=== PATIENT | male | born 1955 | race Caucasian/White ===

== ENCOUNTER 2017-09-10 22:27 | Inpatient (IN) ==
[2017-09-10] MEDS ORDERED: Ipratropium/Albuterol Neb 3 ML IH ONE (22:39)
--- NOTE | 2017-09-10 22:47 | Emergency Department Note ---
Disposition Clinical Impression: CAP (community acquired pneumonia) Qualifiers: Laterality: right Lung location: middle lobe of lung Qualified Code(s): J18.1 - Lobar pneumonia, unspecified organism Disposition: Admitted As Inpatient Condition: Fair Referrals: Deonte Kauffman Jr, MD [Partnered Physician] - Forms: ED Satisfaction Letter SOB HPI - General Chief Complaint: ED Shortness of Breath/Dyspnea Stated Complaint: CONNIE Time Seen by Provider: 09/10/17 22:39 Source: patient, family, EMS Mode of arrival: EMS Limitations: no limitations Nursing Notes Reviewed: Yes Vital Signs Reviewed: Yes - History of Present Illness Pt Subjective Complaint: shortness of breath, cough Onset (ago): week(s) (1) Context: recent illness Severity: moderate Consistency/Duration: gradually worsening Improves with: rest, upright position Worsens with: lying flat, exertion, coughing Known history of: diabetes, other (Small cell lung cancer - in remission, status post chemotherapy and radiation therapy) Associated symptoms: Reports: fever, cough, sputum production, orthopnea, other (Weak all over). Denies: chest pain, pain with inspiration, wheezing, lower extremity pain, polyuria, polydipsia, parasthesias, palpitations, hemoptysis, diaphoresis, nausea/vomiting, syncope, abdominal pain, rash Treatment prior to arrival: other ("mucinex") Cough present: Yes Cough Description: Voluntary, Involuntary, Non-Productive, Productive, Weak, Rattling, Hoarse Cough Frequency: Intermittent Sputum production: Yes Sputum Amount: Scant Sputum Color: White - Related Data Home oxygen amount: none Home Medications Medication Instructions Recorded Confirmed Albuterol Sulfate [Proair Hfa] 1 puff IH PRN PRN 05/21/15 04/04/17 Budesonide/Formoterol Fumarate 2 puff IH BID 05/21/15 04/04/17 [Symbicort 160-4.5 Mcg Inhaler] Metformin [Glucophage] 500 mg PO DAILY 05/21/15 04/04/17 PredniSONE [Deltasone] 10 mg PO DAILY 07/06/16 04/04/17 Previous Rx's Medication Instructions Recorded Oxycodone HCl 0.5 - 1 tab PO Q4H PRN #120 tablet 03/20/17 Cyclobenzaprine [Flexeril] 10 mg PO Q6H PRN #60 tablet 04/04/17 Levofloxacin [Levaquin] 500 mg PO DAILY #7 tablet 04/04/17 OxyCODONE Immed Rel [Roxicodone 5 5 mg PO Q8HR PRN #60 tablet 04/10/17 MG] OxyCODONE Immed Rel [Roxicodone 5 2 tab PO Q8HR PRN #90 tablet 04/21/17 MG] Allergies Allergy/AdvReac Type Severity Reaction Status Date / Time No Known Allergies Allergy Verified 09/10/17 22:38 All systems ED: reviewed and negative except as stated. Review of Systems: As Per HPI Constitutional: Reports: as per HPI, fever, chills, weakness. Denies: weight change, night sweats Eyes: Denies: eye discharge ENT ED: Denies: ear pain, throat pain, congestion, dysphagia Cardiovascular: Reports: dyspnea on exertion, orthopnea. Denies: chest pain, palpitations, edema ("No more than usual - a little in feet and ankles") Respiratory: Reports: as per HPI, cough, dyspnea, sputum production. Denies: wheezes, hemoptysis, stridor Gastrointestinal: Denies: abdominal pain, nausea, vomiting, diarrhea Musculoskeletal: Reports: back pain ("Chronic - no worse than usual"). Denies: neck pain, joint swelling, arthralgia Integumentary: Denies: rash Neurological: Reports: weakness ("all over"). Denies: headache, numbness, paresthesias, confusion, vertigo Endocrine: Reports: fatigue Hematological/Lymphatic: Denies: easy bleeding, easy bruising, lymphadenopathy Past Medical History - Past Medical History Attestation: Yes The following information was validated with the patient. Source: patient, obtained from family Medical history: Reports: atrial fibrillation, cancer, COPD, diabetes, osteoporosis Psychiatric history: Reports: no psych history - Social History Smoking Status: Current every day smoker Smokeless Tobacco Status: No Alcohol use: Reports: none Drug use: Reports: none Physical Exam - General Limitations: no limitations General appearance: alert, in no apparent distress - Head Head exam: atraumatic, normocephalic, normal inspection - Eye Eye exam: Present: normal appearance, PERRL. Absent: scleral icterus, conjunctival injection, periorbital swelling, periorbital tenderness - ENT ENT exam: mucous membranes dry - Neck Neck exam: Present: normal inspection, full ROM, trachea midline. Absent: meningismus, lymphadenopathy - Chest Chest inspection: Present: normal inspection, symmetric chest wall rise. Absent : tenderness - Respiratory Respiratory exam: Present: respiratory distress (mildly tachypneic). Absent: normal lung sounds bilaterally, wheezes, stridor, accessory muscle use, prolonged expiratory phase - Expanded Respiratory Exam Location: rhonchi: Right, Upper, Lower, decreased breath sounds: Right, Lower - Cardiovascular Cardiovascular exam: Present: normal rhythm, tachycardia, normal heart sounds. Absent: systolic murmur, diastolic murmur - Abdominal Exam Abdominal exam: Present: soft, Non-Tender. Absent: distention, guarding, rebound, rigidity, ascites, mass - Extremities Exam Extremities exam: Present: full ROM, normal capillary refill, pedal edema (1+ non-pitting bilateral feet and ankles). Absent: tenderness - Back Exam Back exam: Present: normal inspection. Absent: tenderness, rashes - Neurological Exam Neurological exam: Present: alert, oriented X3, CN II-XII intact - Psychiatric Psychiatric exam: Present: normal affect, normal mood - Skin Skin exam: Present: warm, dry, intact, normal color Course Course Narrative: 62-year-old male with history of small cell lung cancer in remission for several years, status post chemotherapy and radiation as well as diabetes on metformin. Patient presents for evaluation of cough, fever, shaking chills, shaking chills, shortness of breath, generalized malaise and weakness for about a week. The cough was initially productive of thick white sputum, but for the past two days, it has not been productive and he has felt short of breath. He denies hemoptysis and has no history of DVT or PE. He has had no recent surgery or procedure. He denies chest pain, leg pain or swelling, nausea, vomiting, diarrhea or abdominal pain. He has had weakness in his legs as well as generalized weakness all day today. This is what finally convinced him to come in for evaluation. On exam, he has a fever, is tachypneic, tachycardic and hypoxic. He has coarse rhonchi in the right middle and lower lung. He is tachypneic, but is able to speak in short complete sentences. He appears uncomfortable but nontoxic. Blood pressure is normal. He denies chest pain, leg or abdominal pain. He does have chronic back pain, however, it is no worse than usual. Labs, EKG and x-ray have been ordered. I suspect pneumonia. Patient's EKG shows sinus tachycardia with a normal rhythm. No ST elevation or depression. Morphology is unchanged compared to previous. Labs indicate an acute infectious process with an elevated white blood cell count of 20 and a prevalence of neutrophils. Blood sugar is elevated. Lactate is 2.1. LFTs are mildly elevated, but have been in the past as well. Troponin is normal. Chest x-ray was read as chronic changes, possible infiltrate could be present. Blood cultures were drawn and antibiotics were started. Patient continues to be tachycardic in the one teens to 120s. He has had 1-1/2 L of fluid. Fever has come down and respiratory rate has improved, however he is still hypoxic - 92% on 4 L nasal cannula. Blood pressure is stable. Given the patient's multiple comorbidities and oxygen requirement, we will admit for further evaluation and management. Case has been discussed with Dr. Krishna. He has had face-to- face time with the patient and agrees with the assessment and plan. Vital Signs Temperature 100.2 F H 09/10/17 22:28 Pulse Rate 133 09/10/17 22:28 Respiratory Rate 24 09/10/17 22:28 Blood Pressure 119/84 09/10/17 22:28 O2 Sat by Pulse Oximetry 92 09/10/17 22:28 Temperature 100.2 F H 09/10/17 22:28 Pulse Rate 133 09/10/17 22:28 Respiratory Rate 24 09/10/17 22:28 Blood Pressure 119/84 09/10/17 22:28 O2 Sat by Pulse Oximetry 92 09/10/17 22:28 Oxygen Delivery Oxygen Delivery Nasal Cannula Shortness of Breath/Dyspnea - Medical Records Medical records reviewed: Yes I reviewed the patient's medical records. - Lab Data Lab results reviewed: Yes I reviewed the patient's lab results. Lab results narrative: Laboratory Last Values WBC 20.5 K/mcL (4.3-11.1) H 09/10/17 23:10 RBC 4.58 M/mcL (4.19-5.50) 09/10/17 23:10 Hgb 15.2 g/dL (12.9-16.9) 09/10/17 23:10 Hct 44.0 % (37.5-50.1) 09/10/17 23:10 MCV 96.1 fL (83.0-100.0) 09/10/17 23:10 MCH 33.2 pg (28.0-33.3) 09/10/17 23:10 MCHC 34.5 g/dL (31.6-35.5) 09/10/17 23:10 RDW 12.5 % (11.5-14.5) 09/10/17 23:10 Plt Count 230 K/mcL (140-400) 09/10/17 23:10 MPV 9.1 fL (9.4-12.4) L 09/10/17 23:10 Immature Gran % 0.6 % (0-4) 09/10/17 23:10 Seg Neutrophils % 90.8 % 09/10/17 23:10 Lymphocytes % 3.2 % 09/10/17 23:10 Monocytes % 5.2 % 09/10/17 23:10 Eosinophils % 0.1 % 09/10/17 23:10 Basophils % 0.1 % 09/10/17 23:10 Neutrophils # 18.6 K/mcL (1.6-8.9) H 09/10/17 23:10 Lymphocytes # 0.7 K/mcL (0.6-4.6) 09/10/17 23:10 Monocytes # 1.1 K/mcL (0.0-1.3) 09/10/17 23:10 Eosinophils # 0.0 K/mcL (0.0-0.6) 09/10/17 23:10 Basophils # 0.0 K/mcL (0.0-0.2) 09/10/17 23:10 PT 12.6 Seconds (9.4-12.1) H 09/10/17 23:10 INR 1.2 09/10/17 23:10 APTT 29.8 Seconds (26.0-36.0) 09/10/17 23:10 Sodium 134 mEq/L (136-145) L 09/10/17 23:10 Potassium 4.3 mEq/L (3.5-4.5) 09/10/17 23:10 Chloride 102 mEq/L (98-109) 09/10/17 23:10 Carbon Dioxide 22 mEq/L (19-29) 09/10/17 23:10 BUN 15 mg/dL (8-26) 09/10/17 23:10 Creatinine 0.87 mg/dL (0.72-1.25) 09/10/17 23:10 Est GFR ( Amer) > 60 (> 60) 09/10/17 23:10 Est GFR (Non-Af Amer) > 60 (> 60) 09/10/17 23:10 BUN/Creatinine Ratio 17 (6-26) 09/10/17 23:10 Glucose 279 mg/dL (70-99) H 09/10/17 23:10 Calculated Osmolality 289 (280-300) 09/10/17 23:10 Lactic Acid 2.1 mmol/L (0.5-2.2) 09/10/17 23:10 Calcium 9.2 mg/dL (8.6-10.8) 09/10/17 23:10 Total Bilirubin 0.6 mg/dL (0.2-1.2) 09/10/17 23:10 Direct Bilirubin 0.3 mg/dL (0.0-0.5) 09/10/17 23:10 Indirect Bilirubin 0.3 mg/dL (0.0-1.2) 09/10/17 23:10 AST 33 Units/L (5-34) 09/10/17 23:10 ALT 58 Units/L (0-55) H 09/10/17 23:10 Alkaline Phosphatase 92 Units/L (38-126) 09/10/17 23:10 Troponin I 0.00 ng/mL (0-0.03) 09/10/17 23:10 B-Natriuretic Peptide 35 pg/mL (0-100) 09/10/17 23:10 Serum Total Protein 7.8 g/dL (6.0-8.3) 09/10/17 23:10 Albumin 3.0 g/dL (3.5-5.0) L 09/10/17 23:10 Globulin 4.8 g/dL (2.4-3.5) H 09/10/17 23:10 Albumin/Globulin Ratio 0.6 (1.1-2.2) L 09/10/17 23:10 Result diagrams: 09/10/17 23:10 Lab Results 09/10/17 09/10/17 Range/Units 23:10 23:10 WBC 20.5 H (4.3-11.1) K/mcL RBC 4.58 (4.19-5.50) M/mcL Hgb 15.2 (12.9-16.9) g/dL Hct 44.0 (37.5-50.1) % MCV 96.1 (83.0-100.0) fL MCH 33.2 (28.0-33.3) pg MCHC 34.5 (31.6-35.5) g/dL RDW 12.5 (11.5-14.5) % Plt Count 230 (140-400) K/mcL MPV 9.1 L (9.4-12.4) fL Immature Gran % 0.6 (0-4) % Seg Neutrophils % 90.8 % Lymphocytes % 3.2 % Monocytes % 5.2 % Eosinophils % 0.1 % Basophils % 0.1 % Neutrophils # 18.6 H (1.6-8.9) K/mcL Lymphocytes # 0.7 (0.6-4.6) K/mcL Monocytes # 1.1 (0.0-1.3) K/mcL Eosinophils # 0.0 (0.0-0.6) K/mcL Basophils # 0.0 (0.0-0.2) K/mcL PT 12.6 H (9.4-12.1) Seconds INR 1.2 - Radiology Data Radiology results reviewed: Yes I reviewed the patient's radiology results. Chest X-Ray 09/10/17 22:39 IMPRESSION: Stable post treatment/radiation changes in the right infrahilar region. Emphysema and pulmonary fibrosis. No definite acute disease. Small or early superimposed infiltrate may be difficult to visualize due to the extensive chronic disease. D/ / Tyler Cuello MD / Tyler Cuello MD Interpreting Provider: Tyler Cuello MD - EKG Data EKG attestation: Yes I reviewed and interpreted this EKG. EKG shows normal: Reports: sinus rhythm Rate: Reports: tachycardia Rhythm: Reports: NSR [place]/QRS: Reports: normal When compared to previous EKG there are: no significant changes Interpretation: Reports: no acute changes
[2017-09-10 23:19] LABS: Basophils % 0.1 %; Eosinophils % 0.1 %; Hemoglobin 15.2 g/dL (12.9-16.9); Immature Granulocytes % 0.6 % (0-4); Lymphocytes # 0.7 K/mcL (0.6-4.6); Lymphocytes % 3.2 %; Mean Corpuscular HGB Conc 34.5 g/dL (31.6-35.5); Mean Corpuscular Hemoglobin 33.2 pg (28.0-33.3); Mean Corpuscular Volume 96.1 fL (83.0-100.0); Mean Platelet Volume 9.1 fL (9.4-12.4); Monocytes # 1.1 K/mcL (0.0-1.3); Monocytes % 5.2 %; Neutrophils # 18.6 K/mcL (1.6-8.9); Platelet Count 230 K/mcL (140-400); Red Blood Count 4.58 M/mcL (4.19-5.50); Red Cell Distribution Width 12.5 % (11.5-14.5); Segmented Neutrophils % 90.8 %
[2017-09-10 23:25] LABS: INR 1.2; Prothrombin Time 12.6 Seconds (9.4-12.1)
[2017-09-10 23:28] LABS: Activated Partial Thrombo Time 29.8 Seconds (26.0-36.0)
[2017-09-10] MEDS ORDERED: Azithromycin 500 MG in D5% in Water 250 ML IVPB ONE (23:33)
[2017-09-10 23:34] LABS: Alanine Aminotransferase 58 Units/L (0-55); Albumin/Globulin Ratio 0.6 (1.1-2.2); Alkaline Phosphatase 92 Units/L (38-126); Aspartate Amino Transferase 33 Units/L (5-34); BUN/Creatinine Ratio 17 (6-26); Bilirubin,Direct 0.3 mg/dL (0.0-0.5); Bilirubin,Indirect 0.3 mg/dL (0.0-1.2); Bilirubin,Total 0.6 mg/dL (0.2-1.2); Blood Urea Nitrogen 15 mg/dL (8-26); Calcium 9.2 mg/dL (8.6-10.8); Carbon Dioxide 22 mEq/L (19-29); Chloride 102 mEq/L (98-109); Globulin 4.8 g/dL (2.4-3.5); Glucose 279 mg/dL (70-99); Osmolality,Calculated 289 (280-300); Potassium 4.3 mEq/L (3.5-4.5); Sodium 134 mEq/L (136-145); Total Protein 7.8 g/dL (6.0-8.3); eGFR For African Americans > 60 (> 60); eGFR For Non-African Americans > 60 (> 60)
[2017-09-10] MEDS ORDERED: 0.9 % Sodium Chloride 1,000 ML IVC ONE ×2 (23:37)
[2017-09-10] MEDS ORDERED: cefTRIAXone 1,000 MG in Water for inj. (sterile) 10 ML IVP ONE (23:45)
--- NOTE | 2017-09-11 | Emergency Department Note ---
Attestation Statement - Attestation Attestation: I, Sj Krishna MD, personally evaluated this patient and discussed their management with the midlevel provicer, PAC/CHECKER CASHIER. I reviewed the midlevel provider 's note and agree with the documented findings, medical decision making, and plan of care. 62-year-old male presents to the emergency department complaining of increased cough and shortness of breath for about the past week which was given getting progressively worse. He also has chronic back pain and states that that is really what brought him in tonight was that the was hurting so bad he could not get up to go to the bathroom. Patient received nebulizer treatments in route with minimal improvement. On arrival here the patient's heart rate was in the 130s and he is febrile and in [id number] respiratory distress. On examination patient is a morbidly obese male in no acute distress. He is alert and oriented 3. There is no cyanosis. He is mildly clammy. Breath sounds are decreased bilaterally with diffuse bilateral coarse expiratory wheezes and right posterior lower lobe rales on inspiration. Heart is tachycardic and regular. Abdomen is soft nontender. 1+ pitting edema of the lower extremities bilaterally. EKG shows sinus tachycardia. Chest x-ray shows: Stable post treatment/ radiation changes in the right infrahilar region. Emphysema and pulmonary fibrosis. No definite acute disease. Small or early superimposed infiltrate may be difficult to visualize due to the extensive chronic disease. Labs reviewed. The hospitalist, Dr. Perez, was consulted and accepted admission of the patient.
[2017-09-11] MEDS ORDERED: *HR* OxyCODONE/APAP 5/325 TABLET PO ONE (00:24)
[2017-09-11] MEDS ORDERED: Ondansetron 4 MG/2 ML VIAL IVP PRN (02:50)
[2017-09-11] MEDS ORDERED: Naloxone 0.4 MG/ML INJ IVP PRN (02:50)
[2017-09-11] MEDS ORDERED: *HR* Morphine 2 MG/ML SYRINGE IVP PRN (02:50)
[2017-09-11] MEDS ORDERED: Acetaminophen 325 MG TABLET PO PRN (02:50)
[2017-09-11] MEDS ORDERED: D5% in Water 1,000 ML IVC PRN (02:56)
[2017-09-11] MEDS ORDERED: *HR* Dextrose 50 % in Water (Syg) 50 ML SYRINGE IVP PRN (02:56)
[2017-09-11] MEDS ORDERED: Dextrose Gel 15 GM PO PRN ×2 (02:56)
--- NOTE | 2017-09-11 02:58 | Internal Med History&Physical ---
Date of Encounter: 09/11/17 Time of Encounter: 02:45 Assessment and Plan (1) Acute on chronic respiratory failure with hypoxia Current visit: Yes Status: Acute Acute on chronic hypoxic respiratory failure - initially to acute exacerbation of advanced COPD and community-acquired pneumonia, present on admission Continue DuoNeb breathing treatment, IV Solu-Medrol, IV Rocephin, IV Azithromycin, Symbicort O2 2 L via NC, IV Morphine PRN, Mucomyst inhalation Incentive spirometry WBC - 20.5 EKG - sinus tachycardia with no acute ST-T changes Lactic acid - 1.5 Troponin - 0.00 BNP - 35 Chest x-ray - emphysema and pulmonary fibrosis, stable postradiation changes, possible early superimposed infiltrate Echocardiogram (01/31/2017) - LVEF 55-60%, mild LVH, mild LV diastolic dysfunction, no obvious valvular dysfunction Cardiac telemetry, pulse ox, labs in a.m., monitor closely (2) CAP (community acquired pneumonia) Current visit: Yes Status: Acute Sepsis, present on admission secondary to community-acquired pneumonia, likely bacterial Patient does have elevated white count, tachypnea and tachycardia Continue empiric IV Rocephin, IV Azithromycin and DuoNeb breathing treatment Cultures - pending Chest x-ray - stable post radiation changes, emphysema, pulmonary fibrosis, early superimposed infiltrate possible WBC - 20.5 Lactic acid - 1.5 Qualifiers: Laterality: right Lung location: unspecified part of lung Qualified Code( s): J18.9 - Pneumonia, unspecified organism (3) COPD (chronic obstructive pulmonary disease) Current visit: Yes Status: Acute Advanced COPD, O2 dependent - with acute exacerbation Plan as above Patient also has interstitial fibrosis - patient does follow up with Dr. Posada Qualifiers: COPD type: COPD with acute exacerbation Qualified Code(s): J44.1 - Chronic obstructive pulmonary disease with (acute) exacerbation (4) Small cell lung cancer Current visit: Yes Status: Chronic Small cell carcinoma of the right lung - now in remission Status post radiation therapy and chemotherapy Patient follows up with oncology and pulmonology regularly Qualifiers: Laterality: right Qualified Code(s): C34.91 - Malignant neoplasm of unspecified part of right bronchus or lung (5) Diabetes mellitus Current visit: Yes Status: Chronic Type 2 diabetes mellitus, [id number], hyperglycemia Continue insulin sliding scale, glucose checks Patient is on Metformin at home Qualifiers: Diabetes mellitus type: type 2 Diabetes mellitus complication status: without complication Diabetes mellitus ferry terminal agent insulin use: without ferry terminal agent use Qualified Code(s): E11.9 - Type 2 diabetes mellitus without complications (6) DMITRY (obstructive sleep apnea) Current visit: Yes Status: Chronic Chronic obstructive sleep apnea Continue CPAP at night (7) Tobacco abuse Current visit: Yes Status: Acute Chronic tobacco abuse, patient smokes about half pack cigarettes daily Counseled about cessation, nicotine patch (8) Morbid obesity Current visit: Yes Status: Chronic Morbid obesity, BMI 41.1 Advised lifestyle modifications (9) DVT prophylaxis Current visit: Yes Status: Acute Heparin subcutaneous Internal Medicine - H&P: HPI Chief complaint: Shortness of breath, cough Admitted From: Emergency Dept Plans for Post Hospital Care: Home History of present illness: Mr. Fountain is a 62 year old male with past medical history of advanced COPD O2 dependent, small cell lung cancer in remission, diabetes, DMITRY and osteoporosis. Patient presents to the ED with complaints of shortness of breath, cough and fever. Examination of the room. Patient is awake and alert. He is in discomfort due to cough and shortness of breath. He is able to provide history. is at bedside and she provides history as well. Patient states he developed symptoms of shortness of breath and cough about one week ago, but over the past 2-3 days symptoms are gradually worsening. He states his cough is productive of clear sputum. He also complains of wheezing and fatigue and generalized weakness. He states earlier today his generalized weakness was so bad that he was unable to get up and walk. He also complains of subjective fever and chills. Patient states he continues to smoke about half pack of cigarettes daily. states that patient recently received a nebulizer machine, but has not used it as yet. Symptoms are worse than what they are usually. He states it is moderate to severe. Worse with exertion. No alleviating factors. No associated symptoms. Patient denies chest pain or palpitations. Denies headache or dizziness or vomiting. Denies abdominal pain or diarrhea. No other acute complaints. Initial workup in the ED is significant for elevated white count. Chest x-ray shows emphysema and pulmonary fibrosis with no acute disease. Patient has been hypoxic even on supplemental oxygen. Patient is being admitted for acute COPD exacerbation and probable community-acquired pneumonia. He will need breathing treatments and IV antibiotics. Patient and have been explained about his condition and plan of care in detail. They understood and agreed. No unanswered questions. CODE STATUS full code. Past Med Surg Social Fam HX - Past Medical History Medical history: atrial fibrillation, cancer, COPD, diabetes, osteoporosis Psychiatric history: no psych history - Past Surgical History Surgical History: orthopedic, other (Right shoulder arthroscopy) - Social History Smoking Status: Current every day smoker Smokeless Tobacco Status: No Alcohol use: none Drug use: none - Family History Mother Hx Family Cancer: Yes (Pancreatic cancer) Internal Medicine - H&P: Meds Albuterol Sulfate [Proair Hfa] 1 puff IH PRN PRN 05/21/15 [History] Budesonide/Formoterol Fumarate [Symbicort 160-4.5 Mcg Inhaler] 2 puff IH BID 03/30 [History] Metformin [Glucophage] 500 mg PO DAILY 05/21/15 [History] PredniSONE [Deltasone] 10 mg PO DAILY 07/06/16 [History] Oxycodone HCl 0.5 - 1 tab PO Q4H PRN #120 tablet 03/20/17 [Rx] Cyclobenzaprine [Flexeril] 10 mg PO Q6H PRN #60 tablet 04/04/17 [Rx] Levofloxacin [Levaquin] 500 mg PO DAILY #7 tablet 04/04/17 [Rx] OxyCODONE Immed Rel [Roxicodone 5 MG] 5 mg PO Q8HR PRN #60 tablet 04/10/17 [Rx] OxyCODONE Immed Rel [Roxicodone 5 MG] 2 tab PO Q8HR PRN #90 tablet 04/21/17 [Rx] 3 Allergy/AdvReac Type Severity Reaction Status Date / Time No Known Allergies Allergy Verified 09/10/17 22:38 All Systems PM: A 10-system review of systems was performed and is negative for pertinent findings except as documented above in the HPI. - Constitutional Constitutional: fatigue, fever(s), weakness - EENT Eyes: no blurry vision - Cardiovascular Cardiovascular ROS IM: dyspnea, dyspnea on exertion, orthopnea, no chest pain, no edema, no lightheadedness, no palpitations, no syncope - Respiratory Respiratory: cough, dyspnea, dyspnea on exertion, wheezing, chest congestion, no hemoptysis - Gastrointestinal Gastrointestinal: no abdominal pain, no bloating, no cramping, no diarrhea, no loose stools, no melena, no nausea, no vomiting - Genitourinary Genitourinary ROS male: no dysuria - Musculoskeletal Musculoskeletal ROS IM: no back pain - Neurological Neurological ROS: no abnormal gait, no abnormal speech, no confusion, no dizziness, no focal weakness, no loss of vision, no numbness, no tingling - Constitutional Vitals: Temp Pulse Resp BP Pulse Ox 100.2 F H 110 20 128/77 92 09/10/17 22:28 09/11/17 00:51 09/11/17 00:51 09/11/17 00:51 09/11/17 00:51 General appearance: Present: cooperative, mild distress, A&O X 3, morbidly obese , pleasant, answers questions appropriately Exam: Chronically ill-appearing, generalized weakness. Discomfort due to cough and shortness of breath. - Head Head exam: Present: atraumatic - Eye Eye exam: Present: EOMI - ENT ENT exam: Present: mucous membranes dry - Neck Neck exam general surgery: Present: full ROM - Respiratory Respiratory exam: Present: decreased breath sounds (Decreased in all [place]), wheezes (Mild bilateral), tachypnea. Absent: accessory muscle use, rales, respiratory distress, rhonchi - Cardiovascular Cardiovascular exam: Present: RRR, +S1, +S2, tachycardia - GI/Abdominal GI/Abdominal exam: Present: soft (Obese). Absent: distended, firm, guarding, tenderness - Extremities Exam Extremities exam: Present: pedal edema (Trace edema bilateral lower legs), radial pulses palpable and symmetrical. Absent: calf tenderness, cyanotic - Neurological Exam Neurological exam: Present: alert, oriented X3, no focal deficits. Absent: facial droop, speech deficit Internal Med - H&P Results - Labs CBC & Chem 7: 09/10/17 23:10 09/10/17 23:10
[2017-09-11] MEDS ORDERED: 0.9 % Sodium Chloride 1,000 ML IVC SCH (03:00)
[2017-09-11] MEDS: Ipratropium/Albuterol Neb 3 ML IH SCH ×5 (04:09→20:24)
[2017-09-11 04:54] LABS: Basophils % 0.1 %; Hemoglobin 14.4 g/dL (12.9-16.9); Immature Granulocytes % 0.8 % (0-4); Lymphocytes # 0.7 K/mcL (0.6-4.6); Lymphocytes % 3.5 %; Mean Corpuscular HGB Conc 33.5 g/dL (31.6-35.5); Mean Corpuscular Hemoglobin 32.4 pg (28.0-33.3); Mean Corpuscular Volume 96.8 fL (83.0-100.0); Mean Platelet Volume 9.2 fL (9.4-12.4); Monocytes # 0.7 K/mcL (0.0-1.3); Monocytes % 3.7 %; Neutrophils # 17.6 K/mcL (1.6-8.9); Platelet Count 229 K/mcL (140-400); Red Blood Count 4.44 M/mcL (4.19-5.50); Red Cell Distribution Width 12.6 % (11.5-14.5); Segmented Neutrophils % 91.9 %
[2017-09-11 05:06] LABS: Hemoglobin A1C 8.8 %
[2017-09-11 05:09] LABS: BUN/Creatinine Ratio 15 (6-26); Blood Urea Nitrogen 14 mg/dL (8-26); Calcium 9.3 mg/dL (8.6-10.8); Carbon Dioxide 26 mEq/L (19-29); Chloride 101 mEq/L (98-109); Glucose 398 mg/dL (70-99); Magnesium 2.1 mg/dL (1.6-2.6); Osmolality,Calculated 297 (280-300); Potassium 4.5 mEq/L (3.5-4.5); Sodium 135 mEq/L (136-145); eGFR For African Americans > 60 (> 60); eGFR For Non-African Americans > 60 (> 60)
[2017-09-11] MEDS: Acetylcysteine 10% 2 ML INHSOL IH SCH ×3 (05:18→20:24)
[2017-09-11] MEDS: MethylPREDNISolone 40 MG/ML VIAL IVP SCH ×3 (08:51→23:42)
[2017-09-11] MEDS: cefTRIAXone 1,000 MG in Water for inj. (sterile) 10 ML IVP SCH (08:51)
[2017-09-11] MEDS: *HR* Heparin 5,000 UNIT/ML VIAL SQ SCH ×3 (09:29→23:43)
[2017-09-11] MEDS: Nicotine 21 MG PATCH.TD24 TD SCH (09:30)
[2017-09-11] MEDS: Insulin LISPRO 300 UNITS/3 ML VIAL SQ SCH ×4 (09:31→21:18)
--- NOTE | 2017-09-11 10:55 | Internal Med Progress Note ---
<ScottKirk Raul - Last Filed: 09/11/17 10:49> Date of Encounter: 09/11/17 Time of Encounter: 10:49 - Assessment and plan (1) Acute on chronic respiratory failure with hypoxia Current Visit: Yes Status: Acute Assessment and plan: Acute on chronic hypoxic respiratory failure - initially due to acute exacerbation of advanced COPD and community-acquired pneumonia WBC - 20.5 EKG - sinus tachycardia with no acute ST-T changes Lactic acid - 1.5 Troponin - 0.00 BNP - 35 Chest x-ray - emphysema and pulmonary fibrosis, stable postradiation changes, possible early superimposed infiltrate Continue DuoNeb breathing treatment, IV Solu-Medrol, IV Rocephin, IV Azithromycin, Symbicort O2 2 L via NC, IV Morphine PRN, Mucomyst inhalation Incentive spirometry Echocardiogram (01/31/2017) - LVEF 55-60%, mild LVH, mild LV diastolic dysfunction, no obvious valvular dysfunction (2) CAP (community acquired pneumonia) Current Visit: Yes Status: Acute Assessment and plan: - Sepsis, elevated white count, tachypnea and tachycardia - Secondary to community-acquired pneumonia, likely bacterial - Continue empiric IV Rocephin, IV Azithromycin and DuoNeb breathing treatment - Cultures - pending Qualifiers: Laterality: right Lung location: unspecified part of lung Qualified Code( s): J18.9 - Pneumonia, unspecified organism (3) COPD (chronic obstructive pulmonary disease) Current Visit: Yes Status: Acute Assessment and plan: Advanced COPD, O2 dependent - with acute exacerbation Patient also has interstitial fibrosis - follows with Dr. 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 - Patient follows with oncology and pulmonology regularly Qualifiers: Laterality: right Qualified Code(s): C34.91 - Malignant neoplasm of unspecified part of right bronchus or lung (5) Diabetes mellitus Current Visit: Yes Status: Chronic Assessment and plan: Type 2 diabetes mellitus, [id number], hyperglycemia Continue insulin sliding scale, glucose checks Qualifiers: Diabetes mellitus type: type 2 Diabetes mellitus complication status: without complication Diabetes mellitus half-way insulin use: without half-way use Qualified Code(s): E11.9 - Type 2 diabetes mellitus without complications (6) DMITRY (obstructive sleep apnea) Current Visit: Yes Status: Chronic Assessment and plan: Continue CPAP at night (7) Tobacco abuse Current Visit: Yes Status: Acute Assessment and plan: Chronic tobacco abuse, patient smokes about half pack cigarettes daily Counseled about cessation, nicotine patch (8) Morbid obesity Current Visit: Yes Status: Chronic (9) DVT prophylaxis Current Visit: Yes Status: Acute Assessment and plan: Heparin subcutaneous - Subjective Interval history: 62 year old male with past medical history of advanced COPD O2 dependent, small cell lung cancer in remission, diabetes, DMITRY and osteoporosis. Patient presented to the ED 09/10/17 with complaints of shortness of breath, cough, fever, generalized weakness. + Leukocytosis and CXR showed possible infiltrate difficult to visualize due to extensive chronic changes from pulmonary fibrosis - Constitutional Vitals: Temp Pulse Resp BP Pulse Ox 98.2 F 99 18 138/106 93 09/11/17 08:35 09/11/17 08:35 09/11/17 08:52 09/11/17 03:36 09/11/17 08:52 General appearance: Present: cooperative, mild distress, A&O X 3, morbidly obese , pleasant, answers questions appropriately Internal Medicine: Result - Labs CBC & Chem 7: 09/11/17 04:40 09/11/17 04:40 Labs: Short CBC 09/11/17 Range/Units 04:40 WBC 19.1 H (4.3-11.1) K/mcL Hgb 14.4 (12.9-16.9) g/dL Hct 43.0 (37.5-50.1) % Plt Count 229 (140-400) K/mcL Neutrophils # 17.6 H (1.6-8.9) K/mcL BMP 09/11/17 04:40 Sodium 135 L Potassium 4.5 Chloride 101 Carbon Dioxide 26 BUN 14 Creatinine 0.92 Glucose 398 H Calcium 9.3 - ABG Interpretation ABG results: PT/INR, D-dimer PT 12.6 Seconds (9.4-12.1) H 09/10/17 23:10 Consult Discharge Plan - Plan Referrals: Luis Miguel Aguilera, DO [Primary Care Provider] - <Rey Peters H - Last Filed: 09/11/17 12:54> Date of Encounter: 09/11/17 - Constitutional Vitals: Temp Pulse Resp BP Pulse Ox 98.2 F 99 18 138/106 93 09/11/17 08:35 09/11/17 08:35 09/11/17 08:52 09/11/17 03:36 09/11/17 08:52 Internal Medicine: Result - Labs CBC & Chem 7: 09/11/17 04:40 09/11/17 04:40 Labs: Short CBC 09/11/17 Range/Units 04:40 WBC 19.1 H (4.3-11.1) K/mcL Hgb 14.4 (12.9-16.9) g/dL Hct 43.0 (37.5-50.1) % Plt Count 229 (140-400) K/mcL Neutrophils # 17.6 H (1.6-8.9) K/mcL BMP 09/11/17 04:40 Sodium 135 L Potassium 4.5 Chloride 101 Carbon Dioxide 26 BUN 14 Creatinine 0.92 Glucose 398 H Calcium 9.3 - ABG Interpretation ABG results: PT/INR, D-dimer PT 12.6 Seconds (9.4-12.1) H 09/10/17 23:10 - Attending Attestation Acute on chronic hypoxic respiratory failure secondary to acute COPD exacerbation due to community-acquired pneumonia, unknown agent Continue Rocephin and azithromycin, Solu-Medrol, DuoNeb nebs, oxygen therapy I examined this patient and my medical decision-making was reviewed with the Resident Physician. I agree with the documented findings, disposition and treatment plan as described except to the extent set forth below.
--- NOTE | 2017-09-11 11:34 | Electrocardiograph Report ---
[address] [place], [place] [address] Test Date: 2017-09-10 Pat Name: Yandel Fountain Department: 102 Room: [facility] Gender: M Ultrasound Applications Specialist: : [id number] Requested By: Christie Chicas Order Number: [id number] Reading MD: Raleigh Jain MD Measurements Intervals [place] Rate: 135 P: 64 MI: 160 QRS: 70 QRSD: 84 T: 70 QT: 277 QTc: 356 Interpretive Statements SINUS TACHYCARDIA Electronically Signed On 09-11-2017 11:32:53 EST by Raleigh Jain MD
[2017-09-11] MEDS: Budesonide/Formoterol 160/4.5 MDI IH SCH ×2 (18:22→20:24)
[2017-09-11] MEDS ORDERED: *HR* Promethazine 25 MG/ML VIAL IVP PRN (23:15)
[2017-09-11] MEDS ORDERED: Mag Hydrox/Al Hydrox/Simeth 30 ML UDC PO PRN (23:17)
[2017-09-12] MEDS: Ipratropium/Albuterol Neb 3 ML IH SCH ×6 (00:28→21:01)
[2017-09-12] MEDS: *HR* Heparin 5,000 UNIT/ML VIAL SQ SCH ×3 (04:03→17:26)
[2017-09-12] MEDS: Acetylcysteine 10% 2 ML INHSOL IH SCH ×2 (04:12→08:14)
[2017-09-12 07:25] LABS: Basophils % 0.1 %; Hematocrit 41.7 % (37.5-50.1); Immature Granulocytes % 0.5 % (0-4); Lymphocytes # 0.6 K/mcL (0.6-4.6); Lymphocytes % 3.6 %; Mean Corpuscular HGB Conc 33.6 g/dL (31.6-35.5); Mean Corpuscular Hemoglobin 32.3 pg (28.0-33.3); Mean Corpuscular Volume 96.1 fL (83.0-100.0); Mean Platelet Volume 9.4 fL (9.4-12.4); Monocytes # 0.6 K/mcL (0.0-1.3); Monocytes % 3.6 %; Neutrophils # 14.3 K/mcL (1.6-8.9); Platelet Count 245 K/mcL (140-400); Red Blood Count 4.34 M/mcL (4.19-5.50); Red Cell Distribution Width 12.6 % (11.5-14.5); Segmented Neutrophils % 92.2 %
[2017-09-12 07:35] LABS: BUN/Creatinine Ratio 23 (6-26); Blood Urea Nitrogen 18 mg/dL (8-26); Calcium 9.1 mg/dL (8.6-10.8); Carbon Dioxide 27 mEq/L (19-29); Chloride 102 mEq/L (98-109); Glucose 305 mg/dL (70-99); Osmolality,Calculated 297 (280-300); Potassium 4.4 mEq/L (3.5-4.5); Sodium 137 mEq/L (136-145); eGFR For African Americans > 60 (> 60); eGFR For Non-African Americans > 60 (> 60)
[2017-09-12] MEDS ORDERED: *HR* Promethazine 25 MG/ML VIAL IVP PRN (08:12)
[2017-09-12] MEDS: Budesonide/Formoterol 160/4.5 MDI IH SCH ×2 (08:15→21:01)
--- NOTE | 2017-09-12 08:17 | Internal Med Progress Note ---
Date of Encounter: 09/12/17 Time of Encounter: 08:14 - Assessment and plan (1) Acute on chronic respiratory failure with hypoxia Current Visit: Yes Status: Acute Assessment and plan: Acute on chronic hypoxic respiratory failure secondary to acute COPD exacerbation due to sepsis from community-acquired pneumonia, unknown agent Continue Rocephin and azithromycin day 2, Solu-Medrol, DuoNeb nebs, oxygen therapy WBC - 20.5 EKG - sinus tachycardia with no acute ST-T changes Lactic acid - 1.5 Troponin - 0.00 BNP - 35 Chest x-ray - emphysema and pulmonary fibrosis, stable postradiation changes, possible early superimposed infiltrate Continue DuoNeb breathing treatment, IV Solu-Medrol, IV Rocephin, IV Azithromycin, Symbicort O2 2 L via NC, IV Morphine PRN, Mucomyst inhalation Incentive spirometry Echocardiogram (01/31/2017) - LVEF 55-60%, mild LVH, mild LV diastolic dysfunction, no obvious valvular dysfunction (2) CAP (community acquired pneumonia) Current Visit: Yes Status: Acute Assessment and plan: - Sepsis, elevated white count, tachypnea and tachycardia - Secondary to community-acquired pneumonia, likely bacterial - Continue empiric IV Rocephin, IV Azithromycin and DuoNeb breathing treatment - Cultures - pending Qualifiers: Laterality: right Lung location: unspecified part of lung Qualified Code( s): J18.9 - Pneumonia, unspecified organism (3) COPD (chronic obstructive pulmonary disease) Current Visit: Yes Status: Acute Assessment and plan: Advanced COPD, O2 dependent - with acute exacerbation Patient also has interstitial fibrosis - follows with Dr. 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 - Patient follows with oncology and pulmonology regularly Qualifiers: Laterality: right Qualified Code(s): C34.91 - Malignant neoplasm of unspecified part of right bronchus or lung (5) Diabetes mellitus Current Visit: Yes Status: Chronic Assessment and plan: steroid induced hyperglycemia Type 2 diabetes mellitus, [id number], hyperglycemia Continue insulin sliding scale, start levemir 10 units daily, lispro 3 units TID Qualifiers: Diabetes mellitus type: type 2 Diabetes mellitus complication status: without complication Diabetes mellitus vermin exterminator insulin use: without vermin exterminator use Qualified Code(s): E11.9 - Type 2 diabetes mellitus without complications (6) DMITRY (obstructive sleep apnea) Current Visit: Yes Status: Chronic Assessment and plan: Continue CPAP at night (7) Tobacco abuse Current Visit: Yes Status: Acute Assessment and plan: Chronic tobacco abuse, patient smokes about half pack cigarettes daily Counseled about cessation, nicotine patch (8) Morbid obesity Current Visit: Yes Status: Chronic - - Subjective Interval history: Feeling very weak, drained, shortness of breath, denies any chest pain, had constant vomiting last night, no fevers - Constitutional Vitals: Temp Pulse Resp BP Pulse Ox 97.8 F 77 18 120/84 98 09/12/17 07:37 09/12/17 07:37 09/12/17 07:37 09/12/17 07:37 09/12/17 07:37 General appearance: Present: cooperative, mild distress, A&O X 3, morbidly obese , pleasant, answers questions appropriately - Head Head exam: Present: atraumatic, normocephalic - Eye Eye exam: Present: PERRL, conjuntiva pink, sclera anicteric Pupils: Present: PERRL - Neck Neck exam general surgery: Present: supple, trachea midline. Absent: lymphadenopathy - Respiratory Respiratory exam: Present: CTAB, wheezes (very diminished breath sounds, wheezing has improved). Absent: accessory muscle use, rales, rhonchi - Cardiovascular Cardiovascular exam: Present: RRR, +S1, +S2. Absent: diastolic murmur, gallop, rubs, systolic murmur - GI/Abdominal GI/Abdominal exam: Present: normal bowel sounds, soft, no peritoneal signs. Absent: distended, tenderness - Extremities Exam Extremities exam: Present: warm, radial pulses palpable and symmetrical. Absent : calf tenderness, cyanotic, pedal edema - Neurological Exam Neurological exam: Present: CN II-XII intact, oriented X3, no focal deficits. Absent: pronater drift, facial droop, speech deficit - Skin Skin exam: Present: dry, intact Internal Medicine: Result - Labs CBC & Chem 7: 09/12/17 07:00 09/12/17 07:00 Labs: Short CBC 09/12/17 Range/Units 07:00 WBC 15.5 H (4.3-11.1) K/mcL Hgb 14.0 (12.9-16.9) g/dL Hct 41.7 (37.5-50.1) % Plt Count 245 (140-400) K/mcL Neutrophils # 14.3 H (1.6-8.9) K/mcL BMP 09/12/17 07:00 Sodium 137 Potassium 4.4 Chloride 102 Carbon Dioxide 27 BUN 18 Creatinine 0.79 Glucose 305 H Calcium 9.1 - ABG Interpretation ABG results: PT/INR, D-dimer PT 12.6 Seconds (9.4-12.1) H 09/10/17 23:10 Consult Discharge Plan - Plan Referrals: Luis Miguel Aguilera DO [Primary Care Provider] -
[2017-09-12] MEDS ORDERED: Azithromycin 500 MG in D5% in Water 250 ML IVPB SCH ×2 (09:00→10:00)
[2017-09-12] MEDS: cefTRIAXone 1,000 MG in Water for inj. (sterile) 10 ML IVP SCH (09:51)
[2017-09-12] MEDS: MethylPREDNISolone 40 MG/ML VIAL IVP SCH ×2 (09:53→21:23)
[2017-09-12] MEDS: Pantoprazole 40 MG VIAL IVP SCH (09:55)
[2017-09-12] MEDS: Nicotine 21 MG PATCH.TD24 TD SCH (09:56)
[2017-09-12] MEDS: Insulin LISPRO 300 UNITS/3 ML VIAL SQ SCH ×7 (09:59→21:23)
[2017-09-12] MEDS: Insulin DETEMIR 100 UNIT/ML X5UNITS SQ SCH (10:25)
[2017-09-13] MEDS: *HR* Heparin 5,000 UNIT/ML VIAL SQ SCH ×2 (00:07→10:24)
[2017-09-13] MEDS: Ipratropium/Albuterol Neb 3 ML IH SCH ×4 (00:17→11:40)
[2017-09-13] MEDS: Acetylcysteine 10% 2 ML INHSOL IH SCH ×3 (03:21→11:40)
[2017-09-13] MEDS: Budesonide/Formoterol 160/4.5 MDI IH SCH (07:30)
[2017-09-13 07:42] VITALS: BP 126/83
[2017-09-13] MEDS ORDERED: Azithromycin 250 MG TABLET PO ONE (09:47)
--- NOTE | 2017-09-13 09:47 | Discharge Summary ---
Date of Encounter: 09/13/17 Time of Encounter: 09:45 - Discharge Diagnosis (1) Acute on chronic respiratory failure with hypoxia Priority: Primary Status: Acute Comments: Acute on chronic hypoxic respiratory failure secondary to acute COPD exacerbation due to sepsis from community-acquired pneumonia, unknown agent (2) Small cell lung cancer Priority: Secondary Status: Chronic Qualifiers: Laterality: right Qualified Code(s): C34.91 - Malignant neoplasm of unspecified part of right bronchus or lung (3) CAP (community acquired pneumonia) Priority: Secondary Status: Acute Qualifiers: Laterality: right Lung location: unspecified part of lung Qualified Code( s): J18.9 - Pneumonia, unspecified organism (4) COPD (chronic obstructive pulmonary disease) Priority: Secondary Status: Acute Qualifiers: COPD type: COPD with acute exacerbation Qualified Code(s): J44.1 - Chronic obstructive pulmonary disease with (acute) exacerbation (5) Diabetes mellitus Priority: Secondary Status: Chronic Qualifiers: Diabetes mellitus type: type 2 Diabetes mellitus complication status: without complication Diabetes mellitus interlocker maintainer insulin use: without interlocker maintainer use Qualified Code(s): E11.9 - Type 2 diabetes mellitus without complications - Discharge Medications Prescriptions: Cefdinir [Omnicef] 300 mg PO BID #10 capsule predniSONE [PredniSONE] 10 mg PO DAILY 12 Days tablet Home Medications: Albuterol Sulfate [Albuterol Inhaler] 1 puff IH PRN PRN 05/21/15 [History] Budesonide/Formoterol Fumarate [Symbicort 160-4.5 Mcg Inhaler] 2 puff IH BID 03/30 [History] Metformin [Glucophage] 500 mg PO DAILY 05/21/15 [History] Cyclobenzaprine [Flexeril] 10 mg PO Q6H PRN #60 tablet 04/04/17 [Rx] Meloxicam [Mobic] 15 mg PO DAILY 09/11/17 [History] Cefdinir [Omnicef] 300 mg PO BID #10 capsule 09/13/17 [Rx] predniSONE [PredniSONE] 10 mg PO DAILY 12 Days tablet 09/13/17 [Rx] Allergies/Adverse Reactions: 3 Allergy/AdvReac Type Severity Reaction Status Date / Time No Known Allergies Allergy Verified 09/10/17 22:38 Date of admission: 09/11/17 02:51 Primary care physician: Luis Miguel Aguilera DO Consults: 09/12/17 17:43 Consult to Occupational Therapy [CONS] Routine Comment: Evaluate, develop and implement POC Reason for Consult: difficulty bathing self Consult to Physical Therapy [CONS] Routine Comment: Evaluate, develop and implement POC Reason for Consult: difficulty ambulating at home, near fall at home Consult to Dog Trainer [CONS] Routine Reason for SW Consult: needs resources for adl care - Patient Status Disposition: Home, Self-Care Condition: Good Overall status at discharge: patient is progressing back to baseline - Discharge Instructions Follow Up With: Luis Miguel Aguilera DO [Primary Care Provider] - Additional Instructions: Follow up with primary care physician within the next 7 days. Continue prednisone taper, continue antibiotic/Cefdinir for 5 more days. Quit smoking - Diet and Activity Activity: increase activity as tolerated, wear oxygen at all times Diet: diabetic diet Hospital course: Mr. Fountain is a 62 year old male with past medical history of advanced COPD O2 dependent, small cell lung cancer status post radiotherapy in remission, diabetes type II not insulin-dependent, osteoporosis, atrial fibrillation not on anticoagulation, DMITRY, tobacco use and osteoporosis. Patient presented to the ED with complaints of shortness of breath, cough and fever. Patient stated he developed symptoms of shortness of breath and cough about one week ago worse in the past 2-3 days prior to admission, He stated his cough was productive. He also complained of wheezing and fatigue and generalized weakness. He stated his generalized weakness was so bad that he was unable to get up and walk. He also complained of subjective fever and chills. He continues to smoke about half pack of cigarettes daily. states that patient recently received a nebulizer machine, but has not used it as yet. Chest x-ray showed emphysema and pulmonary fibrosis, not able to exclude pneumonia. Patient was been hypoxic even on supplemental oxygen. Was started on Solu-Medrol, Rocephin and azithromycin. The patient's continued to improve. His white blood cell Count came down to 15.5 from prior value of 20.5. Was given the option to stay another day but prefers to go home. Time spent discussing smoking cessation with patient: 3 to 10 minutes - Time Spent with Patient Total time spent providing and/or coordinating discharge services: Greater than 30 minutes (40 min) - Constitutional Vitals: Temp Pulse Resp BP Pulse Ox 97.5 F L 80 16 126/83 96 09/13/17 07:41 11/29/17 07:41 09/13/17 07:41 09/13/17 07:41 09/13/17 07:41 General appearance: Present: cooperative, mild distress, A&O X 3, morbidly obese , pleasant, answers questions appropriately - Head Head exam: Present: atraumatic, normocephalic - Eye Eye exam: Present: PERRL, conjuntiva pink, sclera anicteric Pupils: Present: PERRL - Neck Neck exam general surgery: Present: supple, trachea midline. Absent: lymphadenopathy - Respiratory Respiratory exam: Present: CTAB, wheezes (minimal wheezing). Absent: accessory muscle use, rales, rhonchi - Cardiovascular Cardiovascular exam: Present: RRR, +S1, +S2. Absent: diastolic murmur, gallop, rubs, systolic murmur - GI/Abdominal GI/Abdominal exam: Present: normal bowel sounds, soft, no peritoneal signs. Absent: distended, tenderness - Extremities Exam Extremities exam: Present: warm, radial pulses palpable and symmetrical. Absent : calf tenderness, cyanotic, pedal edema - Neurological Exam Neurological exam: Present: CN II-XII intact, oriented X3, no focal deficits. Absent: pronater drift, facial droop, speech deficit - Skin Skin exam: Present: dry, intact
[2017-09-13] MEDS: Insulin DETEMIR 100 UNIT/ML X5UNITS SQ SCH (10:22)
[2017-09-13] MEDS: Insulin LISPRO 300 UNITS/3 ML VIAL SQ SCH ×4 (10:22→12:31)
[2017-09-13] MEDS: cefTRIAXone 1,000 MG in Water for inj. (sterile) 10 ML IVP SCH (10:23)
[2017-09-13] MEDS: MethylPREDNISolone 40 MG/ML VIAL IVP SCH (10:23)
[2017-09-13] MEDS: Pantoprazole 40 MG VIAL IVP SCH (10:23)
[2017-09-13] MEDS: Nicotine 21 MG PATCH.TD24 TD SCH (10:24)
--- NOTE | 2017-09-13 10:57 | Physician Discharge Referral ---
Home Health/Hosp Referral Info Transfer to: Home Health Provider in Charge Post Discharge: PCP - Diagnosis (1) Acute on chronic respiratory failure with hypoxia Status: Acute (2) Small cell lung cancer Status: Chronic (3) CAP (community acquired pneumonia) Status: Acute (4) COPD (chronic obstructive pulmonary disease) Status: Acute (5) Diabetes mellitus Status: Chronic - Respiratory Orders Oxygen / L per min Smoking Cessation: Smoking cessation has been advised. For more information, call the [place] [employer] Quit Line at [phone]-NOW. - Diet/Nutrition Diet/Nutrition: List: Diabetic diet - Services Needed Home Care Orders: Follow up with primary care physician within the next 7 days. Continue prednisone taper, continue antibiotic/Cefdinir for 5 more days. Quit smoking - Transfer Medications Prescriptions: Cefdinir [Omnicef] 300 mg PO BID #10 capsule predniSONE [PredniSONE] 10 mg PO DAILY 12 Days tablet Home Medications: Albuterol Sulfate [Albuterol Inhaler] 1 puff IH PRN PRN 05/21/15 [History] Budesonide/Formoterol Fumarate [Symbicort 160-4.5 Mcg Inhaler] 2 puff IH BID 03/30 [History] Metformin [Glucophage] 500 mg PO DAILY 05/21/15 [History] Cyclobenzaprine [Flexeril] 10 mg PO Q6H PRN #60 tablet 04/04/17 [Rx] Meloxicam [Mobic] 15 mg PO DAILY 09/11/17 [History] Cefdinir [Omnicef] 300 mg PO BID #10 capsule 09/13/17 [Rx] predniSONE [PredniSONE] 10 mg PO DAILY 12 Days tablet 09/13/17 [Rx] Allergies/Adverse Reactions: 3 Allergy/AdvReac Type Severity Reaction Status Date / Time No Known Allergies Allergy Verified 09/10/17 22:38 Certification: Further, I certify that my clinical findings support that this patient is homebound (i.e. absences from home require considerable and taxing effort and are for medical reasons or [facility] services or infrequently or short duration when for other reasons) because: Homebound Reason: Patient requires assistance of a person or device to safely leave home Attestation: My signature below is to certify that this patient is under my care and that I, or nurse practitioner, or a physician's quality assistant working with me, has a face-to -face encounter with this patient.
== END 2017-09-13 15:35 | disposition home health service (06) | DRG 871 ==
LOC: EMEROO 22:27 → 2NENU 22:27 → SUATTDRO 09-11 02:51 → 3ANU 09-11 16:23
PROVIDERS: ADMIT Family Medicine; ATTEND Internal Medicine

== ENCOUNTER 2018-07-02 07:54 | Inpatient (IN) ==
[2018-07-02] MEDS ORDERED: Acetaminophen 325 MG TABLET PO ONE (08:05)
[2018-07-02] MEDS ORDERED: 0.9 % Sodium Chloride 1,000 ML IVC ONE (08:05)
--- NOTE | 2018-07-02 08:26 | Emergency Department Note ---
Disposition Clinical Impression: Generalized weakness Fall Qualifiers: Encounter type: initial encounter Qualified Code(s): W19.XXXA - Unspecified fall, initial encounter Low back pain Qualifiers: Chronicity: acute Back pain laterality: bilateral Sciatica presence: without sciatica Qualified Code(s): M54.5 - Low back pain Disposition: Admitted As Inpatient Condition: Fair Forms: ED Satisfaction Letter Fall HPI - General Chief Complaint: ED Fall Stated Complaint: fall Time Seen by Provider: 07/02/18 08:02 Source: patient, family, EMS Mode of arrival: EMS Limitations: no limitations Nursing Notes Reviewed: Yes Vital Signs Reviewed: Yes - History of Present Illness Pt Subjective Complaint: fall Onset (ago): hour(s) Fall From: standing Fall Witnessed: no Place Fall Occurred: home Loss of Consciousness: none Prolonged Down Time?: no Symptoms Prior to Fall: none, other ("Just too weak to walk") Context: history of frequent falls (recently) Location of injury: other (none, just having back spasms) Severity: moderate Quality: sharp, stabbing Associated symptoms (after fall): Reports: weakness, unable to walk. Denies: headache, neck pain, numbness, chest pain, shortness of breath, abdominal pain, hematuria, lightheaded, vertigo, confusion - Related Data Home Medications Medication Instructions Recorded Confirmed Duloxetine HCl [Cymbalta] 60 mg PO DAILY 03/14/18 03/14/18 Finasteride [Proscar] 5 mg PO DAILY 03/14/18 03/14/18 Insulin Glargine [Lantus] 20 unit SQ DAILY 03/14/18 03/14/18 Oxybutynin Chloride [Ditropan Xl] 5 mg PO DAILY 03/14/18 03/14/18 Tamsulosin HCl [Flomax] 0.4 mg PO DAILY 03/14/18 03/14/18 Allergies Allergy/AdvReac Type Severity Reaction Status Date / Time No Known Allergies Allergy Verified 03/14/18 11:23 All systems ED: reviewed and negative except as stated. Review of Systems: As Per HPI Constitutional: Reports: weakness. Denies: fever, chills, weight change, night sweats Eyes: Denies: vision change ENT ED: Denies: throat pain, dysphagia Cardiovascular: Reports: dyspnea on exertion (No worse than usual). Denies: chest pain, palpitations, orthopnea, edema, syncope Respiratory: Denies: cough, dyspnea (no worse than usual), wheezes, hemoptysis, stridor, sputum production Gastrointestinal: Denies: abdominal pain Fall PMH - Past Medical History Medical history: Reports: atrial fibrillation, cancer, COPD, diabetes, osteoporosis Surgical history: Reports: orthopedic, other Psychiatric history: Reports: depression - Social History Smoking Status: Former smoker Alcohol use: Reports: none Drug use: Reports: none Physical Exam - General Limitations: no limitations General appearance: alert, in no apparent distress - Head Head exam: atraumatic, normocephalic, normal inspection - Eye Eye exam: Present: normal appearance, PERRL. Absent: scleral icterus, conjunctival injection, periorbital swelling - ENT ENT exam: mucous membranes dry - Neck Neck exam: Present: normal inspection, full ROM, trachea midline. Absent: meningismus, lymphadenopathy - Chest Chest inspection: Present: normal inspection, symmetric chest wall rise - Respiratory Respiratory exam: Present: prolonged expiratory phase. Absent: respiratory distress, wheezes, stridor, accessory muscle use - Cardiovascular Cardiovascular exam: Present: normal rhythm, tachycardia, normal heart sounds - Abdominal Exam Abdominal exam: Present: soft, Non-Tender, normal bowel sounds. Absent: distention, guarding, rebound, ascites, mass, pulsatile mass - Extremities Exam Extremities exam: Present: full ROM, normal capillary refill, pedal edema. Absent: tenderness, joint swelling - Neurological Exam Neurological exam: Present: alert, oriented X3, CN II-XII intact - Psychiatric Psychiatric exam: Present: normal affect, normal mood - Skin Skin exam: Present: warm, dry, intact, normal color Course Course Narrative: Patient presents from home by squad for evaluation of generalized weakness for several weeks. Getting progressively worse. Today he tried to walk from the bathroom to the bedroom and he fell. He states that his legs just would not hold him. After he fell. He was unable to push himself up with his arms. He denies paresthesias, bowel or bladder dysfunction, fever, abdominal pain, change in cough or sputum, worsening shortness of breath. He does have history of COPD and lung cancer. He received chemotherapy and radiation therapy. On exam he appears uncomfortable from back spasms that he has had since his last fall. He was seen here for that fall two weeks ago. He was to be admitted but signed out AGAINST MEDICAL ADVICE. He states that today it is much worse and he is willing to stay if he needs to. Patient is tachycardic. Oxygen saturation is greater than 96% on 2 L by nasal cannula. He is not tachypneic. He is afebrile. He has mild peripheral edema. Crackles in the bases. He has no appreciable asymmetry in his extremity strength. Neuro exam is normal. Labs, EKG and chest x-ray ordered. Patient's labs are stable compared to previous. LFTs mildly elevated blood sugar elevated to 96. Urine is still pending. Troponin normal. CBC normal. EKG shows sinus tach with an old anterior septal infarct unchanged compared to previous. No ST elevation or depression. Chest x-ray was read by the radiologist as stable, No acute abnormality. Hospitalist was contacted for admission of the patient. Patient has been accepted. Case discussed with Dr. Dalton. She has had [id number] time with patient and agrees with the assessment and plan. Vital Signs Temperature 97.5 F L 07/02/18 07:58 Pulse Rate 111 07/02/18 07:58 Respiratory Rate 16 07/02/18 07:58 Blood Pressure 114/85 07/02/18 07:58 O2 Sat by Pulse Oximetry 96 07/02/18 07:58 Temperature 97.5 F L 07/02/18 07:58 Pulse Rate 103 07/02/18 09:07 Respiratory Rate 21 07/02/18 09:07 Blood Pressure 115/97 07/02/18 09:07 O2 Sat by Pulse Oximetry 97 07/02/18 09:07 Oxygen Delivery Oxygen Delivery Nasal Cannula Fall - Medical Records Medical records reviewed: Yes I reviewed the patient's medical records. - Lab Data Lab results reviewed: Yes I reviewed the patient's lab results. Lab results narrative: Laboratory Last Values WBC 9.6 K/mcL (4.3-11.1) 07/02/18 08:16 RBC 4.97 M/mcL (4.19-5.50) 07/02/18 08:16 Hgb 16.1 g/dL (12.9-16.9) D 07/02/18 08:16 Hct 47.0 % (37.5-50.1) 07/02/18 08:16 MCV 94.6 fL (83.0-100.0) 07/02/18 08:16 MCH 32.4 pg (28.0-33.3) 07/02/18 08:16 MCHC 34.3 g/dL (31.6-35.5) 07/02/18 08:16 RDW 12.4 % (11.5-14.5) 07/02/18 08:16 Plt Count 204 K/mcL (140-400) 07/02/18 08:16 MPV 9.2 fL (9.4-12.4) L 07/02/18 08:16 Immature Gran % 0.5 % (0-4) 07/02/18 08:16 Seg Neutrophils % 77.2 % 07/02/18 08:16 Lymphocytes % 10.7 % 07/02/18 08:16 Monocytes % 9.9 % 07/02/18 08:16 Eosinophils % 1.5 % 07/02/18 08:16 Basophils % 0.2 % 07/02/18 08:16 Neutrophils # 7.4 K/mcL (1.6-8.9) 07/02/18 08:16 Lymphocytes # 1.0 K/mcL (0.6-4.6) 07/02/18 08:16 Monocytes # 1.0 K/mcL (0.0-1.3) 07/02/18 08:16 Eosinophils # 0.1 K/mcL (0.0-0.6) 07/02/18 08:16 Basophils # 0.0 K/mcL (0.0-0.2) 07/02/18 08:16 Sodium 132 mEq/L (136-145) L 07/02/18 09:18 Potassium 4.1 mEq/L (3.5-5.1) 07/02/18 09:18 Chloride 96 mEq/L (98-107) L 07/02/18 09:18 Carbon Dioxide 29 mEq/L (23-29) 07/02/18 09:18 BUN 15 mg/dL (8-23) 07/02/18 09:18 Creatinine 0.72 mg/dL (0.70-1.30) 07/02/18 09:18 Est GFR ( Amer) > 60 (> 60) 07/02/18 09:18 Est GFR (Non-Af Amer) > 60 (> 60) 09/17/18 09:18 BUN/Creatinine Ratio 21 (6-26) 07/02/18 09:18 Glucose 296 mg/dL (70-105) H 07/02/18 09:18 Calculated Osmolality 286 (280-300) 07/02/18 09:18 Lactic Acid 1.5 mmol/L (0.5-2.2) 07/02/18 09:18 Calcium 9.1 mg/dL (8.6-10.3) 07/02/18 09:18 Phosphorus 2.9 mg/dL (2.7-4.5) 07/02/18 09:18 Magnesium 1.8 mg/dL (1.6-2.6) 07/02/18 09:18 Total Bilirubin 0.9 mg/dL (0.3-1.0) 07/02/18 09:18 AST 44 Units/L (13-39) H 07/02/18 09:18 ALT 70 Units/L (7-52) H 07/02/18 09:18 Alkaline Phosphatase 81 Units/L (34-104) 07/02/18 09:18 Troponin I < 0.03 ng/mL (< 0.04) 07/02/18 08:16 Serum Total Protein 7.0 g/dL (6.4-8.9) 07/02/18 09:18 Albumin 3.7 g/dL (3.5-5.7) 07/02/18 09:18 Globulin 3.3 g/dL (2.4-3.5) 07/02/18 09:18 Albumin/Globulin Ratio 1.1 (1.1-2.2) 07/02/18 09:18 Specimen Rejected Hemolyzed 07/02/18 09:02 Result diagrams: 07/02/18 08:16 07/02/18 09:18 Lab Results 07/02/18 07/02/18 07/02/18 Range/Units 08:16 08:16 09:02 WBC 9.6 (4.3-11.1) K/mcL RBC 4.97 (4.19-5.50) M/mcL Hgb 16.1 D (12.9-16.9) g/dL Hct 47.0 (37.5-50.1) % MCV 94.6 (83.0-100.0) fL MCH 32.4 (28.0-33.3) pg MCHC 34.3 (31.6-35.5) g/dL RDW 12.4 (11.5-14.5) % Plt Count 204 (140-400) K/mcL MPV 9.2 L (9.4-12.4) fL Immature Gran % 0.5 (0-4) % Seg Neutrophils % 77.2 % Lymphocytes % 10.7 % Monocytes % 9.9 % Eosinophils % 1.5 % Basophils % 0.2 % Neutrophils # 7.4 (1.6-8.9) K/mcL Lymphocytes # 1.0 (0.6-4.6) K/mcL Monocytes # 1.0 (0.0-1.3) K/mcL Eosinophils # 0.1 (0.0-0.6) K/mcL Basophils # 0.0 (0.0-0.2) K/mcL Sodium Cancelled Potassium Cancelled Chloride Cancelled Carbon Dioxide Cancelled BUN Cancelled Creatinine Cancelled Est GFR ( Amer) Cancelled Est GFR (Non-Af Amer) Cancelled BUN/Creatinine Ratio Cancelled Glucose Cancelled Calculated Osmolality Cancelled Lactic Acid (0.5-2.2) mmol/L Calcium Cancelled Phosphorus Cancelled Magnesium Cancelled Total Bilirubin Cancelled AST Cancelled ALT Cancelled Alkaline Phosphatase Cancelled Troponin I < 0.03 (< 0.04) ng/mL Serum Total Protein Cancelled Albumin Cancelled Globulin Cancelled Albumin/Globulin Ratio Cancelled Specimen Rejected Hemolyzed 07/02/18 07/02/18 Range/Units 09:18 09:18 WBC (4.3-11.1) K/mcL RBC (4.19-5.50) M/mcL Hgb (12.9-16.9) g/dL Hct (37.5-50.1) % MCV (83.0-100.0) fL MCH (28.0-33.3) pg MCHC (31.6-35.5) g/dL RDW (11.5-14.5) % Plt Count (140-400) K/mcL MPV (9.4-12.4) fL Immature Gran % (0-4) % Seg Neutrophils % % Lymphocytes % % Monocytes % % Eosinophils % % Basophils % % Neutrophils # (1.6-8.9) K/mcL Lymphocytes # (0.6-4.6) K/mcL Monocytes # (0.0-1.3) K/mcL Eosinophils # (0.0-0.6) K/mcL Basophils # (0.0-0.2) K/mcL Sodium 132 L Potassium 4.1 Chloride 96 L Carbon Dioxide 29 BUN 15 Creatinine 0.72 Est GFR ( Amer) > 60 Est GFR (Non-Af Amer) > 60 BUN/Creatinine Ratio 21 Glucose 296 H Calculated Osmolality 286 Lactic Acid 1.5 (0.5-2.2) mmol/L Calcium 9.1 Phosphorus 2.9 Magnesium 1.8 Total Bilirubin 0.9 AST 44 H ALT 70 H Alkaline Phosphatase 81 Troponin I (< 0.04) ng/mL Serum Total Protein 7.0 Albumin 3.7 Globulin 3.3 Albumin/Globulin Ratio 1.1 Specimen Rejected - Radiology Data Radiology results reviewed: Yes I reviewed the patient's radiology results. Chest X-Ray 07/02/18 08:05 IMPRESSION: No significant interval change since 06/27/2018. No new acute cardiopulmonary findings. D/ / Letty Baca MD / Letty Baca MD Interpreting Provider: Letty Baca MD
[2018-07-02 08:30] LABS: Basophils % 0.2 %; Eosinophils # 0.1 K/mcL (0.0-0.6); Eosinophils % 1.5 %; Immature Granulocytes % 0.5 % (0-4); Lymphocytes % 10.7 %; Mean Corpuscular HGB Conc 34.3 g/dL (31.6-35.5); Mean Corpuscular Hemoglobin 32.4 pg (28.0-33.3); Mean Corpuscular Volume 94.6 fL (83.0-100.0); Mean Platelet Volume 9.2 fL (9.4-12.4); Monocytes % 9.9 %; Neutrophils # 7.4 K/mcL (1.6-8.9); Platelet Count 204 K/mcL (140-400); Red Blood Count 4.97 M/mcL (4.19-5.50); Red Cell Distribution Width 12.4 % (11.5-14.5); Segmented Neutrophils % 77.2 %
[2018-07-02 08:32] LABS: Hemoglobin 16.1 g/dL (12.9-16.9)
[2018-07-02 09:50] LABS: Alanine Aminotransferase 70 Units/L (7-52); Albumin 3.7 g/dL (3.5-5.7); Albumin/Globulin Ratio 1.1 (1.1-2.2); Alkaline Phosphatase 81 Units/L (34-104); Aspartate Amino Transferase 44 Units/L (13-39); BUN/Creatinine Ratio 21 (6-26); Bilirubin,Total 0.9 mg/dL (0.3-1.0); Blood Urea Nitrogen 15 mg/dL (8-23); Calcium 9.1 mg/dL (8.6-10.3); Carbon Dioxide 29 mEq/L (23-29); Chloride 96 mEq/L (98-107); Globulin 3.3 g/dL (2.4-3.5); Glucose 296 mg/dL (70-105); Magnesium 1.8 mg/dL (1.6-2.6); Osmolality,Calculated 286 (280-300); Phosphorous 2.9 mg/dL (2.7-4.5); Potassium 4.1 mEq/L (3.5-5.1); Sodium 132 mEq/L (136-145); eGFR For Non-African Americans > 60 (> 60)
--- NOTE | 2018-07-02 11:54 | Emergency Department Note ---
Disposition Clinical Impression: Generalized weakness Fall Qualifiers: Encounter type: initial encounter Qualified Code(s): W19.XXXA - Unspecified fall, initial encounter Low back pain Qualifiers: Chronicity: acute Back pain laterality: bilateral Sciatica presence: without sciatica Qualified Code(s): M54.5 - Low back pain Disposition: Admitted As Inpatient Condition: Fair General Adult HPI - General Chief complaint: ED Fall Stated complaint: fall Time Seen by Provider: 07/02/18 08:02 Source: patient, family, EMS Mode of arrival: EMS Limitations: no limitations - History of Present Illness Pain Scale: 10 - Related Data Home Medications Medication Instructions Recorded Confirmed Duloxetine HCl [Cymbalta] 60 mg PO DAILY 03/14/18 07/02/18 Finasteride [Proscar] 5 mg PO HS 03/14/18 07/02/18 Insulin Glargine [Lantus] 30 unit SQ QPM 03/14/18 07/02/18 Tamsulosin HCl [Flomax] 0.4 mg PO HS 03/14/18 07/02/18 Albuterol Sulfate [Albuterol 2 puff IH Q6HR PRN 07/02/18 07/02/18 Inhaler] Ascorbate Calcium [Vitamin C] 500 mg PO DAILY 07/02/18 07/02/18 predniSONE [PredniSONE] 10 mg PO DAILY 07/02/18 07/02/18 Allergies Allergy/AdvReac Type Severity Reaction Status Date / Time No Known Allergies Allergy Verified 03/14/18 11:23 Constitutional: Reports: weakness. Denies: fever, chills, weight change, night sweats Eyes: Denies: vision change ENT ED: Denies: throat pain, dysphagia Cardiovascular: Reports: dyspnea on exertion (No worse than usual). Denies: chest pain, palpitations, orthopnea, edema, syncope Respiratory: Denies: cough, dyspnea (no worse than usual), wheezes, hemoptysis, stridor, sputum production Gastrointestinal: Denies: abdominal pain Past Medical History - Past Medical History Medical history: Reports: atrial fibrillation, cancer, COPD, diabetes, osteoporosis Surgical history: Reports: orthopedic, other Psychiatric history: Reports: depression - Social History Smoking Status: Former smoker Smokeless Tobacco Status: No Alcohol use: Reports: none Drug use: Reports: none Physical Exam - General Limitations: no limitations General appearance: alert, in no apparent distress Course Vital Signs Temperature 97.5 F L 07/02/18 07:58 Pulse Rate 111 07/02/18 07:58 Respiratory Rate 16 07/02/18 07:58 Blood Pressure 114/85 07/02/18 07:58 O2 Sat by Pulse Oximetry 96 07/02/18 07:58 Temperature 97.8 F 07/02/18 13:17 Pulse Rate 100 07/02/18 13:17 Respiratory Rate 20 07/02/18 13:17 Blood Pressure 120/79 07/02/18 13:17 O2 Sat by Pulse Oximetry 96 07/02/18 13:17 Oxygen Delivery Oxygen Delivery Nasal Cannula Medical Decision Making - Lab Data Result diagrams: 07/02/18 08:16 07/02/18 09:18 Lab Results 07/02/18 07/02/18 07/02/18 Range/Units 08:16 08:16 09:02 WBC 9.6 (4.3-11.1) K/mcL RBC 4.97 (4.19-5.50) M/mcL Hgb 16.1 D (12.9-16.9) g/dL Hct 47.0 (37.5-50.1) % MCV 94.6 (83.0-100.0) fL MCH 32.4 (28.0-33.3) pg MCHC 34.3 (31.6-35.5) g/dL RDW 12.4 (11.5-14.5) % Plt Count 204 (140-400) K/mcL MPV 9.2 L (9.4-12.4) fL Immature Gran % 0.5 (0-4) % Seg Neutrophils % 77.2 % Lymphocytes % 10.7 % Monocytes % 9.9 % Eosinophils % 1.5 % Basophils % 0.2 % Neutrophils # 7.4 (1.6-8.9) K/mcL Lymphocytes # 1.0 (0.6-4.6) K/mcL Monocytes # 1.0 (0.0-1.3) K/mcL Eosinophils # 0.1 (0.0-0.6) K/mcL Basophils # 0.0 (0.0-0.2) K/mcL Sodium Cancelled Potassium Cancelled Chloride Cancelled Carbon Dioxide Cancelled BUN Cancelled Creatinine Cancelled Est GFR ( Amer) Cancelled Est GFR (Non-Af Amer) Cancelled BUN/Creatinine Ratio Cancelled Glucose Cancelled Calculated Osmolality Cancelled Lactic Acid (0.5-2.2) mmol/L Calcium Cancelled Phosphorus Cancelled Magnesium Cancelled Total Bilirubin Cancelled AST Cancelled ALT Cancelled Alkaline Phosphatase Cancelled Troponin I < 0.03 (< 0.04) ng/mL Serum Total Protein Cancelled Albumin Cancelled Globulin Cancelled Albumin/Globulin Ratio Cancelled Specimen Rejected Hemolyzed 07/02/18 07/02/18 Range/Units 09:18 09:18 WBC (4.3-11.1) K/mcL RBC (4.19-5.50) M/mcL Hgb (12.9-16.9) g/dL Hct (37.5-50.1) % MCV (83.0-100.0) fL MCH (28.0-33.3) pg MCHC (31.6-35.5) g/dL RDW (11.5-14.5) % Plt Count (140-400) K/mcL MPV (9.4-12.4) fL Immature Gran % (0-4) % Seg Neutrophils % % Lymphocytes % % Monocytes % % Eosinophils % % Basophils % % Neutrophils # (1.6-8.9) K/mcL Lymphocytes # (0.6-4.6) K/mcL Monocytes # (0.0-1.3) K/mcL Eosinophils # (0.0-0.6) K/mcL Basophils # (0.0-0.2) K/mcL Sodium 132 L Potassium 4.1 Chloride 96 L Carbon Dioxide 29 BUN 15 Creatinine 0.72 Est GFR ( Amer) > 60 Est GFR (Non-Af Amer) > 60 BUN/Creatinine Ratio 21 Glucose 296 H Calculated Osmolality 286 Lactic Acid 1.5 (0.5-2.2) mmol/L Calcium 9.1 Phosphorus 2.9 Magnesium 1.8 Total Bilirubin 0.9 AST 44 H ALT 70 H Alkaline Phosphatase 81 Troponin I (< 0.04) ng/mL Serum Total Protein 7.0 Albumin 3.7 Globulin 3.3 Albumin/Globulin Ratio 1.1 Specimen Rejected Attestation Statement - Attestation Attestation: For this encounter, I have reviewed the SAFE DEPOSIT CLERK or PA documentation, treatment plan, and medical decision making; and I have had face to face time with this patient. Patient to the ED after a fall this morning. Patient fell turning around landing on his left side striking his head. Patient states he is not sure why he has been falling lately. He has been having problems with his back. The tendon MRIs did not find any nerve compressions. States he just feels weak and has trouble raising his legs. On examination he is awake alert oriented moving all extremities. Heart regular lungs clear. Plan. Patient's labs look unremarkable. We will straight catheter urine. Patient is unsafe for discharge home.
[2018-07-02 12:18] LABS: Bilirubin,Urine Small (Negative); Blood,Urine Small (Negative); Clarity,Urine Clear (Clear); Color,Urine Dark Yellow (Yellow); Glucose,Urine (UA) >=1000 mg/dL (Normal); Ketones,Urine 15 mg/dL (Negative); Leukocyte Esterase,Urine Negative (Negative); Nitrite,Urine Negative (Negative); Protein,Urine Trace mg/dL (Neg-Trace); Specific Gravity,Urine > 1.030 (1.010-1.025); Urobilinogen,Urine Normal (Normal)
[2018-07-02 12:22] LABS: Bacteria,Urine None Seen per hpf (None-Few); Squamous Epithelial Cell,Urine Many per lpf (None-Few)
[2018-07-02 13:17] LABS: Hyaline Casts,Urine Few per lpf (None-Few); Mucus,Urine Many (Few)
--- NOTE | 2018-07-02 13:26 | Electrocardiograph Report ---
[place] [facility] Test Date: 2018-07-02 Pat Name: Yandel Fountain Department: [id number] Room: 3B12 Gender: M Hand Stitcher: : [id number] Requested By: Christie Chicas Order Number: [id number] Reading MD: Kar Felder Measurements Intervals Wright Rate: 104 P: 67 CO: 174 QRS: 72 QRSD: 87 T: 60 QT: 323 QTc: 425 Interpretive Statements Sinus tachycardia Anteroseptal infarct, old Electronically Signed On 07-02-2018 13:25:31 EDT by Kar Felder
[2018-07-02] MEDS ORDERED: Naloxone 0.4 MG/ML INJ IVP PRN (14:24)
[2018-07-02] MEDS ORDERED: Acetaminophen 325 MG TABLET PO PRN (14:24)
[2018-07-02] MEDS ORDERED: *HR* Dextrose 50 % in Water (Syg) 50 ML SYRINGE IVP PRN (14:37)
[2018-07-02] MEDS ORDERED: Dextrose Gel 15 GM/37.5 ML TUBE PO PRN ×2 (14:37)
[2018-07-02] MEDS ORDERED: D5% in Water 1,000 ML IVC PRN (14:37)
[2018-07-02] MEDS: traMADol 50 MG TABLET PO PRN ×2 (15:08→21:52)
[2018-07-02] MEDS: 0.9 % Sodium Chloride 1,000 ML IVC SCH (15:09)
--- NOTE | 2018-07-02 15:14 | Internal Med History&Physical ---
Addendum entered and electronically signed by Kar Whitlock CNP 22:33: A.M. team please follow-up w/Dr. Jay on Ortho consult as call was placed for consult but never spoke w/Dr. Jay. Original Note: <Kar Whitlock - Last Filed: 07/02/18 15:51> Date of Encounter: 07/02/18 Time of Encounter: 13:30 Internal Medicine - H&P: HPI Chief complaint: Fall/Bilateral LE Weakness Admitted From: Emergency Dept Plans for Post Hospital Care: Home History of present illness: Mr. Fountain is a 63 year old male w/PMH of small cell lung cancer in remission, COPD, diabetes controlled w/insulin, osteoporosis, and chronic urinary retention presents from the ED w/CC of fall this morning at 6:28 AM. Patient states he was getting out of bed and could not walk due to bilateral LE weakness so he used his walker to walk to the living room and fell when attempting to sit down in a chair. Patient reports hitting head but denies blacking out. Patient states he had similar symptoms last Monday. Patient reports chronic back pain due to degenerative disc disease and 3 chronic fractures of lumbar spine, shortness of breath, and weakness. No alleviating or aggravating factors. Patient denies recent illness, fever, chills, nausea, vomiting, changes in vision, headache, chest pain, cough, chest congestion, abdominal pain, diarrhea, constipation, dizziness, lightheadedness, numbness, tingling, pre-syncope, or syncope. Past Med Surg Social Fam HX - Past Medical History Source: patient, old records reviewed, obtained from family Medical history: cancer (Small cell lung cancer in remission), COPD, diabetes, osteoporosis, other (Chronic urinary retention d/t BPH) Additional medical history: Lung Cancer Right Psychiatric history: depression - Past Surgical History Surgical History: orthopedic, other (Right shoulder x3) Additional surgical history: R Shoulder 2009 - Social History Smoking Status: Former smoker Packs per day: 1 PPD - Reports quitting in May 2018 Smokeless Tobacco Status: No Alcohol use: none Drug use: none Current living situation: Home, With Family Activity Level: Uses cane/walker Recent Out of Country Travel Within the Last 8 Weeks: No Exposure or Possible Exposure to Illness During Travel: No - Family History Mother Race: Family Member Ethnicity: Non- Living Status: Age at : 82 Cause of : Pancreatic cancer Hx Family Cancer: Yes (Pancreatic cancer) Hx Family Musculoskeletal Disorders: Yes (Arthritis) Father History Unknown: Yes Race: Family Member Ethnicity: Non- Living Status: Cause of : Fall off of ladder, paralyzed, didn't live long after accident Brother Race: Family Member Ethnicity: Non- Living Status: Still Living Hx Family Cardiac Disorders: Yes (CAD) Sister Race: Family Member Ethnicity: Non- Living Status: Still Living Hx Family Endocrine Disorder: Yes (DM) Internal Medicine - H&P: Meds Duloxetine HCl [Cymbalta] 60 mg PO DAILY 03/14/18 [History] Finasteride [Proscar] 5 mg PO HS 03/14/18 [History] Insulin Glargine [Lantus] 30 unit SQ QPM 03/14/18 [History] Tamsulosin HCl [Flomax] 0.4 mg PO HS 03/14/18 [History] Albuterol Sulfate [Albuterol Inhaler] 2 puff IH Q6HR PRN 07/02/18 [History] Ascorbate Calcium [Vitamin C] 500 mg PO DAILY 07/02/18 [History] predniSONE [PredniSONE] 10 mg PO DAILY 07/02/18 [History] 3 Allergy/AdvReac Type Severity Reaction Status Date / Time No Known Allergies Allergy Verified 03/14/18 11:23 All Systems PM: A 10-system review of systems was performed and is negative for pertinent findings except as documented above in the HPI. - Constitutional Constitutional: as per HPI, falls, weakness (Bilateral LEs), no chills, no fever (s), no night sweats - EENT Eyes: no change in vision, no discharge, no pain, no photophobia Ears: no ear discharge, no ear pain, no tinnitus Nose, mouth and throat: no dysphagia, no nasal discharge, no neck pain, no sore throat - Breasts Breasts: as per HPI - Cardiovascular Cardiovascular ROS IM: as per HPI, dyspnea, dyspnea on exertion, no chest pain, no diaphoresis, no lightheadedness, no palpitations, no syncope - Respiratory Respiratory: dyspnea, dyspnea on exertion, no cough, no wheezing, no excessive phlegm production - Gastrointestinal Gastrointestinal: no abdominal pain, no diarrhea, no hematemesis, no hematochezia, no melena, no nausea, no vomiting - Genitourinary Genitourinary ROS male: as per HPI, difficulty urinating, urinary hesitancy - Musculoskeletal Musculoskeletal ROS IM: as per HPI, arthralgias, back pain, no numbness, no tingling - Integumentary Integumentary IM: no rash, no unusual bruising - Neurological Neurological ROS: no confusion, no convulsions, no focal weakness, no numbness, no tingling, no tremor(s) - Psychiatric Psychiatric: as per HPI, depression - Endocrine Endocrine IM: as per HPI - Hematologic/Lymphatic Hematologic/Lymphatic: no easy bruising - Allergic/Immunologic Allergic/Immunologic: as per HPI - Constitutional Vitals: Temp Pulse Resp BP Pulse Ox 97.8 F 100 20 120/79 96 07/02/18 13:17 07/02/18 13:17 07/02/18 13:17 07/02/18 13:17 07/02/18 13:17 General appearance: Present: cooperative, A&O X 3, morbidly obese, pleasant, no acute distress, answers questions appropriately Exam: Pt. examined at bedside. Pt. was resting comfortably in bed and has mild wheezes bilaterally on auscultation d/t COPD. Pt. reports bilateral leg weakness causing falls. Chronic back pain d/t compression fxs. Denies any other sx or complaints at this time. VS: 97.8 F temp, HR 100, RR 20 BP 120/79, SpO2 96 % on 4L via NC. Plan of care for falls and PT/OT/Ortho consult discussed w/pt. and family who expressed understanding and agreement. - Head Head exam: Present: atraumatic, normocephalic - Eye Eye exam: Present: PERRL, conjuntiva pink, sclera anicteric Pupils: Present: PERRL - ENT ENT exam: Present: normal exam - Neck Neck exam general surgery: Present: normal inspection, supple, trachea midline. Absent: lymphadenopathy - Respiratory Respiratory exam: Present: accessory muscle use, wheezes. Absent: rales, rhonchi - Cardiovascular Cardiovascular exam: Present: RRR, +S1, +S2. Absent: diastolic murmur, gallop, rubs, systolic murmur - GI/Abdominal GI/Abdominal exam: Present: normal bowel sounds, soft, no peritoneal signs. Absent: distended, tenderness - Rectal Rectal exam: Present: deferred - Additional comments: exam deferred. - Extremities Exam Extremities exam: Present: warm, radial pulses palpable and symmetrical. Absent : calf tenderness, cyanotic, pedal edema - Back Exam Back exam: Present: normal inspection - Neurological Exam Neurological exam: Present: alert, CN II-XII intact, oriented X3, no focal deficits. Absent: pronater drift, facial droop, speech deficit - Psychiatric Psychiatric exam: Present: normal affect, normal mood - Skin Skin exam: Present: dry, intact Internal Med - H&P Results - Labs CBC & Chem 7: 07/02/18 08:16 07/02/18 09:18 Labs: Urine 07/02/18 Range/Units 12:10 Urine Color Dark Yellow (Yellow) Urine Clarity Clear (Clear) Urine pH 6.0 (5.0-8.0) pH Units Ur Specific [place] > 1.030 H (1.010-1.025) Urine Protein Trace (Neg-Trace) mg/dL Urine Glucose (UA) >=1000 H (Normal) mg/dL - EKG Data EKG shows normal: sinus rhythm - EKG Data Prior EKG available for review: yes EKG comments: 07/02/18 15:20 EKG dated 03/30/18 shows sinus rhythm with indeterminate axis and RBBB. EKG dated 07/02/18 shows sinus rhythm with RBBB. - Diagnostic Studies Chest x-ray Additional comments: Impressions Chest X-Ray 07/02/18 08:05 IMPRESSION: No significant interval change since 06/27/2018. No new acute cardiopulmonary findings. D/ / Letty Baca MD / Letty Baca MD Interpreting Provider: Letty Baca MD - Assessment and plan (1) Fall Current Visit: Yes Status: Acute Assessment and plan: Acute on chronic fall. Pt. reports fall this morning at 6:28 AM. Patient states he was getting out of bed and could not walk due to bilateral LE weakness so he used his walker to walk to the living room and fell when attempting to sit down in a chair. Patient reports hitting head but denies blacking out. Patient states he had similar symptoms last Monday. Patient reports chronic back pain due to degenerative disc disease and 3 chronic fractures of lumbar spine. CT of the head/brain ordered. Orthostatic BPs and VS. Falls/safety precautions. Up with assist. Bilateral carotid Dopplers d/t dizziness. Ortho consult ordered d/t CT of lumbar spine on 06/27/18 that showed stable compression fractures of L1, L3, and L4. No evidence of retropulsion. Unchanged bilateral L5 pars interarticularis defects. PT/OT consults ordered to assess for rehabilitation needs. SW consult ordered to assess for home health. Pt. discussed w/Dr. Elias who agrees w/plan of care. Pt. is moderate risk for further morbidity and complications d/t repeated falls r/t chronic back pain and bilateral leg weakness, hx of chronic but stable compression fxs of L1 , L3, and L4; morbid obesity, and risk factors. Observation. Qualifiers: Encounter type: initial encounter Qualified Code(s): W19.XXXA - Unspecified fall, initial encounter (2) Leg weakness, bilateral Current Visit: Yes Status: Acute Assessment and plan: Acute on chronic bilateral leg weakness resulting in falls. Pt. reports chronic lower back pain and CT of the lumbar spine shows stable compression fractures of L1, L3, and L4 with no evidence of retropulsion. Unchanged bilateral L5 pars interarticularis defects. Falls/safety precautions. Up with assist only. PT /OT consults ordered. (3) Hyponatremia Current Visit: Yes Status: Acute Assessment and plan: Acute hyponatremia w/sodium of 132 on admission. Pt. received 1L bolus in ED. Will continue IV fluids @ 75 mLs/HR. Repeat sodium level at 23:00 to ensure that it does not increase >8 mEq in 24 hours. Continuous cardiac telemetry. (4) Elevated liver enzymes Current Visit: Yes Status: Acute Assessment and plan: Acutely elevated liver enzymes. AST 44 and ALT 70 on admission. Pt. denies alcohol use but reports using NSAIDS for chronic back pain. Pt. and family cautioned/educated on use of NSAIDS d/t liver and kidney damage when used in excess. Monitor f/u labs. (5) Low back pain Current Visit: Yes Status: Chronic Assessment and plan: Hx of chronic low back pain that pt. states affects his bilateral LEs causing falls. CT of the lumbar spine on 06/27/18 shows no definitive acute lumbar spine fracture. Stable compression fractures of L1, L3, and L4. No evidence of retropulsion. Unchanged bilateral L5 pars interarticularis defects. Orthopedic consult ordered and I appreciate the consult and recommendations. Stair-step pain medications for pain mgmt. Qualifiers: Chronicity: acute Back pain laterality: bilateral Sciatica presence: without sciatica Qualified Code(s): M54.5 - Low back pain (6) COPD (chronic obstructive pulmonary disease) Current Visit: Yes Status: Chronic Assessment and plan: Hx of chronic COPD. Stable. Continue patient's inhaler and add Xopenex IH when necessary. Supplemental O2 with titration and SPO2 monitoring. CPAP at bedtime. Qualifiers: COPD type: COPD with acute exacerbation Qualified Code(s): J44.1 - Chronic obstructive pulmonary disease with (acute) exacerbation (7) Diabetes mellitus Current Visit: Yes Status: Chronic Assessment and plan: Hx of chronic diabetes controlled by insulin. Continue pts. home dose of insulin and add low-dose correction sliding scale insulin w/hypoglycemic protocol. BG checks ACHS. A1c in a.m. labs. ADA diet. 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 BMI currently 41.1. ADA diet. (9) DMITRY (obstructive sleep apnea) Current Visit: Yes Status: Chronic Assessment and plan: Hx of chronic DMITRY. CPAP HS. Respiratory therapy consult ordered. (10) Small cell lung cancer Current Visit: No Status: Inactive Assessment and plan: Hx of small cell lung cancer. Pt. reports he is currently in remission. (11) DVT prophylaxis Current Visit: Yes Status: Acute Assessment and plan: Heparin 5,000 units SQ Q8HR for DVT prophylaxis. Monitor pt. for signs of bleeding. - Time Spent With Patient Total time spent is greater than 50% in coordination of care (as documented) at patient's floor/unit and/or counseling patient: Greater than 35 minutes <Eduarda Elias - Last Filed: 07/03/18 13:54> Date of Encounter: 07/03/18 Internal Medicine - H&P: HPI History of present illness: Mr. Fountain is a 63 year old male All Systems PM: A 10-system review of systems was performed and is negative for pertinent findings except as documented above in the HPI. - Constitutional Vitals: Temp Pulse Resp BP Pulse Ox 99.1 F 110 15 150/88 93 07/03/18 11:53 07/03/18 11:53 07/03/18 11:53 07/03/18 11:53 07/03/18 11:53 Internal Med - H&P Results - Labs CBC & Chem 7: 07/03/18 04:21 07/03/18 04:21 Labs: Short CBC 07/03/18 Range/Units 04:21 WBC 9.4 (4.3-11.1) K/mcL Hgb 14.3 D (12.9-16.9) g/dL Hct 41.9 (37.5-50.1) % Plt Count 202 (140-400) K/mcL Neutrophils # 7.0 (1.6-8.9) K/mcL BMP 07/02/18 07/03/18 23:10 04:21 Sodium 132 L 133 L Potassium 3.7 Chloride 100 Carbon Dioxide 27 BUN 15 Creatinine 0.54 L Glucose 213 H Calcium 8.6 Liver Function 07/03/18 Range/Units 04:21 Total Bilirubin 0.6 (0.3-1.0) mg/dL AST 27 (13-39) Units/L ALT 54 H (7-52) Units/L Alkaline Phosphatase 75 (34-104) Units/L Albumin 3.4 L (3.5-5.7) g/dL - Impressions ITS Impressions Head CT 07/02/18 15:38 IMPRESSION: No evidence of acute intracranial abnormality. D/ / 07/02/2018 22:06:29 Quincy Estrada MD / [facility] Interpreting Provider: Quincy Estrada MD - Assessment and plan (1) Small cell lung cancer Current Visit: No Status: Inactive (2) COPD (chronic obstructive pulmonary disease) Current Visit: Yes Status: Chronic Qualifiers: COPD type: COPD with acute exacerbation Qualified Code(s): J44.1 - Chronic obstructive pulmonary disease with (acute) exacerbation (3) DVT prophylaxis Current Visit: Yes Status: Acute (4) Morbid obesity Current Visit: Yes Status: Chronic (5) Diabetes mellitus Current Visit: Yes Status: Chronic Qualifiers: Diabetes mellitus type: type 2 Diabetes mellitus middle or intermediate school principal insulin use: without senior care use Diabetes mellitus complication status: without complication Qualified Code(s): E11.9 - Type 2 diabetes mellitus without complications (6) DMITRY (obstructive sleep apnea) Current Visit: Yes Status: Chronic (7) Fall Current Visit: Yes Status: Acute Qualifiers: Encounter type: initial encounter Qualified Code(s): W19.XXXA - Unspecified fall, initial encounter (8) Low back pain Current Visit: Yes Status: Chronic Qualifiers: Chronicity: acute Back pain laterality: bilateral Sciatica presence: without sciatica Qualified Code(s): M54.5 - Low back pain (9) Leg weakness, bilateral Current Visit: Yes Status: Acute (10) Elevated liver enzymes Current Visit: Yes Status: Acute (11) Hyponatremia Current Visit: Yes Status: Acute - Time Spent With Patient Total time spent is greater than 50% in coordination of care (as documented) at patient's floor/unit and/or counseling patient: - Attending Attestation Seen and assessed. Continue management for falls, low back, weakness. Agree with plan per [employer]
[2018-07-02] MEDS: Levalbuterol Neb 1.25 MG/3 ML IH SCH ×2 (15:19→21:45)
[2018-07-02] MEDS: Insulin LISPRO 300 UNITS/3 ML VIAL SQ SCH (17:03)
[2018-07-02] MEDS ORDERED: NON-FORMULARY MEDICATION 1 EACH EACH (Insulin Glargine [Lantus] 30 UNIT) SQ SCH (18:00)
[2018-07-02] MEDS ORDERED: Insulin LISPRO 300 UNITS/3 ML VIAL SQ SCH (21:00)
[2018-07-02] MEDS: Finasteride 5 MG TABLET PO SCH (21:51)
[2018-07-02] MEDS: Insulin DETEMIR 100 UNIT/ML X5UNITS SQ SCH (21:52)
[2018-07-02] MEDS: Nystatin POWDER 30 GM BOTTLE TP SCH (21:54)
[2018-07-02] MEDS: *HR* Heparin 5,000 UNIT/ML VIAL SQ SCH (21:55)
[2018-07-03] MEDS: Levalbuterol Neb 1.25 MG/3 ML IH SCH ×4 (04:21→22:28)
[2018-07-03 04:57] LABS: Basophils % 0.3 %; Eosinophils # 0.2 K/mcL (0.0-0.6); Eosinophils % 1.8 %; Hematocrit 41.9 % (37.5-50.1); Immature Granulocytes % 0.4 % (0-4); Lymphocytes # 1.2 K/mcL (0.6-4.6); Lymphocytes % 12.8 %; Mean Corpuscular HGB Conc 34.1 g/dL (31.6-35.5); Mean Corpuscular Hemoglobin 31.2 pg (28.0-33.3); Mean Corpuscular Volume 91.3 fL (83.0-100.0); Monocytes % 10.4 %; Platelet Count 202 K/mcL (140-400); Red Blood Count 4.59 M/mcL (4.19-5.50); Red Cell Distribution Width 12.6 % (11.5-14.5); Segmented Neutrophils % 74.3 %
[2018-07-03 05:00] LABS: Hemoglobin 14.3 g/dL (12.9-16.9)
[2018-07-03 05:13] LABS: Alanine Aminotransferase 54 Units/L (7-52); Albumin 3.4 g/dL (3.5-5.7); Albumin/Globulin Ratio 1.1 (1.1-2.2); Alkaline Phosphatase 75 Units/L (34-104); Aspartate Amino Transferase 27 Units/L (13-39); BUN/Creatinine Ratio 28 (6-26); Bilirubin,Total 0.6 mg/dL (0.3-1.0); Blood Urea Nitrogen 15 mg/dL (8-23); Calcium 8.6 mg/dL (8.6-10.3); Carbon Dioxide 27 mEq/L (23-29); Chloride 100 mEq/L (98-107); Chol/HDL Ratio 3.9 (0-4.9); Cholesterol 152 mg/dL (< 200); Globulin 3.1 g/dL (2.4-3.5); Glucose 213 mg/dL (70-105); HDL Cholesterol 39 mg/dL (40-59); LDL Cholesterol,Calculated 88 mg/dL (0-99); Magnesium 1.8 mg/dL (1.6-2.6); Osmolality,Calculated 283 (280-300); Potassium 3.7 mEq/L (3.5-5.1); Sodium 133 mEq/L (136-145); Total Protein 6.5 g/dL (6.4-8.9); Triglycerides 124 mg/dL (< 150); eGFR For Non-African Americans > 60 (> 60)
[2018-07-03] MEDS: *HR* Heparin 5,000 UNIT/ML VIAL SQ SCH ×3 (05:56→22:00)
[2018-07-03 07:16] LABS: Estimated Average Glucose 275 mg/dl; Hemoglobin A1C 11.2 %
[2018-07-03] MEDS: Nystatin POWDER 30 GM BOTTLE TP SCH ×2 (08:25→22:00)
[2018-07-03] MEDS: Insulin LISPRO 300 UNITS/3 ML VIAL SQ SCH ×3 (08:25→16:52)
[2018-07-03] MEDS: predniSONE 10 MG TABLET PO SCH (08:25)
[2018-07-03] MEDS: Ascorbic Acid 500 MG TABLET PO SCH (08:27)
[2018-07-03] MEDS ORDERED: Ketorolac 30 MG/ML VIAL IVP PRN (09:03)
--- NOTE | 2018-07-03 09:08 | Internal Med Progress Note ---
Hospitalist Progress Note - Encounter Date of Encounter: 07/03/18 Time of Encounter: 09:05 - Subjective Interval History: Seen and examined at bedside today, continuing to report back pain as well as bilateral lower extremity weakness. He is requesting an increase in pain medication as the tramadol is controlling his pain. Additionally, the patient reports that throughout the last 3 months he has had a loss of bowel and bladder function. Plan of care discussed including consultation to Dr. Jay for further evaluation and recommendations. - Exam Vitals: Temp Pulse Resp BP Pulse Ox 98.3 F 103 15 125/74 93 07/03/18 07:11 07/03/18 07:11 07/03/18 07:11 07/03/18 07:11 07/03/18 07:11 Exam: PHYSICAL EXAMINATION: GENERAL: The patient is an ill-appearing obese male in mild distress due to lower back pain. He is alert and oriented 3. HEENT: Head is normocephalic and atraumatic. Extraocular muscles are intact. Pupils are equal, round, and reactive to light and accommodation. . NECK: Supple. No carotid bruits. No lymphadenopathy or thyromegaly. LUNGS: Clear/diminished to auscultation throughout, AP and L. HEART: Regular rate and rhythm without murmur. ABDOMEN: Soft, nontender, and nondistended. Positive bowel sounds. No hepatosplenomegaly was noted. EXTREMITIES: Without any cyanosis, clubbing, rash, lesions or edema. NEUROLOGIC: Diminished sensation to bilateral lower extremities. Bilateral lower extremities weak, able to overcome gravity, weakness left greater than right. SKIN: No ulceration or induration present. - Assessment and Plan (1) Small cell lung cancer Current Visit: No Status: Inactive (2) COPD (chronic obstructive pulmonary disease) Current Visit: Yes Status: Chronic (3) Morbid obesity Current Visit: Yes Status: Chronic (4) Diabetes mellitus Current Visit: Yes Status: Chronic (5) DMITRY (obstructive sleep apnea) Current Visit: Yes Status: Chronic (6) Fall Current Visit: Yes Status: Acute (7) Low back pain Current Visit: Yes Status: Chronic (8) Leg weakness, bilateral Current Visit: Yes Status: Acute (9) Elevated liver enzymes Current Visit: Yes Status: Acute (10) Hyponatremia Current Visit: Yes Status: Acute (11) DVT prophylaxis Current Visit: Yes Status: Acute Assessment and Plan: continue Heparin 5,000 units SQ Q8HR for DVT prophylaxis - Summary of Assessment and Plan Summary of Assessment and Plan: Patient admitted status post falls. Reporting approximately 3 falls in less than 90 days. Denies any loss of consciousness reports dizziness and disequilibrium. He is a history of chronic compression fractures was recently seen due to low back pain and bilateral lower extremity weakness. Workup at that time included lumbar spine CT 06/27/18 which showed no acute findings; findings of no definite acute lumbar spine fracture, stable compression fractures of L1, L3 and L4 without evidence of retropulsion. Unchanged bilateral L5 pars interarticularis defects. The patient was continued have ambulatory dysfunction and is a safety risk. He reports that over the last couple months he has had urinary and bowel incontinence as well as increasing numbness to bilateral lower extremities. This is concerning for possible cauda equina. As such she is going to require further evaluation. I have consult with Dr. Jya and am awaiting further recommendations. Continue oral steroids, continue Garrett for pain management, continue Toradol. PT/OT for further evaluation. Upon with assist only, ambulate with walker. High risk for falls, initiate falls precautions. Obtain carotid Dopplers for further evaluation as patient is also having dizziness and disequilibrium. Diagnosis: 1-Ambulatory dysfunction 2-falls 3-bilateral leg weakness 7-bbtatudrcypc-ixfwa sodium 133 this morning, appears to be chronic and renal patient's baseline, continue to monitor. 5) elevated liver enzymes-improving 6-low back pain 7 COPD-stable, not in acute exacerbation, continue COPD medications 8) diabetes mellitus-chronic, persistent hyperglycemia noted on labs this morning, continue basal insulin and increase sliding scale coverage 9-morbid obesity-discussed lifestyle modification 10-obstructive sleep apnea 11-small cell lung cancer-per history, in remission per patient, follows with [facility], continue outpatient follow-up as scheduled 12-DVT prophylaxis - Time Spent with Patient Total time spent is greater than 50% in coordination of care (as documented) at patient's floor/unit and/or counseling patient: less than 15 minutes Plan of Care Discussed with: patient Internal Medicine: Result - Labs CBC & Chem 7: 07/03/18 04:21 07/03/18 04:21 Labs: Short CBC 07/03/18 Range/Units 04:21 WBC 9.4 (4.3-11.1) K/mcL Hgb 14.3 D (12.9-16.9) g/dL Hct 41.9 (37.5-50.1) % Plt Count 202 (140-400) K/mcL Neutrophils # 7.0 (1.6-8.9) K/mcL BMP 07/02/18 07/03/18 23:10 04:21 Sodium 132 L 133 L Potassium 3.7 Chloride 100 Carbon Dioxide 27 BUN 15 Creatinine 0.54 L Glucose 213 H Calcium 8.6 Liver Function 07/03/18 Range/Units 04:21 Total Bilirubin 0.6 (0.3-1.0) mg/dL AST 27 (13-39) Units/L ALT 54 H (7-52) Units/L Alkaline Phosphatase 75 (34-104) Units/L Albumin 3.4 L (3.5-5.7) g/dL Urine 07/02/18 Range/Units 12:10 Urine Color Dark Yellow (Yellow) Urine Clarity Clear (Clear) Urine pH 6.0 (5.0-8.0) pH Units Ur Specific [place] > 1.030 H (1.010-1.025) Urine Protein Trace (Neg-Trace) mg/dL Urine Glucose (UA) >=1000 H (Normal) mg/dL - Impressions Impressions Head CT 07/02/18 15:38 IMPRESSION: No evidence of acute intracranial abnormality. 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
[2018-07-03] MEDS: Cholecalciferol (D-3) 1,000 UNIT TABLET PO SCH (11:13)
[2018-07-03] MEDS: *HR* HYDROcodone/Acet 5/325 mg TABLET PO PRN ×2 (11:13→22:25)
[2018-07-03] MEDS: 0.9 % Sodium Chloride 1,000 ML IVC SCH (14:29)
[2018-07-03] MEDS ORDERED: Insulin LISPRO 300 UNITS/3 ML VIAL SQ SCH (21:00)
[2018-07-03] MEDS: Finasteride 5 MG TABLET PO SCH (21:58)
[2018-07-03] MEDS: Insulin DETEMIR 100 UNIT/ML X5UNITS SQ SCH (21:59)
[2018-07-04] MEDS: Levalbuterol Neb 1.25 MG/3 ML IH SCH ×4 (03:41→22:21)
[2018-07-04] MEDS: *HR* Heparin 5,000 UNIT/ML VIAL SQ SCH ×3 (05:29→21:07)
[2018-07-04 07:54] LABS: Alanine Aminotransferase 44 Units/L (7-52); Albumin 3.3 g/dL (3.5-5.7); Albumin/Globulin Ratio 1.1 (1.1-2.2); Alkaline Phosphatase 75 Units/L (34-104); Aspartate Amino Transferase 23 Units/L (13-39); BUN/Creatinine Ratio 24 (6-26); Bilirubin,Total 0.6 mg/dL (0.3-1.0); Blood Urea Nitrogen 14 mg/dL (8-23); Calcium 8.7 mg/dL (8.6-10.3); Carbon Dioxide 27 mEq/L (23-29); Chloride 101 mEq/L (98-107); Glucose 281 mg/dL (70-105); Osmolality,Calculated 289 (280-300); Potassium 3.6 mEq/L (3.5-5.1); Sodium 134 mEq/L (136-145); Total Protein 6.3 g/dL (6.4-8.9); eGFR For Non-African Americans > 60 (> 60)
[2018-07-04 07:55] LABS: Basophils % 0.3 %; Eosinophils # 0.2 K/mcL (0.0-0.6); Eosinophils % 2.1 %; Hematocrit 43.2 % (37.5-50.1); Hemoglobin 14.5 g/dL (12.9-16.9); Immature Granulocytes % 0.4 % (0-4); Mean Corpuscular HGB Conc 33.6 g/dL (31.6-35.5); Mean Corpuscular Hemoglobin 32.2 pg (28.0-33.3); Mean Platelet Volume 9.6 fL (9.4-12.4); Monocytes # 0.8 K/mcL (0.0-1.3); Monocytes % 11.6 %; Platelet Count 184 K/mcL (140-400); Red Cell Distribution Width 12.4 % (11.5-14.5); Segmented Neutrophils % 71.6 %
[2018-07-04] MEDS: predniSONE 10 MG TABLET PO SCH (08:21)
[2018-07-04] MEDS: Ascorbic Acid 500 MG TABLET PO SCH (08:21)
[2018-07-04] MEDS: Cholecalciferol (D-3) 1,000 UNIT TABLET PO SCH (08:21)
[2018-07-04] MEDS: 0.9 % Sodium Chloride 1,000 ML IVC SCH (08:22)
[2018-07-04] MEDS: Nystatin POWDER 30 GM BOTTLE TP SCH ×2 (08:22→21:07)
[2018-07-04] MEDS: Insulin LISPRO 300 UNITS/3 ML VIAL SQ SCH ×4 (08:22→21:06)
[2018-07-04] MEDS: *HR* HYDROcodone/Acet 5/325 mg TABLET PO PRN ×2 (08:26→15:49)
--- NOTE | 2018-07-04 09:22 | Internal Med Progress Note ---
Hospitalist Progress Note - Encounter Date of Encounter: 07/04/18 Time of Encounter: 09:20 - Subjective Interval History: Seen and examined at bedside today, continuing to report back pain as well as bilateral lower extremity weakness. Plan of care discussed including consultation to Dr. Jay for further evaluation and recommendations. - Exam Vitals: Temp Pulse Resp BP Pulse Ox 97.5 F L 103 15 115/81 96 07/04/18 07:31 07/04/18 07:31 07/04/18 07:31 07/04/18 07:31 07/04/18 07:31 Exam: PHYSICAL EXAMINATION: GENERAL: The patient is an ill-appearing obese male in mild distress due to lower back pain. He is alert and oriented 3. HEENT: Head is normocephalic and atraumatic. Extraocular muscles are intact. Pupils are equal, round, and reactive to light and accommodation. . NECK: Supple. No carotid bruits. No lymphadenopathy or thyromegaly. LUNGS: Clear/diminished to auscultation throughout, AP and L. HEART: RRR, S1, S2 without murmur. ABDOMEN: Soft, nontender, and nondistended. Positive bowel sounds. No hepatosplenomegaly was noted. EXTREMITIES: Without any cyanosis, clubbing, rash, lesions or edema. Positive Simental's sign NEUROLOGIC: Diminished sensation to bilateral lower extremities. Bilateral lower extremities weak, able to overcome gravity, weakness greater in LLE SKIN: No ulceration or induration present. - Assessment and Plan (1) Small cell lung cancer Current Visit: No Status: Inactive (2) COPD (chronic obstructive pulmonary disease) Current Visit: Yes Status: Chronic (3) Morbid obesity Current Visit: Yes Status: Chronic Assessment and Plan: (4) Diabetes mellitus Current Visit: Yes Status: Chronic (5) DMITRY (obstructive sleep apnea) Current Visit: Yes Status: Chronic (6) Fall Current Visit: Yes Status: Acute (7) Low back pain Current Visit: Yes Status: Chronic (8) Leg weakness, bilateral Current Visit: Yes Status: Acute (9) Elevated liver enzymes Current Visit: Yes Status: Acute (10) Hyponatremia Current Visit: Yes Status: Acute (11) DVT prophylaxis Current Visit: Yes Status: Acute - Summary of Assessment and Plan Summary of Assessment and Plan: Patient admitted status post falls. Reporting approximately 3 falls in less than 90 days. Denies any loss of consciousness reports dizziness and disequilibrium. He is a history of chronic compression fractures was recently seen due to low back pain and bilateral lower extremity weakness. Workup at that time included lumbar spine CT 06/27/18 which showed no acute findings; findings of no definite acute lumbar spine fracture, stable compression fractures of L1, L3 and L4 without evidence of retropulsion. Unchanged bilateral L5 pars interarticularis defects. The patient was continued have ambulatory dysfunction and is a safety risk. He reports that over the last couple months he has had urinary and bowel incontinence as well as increasing numbness to bilateral lower extremities. This is concerning for possible cauda equina. As such she is going to require further evaluation. I have consult with Dr. Jya and am awaiting further recommendations. Continue oral steroids, continue [place] for pain management, continue Toradol. PT/OT for further evaluation. Upon with assist only, ambulate with walker. High risk for falls, initiate falls precautions. Obtain carotid Dopplers for further evaluation as patient is also having dizziness and disequilibrium. 07/04- d/w Dr. Jay; patient found to have + Simental's sign; concerning for upper motor neuron pathology. Recommend MR T-C spine for further evaluation. Clinically, patient remains stable, no acute changes. Continue treating pain, Diagnosis: 1-Ambulatory dysfunction 2-falls 3-bilateral leg weakness 7-kbrkfdmpzffb-fouph sodium 134 this morning, appears to be chronic and renal patient's baseline, continue to monitor. 5) elevated liver enzymes-improving 6-low back pain 7 COPD-remains stable, not in acute exacerbation, continue COPD medications 8) diabetes mellitus-chronic, persistent hyperglycemia noted on labs this morning, continue basal insulin and increase sliding scale coverage to High SSIC 9-morbid obesity-discussed lifestyle modification 10-obstructive sleep apnea 11-small cell lung cancer-per history, in remission per patient, follows with [facility], continue outpatient follow-up as scheduled 12-DVT prophylaxis - Time Spent with Patient Total time spent is greater than 50% in coordination of care (as documented) at patient's floor/unit and/or counseling patient: less than 15 minutes Plan of Care Discussed with: patient Internal Medicine: Result - Labs CBC & Chem 7: 07/04/18 06:56 07/04/18 06:56 Labs: Short CBC 07/04/18 Range/Units 06:56 WBC 7.0 (4.3-11.1) K/mcL Hgb 14.5 (12.9-16.9) g/dL Hct 43.2 (37.5-50.1) % Plt Count 184 (140-400) K/mcL Neutrophils # 5.0 (1.6-8.9) K/mcL BMP 07/04/18 06:56 Sodium 134 L Potassium 3.6 Chloride 101 Carbon Dioxide 27 BUN 14 Creatinine 0.59 L Glucose 281 H Calcium 8.7 Liver Function 07/04/18 Range/Units 06:56 Total Bilirubin 0.6 (0.3-1.0) mg/dL AST 23 (13-39) Units/L ALT 44 (7-52) Units/L Alkaline Phosphatase 75 (34-104) Units/L Albumin 3.3 L (3.5-5.7) g/dL - Impressions Impressions Lumbar Spine MRI 07/03/18 09:38 IMPRESSION: Acute to subacute L3 compression fracture superimposed on existing chronic compression deformity. Chronic L1 and L4 compression deformities. 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
[2018-07-04] MEDS: Finasteride 5 MG TABLET PO SCH (21:05)
[2018-07-04] MEDS: Insulin DETEMIR 100 UNIT/ML X5UNITS SQ SCH (21:05)
[2018-07-05] MEDS: 0.9 % Sodium Chloride 1,000 ML IVC SCH ×3 (00:05→11:51)
[2018-07-05] MEDS: Levalbuterol Neb 1.25 MG/3 ML IH SCH ×4 (04:15→21:45)
[2018-07-05 05:03] LABS: Basophils % 0.3 %; Eosinophils # 0.2 K/mcL (0.0-0.6); Eosinophils % 2.1 %; Hematocrit 42.8 % (37.5-50.1); Hemoglobin 14.3 g/dL (12.9-16.9); Immature Granulocytes % 0.4 % (0-4); Lymphocytes % 13.4 %; Mean Corpuscular HGB Conc 33.4 g/dL (31.6-35.5); Mean Corpuscular Hemoglobin 31.2 pg (28.0-33.3); Mean Corpuscular Volume 93.4 fL (83.0-100.0); Mean Platelet Volume 8.9 fL (9.4-12.4); Monocytes # 0.8 K/mcL (0.0-1.3); Monocytes % 11.6 %; Neutrophils # 5.2 K/mcL (1.6-8.9); Platelet Count 180 K/mcL (140-400); Red Blood Count 4.58 M/mcL (4.19-5.50); Red Cell Distribution Width 12.5 % (11.5-14.5); Segmented Neutrophils % 72.2 %
[2018-07-05 05:24] LABS: Alanine Aminotransferase 52 Units/L (7-52); Albumin 3.4 g/dL (3.5-5.7); Albumin/Globulin Ratio 1.2 (1.1-2.2); Alkaline Phosphatase 76 Units/L (34-104); Aspartate Amino Transferase 34 Units/L (13-39); BUN/Creatinine Ratio 20 (6-26); Bilirubin,Total 0.6 mg/dL (0.3-1.0); Blood Urea Nitrogen 10 mg/dL (8-23); Calcium 8.8 mg/dL (8.6-10.3); Carbon Dioxide 29 mEq/L (23-29); Chloride 102 mEq/L (98-107); Globulin 2.8 g/dL (2.4-3.5); Glucose 174 mg/dL (70-105); Osmolality,Calculated 285 (280-300); Potassium 3.7 mEq/L (3.5-5.1); Sodium 136 mEq/L (136-145); Total Protein 6.2 g/dL (6.4-8.9); eGFR For Non-African Americans > 60 (> 60)
[2018-07-05] MEDS: *HR* Heparin 5,000 UNIT/ML VIAL SQ SCH ×3 (05:49→21:23)
[2018-07-05] MEDS: predniSONE 10 MG TABLET PO SCH (07:39)
[2018-07-05] MEDS: Ascorbic Acid 500 MG TABLET PO SCH (07:39)
[2018-07-05] MEDS: Cholecalciferol (D-3) 1,000 UNIT TABLET PO SCH (07:39)
[2018-07-05] MEDS: Nystatin POWDER 30 GM BOTTLE TP SCH ×2 (07:40→20:12)
[2018-07-05] MEDS: Insulin LISPRO 300 UNITS/3 ML VIAL SQ SCH ×4 (07:41→20:49)
--- NOTE | 2018-07-05 08:48 | Pulmonology Consult Note ---
<Jarred Posada M - Last Filed: 07/05/18 15:48> Date of Encounter: 07/05/18 Medications and Allergies Duloxetine HCl [Cymbalta] 60 mg PO DAILY 03/14/18 [History] Finasteride [Proscar] 5 mg PO HS 03/14/18 [History] Insulin Glargine [Lantus] 30 unit SQ QPM 03/14/18 [History] Tamsulosin HCl [Flomax] 0.4 mg PO HS 03/14/18 [History] Albuterol Sulfate [Albuterol Inhaler] 2 puff IH Q6HR PRN 07/02/18 [History] Ascorbate Calcium [Vitamin C] 500 mg PO DAILY 07/02/18 [History] predniSONE [PredniSONE] 10 mg PO DAILY 07/02/18 [History] 3 Allergy/AdvReac Type Severity Reaction Status Date / Time No Known Allergies Allergy Verified 03/14/18 11:23 All Systems: The remainder of the systems were reviewed and are negative Results - Laboratory Findings CBC and BMP: 07/05/18 04:32 07/05/18 04:32 Abnormal lab findings: Abnormal lab results MPV 8.9 fL (9.4-12.4) L 07/05/18 04:32 Creatinine 0.51 mg/dL (0.70-1.30) L 07/05/18 04:32 Glucose 174 mg/dL (70-105) H 07/05/18 04:32 POC Glucose 201 mg/dL (70-99) H 07/04/18 21:03 Hemoglobin A1c 11.2 % (-5.6) H 07/03/18 04:21 Serum Total Protein 6.2 g/dL (6.4-8.9) L 07/05/18 04:32 Albumin 3.4 g/dL (3.5-5.7) L 07/05/18 04:32 HDL Cholesterol 39 mg/dL (40-59) L 07/03/18 04:21 Ur Specific Fleischmanns > 1.030 (1.010-1.025) H 07/02/18 12:10 Urine Glucose (UA) >=1000 mg/dL (Normal) H 07/02/18 12:10 Urine Ketones 15 mg/dL (Negative) H 07/02/18 12:10 Urine Blood Small (Negative) H 07/02/18 12:10 Urine Bilirubin Small (Negative) H 07/02/18 12:10 Urine Microscopic RBC 5-15 per hpf (0-3) H 07/02/18 12:10 Urine Microscopic WBC 5-15 per hpf (0-3) H 07/02/18 12:10 Ur Squamous Epith Cells Many per lpf (None-Few) H 07/02/18 12:10 Urine Mucus Many (Few) H 07/02/18 12:10 - Clinical Findings Intake & Output: Intake & Output 07/04/18 07/05/18 07/05/18 23:59 07:59 15:59 Intake Total 1000 / 1000 1480 / 1480 Balance 1000 / 1000 1480 / 1480 Weight 142.2 kg Consult Discharge Plan - Plan Referrals: Luis Miguel Aguilera DO [Primary Care Provider] - - Attending Attestation I examined this patient and my medical decision-making was reviewed with the Resident Physician. I agree with the documented findings, disposition and treatment plan as described except to the extent set forth below. Patient seen and examined. Labs, radiology, chart personally reviewed. 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 Discussed with Dr. Chicas from neurology and reviewed his recommendations as well as recommendations from the surgeon. I have explained to the patient even though his moderate to high risk for postoperative complications and perioperative complications, and appears benefits of surgery outweigh the risks and from pulmonary standpoint he is higher risk but clear for surgery. Some of the complications that explained to patient would be but not limited to prolong mechanical intubation, pneumonia, atelectasis, and COPD exacerbation. Continue bronchodilators and postoperatively he will need incentive spirometry and noninvasive ventilation for sleep apnea and also for COPD. Thank you for consultation and we will continue follow-up. If patient has surgery. Postoperatively with be better to monitor in ICU. <Coleman Lowe - Last Filed: 07/05/18 17:56> Date of Encounter: 07/05/18 Time of Encounter: 10:00 Assessment and Plan (1) COPD (chronic obstructive pulmonary disease) Current Visit: Yes Status: Chronic Clinically stable at this time, however pt has severe disease, along with ILD and DMITRY, which puts him at very high risk for any surgery. Discussed risks and benefits at length with pt and his . Recommend medical management of neuro symptoms if possible, however will defer to neurology. Qualifiers: COPD type: emphysema Emphysema type: panlobular Qualified Code(s): J43.1 - Panlobular emphysema (2) Small cell lung cancer Current Visit: No Status: Inactive In remission Post radiation interstitial markings on the right can be noted on CT chest from March of 2018 ILD puts pt at greater risk for post surgical complications (3) DMITRY (obstructive sleep apnea) Current Visit: Yes Status: Chronic hx of DMITRY puts pt at greater risk for post surgical complications History of Present Illness Consult date: 07/05/18 Reason for consult: COPD, pulmonary fibrosis Chief complaint: weakness History of present illness: Mr. Fountain is a 63M well known to the pulmonology service with PMH of small cell lung cancer currently in remission, COPD, ILD, and DM2. He originally presented to the ED after a fall on 07/02. Head CT was normal. Pt was found to have difficulty ambulating and C spine MRI revealed mild spinal canal narrowing from C3 - C7 and foraminal narrowing in multiple locations. There was also increased T2 signal in at the C3-4 level of the spinal cord likely related to myelomalacia. Evaluation by Dr. Jay was concerning for upper motor neuron findings and progressing diminution of neurologic function. Pulm consult was requested for pulmonary evaluation prior to any surgical intervention. Pt states he has not been ill recently. No fever, chills, increase in cough, increase in sputum production, or change in sputum character. His only complaints are related to his neck and back. Past Med Surg Social Fam HX - Past Medical History Medical history: cancer (Small cell lung cancer in remission), COPD, diabetes, osteoporosis, other (Chronic urinary retention d/t BPH) Additional medical history: Lung Cancer Right Psychiatric history: depression - Past Surgical History Surgical History: orthopedic, other (Right shoulder x3) Additional surgical history: R Shoulder 2009 - Social History Smoking Status: Former smoker Packs per day: 1 PPD - Reports quitting in May 2018 Smokeless Tobacco Status: No Alcohol use: none Drug use: none - Family History Mother Race: Family Member Ethnicity: Non- Living Status: Age at : 82 Cause of : Pancreatic cancer Hx Family Cancer: Yes (Pancreatic cancer) Hx Family Musculoskeletal Disorders: Yes (Arthritis) Father History Unknown: Yes Race: Family Member Ethnicity: Non- Living Status: Cause of : Fall off of ladder, paralyzed, didn't live long after accident Brother Race: Family Member Ethnicity: Non- Living Status: Still Living Hx Family Cardiac Disorders: Yes (CAD) Sister Race: Family Member Ethnicity: Non- Living Status: Still Living Hx Family Endocrine Disorder: Yes (DM) All Systems: The remainder of the systems were reviewed and are negative - Constitutional Constitutional: weakness, no chills, no fever(s), no headache(s), no lethargy - Cardiovascular Cardiovascular: no chest pain, no chest pain at rest, no chest pain with activity, no pedal edema - Respiratory Respiratory: dyspnea on exertion, no cough, no dyspnea, no hemoptysis, no chest congestion, no excessive phlegm production, no change in phlegm color - Gastrointestinal Gastrointestinal: no abdominal pain, no nausea, no vomiting - Musculoskeletal Musculoskeletal: weakness, back pain, neck pain, numbness, tingling - Neurological Neurological: focal weakness, frequent falls, numbness, tingling, weakness, no confusion, no headache(s) Physical Examination Vital Signs: Vital Signs, Last 4 Hours Temp Pulse Resp BP Pulse Ox 07/05/18 07:41 98.0 F 108 15 122/87 95 General appearance: no acute distress, alert Eyes: nonicteric ENT: oropharynx moist Neck: supple, no JVD Effort: normal Inspection: normal Auscultation: bilateral: rales Percussion: bilateral: not dull Tactile fremitus: bilateral: normal Cardiovascular: regular rate and rhythm Gastrointestinal: soft, non-tender, non-distended Integumentary: normal Extremities: no cyanosis, no edema, no clubbing, pink and warm Musculoskeletal: no deformities normal mental status, motor strength normal and symmetric mood appropriate, affect normal Results - Laboratory Findings CBC and BMP: 07/05/18 04:32 07/05/18 04:32 Abnormal lab findings: Abnormal lab results MPV 8.9 fL (9.4-12.4) L 07/05/18 04:32 Creatinine 0.51 mg/dL (0.70-1.30) L 07/05/18 04:32 Glucose 174 mg/dL (70-105) H 07/05/18 04:32 POC Glucose 201 mg/dL (70-99) H 07/04/18 21:03 Hemoglobin A1c 11.2 % (-5.6) H 07/03/18 04:21 Serum Total Protein 6.2 g/dL (6.4-8.9) L 07/05/18 04:32 Albumin 3.4 g/dL (3.5-5.7) L 07/05/18 04:32 HDL Cholesterol 39 mg/dL (40-59) L 07/03/18 04:21 Ur Specific Fleischmanns > 1.030 (1.010-1.025) H 07/02/18 12:10 Urine Glucose (UA) >=1000 mg/dL (Normal) H 07/02/18 12:10 Urine Ketones 15 mg/dL (Negative) H 07/02/18 12:10 Urine Blood Small (Negative) H 07/02/18 12:10 Urine Bilirubin Small (Negative) H 07/02/18 12:10 Urine Microscopic RBC 5-15 per hpf (0-3) H 07/02/18 12:10 Urine Microscopic WBC 5-15 per hpf (0-3) H 07/02/18 12:10 Ur Squamous Epith Cells Many per lpf (None-Few) H 07/02/18 12:10 Urine Mucus Many (Few) H 07/02/18 12:10 - Diagnostic Findings PFT's: report reviewed - Clinical Findings Intake & Output: Intake & Output 07/04/18 07/05/18 07/05/18 23:59 07:59 15:59 Intake Total 1000 / 1000 Balance 1000 / 1000 Weight 142.2 kg
--- NOTE | 2018-07-05 09:09 | Internal Med Progress Note ---
Hospitalist Progress Note - Encounter Date of Encounter: 07/05/18 Time of Encounter: 09:07 - Subjective Interval History: Seen and examined at bedside today,no acute changes overnight - Exam Vitals: Temp Pulse Resp BP Pulse Ox 98.0 F 108 15 122/87 95 07/05/18 07:41 07/05/18 07:41 07/05/18 07:41 07/05/18 07:41 07/05/18 07:41 Exam: PHYSICAL EXAMINATION: GENERAL: The patient is an ill-appearing obese male in mild distress due to lower back pain. He is alert and oriented 3. HEENT: Head is normocephalic and atraumatic. Extraocular muscles are intact. Pupils are equal, round, and reactive to light and accommodation. . NECK: Supple. No carotid bruits. No lymphadenopathy or thyromegaly. LUNGS: Clear/diminished to auscultation throughout, AP and L, prolonged expiratory phase. HEART: RRR, S1, S2 without murmur. ABDOMEN: Soft, nontender, and nondistended. Positive bowel sounds. No hepatosplenomegaly was noted. EXTREMITIES: Without any cyanosis, clubbing, rash, lesions or edema. Positive Simental's sign NEUROLOGIC: Diminished sensation to bilateral lower extremities. Bilateral lower extremities weak, able to overcome gravity, weakness greater in LLE SKIN: No ulceration or induration present. - Assessment and Plan (1) Small cell lung cancer Current Visit: No Status: Inactive Assessment and Plan: Hx of small cell lung cancer. Pt. reports he is currently in remission. f/u with [place] [facility] as previously scheduled (2) COPD (chronic obstructive pulmonary disease) Current Visit: Yes Status: Chronic (3) Morbid obesity Current Visit: Yes Status: Chronic (4) Diabetes mellitus Current Visit: Yes Status: Chronic (5) DMITRY (obstructive sleep apnea) Current Visit: Yes Status: Chronic (6) Fall Current Visit: Yes Status: Acute (7) Low back pain Current Visit: Yes Status: Chronic (8) Leg weakness, bilateral Current Visit: Yes Status: Acute (9) Elevated liver enzymes Current Visit: Yes Status: Acute (10) Hyponatremia Current Visit: Yes Status: Acute (11) DVT prophylaxis Current Visit: Yes Status: Acute - Summary of Assessment and Plan Summary of Assessment and Plan: Patient admitted status post falls. Reporting approximately 3 falls in less than 90 days. Additionally, the patient is reporting ambulatory dysfunction and weakness in bilateral lower extremities and problems with gait/balance increasing since April 2018. He is also endorsing clumsiness of bilateral hands right greater than left. Assessment reveals a positive Dawn's sign concerning for upper motor neuron pathology. He is a history of chronic compression fractures and in the past has been deemed a non-surgery candidate ( see 2015) he was was recently seen at [facility] due to low back pain and bilateral lower extremity weakness. Workup at that time included lumbar spine CT 06/27/18 which showed no acute findings; findings of no definite acute lumbar spine fracture, stable compression fractures of L1, L3 and L4 without evidence of retropulsion. Unchanged bilateral L5 pars interarticularis defects. Plan: Continue oral steroids, continue [place] for pain management, continue Toradol. PT/OT for further evaluation. Upon with assist only, ambulate with walker. High risk for falls, initiate falls precautions. Obtain carotid Dopplers for further evaluation as patient is also having dizziness and disequilibrium. 07/04- d/w Dr. Jay; patient found to have + Simental's sign; concerning for upper motor neuron pathology. Recommend MR T-C spine for further evaluation. Clinically, patient remains stable, no acute changes. Continue treating pain, 07/05- Clinically, patient remains stable, no acute changes overnight. He continues to have BLE weakness. Consults to Ortho spine, neurology and pulmonology; thank you, appreciate recommendations. Discuss surgical risk/ benefits and candidacy. Continue with POC as stated above. Surgical risk d/t h /o small cell carcinoma of the lung which is in remission, as well as COPD, DM, obesity. MRI of cervical spine reveals stenosis at C3-4 and moderate stenosis at C5-6. C3-4 myelomalacia. Neurology following; risks for quadriplegia d/t cervical spine pathology, cervical decompression would be optimal. Discussion had with patient who is considering the risks vs benefits. Diagnosis: 1-Ambulatory dysfunction 2-falls 3-bilateral leg weakness 8-tgygweesakux-fpvci sodium 134 this morning, appears to be chronic and renal patient's baseline, continue to monitor. 5) elevated liver enzymes-improving 6-low back pain 7 COPD-remains stable, not in acute exacerbation, continue COPD medications 8) diabetes mellitus-chronic, persistent hyperglycemia noted on labs this morning, continue basal insulin and increase sliding scale coverage to High SSIC 9-morbid obesity-discussed lifestyle modification 10-obstructive sleep apnea 11-small cell lung cancer-per history, in remission per patient, follows with [facility], continue outpatient follow-up as scheduled 12-DVT prophylaxis 13-Cervical myelopathy - Time Spent with Patient Total time spent is greater than 50% in coordination of care (as documented) at patient's floor/unit and/or counseling patient: less than 15 minutes Plan of Care Discussed with: patient Internal Medicine: Result - Labs CBC & Chem 7: 07/05/18 04:32 07/05/18 04:32 Labs: Short CBC 07/05/18 Range/Units 04:32 WBC 7.2 (4.3-11.1) K/mcL Hgb 14.3 (12.9-16.9) g/dL Hct 42.8 (37.5-50.1) % Plt Count 180 (140-400) K/mcL Neutrophils # 5.2 (1.6-8.9) K/mcL BMP 07/05/18 04:32 Sodium 136 Potassium 3.7 Chloride 102 Carbon Dioxide 29 BUN 10 Creatinine 0.51 L Glucose 174 H Calcium 8.8 Liver Function 07/05/18 Range/Units 04:32 Total Bilirubin 0.6 (0.3-1.0) mg/dL AST 34 (13-39) Units/L ALT 52 (7-52) Units/L Alkaline Phosphatase 76 (34-104) Units/L Albumin 3.4 L (3.5-5.7) g/dL - Impressions Impressions Cervical Spine MRI 07/04/18 09:05 IMPRESSION: Motion artifacts. Multilevel degenerative disc disease in the cervical spine as described above, exacerbating congenitally narrow cervical spinal canal. Spinal canal narrowing, mild at C3-4, C4-5 and C5-6, minimal at C6-7. Foraminal narrowing, moderate at right C2-3, bilateral C3-4, right C4-5 and left C6-7, mild to moderate at left C4-5 and bilateral C5-6, mild at right C6-7. Mildly increased T2 signal in the cervical spinal cord at the C3-4 level, likely related to myelomalacia. No acute abnormality in the thoracic spine. No spinal canal or foraminal stenosis in the thoracic spine. D/ / Fred Stephenson MD / Fred Stephenson MD Interpreting Provider: Fred Stephenson MD Thoracic Spine MRI 07/04/18 09:05 IMPRESSION: Motion artifacts. Multilevel degenerative disc disease in the cervical spine as described above, exacerbating congenitally narrow cervical spinal canal. Spinal canal narrowing, mild at C3-4, C4-5 and C5-6, minimal at C6-7. Foraminal narrowing, moderate at right C2-3, bilateral C3-4, right C4-5 and left C6-7, mild to moderate at left C4-5 and bilateral C5-6, mild at right C6-7. Mildly increased T2 signal in the cervical spinal cord at the C3-4 level, likely related to myelomalacia. No acute abnormality in the thoracic spine. No spinal canal or foraminal stenosis in the thoracic spine. D/ / Fred Stephenson MD / Fred Stephenson MD Interpreting Provider: Fred Stephenson MD Consult Discharge Plan - Plan Referrals: Luis Miguel Aguilera DO [Primary Care Provider] - (2) COPD (chronic obstructive pulmonary disease) Qualifiers: COPD type: COPD with acute exacerbation Qualified Code(s): J44.1 - Chronic obstructive pulmonary disease with (acute) exacerbation (4) Diabetes mellitus Qualifiers: Diabetes mellitus type: type 2 Diabetes mellitus shelter insulin use: without shelter use Diabetes mellitus complication status: without complication Qualified Code(s): E11.9 - Type 2 diabetes mellitus without complications (6) Fall Qualifiers: Encounter type: initial encounter Qualified Code(s): W19.XXXA - Unspecified fall, initial encounter (7) Low back pain Qualifiers: Chronicity: acute Back pain laterality: bilateral Sciatica presence: without sciatica Qualified Code(s): M54.5 - Low back pain
--- NOTE | 2018-07-05 09:48 | Spinal Consult Note ---
Date of Encounter: 07/04/18 Time of Encounter: 17:20 Assessment and Plan (1) Cervical stenosis of spine Current Visit: Yes Status: Chronic On examination he is a awake and alert in mild distress secondary to back pain. Afebrile vital signs stable. The patient is obese. Pertinent positives on exam include a positive Dawn sign on the right. He is able to fire all upper extremity groups with good strength. He has some subtle weakness in the lower extremity motor groups including quads, hamstrings, and dorsiflexors. He has no clonus. Is no clubbing cyanosis or edema. MRI of the cervical spine reveals severe stenosis at C3-4 and moderate stenosis at C5-6. There is increased signal within the cord at C3-4 consistent with myelomalacia. MRI of the lumbar spine reveals multilevel degenerative changes. There is an acute compression fracture at L3. There are chronic compression fractures at L4 and L1. MRI of the thoracic spine reveals mild multilevel degenerative changes without evidence of cord compression. Impression: 1) cervical stenosis 2) cervical myelopathy 3) myelomalacia within cervical cord 4) acute compression fracture L3 5) chronic compression fractures L1 and L4 Plan: The natural history of cervical myelopathy a stepwise neurologic progression. He is artery exhibiting some gait intolerance and weakness in the lower extremities. He is likely to have gradual diminution in neurologic function. He has positive upper motor neuron findings on neurologic examination. In this regard I find it reasonable to consider surgery in the form of a anterior cervical decompression and fusion C3-4 and C5-6. He has a history of significant comorbidities including lung cancer and COPD. I find it reasonable get an opinion from the hospitalists and pulmonary services with regard to his upper appropriateness as a surgical candidate. I agree with a comment from neurology regarding need for surgical decompression in the setting of stenosis, cervical myelopathy, and multiple comorbidities. With regard to his lumbar fracture he can be treated conservatively with analgesics, and although bracing was discussed, we would prefer analgesics alone for treatment. I do not think he requires vertebral augmentation in the form of a kyphoplasty. Would suggest analgesics alone for treatment of his fractures with rehabilitation in the hospital and an outlying facility. (2) Cervical myelopathy Current Visit: Yes Status: Chronic (3) Vertebral compression fracture Current Visit: Yes Status: Acute History of Present Illness Chief complaint: Weakness in legs, difficulty walking HPI: Mr. Fountain is a 63 year old male Who complains of gradual onset of leg weakness with difficulty with ambulation. He has a history of lung CA, COPD and multiple medical comorbidities. Due to concerns of weakness and gait difficulties he was admitted for evaluation and definitive management. We were initially asked to see due to abnormalities in the MRI of the lumbar spine. He denies any fevers or chills, or bowel bladder symptomatology. Past Med Surg Social Fam HX - Past Medical History Medical history: cancer (Small cell lung cancer in remission), COPD, diabetes, osteoporosis, other (Chronic urinary retention d/t BPH) Additional medical history: Lung Cancer Right Psychiatric history: depression - Past Surgical History Surgical History: orthopedic, other (Right shoulder x3) Additional surgical history: R Shoulder 2009 - Social History Smoking Status: Former smoker Packs per day: 1 PPD - Reports quitting in May 2018 Smokeless Tobacco Status: No Alcohol use: none Drug use: none - Family History Mother Race: Family Member Ethnicity: Non- Living Status: Age at : 82 Cause of : Pancreatic cancer Hx Family Cancer: Yes (Pancreatic cancer) Hx Family Musculoskeletal Disorders: Yes (Arthritis) Father History Unknown: Yes Race: Family Member Ethnicity: Non- Living Status: Cause of : Fall off of ladder, paralyzed, didn't live long after accident Brother Race: Family Member Ethnicity: Non- Living Status: Still Living Hx Family Cardiac Disorders: Yes (CAD) Sister Race: Family Member Ethnicity: Non- Living Status: Still Living Hx Family Endocrine Disorder: Yes (DM) Medications and Allergies Duloxetine HCl [Cymbalta] 60 mg PO DAILY 03/14/18 [History] Finasteride [Proscar] 5 mg PO HS 03/14/18 [History] Insulin Glargine [Lantus] 30 unit SQ QPM 03/14/18 [History] Tamsulosin HCl [Flomax] 0.4 mg PO HS 03/14/18 [History] Albuterol Sulfate [Albuterol Inhaler] 2 puff IH Q6HR PRN 07/02/18 [History] Ascorbate Calcium [Vitamin C] 500 mg PO DAILY 07/02/18 [History] predniSONE [PredniSONE] 10 mg PO DAILY 07/02/18 [History] 3 Allergy/AdvReac Type Severity Reaction Status Date / Time No Known Allergies Allergy Verified 03/14/18 11:23 Results - Labs Result Diagrams: 07/05/18 04:32 07/05/18 04:32 Labs: Abnormal lab results MPV 8.9 fL (9.4-12.4) L 07/05/18 04:32 Creatinine 0.51 mg/dL (0.70-1.30) L 07/05/18 04:32 Glucose 174 mg/dL (70-105) H 07/05/18 04:32 POC Glucose 201 mg/dL (70-99) H 07/04/18 21:03 Hemoglobin A1c 11.2 % (-5.6) H 07/03/18 04:21 Serum Total Protein 6.2 g/dL (6.4-8.9) L 07/05/18 04:32 Albumin 3.4 g/dL (3.5-5.7) L 07/05/18 04:32 HDL Cholesterol 39 mg/dL (40-59) L 07/03/18 04:21 Ur Specific [place] > 1.030 (1.010-1.025) H 07/02/18 12:10 Urine Glucose (UA) >=1000 mg/dL (Normal) H 07/02/18 12:10 Urine Ketones 15 mg/dL (Negative) H 07/02/18 12:10 Urine Blood Small (Negative) H 07/02/18 12:10 Urine Bilirubin Small (Negative) H 07/02/18 12:10 Urine Microscopic RBC 5-15 per hpf (0-3) H 07/02/18 12:10 Urine Microscopic WBC 5-15 per hpf (0-3) H 07/02/18 12:10 Ur Squamous Epith Cells Many per lpf (None-Few) H 07/02/18 12:10 Urine Mucus Many (Few) H 07/02/18 12:10 H & H 07/05/18 Range/Units 04:32 Hgb 14.3 (12.9-16.9) g/dL Hct 42.8 (37.5-50.1) % All other labs normal. Consult Discharge Plan - Plan Referrals: Luis Miguel Aguilera DO [Primary Care Provider] -
[2018-07-05] MEDS: Fluticasone Propionate Nasal 50 MCG/SPRAY BOTTLE NS SCH (10:28)
--- NOTE | 2018-07-05 10:44 | Neurology - Consult Note ---
<William Lauren P - Last Filed: 07/05/18 13:30> Date of Encounter: 07/05/18 Time of Encounter: 10:00 Assessment and Plan (1) Cervical myelopathy Current Visit: Yes Status: Chronic The patient with Small cell carcinoma lung in remission (with multiple commodities : non surgery candidate :2014) has weakness in lower extremity and problem with gait/ body balance , getting worse since this april .The patient has clumsiness in hand right> left , he has problem with grabbing objects and shakiness of hand ,Simental sign positive (right side is more demonstrable), inverse radial reflex +/-, reflexes don't look exaggerated . C- spine MRI shows : stenosis at C3-4 and moderate stenosis at C5-6. There is increased signal within the cord at C3-4 consistent with myelomalacia. Those evidences likely explain early sign of Cervical myelopathy.Old compression fracture at the level of L1, L3 L4 should also be considered for lower extremity weakness History of Present Illness Chief complaint: Lower extremity weakness, frequent fall HPI: Mr. Fountain is a 63 year old male with past diagnosis of small cell lung cancer , COPD, diabetes,osteoporosis, and chronic urinary retention admitted in [facility] for bilateral lower extremities weakness ,frequent fall. He states that patient was able to ambulate with the help of walker became unable to walk after he fell in living room. He was diagnosed patient with small cell carcinoma of lung and he wa not a surgical candidate because of COPD , DM , obesity and other multiple commodities. The patient was under treatment for Ca lung since 2013 . He has had multilevel fracture in lumbar vertebra L1 , L3 and L4 since 2013.The patient and family member insist that he has shakiness in both upper arms and he cannot hold or grab objects with his hands right >left. He has problem with controlling his bladder and body balance . Since this April he has trouble with body balance and gradually progressive weakness in lower extremities left> right. He denies any LOC, seizure like activities , Fever, nausea, vomiting , rash,vertigo, dizziness. Today, during my visit patient was lying comfortably in bed, was on oxygen, oriented to time ,place and person. Vitals: Tem 98 BP 122/87 Labs: Na 136, K 3.7BUN 10, creatinine 0.51 , Hb 14.3 , WBC 7.2 MRI c spine: Multilevel degenerative disc disease in the cervical spine exacerbating congenitally narrow cervical spinal canal. Spinal canal narrowing, mild at C3-4, C4-5 and C5-6, minimal at C6-7.Foraminal narrowing, moderate at right C2-3, bilateral C3-4, right C4-5 and left C6-7, mild to moderate at left C4-5 and bilateral C5-6, mild at right C6-7. Mildly increased T2 signal in the cervical spinal cord at the C3-4 level, likely related to myelomalacia. No acute abnormality in the thoracic spine.,No spinal canal or foraminal stenosis in the thoracic spine. CT head and brain: No evidence of acute intracranial abnormality. MRI lumbar spine:Acute to subacute L3 compression fracture superimposed on existing chronic compression deformity.Chronic L1 and L4 compression deformities. Carotid Doppler:Bilateral carotid systems have nonstenotic plaque. Past Med Surg Social Fam HX - Past Medical History Medical history: cancer (Small cell lung cancer in remission), COPD, diabetes, osteoporosis, other (Chronic urinary retention d/t BPH) Additional medical history: Lung Cancer Right Psychiatric history: depression - Past Surgical History Surgical History: orthopedic, other (Right shoulder x3) Additional surgical history: R Shoulder 2009 - Social History Smoking Status: Former smoker Packs per day: 1 PPD - Reports quitting in May 2018 Smokeless Tobacco Status: No Alcohol use: none Drug use: none - Family History Mother Race: Family Member Ethnicity: Non- Living Status: Age at : 82 Cause of : Pancreatic cancer Hx Family Cancer: Yes (Pancreatic cancer) Hx Family Musculoskeletal Disorders: Yes (Arthritis) Father History Unknown: Yes Race: Family Member Ethnicity: Non- Living Status: Cause of : Fall off of ladder, paralyzed, didn't live long after accident Brother Race: Family Member Ethnicity: Non- Living Status: Still Living Hx Family Cardiac Disorders: Yes (CAD) Sister Race: Family Member Ethnicity: Non- Living Status: Still Living Hx Family Endocrine Disorder: Yes (DM) Medications and Allergies Duloxetine HCl [Cymbalta] 60 mg PO DAILY 03/14/18 [History] Finasteride [Proscar] 5 mg PO HS 03/14/18 [History] Insulin Glargine [Lantus] 30 unit SQ QPM 03/14/18 [History] Tamsulosin HCl [Flomax] 0.4 mg PO HS 03/14/18 [History] Albuterol Sulfate [Albuterol Inhaler] 2 puff IH Q6HR PRN 07/02/18 [History] Ascorbate Calcium [Vitamin C] 500 mg PO DAILY 07/02/18 [History] predniSONE [PredniSONE] 10 mg PO DAILY 07/02/18 [History] 3 Allergy/AdvReac Type Severity Reaction Status Date / Time No Known Allergies Allergy Verified 03/14/18 11:23 All Systems: The remainder of the systems were reviewed and are negative Physical Examination - Vital Signs Vital Signs: Initial Vital Signs Temp Pulse Resp BP Pulse Ox 97.5 F L 111 16 114/85 96 07/02/18 07:58 07/02/18 07:58 07/02/18 07:58 07/02/18 07:58 07/02/18 07:58 - Constitutional General appearance: chronically ill - Neurologic Motor examination - right side: 4/5: deltoids, biceps, triceps, wrist flexion, wrist extension, sewing machine operator semiautomatic, hip flexors, tibialis Anterior, quadriceps, toe extension (EHL), plantarflexion Motor examination - left side: 3/5: deltoids, biceps, triceps, wrist flexion, wrist extension, hip flexors, sewing machine operator semiautomatic, quadriceps, tibialis Anterior, toe extension (EHL), plantarflexion Reflexes: Biceps: 2+, Triceps: 2+, Brachioradialis: 2+, Patella: 2+, Achilles: 2 + Mental Status Examination: awake, alert, oriented to person, oriented to place, oriented to time Cranial nerve examination: PERRL, EOMI Results - Laboratory Findings CBC and BMP: 07/05/18 04:32 07/05/18 04:32 Abnormal lab findings: Abnormal lab results MPV 8.9 fL (9.4-12.4) L 07/05/18 04:32 Creatinine 0.51 mg/dL (0.70-1.30) L 07/05/18 04:32 Glucose 174 mg/dL (70-105) H 07/05/18 04:32 POC Glucose 201 mg/dL (70-99) H 07/04/18 21:03 Hemoglobin A1c 11.2 % (-5.6) H 07/03/18 04:21 Serum Total Protein 6.2 g/dL (6.4-8.9) L 07/05/18 04:32 Albumin 3.4 g/dL (3.5-5.7) L 07/05/18 04:32 HDL Cholesterol 39 mg/dL (40-59) L 07/03/18 04:21 Ur Specific [place] > 1.030 (1.010-1.025) H 07/02/18 12:10 Urine Glucose (UA) >=1000 mg/dL (Normal) H 07/02/18 12:10 Urine Ketones 15 mg/dL (Negative) H 07/02/18 12:10 Urine Blood Small (Negative) H 07/02/18 12:10 Urine Bilirubin Small (Negative) H 07/02/18 12:10 Urine Microscopic RBC 5-15 per hpf (0-3) H 07/02/18 12:10 Urine Microscopic WBC 5-15 per hpf (0-3) H 07/02/18 12:10 Ur Squamous Epith Cells Many per lpf (None-Few) H 07/02/18 12:10 Urine Mucus Many (Few) H 07/02/18 12:10 Consult Discharge Plan - Plan Referrals: Luis Miguel Aguilera, DO [Primary Care Provider] - <Raul Chicas - Last Filed: 07/05/18 15:49> Date of Encounter: 07/05/18 Time of Encounter: 15:30 Assessment and Plan (1) Cervical stenosis of spine Current Visit: Yes Status: Chronic Patient unfortunately has severe cervical spinal stenosis at the C3-C4 level. He also has moderate to severe stenosis at the C5-C6 level. He already has sphincter abnormalities, progressively worsening weakness of the lower extremity , and is also developing weakness of the upper extremities. He has bilateral Simental signs present. From a purely idealistically perspective certainly anterior cervical decompression would be optimal. I do not feel that his leg weakness is due to a problem with the thoracic or lumbar spine. However I do see evidence of myelomalacia in the cervical cord which is making matters worse as well. Certainly over time this problem worsen then he will be at risk for quadriplegia. However, he has multiple other comorbidities including small cell cancer of the lung that is inoperable, diabetes mellitus and other problems that add to the risk of surgery and complicate the healing process. The fact that he is a large individual but also complicate his care if in fact he becomes quadriplegic. Unfortunately, therefore if we are going to try to preserve neurologic function of the spinal cord I would recommend the surgical decompressive procedure. I do not feel that any medical management option is going to be effective here. I agree with Dr. Jay's assessment and exam. History of Present Illness HPI: The chart was reviewed, the patient was seen and examined independently. Case was discussed with the neurology resident on service. I agree with his assessment of the history of present illness as stated above. However in my opinion the cervical stenosis at the C3-C4 level is severe, and is moderate to severe at C6-C7. I also see evidence of myelomalacia and multiple different levels. Also special note is that the patient does have significant difficulty with sphincter function, and has to wear an adult protective garment all the time. All Systems: The remainder of the systems were reviewed and are negative Review of Systems: The balance of the systems review is negative. Physical Examination - Vital Signs Vital Signs: Initial Vital Signs Temp Pulse Resp BP Pulse Ox 97.5 F L 111 16 114/85 96 07/02/18 07:58 07/02/18 07:58 07/02/18 07:58 07/02/18 07:58 07/02/18 07:58 - Neurologic Motor examination - right side: 4/5: deltoids, biceps, triceps, sewing machine operator semiautomatic Motor examination - left side: 3/5: biceps, triceps, 4/5: deltoids, sewing machine operator semiautomatic, tibialis Anterior, toe extension (EHL), plantarflexion Reflex and gait examination: other (Patient is slightly more hyperreflexic on the right upper and lower extremity. He also has bilateral Simental signs. No clonus or Babinski at present.) Mental Status Examination: follows commands appropriately, answers questions appropriately Cranial nerve examination: sensory to face intact, mastication intact, no facial asymmetry is present, no dysarthria, hearing is intact symmetrically Cerebellar examination: no dysmetria Results - Laboratory Findings CBC and BMP: 07/05/18 04:32 07/05/18 04:32 Abnormal lab findings: Abnormal lab results MPV 8.9 fL (9.4-12.4) L 07/05/18 04:32 Creatinine 0.51 mg/dL (0.70-1.30) L 07/05/18 04:32 Glucose 174 mg/dL (70-105) H 07/05/18 04:32 POC Glucose 201 mg/dL (70-99) H 07/04/18 21:03 Hemoglobin A1c 11.2 % (-5.6) H 07/03/18 04:21 Serum Total Protein 6.2 g/dL (6.4-8.9) L 07/05/18 04:32 Albumin 3.4 g/dL (3.5-5.7) L 07/05/18 04:32 HDL Cholesterol 39 mg/dL (40-59) L 07/03/18 04:21 Ur Specific [place] > 1.030 (1.010-1.025) H 07/02/18 12:10 Urine Glucose (UA) >=1000 mg/dL (Normal) H 07/02/18 12:10 Urine Ketones 15 mg/dL (Negative) H 07/02/18 12:10 Urine Blood Small (Negative) H 07/02/18 12:10 Urine Bilirubin Small (Negative) H 07/02/18 12:10 Urine Microscopic RBC 5-15 per hpf (0-3) H 07/02/18 12:10 Urine Microscopic WBC 5-15 per hpf (0-3) H 07/02/18 12:10 Ur Squamous Epith Cells Many per lpf (None-Few) H 07/02/18 12:10 Urine Mucus Many (Few) H 07/02/18 12:10
[2018-07-05] MEDS: Clotrimazole 1% CRM 15 GM TUBE TP SCH ×2 (15:28→20:11)
[2018-07-05] MEDS: *HR* HYDROcodone/Acet 5/325 mg TABLET PO PRN (17:08)
[2018-07-05] MEDS: Finasteride 5 MG TABLET PO SCH (20:11)
[2018-07-05] MEDS: Insulin DETEMIR 100 UNIT/ML X5UNITS SQ SCH (20:53)
[2018-07-06] MEDS: 0.9 % Sodium Chloride 1,000 ML IVC SCH (02:46)
[2018-07-06] MEDS: Levalbuterol Neb 1.25 MG/3 ML IH SCH ×4 (03:52→21:43)
[2018-07-06] MEDS: *HR* Heparin 5,000 UNIT/ML VIAL SQ SCH ×3 (05:21→20:47)
[2018-07-06] MEDS: predniSONE 10 MG TABLET PO SCH (08:16)
[2018-07-06] MEDS: Fluticasone Propionate Nasal 50 MCG/SPRAY BOTTLE NS SCH (08:16)
[2018-07-06] MEDS: Cholecalciferol (D-3) 1,000 UNIT TABLET PO SCH (08:16)
[2018-07-06] MEDS: Nystatin POWDER 30 GM BOTTLE TP SCH ×2 (08:16→20:46)
[2018-07-06] MEDS: Clotrimazole 1% CRM 15 GM TUBE TP SCH ×2 (08:16→20:46)
[2018-07-06] MEDS: Insulin LISPRO 300 UNITS/3 ML VIAL SQ SCH ×4 (08:17→20:52)
[2018-07-06] MEDS: Ascorbic Acid 500 MG TABLET PO SCH (08:17)
[2018-07-06] MEDS ORDERED: methylPREDNISolone 125 MG/2 ML VIAL IVP ONE (08:40)
[2018-07-06] MEDS ORDERED: methylPREDNISolone 125 MG/2 ML VIAL ONE (08:40)
[2018-07-06] MEDS ORDERED: Furosemide 40 MG/4 ML VIAL IVP ONE (08:53)
[2018-07-06] MEDS ORDERED: Furosemide 40 MG/4 ML VIAL ONE (08:55)
--- NOTE | 2018-07-06 08:58 | Internal Med Progress Note ---
Hospitalist Progress Note - Encounter Date of Encounter: 07/06/18 Time of Encounter: 08:56 - Subjective Interval History: Seen and examined at bedside today, appears to be in respiratory distress. Patient reporting that he is dyspneic and that overnight he began to experience wheezing and nonproductive cough as well as fevers. Given history of severe immunocompromise, COPD he is being transferred to ICU for further monitoring is a 2 N. overflow. - Exam Vitals: Temp Pulse Resp BP Pulse Ox 99.6 F 144 15 115/65 90 07/06/18 07:31 07/06/18 07:31 07/06/18 07:31 07/06/18 07:31 07/06/18 07:31 Exam: PHYSICAL EXAMINATION: GENERAL: The patient is an ill-appearing obese male in moderate distress due to dyspnea. He is alert and oriented 3. HEENT: Head is normocephalic and atraumatic. Extraocular muscles are intact. Pupils are equal, round, and reactive to light and accommodation. . NECK: Supple. No carotid bruits. No lymphadenopathy or thyromegaly. LUNGS: Severely diminished with scattered rhonchi throughout as well as expiratory wheezing bilaterally AP and L. No rales auscultated HEART: RRR, S1, S2 without murmur. ABDOMEN: Soft, nontender, and nondistended. Positive bowel sounds. No hepatosplenomegaly was noted. EXTREMITIES: Without any cyanosis, clubbing, rash, lesions or extremity edema. Positive Simental's sign NEUROLOGIC: Diminished sensation to bilateral lower extremities. Bilateral lower extremities weak, able to overcome gravity, weakness greater in LLE SKIN: No ulceration or induration present. - Assessment and Plan (1) Small cell lung cancer Current Visit: No Status: Inactive (2) COPD (chronic obstructive pulmonary disease) Current Visit: Yes Status: Chronic (3) Morbid obesity Current Visit: Yes Status: Chronic (4) Diabetes mellitus Current Visit: Yes Status: Chronic (5) DMITRY (obstructive sleep apnea) Current Visit: Yes Status: Chronic (6) Fall Current Visit: Yes Status: Acute (7) Low back pain Current Visit: Yes Status: Chronic (8) Leg weakness, bilateral Current Visit: Yes Status: Acute (9) Elevated liver enzymes Current Visit: Yes Status: Acute (10) Hyponatremia Current Visit: Yes Status: Acute (11) Acute on chronic respiratory failure with hypoxia Current Visit: No Status: Acute (12) DVT prophylaxis Current Visit: Yes Status: Acute - Summary of Assessment and Plan Summary of Assessment and Plan: Patient admitted status post falls. Reporting approximately 3 falls in less than 90 days. Additionally, the patient is reporting ambulatory dysfunction and weakness in bilateral lower extremities and problems with gait/balance increasing since April 2018. He is also endorsing clumsiness of bilateral hands right greater than left. Assessment reveals a positive Dawn's sign concerning for upper motor neuron pathology. He is a history of chronic compression fractures and in the past has been deemed a non-surgery candidate ( see 2015) he was was recently seen at [facility] due to low back pain and bilateral lower extremity weakness. Workup at that time included lumbar spine CT 06/27/18 which showed no acute findings; findings of no definite acute lumbar spine fracture, stable compression fractures of L1, L3 and L4 without evidence of retropulsion. Unchanged bilateral L5 pars interarticularis defects. Plan: Solu-Medrol 125 mg IV push times one then 60 mg IV push every 6 hours, continue scheduled DuoNeb's, give IV push Lasix 40 mg 1 and 20 mg twice a day. Chest x- ray now. Transfer to [facility] [place] [facility]. Bed rest. Continue incentive spirometer. High risk for falls, initiate falls precautions. Obtain carotid Dopplers for further evaluation as patient is also having dizziness and disequilibrium. 07/06--overnight the patient's condition declined; developing respiratory distress requiring BiPAP for stabilization. WBC elevated at 17.3 today. This morning the patient appears to have diminished airflow per auscultation as well as expiratory wheezing and scattered rhonchi. Patient has a history of severe COPD and I have a low threshold for intubation. Discussed with cant hooker and plan to transfer to ICU for 2-n step-down. At this time he will receive IV Lasix, IV steroids and aerosol treatments. Continue to closely monitor respiratory status. Being that he is here for cervical myelopathy with moderate spinal cord compression the patient was to undergo surgery this coming Monday however, given his current respiratory decline he is no longer a candidate for surgery. Will discuss with Dr. Jay this afternoon. Diagnosis: 1-Ambulatory dysfunction 2-falls 3-bilateral leg weakness 0-[id number] sodium 134 this morning, appears to be chronic and renal patient's baseline, continue to monitor. 5) elevated liver enzymes-improving 6-low back pain 7 COPD-remains stable, not in acute exacerbation, continue COPD medications 8) diabetes mellitus-chronic, persistent hyperglycemia noted on labs this morning, continue basal insulin and increase sliding scale coverage to High SSIC 9-morbid obesity-discussed lifestyle modification 10-obstructive sleep apnea 11-small cell lung cancer-per history, in remission per patient, follows with [facility], continue outpatient follow-up as scheduled 12-DVT prophylaxis 13-Cervical myelopathy 14-respiratory failure with hypoxia-see plan above - Time Spent with Patient Total time spent is greater than 50% in coordination of care (as documented) at patient's floor/unit and/or counseling patient: less than 15 minutes Plan of Care Discussed with: patient Internal Medicine: Result - Labs CBC & Chem 7: 07/06/18 09:02 07/06/18 09:02 Consult Discharge Plan - Plan Referrals: Luis Miguel Aguilera DO [Primary Care Provider] - 07/10/18 11:30 am (2) COPD (chronic obstructive pulmonary disease) Qualifiers: COPD type: emphysema Emphysema type: panlobular Qualified Code(s): J43.1 - Panlobular emphysema (4) Diabetes mellitus Qualifiers: Diabetes mellitus type: type 2 Diabetes mellitus longterm insulin use: without manager terminal use Diabetes mellitus complication status: without complication Qualified Code(s): E11.9 - Type 2 diabetes mellitus without complications (6) Fall Qualifiers: Encounter type: initial encounter Qualified Code(s): W19.XXXA - Unspecified fall, initial encounter (7) Low back pain Qualifiers: Chronicity: acute Back pain laterality: bilateral Sciatica presence: without sciatica Qualified Code(s): M54.5 - Low back pain
--- NOTE | 2018-07-06 09:23 | Pulmonology Progress Note ---
<Jarred Posada M - Last Filed: 07/06/18 10:53> Date of Encounter: 07/06/18 Objective PUL Vital signs: Last Vital Signs Temp 99.6 F 07/06/18 07:31 Pulse 144 07/06/18 07:31 Resp 27 07/06/18 09:51 BP 115/65 07/06/18 07:31 Pulse Ox 97 07/06/18 09:51 Results - Laboratory Findings CBC and BMP: 07/06/18 09:02 07/06/18 09:02 Abnormal lab findings: Abnormal lab results WBC 17.3 K/mcL (4.3-11.1) H D 07/06/18 09:02 MPV 9.2 fL (9.4-12.4) L 07/06/18 09:02 Neutrophils # 15.0 K/mcL (1.6-8.9) H 07/06/18 09:02 Sodium 129 mEq/L (136-145) L 07/06/18 09:02 Chloride 96 mEq/L (98-107) L 07/06/18 09:02 Creatinine 0.57 mg/dL (0.70-1.30) L 07/06/18 09:02 Glucose 268 mg/dL (70-105) H 07/06/18 09:02 POC Glucose 303 mg/dL (70-99) H 07/05/18 15:48 Hemoglobin A1c 11.2 % (-5.6) H 07/03/18 04:21 Calculated Osmolality 276 (280-300) L 07/06/18 09:02 Serum Total Protein 6.2 g/dL (6.4-8.9) L 07/05/18 04:32 Albumin 3.4 g/dL (3.5-5.7) L 07/05/18 04:32 HDL Cholesterol 39 mg/dL (40-59) L 07/03/18 04:21 Ur Specific [place] > 1.030 (1.010-1.025) H 07/02/18 12:10 Urine Glucose (UA) >=1000 mg/dL (Normal) H 07/02/18 12:10 Urine Ketones 15 mg/dL (Negative) H 07/02/18 12:10 Urine Blood Small (Negative) H 07/02/18 12:10 Urine Bilirubin Small (Negative) H 07/02/18 12:10 Urine Microscopic RBC 5-15 per hpf (0-3) H 07/02/18 12:10 Urine Microscopic WBC 5-15 per hpf (0-3) H 07/02/18 12:10 Ur Squamous Epith Cells Many per lpf (None-Few) H 07/02/18 12:10 Urine Mucus Many (Few) H 07/02/18 12:10 Consult Discharge Plan - Plan Referrals: Luis Miguel Aguilera DO [Primary Care Provider] - 07/10/18 11:30 am - Attending Attestation I examined this patient and my medical decision-making was reviewed with the Resident Physician. I agree with the documented findings, disposition and treatment plan as described except to the extent set forth below. Patient seen and examined. Labs, radiology, chart personally reviewed. Agree with resident's history and physical, assessment, plan with following comments: PPAP COORDINATOR: Patient follows commands, Pulmonary: Patient condition has deteriorated overnight and has respiratory distress. Discussed with primary team and recommended to stop IV fluid and diuresis and agree with empiric antibiotic and steroid. At this time patient is not clear for surgery from pulmonary standpoint due to deterioration of his respiratory status and less he improves. This was discussed with patient and at the bedside. Advised to transfer patient to 2 N. and BiPAP. <Coleman Lowe - Last Filed: 07/06/18 15:47> Date of Encounter: 07/06/18 Time of Encounter: 13:30 Assessment and Plan (1) Acute on chronic respiratory failure with hypoxia Current Visit: No Status: Acute Pt decompensated overnight WBC elevated at 17.3 today Pt not clear for surgery from a pulmonology standpoint at this time. Stop IV fluids and begin diuresis per primary team Begin steroid therapy (2) COPD (chronic obstructive pulmonary disease) Current Visit: Yes Status: Chronic Pt has severe disease, along with ILD and DMITRY, which puts him at very high risk for any surgery. With decline in respiratory status, surgery must be postponed until back at a stable baseline. Discussed risks and benefits at length with pt and his as above. Continue BiPap Continue Supplemental O2 with SpO2 goal of >88% Continue albuterol nebs Qualifiers: COPD type: emphysema Emphysema type: panlobular Qualified Code(s): J43.1 - Panlobular emphysema (3) Small cell lung cancer Current Visit: No Status: Inactive In remission Post radiation interstitial markings on the right can be noted on CT chest from March of 2018 ILD puts pt at greater risk for post surgical complications (4) DMITRY (obstructive sleep apnea) Current Visit: Yes Status: Chronic hx of DMITRY puts pt at greater risk for post surgical complications Continue BiPAP Subjective Principal diagnosis: COPD and ILD Interval history: Mr. Fountain is a 63M well known to the pulmonology service with PMH of small cell lung cancer currently in remission, COPD, ILD, and DM2. He originally presented to the ED after a fall on 07/02. Head CT was normal. Pt was found to have difficulty ambulating and C spine MRI revealed mild spinal canal narrowing from C3 - C7 and foraminal narrowing in multiple locations. There was also increased T2 signal in at the C3-4 level of the spinal cord likely related to myelomalacia. Evaluation by Dr. Jay was concerning for upper motor neuron findings and progressing diminution of neurologic function. Pulm consult was requested for pulmonary evaluation prior to any surgical intervention. Neurology recommended surgery and was planning for operation on Monday. However overnight the pt began having difficulty breathing, and labs revealed an elevated WBC at 17.3. Pt resting comfortably in bed during the encounter with this provider. He is complaining of some shortness of breath. No fever, chills, increase in cough, increase in sputum production, or change in sputum character. Objective PUL Vital signs: Last Vital Signs Temp 99.6 F 07/06/18 07:31 Pulse 144 07/06/18 07:31 Resp 15 07/06/18 07:31 BP 115/65 07/06/18 07:31 Pulse Ox 90 07/06/18 07:31 General appearance: no acute distress, alert Eyes: nonicteric ENT: oropharynx moist Neck: supple, no lymphadenopathy Effort: normal Auscultation: bilateral: rales Percussion: bilateral: not dull Tactile fremitus: bilateral: normal Cardiovascular: irregular rhythm Gastrointestinal: soft, non-tender, other (distended ) Integumentary: normal Extremities: no cyanosis, no edema, no clubbing, pink and warm Musculoskeletal: no deformities normal mental status mood appropriate, affect normal Results - Laboratory Findings CBC and BMP: 07/06/18 09:02 07/06/18 09:02 Abnormal lab findings: Abnormal lab results MPV 8.9 fL (9.4-12.4) L 07/05/18 04:32 Creatinine 0.51 mg/dL (0.70-1.30) L 07/05/18 04:32 Glucose 174 mg/dL (70-105) H 07/05/18 04:32 POC Glucose 303 mg/dL (70-99) H 07/05/18 15:48 Hemoglobin A1c 11.2 % (-5.6) H 07/03/18 04:21 Serum Total Protein 6.2 g/dL (6.4-8.9) L 07/05/18 04:32 Albumin 3.4 g/dL (3.5-5.7) L 07/05/18 04:32 HDL Cholesterol 39 mg/dL (40-59) L 07/03/18 04:21 Ur Specific [place] > 1.030 (1.010-1.025) H 07/02/18 12:10 Urine Glucose (UA) >=1000 mg/dL (Normal) H 07/02/18 12:10 Urine Ketones 15 mg/dL (Negative) H 07/02/18 12:10 Urine Blood Small (Negative) H 07/02/18 12:10 Urine Bilirubin Small (Negative) H 07/02/18 12:10 Urine Microscopic RBC 5-15 per hpf (0-3) H 07/02/18 12:10 Urine Microscopic WBC 5-15 per hpf (0-3) H 07/02/18 12:10 Ur Squamous Epith Cells Many per lpf (None-Few) H 07/02/18 12:10 Urine Mucus Many (Few) H 07/02/18 12:10 - Diagnostic Findings Chest x-ray: report reviewed, image reviewed - Clinical Findings Intake & Output: Intake & Output 07/05/18 07/06/18 07/06/18 23:59 07:59 15:59 Intake Total 1000 / 1000 Output Total 125 / 125 Balance -125 / -125 1000 / 1000
[2018-07-06 09:30] LABS: Basophils % 0.2 %; Eosinophils # 0.1 K/mcL (0.0-0.6); Eosinophils % 0.5 %; Hematocrit 44.1 % (37.5-50.1); Hemoglobin 14.9 g/dL (12.9-16.9); Immature Granulocytes % 0.5 % (0-4); Lymphocytes # 0.8 K/mcL (0.6-4.6); Lymphocytes % 4.4 %; Mean Corpuscular HGB Conc 33.8 g/dL (31.6-35.5); Mean Corpuscular Hemoglobin 31.4 pg (28.0-33.3); Mean Platelet Volume 9.2 fL (9.4-12.4); Monocytes # 1.3 K/mcL (0.0-1.3); Monocytes % 7.7 %; Platelet Count 199 K/mcL (140-400); Red Blood Count 4.74 M/mcL (4.19-5.50); Red Cell Distribution Width 12.6 % (11.5-14.5); Segmented Neutrophils % 86.7 %
[2018-07-06 09:49] LABS: BUN/Creatinine Ratio 14 (6-26); Blood Urea Nitrogen 8 mg/dL (8-23); Calcium 8.8 mg/dL (8.6-10.3); Carbon Dioxide 27 mEq/L (23-29); Chloride 96 mEq/L (98-107); Glucose 268 mg/dL (70-105); Osmolality,Calculated 276 (280-300); Sodium 129 mEq/L (136-145); eGFR For Non-African Americans > 60 (> 60)
[2018-07-06] MEDS: methylPREDNISolone 125 MG/2 ML VIAL IVP SCH ×3 (11:38→23:30)
[2018-07-06] MEDS: *HR* HYDROcodone/Acet 5/325 mg TABLET PO PRN (16:05)
[2018-07-06] MEDS: Furosemide 20 MG/2 ML VIAL IVP SCH (17:26)
[2018-07-06] MEDS: Insulin DETEMIR 100 UNIT/ML X5UNITS SQ SCH (20:46)
[2018-07-06] MEDS: Finasteride 5 MG TABLET PO SCH (20:46)
[2018-07-07] MEDS: Levalbuterol Neb 1.25 MG/3 ML IH SCH ×4 (04:30→21:11)
[2018-07-07 05:37] LABS: Basophils % 0.1 %; Hematocrit 46.5 % (37.5-50.1); Hemoglobin 15.7 g/dL (12.9-16.9); Immature Granulocytes % 0.6 % (0-4); Lymphocytes # 0.7 K/mcL (0.6-4.6); Lymphocytes % 3.2 %; Mean Corpuscular HGB Conc 33.8 g/dL (31.6-35.5); Mean Corpuscular Hemoglobin 31.8 pg (28.0-33.3); Mean Corpuscular Volume 94.1 fL (83.0-100.0); Mean Platelet Volume 9.6 fL (9.4-12.4); Monocytes # 0.6 K/mcL (0.0-1.3); Monocytes % 2.7 %; Neutrophils # 19.4 K/mcL (1.6-8.9); Platelet Count 221 K/mcL (140-400); Red Blood Count 4.94 M/mcL (4.19-5.50); Red Cell Distribution Width 12.5 % (11.5-14.5); Segmented Neutrophils % 93.4 %
[2018-07-07 05:51] LABS: BUN/Creatinine Ratio 28 (6-26); Blood Urea Nitrogen 20 mg/dL (8-23); Calcium 9.9 mg/dL (8.6-10.3); Carbon Dioxide 26 mEq/L (23-29); Chloride 97 mEq/L (98-107); Glucose 407 mg/dL (70-105); Osmolality,Calculated 296 (280-300); Potassium 4.3 mEq/L (3.5-5.1); Sodium 133 mEq/L (136-145); eGFR For Non-African Americans > 60 (> 60)
[2018-07-07] MEDS: methylPREDNISolone 125 MG/2 ML VIAL IVP SCH ×3 (06:13→23:58)
[2018-07-07] MEDS: *HR* Heparin 5,000 UNIT/ML VIAL SQ SCH ×3 (06:13→21:05)
--- NOTE | 2018-07-07 07:30 | Internal Med Progress Note ---
Hospitalist Progress Note - Encounter Date of Encounter: 07/07/18 Time of Encounter: 09:40 - Subjective Interval History: pt awake and at bedside. he slept poorly due to steroids. breathing is less labored today. Does not feel as sob currently on high flow O2. denies wheezing, fevers, chills. - Exam Vitals: Temp Pulse Resp BP Pulse Ox 97.8 F 106 23 117/68 98 07/07/18 04:38 07/07/18 04:38 07/07/18 04:38 07/07/18 04:38 07/07/18 04:38 Exam: General: awake, alert, appears stated age, obese HEENT:EOM intact, pupils equal, round, moist mucus membranes Neck: supple, trachea midline Cardiovascular:regular rate and rhythm, normal S1 & S2, no murmurs, cannot appreciate JVD. no lower extremity edema Lungs: Normal respiratory effort on high flow O2, diminsihed throughout but no wheezing or rhonchi, +crackles in bl bases Abdomen:Soft, non-tender, non-distended, + bowel sounds Neurological: AAOx3, CN grossly intact Skin:Normal color, no rash, no pallor - Assessment and Plan (1) Acute on chronic respiratory failure with hypoxia Current Visit: No Status: Acute Assessment and Plan: 07/06--overnight the patient's condition declined; developing respiratory distress requiring BiPAP for stabilization. WBC elevated at 17.3 diminished airflow per auscultation as well as expiratory wheezing and scattered rhonchi. transferred to , received IV Lasix, IV steroids and aerosol treatments. -Pulm now following -Steroids IV, continue scheduled DuoNeb's, IV Lasix -Chest x-ray 07/06 no significant change from prior -weaned off bipap -cont supplemental O2 -of note he is 8.5 L positive this admission (2) COPD (chronic obstructive pulmonary disease) Current Visit: Yes Status: Chronic Assessment and Plan: Pt has severe disease, along with ILD and DMITRY -home and prn inhalers - Supplemental O2/bipap -cpap hs -further treatment as above (3) Small cell lung cancer Current Visit: No Status: Chronic Assessment and Plan: Hx of small cell lung cancer. Pt. reports he is currently in remission. Post radiation interstitial markings on the right can be noted on CT chest from [place] of 2018 f/u with [place] [facility] as previously scheduled (4) DMITRY (obstructive sleep apnea) Current Visit: Yes Status: Chronic Assessment and Plan: Hx of chronic DMITRY. CPAP HS. Respiratory therapy consulted. (5) Low back pain Current Visit: Yes Status: Chronic Assessment and Plan: acute compression fracture L3, chronic compression fractures L1 and L4 MRI of the lumbar spine reveals multilevel degenerative changes. There is an acute compression fracture at L3. There are chronic compression fractures at L4 and L1. -spine surgery consulted this admission: he can be treated conservatively with analgesics, and although bracing was discussed, we would prefer analgesics alone for treatment. I do not think he requires vertebral augmentation in the form of a kyphoplasty. (6) Leg weakness, bilateral Current Visit: Yes Status: Acute Assessment and Plan: Acute on chronic bilateral leg weakness resulting in falls multifactorial given diagnoses noted above -neurology consulted -ortho spine consulted -/2 to above Falls/safety precautions. Up with assist only. PT/OT consults ordered. -ortho recs as above (7) Cervical myelopathy Current Visit: Yes Status: Chronic Assessment and Plan: cervical stenosis,cervical myelopathy,myelomalacia within cervical cord MRI of the cervical spine reveals severe stenosis at C3-4 and moderate stenosis at C5-6. There is increased signal within the cord at C3-4 consistent with myelomalacia. -spine surg consulted this admission: with positive upper motor neuron findings on neurologic examination reasonable to consider surgery in the form of a anterior cervical decompression and fusion C3-4 and C5-6 however given his respiratory status he is not a candidate for surgery at this time (8) Fall Current Visit: Yes Status: Acute Assessment and Plan: Acute on chronic fall Spine disease as above Falls/safety precautions. Up with assist only. PT/OT consults ordered. Bilateral carotid Dopplers neg -Ortho consults as above -SW consult ordered to assess for home health. (9) Hyponatremia Current Visit: Yes Status: Acute Assessment and Plan: Acute hyponatremia w/sodium of 132 on admission. Stable Pt. received 1L bolus in ED. was receiving IV fluids now stopped as above -cont to monitor bmp, in recent days consistently 129-136 and variable-will monitor with diuresis as supect recent ecrease to 129 with improvement to 133 was related to hypervolemic hyponatremia (10) DVT prophylaxis Current Visit: Yes Status: Acute (11) Morbid obesity Current Visit: Yes Status: Chronic Assessment and Plan: education for lifestyle modifications (12) Diabetes mellitus Current Visit: Yes Status: Chronic Assessment and Plan: Hx of chronic diabetes controlled by insulin. C -was on home dose of insulin and low-dose correction sliding scale insulin w/ hypoglycemic protocol. -bs now elevating on steroids and dose adjustments being made as needed -BG checks ACHS. ADA diet. DVT Prophylaxis: heparin - Time Spent with Patient Total time spent is greater than 50% in coordination of care (as documented) at patient's floor/unit and/or counseling patient: 25 - 35 minutes Plan of Care Discussed with: patient Internal Medicine: Result - Labs CBC & Chem 7: 07/07/18 04:52 07/07/18 04:52 Labs: Short CBC 07/07/18 Range/Units 04:52 WBC 20.8 H (4.3-11.1) K/mcL Hgb 15.7 (12.9-16.9) g/dL Hct 46.5 (37.5-50.1) % Plt Count 221 (140-400) K/mcL Neutrophils # 19.4 H (1.6-8.9) K/mcL BMP 07/07/18 04:52 Sodium 133 L Potassium 4.3 Chloride 97 L Carbon Dioxide 26 BUN 20 Creatinine 0.72 Glucose 407 H Calcium 9.9 - Impressions Impressions Chest X-Ray 07/06/18 09:32 IMPRESSION: No significant interval change in irregular opacity in the right perihilar region. Bibasilar atelectasis. D/ / Letty Baca MD / Letty Baca MD Interpreting Provider: Letty Baca MD Consult Discharge Plan - Plan Referrals: Luis Miguel Aguilera DO [Primary Care Provider] - 07/10/18 11:30 am (2) COPD (chronic obstructive pulmonary disease) Qualifiers: COPD type: emphysema Emphysema type: panlobular Qualified Code(s): J43.1 - Panlobular emphysema (5) Low back pain Qualifiers: Chronicity: acute Back pain laterality: bilateral Sciatica presence: without sciatica Qualified Code(s): M54.5 - Low back pain (8) Fall Qualifiers: Encounter type: initial encounter Qualified Code(s): W19.XXXA - Unspecified fall, initial encounter (12) Diabetes mellitus Qualifiers: Diabetes mellitus type: type 2 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
[2018-07-07] MEDS: Ascorbic Acid 500 MG TABLET PO SCH (07:52)
[2018-07-07] MEDS: Cholecalciferol (D-3) 1,000 UNIT TABLET PO SCH (07:52)
[2018-07-07] MEDS: Furosemide 20 MG/2 ML VIAL IVP SCH ×2 (07:52→17:24)
[2018-07-07] MEDS: Insulin LISPRO 300 UNITS/3 ML VIAL SQ SCH ×4 (07:53→21:07)
[2018-07-07] MEDS: Fluticasone Propionate Nasal 50 MCG/SPRAY BOTTLE NS SCH (08:07)
[2018-07-07] MEDS: Nystatin POWDER 30 GM BOTTLE TP SCH ×2 (12:00→21:05)
[2018-07-07 15:09] LABS: Bilirubin,Urine Negative (Negative); Blood,Urine Negative (Negative); Clarity,Urine Clear (Clear); Color,Urine Yellow (Yellow); Glucose,Urine (UA) >=1000 mg/dL (Normal); Ketones,Urine 15 mg/dL (Negative); Leukocyte Esterase,Urine Negative (Negative); Nitrite,Urine Negative (Negative); Protein,Urine Negative (Neg-Trace); Specific Gravity,Urine > 1.030 (1.010-1.025); Urobilinogen,Urine Normal (Normal)
[2018-07-07] MEDS: Clotrimazole 1% CRM 15 GM TUBE TP SCH ×2 (17:13→21:05)
[2018-07-07] MEDS ORDERED: Insulin DETEMIR 100 UNIT/ML X5UNITS SQ SCH (21:00)
[2018-07-07] MEDS: Finasteride 5 MG TABLET PO SCH (21:04)
[2018-07-07] MEDS: Melatonin 3 MG TABLET PO SCH (21:04)
[2018-07-08] MEDS: Levalbuterol Neb 1.25 MG/3 ML IH SCH ×4 (03:24→21:34)
[2018-07-08] MEDS: *HR* Heparin 5,000 UNIT/ML VIAL SQ SCH ×3 (04:59→21:50)
[2018-07-08 05:00] LABS: Basophils % 0.1 %; Hematocrit 47.2 % (37.5-50.1); Hemoglobin 15.8 g/dL (12.9-16.9); Immature Granulocytes % 0.7 % (0-4); Lymphocytes # 0.6 K/mcL (0.6-4.6); Lymphocytes % 3.3 %; Mean Corpuscular HGB Conc 33.5 g/dL (31.6-35.5); Mean Corpuscular Hemoglobin 31.8 pg (28.0-33.3); Mean Platelet Volume 9.7 fL (9.4-12.4); Monocytes # 0.5 K/mcL (0.0-1.3); Monocytes % 2.9 %; Neutrophils # 16.5 K/mcL (1.6-8.9); Platelet Count 238 K/mcL (140-400); Red Blood Count 4.97 M/mcL (4.19-5.50); Red Cell Distribution Width 12.7 % (11.5-14.5)
[2018-07-08 05:20] LABS: BUN/Creatinine Ratio 43 (6-26); Blood Urea Nitrogen 30 mg/dL (8-23); Carbon Dioxide 31 mEq/L (23-29); Chloride 98 mEq/L (98-107); Glucose 362 mg/dL (70-105); Osmolality,Calculated 305 (280-300); Sodium 137 mEq/L (136-145); eGFR For Non-African Americans > 60 (> 60)
--- NOTE | 2018-07-08 07:38 | Internal Med Progress Note ---
Hospitalist Progress Note - Encounter Date of Encounter: 07/08/18 Time of Encounter: 09:30 - Subjective Interval History: breathing ocntinues ot improve. states easier to move air, does not have wheezing or tightness. Mild cough, non productive. Denies fevers or chills. No nausea or emesis. States he could feel a nurse touch his foot this morning and previously had no sensation. Slept well with melatonin Pt notes he was on OR schedule for Monday. aware he is not cleared by pulm for surgery. Pulm and surg teams not in this weekend. Pre emptiviely, in case he is cleared tomorrow, will order full labs, am cxr and npo p mn. Family aware that there is not a clearly documented plan for OR and unsure if he is still on schedule. - Exam Vitals: Temp Pulse Resp BP Pulse Ox 97.9 F 77 18 126/88 94 07/08/18 07:08 07/08/18 07:08 07/08/18 07:08 07/08/18 07:08 07/08/18 07:08 Exam: General: awake, alert, appears stated age, obese HEENT:EOM intact, pupils equal, round, moist mucus membranes Neck: supple, trachea midline Cardiovascular:regular rate and rhythm, normal S1 & S2, no murmurs, cannot appreciate JVD. no lower extremity edema Lungs: Normal respiratory effort on high flow O2,ctabl in [place], no wheezing or rhonchi Abdomen:Soft, non-tender, non-distended, + bowel sounds Neurological: AAOx3 Skin:Normal color, no rash, no pallor - Assessment and Plan (1) Acute on chronic respiratory failure with hypoxia Current Visit: No Status: Acute Assessment and Plan: 07/06--overnight the patient's condition declined; developing respiratory distress requiring BiPAP for stabilization. WBC elevated at 17.3 diminished airflow per auscultation as well as expiratory wheezing and scattered rhonchi. transferred to , received IV Lasix, IV steroids and aerosol treatments. -Pulm now following- CXR reviewed rec for lasix , stop ivf and give steroids, no rec for abx was made -Steroids IV, continue scheduled DuoNeb's, IV Lasix -Chest x-ray 07/06 no significant change from prior, right perihilar opacity -weaned off bipap -cont supplemental O2 -of note he is 8.5 L positive this admission -clinically improving with treatment as above and without abx, afebrile, will send sputum cx and fu pulm recs (2) COPD (chronic obstructive pulmonary disease) Current Visit: Yes Status: Chronic Assessment and Plan: Pt has severe disease, along with ILD and DMITRY -home and prn inhalers - Supplemental O2/bipap -cpap hs -further treatment as above (3) Small cell lung cancer Current Visit: No Status: Chronic Assessment and Plan: Hx of small cell lung cancer. Pt. reports he is currently in remission. Post radiation interstitial markings on the right can be noted on CT chest from March of 2018 f/u with [facility] as previously scheduled (4) DMITRY (obstructive sleep apnea) Current Visit: Yes Status: Chronic Assessment and Plan: Hx of chronic DMITRY. CPAP HS. Respiratory therapy consulted. (5) Low back pain Current Visit: Yes Status: Chronic Assessment and Plan: acute compression fracture L3, chronic compression fractures L1 and L4 MRI of the lumbar spine reveals multilevel degenerative changes. There is an acute compression fracture at L3. There are chronic compression fractures at L4 and L1. -spine surgery consulted this admission: he can be treated conservatively with analgesics, and although bracing was discussed, we would prefer analgesics alone for treatment. I do not think he requires vertebral augmentation in the form of a kyphoplasty. (6) Leg weakness, bilateral Current Visit: Yes Status: Acute Assessment and Plan: Acute on chronic bilateral leg weakness resulting in falls multifactorial given diagnoses noted above -neurology consulted -ortho spine consulted -/ to above Falls/safety precautions. Up with assist only. PT/OT consults ordered. -ortho recs as above (7) Cervical myelopathy Current Visit: Yes Status: Chronic Assessment and Plan: cervical stenosis,cervical myelopathy,myelomalacia within cervical cord MRI of the cervical spine reveals severe stenosis at C3-4 and moderate stenosis at C5-6. There is increased signal within the cord at C3-4 consistent with myelomalacia. -spine surg consulted this admission: with positive upper motor neuron findings on neurologic examination reasonable to consider surgery in the form of a anterior cervical decompression and fusion C3-4 and C5-6 however given his respiratory status he is not a candidate for surgery at this time -07/08 family is wondering if there is still a chance he could be cleared for OR tomorrow. Aware there is not a documented plan for OR and that pulm has not yet cleared him for OR. Surg and pulm have not yet been in this weekend and may not be. In case he is seen in AM and cleared for or, and still on or schedule, will amke pt npo p mn with insulin adjustments and full labs and cxr for in am (8) Fall Current Visit: Yes Status: Acute Assessment and Plan: Acute on chronic fall Spine disease as above Falls/safety precautions. Up with assist only. PT/OT consults ordered. Bilateral carotid Dopplers neg -Ortho consults as above -SW consult ordered to assess for home health. (9) Hyponatremia Current Visit: Yes Status: Acute Assessment and Plan: Acute hyponatremia w/sodium of 132 on admission. Stable Pt. received 1L bolus in ED. was receiving IV fluids now stopped as above -cont to monitor bmp, in recent days consistently 129-136 and variable-will monitor with diuresis as supect recent ecrease to 129 with improvement to 133 was related to hypervolemic hyponatremia (10) DVT prophylaxis Current Visit: Yes Status: Acute Assessment and Plan: continue Heparin 5,000 units SQ Q8HR for DVT prophylaxis (11) Morbid obesity Current Visit: Yes Status: Chronic Assessment and Plan: education for lifestyle modifications (12) Diabetes mellitus Current Visit: Yes Status: Chronic Assessment and Plan: Hx of chronic diabetes controlled by insulin. Hypergycemia now worse on steroids -was on home dose of insulin and low-dose correction sliding scale insulin w/ hypoglycemic protocol. -bs now elevating on steroids and dose adjustments being made as needed -BG checks ACHS. ADA diet -insulin adjustment 07/07 evening and cont to monitor. DVT Prophylaxis: heparin - Time Spent with Patient Total time spent is greater than 50% in coordination of care (as documented) at patient's floor/unit and/or counseling patient: Internal Medicine: Result - Labs CBC & Chem 7: 07/08/18 04:30 07/08/18 04:30 Labs: Short CBC 07/08/18 Range/Units 04:30 WBC 17.7 H (4.3-11.1) K/mcL Hgb 15.8 (12.9-16.9) g/dL Hct 47.2 (37.5-50.1) % Plt Count 238 (140-400) K/mcL Neutrophils # 16.5 H (1.6-8.9) K/mcL BMP 07/08/18 04:30 Sodium 137 Potassium 4.0 Chloride 98 Carbon Dioxide 31 H BUN 30 H Creatinine 0.70 Glucose 362 H Calcium 10.0 Urine 07/07/18 Range/Units 14:23 Urine Color Yellow (Yellow) Urine Clarity Clear (Clear) Urine pH 6.0 (5.0-8.0) pH Units Ur Specific [place] > 1.030 H (1.010-1.025) Urine Protein Negative (Neg-Trace) mg/dL Urine Glucose (UA) >=1000 H (Normal) mg/dL Consult Discharge Plan - Plan Referrals: Luis Miguel Aguilera DO [Primary Care Provider] - 07/10/18 11:30 am (2) COPD (chronic obstructive pulmonary disease) Qualifiers: COPD type: emphysema Emphysema type: panlobular Qualified Code(s): J43.1 - Panlobular emphysema (5) Low back pain Qualifiers: Chronicity: acute Back pain laterality: bilateral Sciatica presence: without sciatica Qualified Code(s): M54.5 - Low back pain (8) Fall Qualifiers: Encounter type: initial encounter Qualified Code(s): W19.XXXA - Unspecified fall, initial encounter (12) Diabetes mellitus Qualifiers: Diabetes mellitus type: type 2 Diabetes mellitus skilled nursing insulin use: without skilled nursing use Diabetes mellitus complication status: without complication Qualified Code(s): E11.9 - Type 2 diabetes mellitus without complications
[2018-07-08] MEDS: Insulin LISPRO 300 UNITS/3 ML VIAL SQ SCH ×4 (07:48→21:51)
[2018-07-08] MEDS: Fluticasone Propionate Nasal 50 MCG/SPRAY BOTTLE NS SCH (07:49)
[2018-07-08] MEDS: methylPREDNISolone 125 MG/2 ML VIAL IVP SCH ×2 (07:50→15:07)
[2018-07-08] MEDS: Furosemide 20 MG/2 ML VIAL IVP SCH ×2 (07:50→17:27)
[2018-07-08] MEDS: Cholecalciferol (D-3) 1,000 UNIT TABLET PO SCH (07:52)
[2018-07-08] MEDS: Ascorbic Acid 500 MG TABLET PO SCH (07:52)
[2018-07-08] MEDS: Clotrimazole 1% CRM 15 GM TUBE TP SCH ×2 (12:32→21:52)
[2018-07-08] MEDS: Nystatin POWDER 30 GM BOTTLE TP SCH ×2 (12:32→21:52)
--- NOTE | 2018-07-08 19:53 | Anesthesia Evaluation PreOp ---
Date of Encounter: 07/08/18 Time of Encounter: 20:15 - Past History Planned Operation: C3-4, C5-6 ACDF Cardiac History: Denies any Significant Hx, HTN Pulmonary History: Former smoker (quit 05/2018), Smoker (1ppd), COPD (+ Supplemental O2 requirement 4-6L/min), DMITRY Dx (+CPAP use), Other (R- Lung Ca/ Small Cell Lung Ca s/p chemo/radiation tx[in remission since 2014[]) RAG COLLECTOR History: Other (BLE weakness requiring cane/walker to ambulate. Anxiety/ Depression. Chronic back pain re: stable compression Fxs) Other Medical History: Diabetes Type II, Other (BPH/Urinary retention. MO/BMI = 39) Anesthesia History: Past Anesthesia (R-shoulder x 3), Problems (COMBATIVE per Pt ) Alcohol Use: none Drug use: none Medications and Allergies Duloxetine HCl [Cymbalta] 60 mg PO DAILY 03/14/18 [History] Finasteride [Proscar] 5 mg PO HS 03/14/18 [History] Insulin Glargine [Lantus] 30 unit SQ QPM 03/14/18 [History] Tamsulosin HCl [Flomax] 0.4 mg PO HS 03/14/18 [History] Albuterol Sulfate [Albuterol Inhaler] 2 puff IH Q6HR PRN 07/02/18 [History] Ascorbate Calcium [Vitamin C] 500 mg PO DAILY 07/02/18 [History] predniSONE [PredniSONE] 10 mg PO DAILY 07/02/18 [History] 3 Allergy/AdvReac Type Severity Reaction Status Date / Time No Known Allergies Allergy Verified 03/14/18 11:23 - Meds/Allergy Pre-op Review Medications Reviewed: Yes Allergies Reviewed: Yes Beta Blockers on Current Med List: No Anesthesia Results - Labs 07/08/18 04:30 07/08/18 04:30 Laboratory Results Impressions Cervical Spine MRI 07/04/18 09:05 IMPRESSION: Motion artifacts. Multilevel degenerative disc disease in the cervical spine as described above, exacerbating congenitally narrow cervical spinal canal. Spinal canal narrowing, mild at C3-4, C4-5 and C5-6, minimal at C6-7. Foraminal narrowing, moderate at right C2-3, bilateral C3-4, right C4-5 and left C6-7, mild to moderate at left C4-5 and bilateral C5-6, mild at right C6-7. Mildly increased T2 signal in the cervical spinal cord at the C3-4 level, likely related to myelomalacia. No acute abnormality in the thoracic spine. No spinal canal or foraminal stenosis in the thoracic spine. D/ / Fred Stephenson MD / Fred Stephenson MD Interpreting Provider: Fred Stephenson MD - Imaging EKG: report reviewed (104 bpm - Sinus tachycardia Anteroseptal infarct, old Electronically Signed On 07-02-2018 13:25:31 EDT by Kar Felder) Chest x-ray: report reviewed (07/06/2018 FINDINGS: No significant interval change in irregular opacity in the right hilar region. Bibasilar atelectasis. No pneumothorax. No new focal consolidation. Stable cardiac silhouette. The osseous structures otherwise stable. No significant interval change in coarse interstitial lung markings.) Additional studies: ECHO 04/26/2018 EV/EV echocardiogram Impressions: Sinus tachycardia. LVEF >65%. Normal LV chamber size, wall thickness and function. Indeterminate diastolic function. Normal right ventricular structure and function. Unable to estimate RVSP due to lack of TR jet. No significant valvular dysfunction. Left Ventricular Wall Motion: Rest Echo Findings All wall segments showed normal motion. NUCLEAR STRESS TEST 04/26/2018 Impression: Perfusion imaging was negative for ischemia or infarct. Inferior wall artifact. Pharmacologic stress ECG is negative for ischemia at level of heart rate achieved. No appreciable change from baseline ECG. Gated EF > 70%. Anesthesia Exam Vital Signs Temp Pulse Resp BP Pulse Ox 07/08/18 19:44 98.4 F 102 18 127/90 93 07/08/18 17:51 117 20 91 07/08/18 16:47 97.3 F L 95 20 166/97 90 07/08/18 16:43 18 94 07/08/18 15:30 102 20 90 07/08/18 13:00 101 18 91 07/08/18 11:49 98.3 F 112 18 105/71 90 07/08/18 10:00 108 18 91 07/08/18 09:55 18 91 07/08/18 08:14 99 07/08/18 07:50 99 18 91 07/08/18 07:08 97.9 F 77 18 126/88 94 07/08/18 07:00 91 07/08/18 04:07 97.3 F L 93 18 144/99 97 07/08/18 03:24 17 150/97 98 07/08/18 01:03 97.7 F 92 18 150/97 99 07/08/18 00:19 16 133/94 95 07/07/18 21:13 19 133/94 95 07/07/18 21:08 98 F 119 20 133/94 93 Patient Weight 07/08/18 23:59 Weight 135.7 kg Height: 6'2" Weight: 300# - HEENT Pupil (Motor): Pupils equal, EOMI Mallampati: III Teeth: Missing, Poor dentition Oral Opening: Greater than 3 - RAG COLLECTOR LOC: Oriented RAG COLLECTOR Motor: Normal RUE (Mild R>LUE deficits per Neurology), Normal LUE, Normal Face, Deficit RLE, Deficit LLE RAG COLLECTOR Sensory: Normal: RUE, LUE, Face, Deficit: RLE, LLE - Cardiac Rhythm: Regular Murmur: None - Pulmonary Breath Sounds: right Rales, right Rhonchi Respiratory Effort: Symmetrical Anesthesia Assess/Plan ASA Score: 4 (Lung Ca, Spinal Stenosis/radiculopathy/motor deficits, COPD, DM, MO/BMI = 39, DMITRY) Modified Vivek Scale for Level of Consciousness: Cooperative, oriented, and tranquil Anesthetic Plan: General, Regional Monitoring Plan: Standard Monitors Recovery Plan: PACU Anes Supervising Prov Stmt: Pt seen/evaluated, R&B discussed, questions answered and consent obtained. Risk of prolonged intubation/possible ICU stay, need for post-operative CPAP/BiPap also discussed. Ray Ledezma MD
[2018-07-08] MEDS ORDERED: Insulin DETEMIR 100 UNIT/ML X5UNITS SQ SCH (21:00)
--- NOTE | 2018-07-08 21:13 | Spine Progress Note ---
Date of Encounter: 07/08/18 Time of Encounter: 21:10 - Assessment and Plan (1) Cervical stenosis of spine Current Visit: Yes Status: Chronic (2) Cervical myelopathy Current Visit: Yes Status: Chronic (3) Vertebral compression fracture Current Visit: Yes Status: Acute Subjective Principal diagnosis: COPD and ILD, cervical myelopathy Interval history: Long discussion was held with the patient regarding risks benefits possible complications and alternatives of anterior cervical decompression fusion C3-4 and C5-6. Both myself and neurology feels that surgical decompression is warranted to prevent the inevitable neurologic decline associated with cervical myelopathy. Patient and family is amenable to proceeding with surgery but they want a final comment, clearance per Dr. Chow. We will plan on proceeding with surgical intervention tomorrow morning as long as a final discussion/ verdict is obtained from Dr Chow. Objective Vital signs: Vital Signs Temp Pulse Resp BP Pulse Ox 07/08/18 19:44 98.4 F 102 18 127/90 93 07/08/18 17:51 117 20 91 07/08/18 16:47 97.3 F L 95 20 166/97 90 07/08/18 16:43 18 94 07/08/18 15:30 102 20 90 07/08/18 13:00 101 18 91 07/08/18 11:49 98.3 F 112 18 105/71 90 07/08/18 10:00 108 18 91 07/08/18 09:55 18 91 07/08/18 08:14 99 07/08/18 07:50 99 18 91 07/08/18 07:08 97.9 F 77 18 126/88 94 07/08/18 07:00 91 07/08/18 04:07 97.3 F L 93 18 144/99 97 07/08/18 03:24 17 150/97 98 07/08/18 01:03 97.7 F 92 18 150/97 99 07/08/18 00:19 16 133/94 95 07/07/18 21:13 19 133/94 95 Intake and Output 07/08/18 07/08/18 07/08/18 07:59 15:59 23:59 Intake Total 600 / 600 Output Total 300 / 300 450 / 450 Balance 300 / 300 -450 / -450 Intake: Oral 600 / 600 Output: Urine 300 / 300 450 / 450 Other: Meal Lunch Dinner Percent of Meal Consumed 100% 100% # Urine Diapers 3 1 Weight 135.7 kg Blood Glucose* 366 319 301 Patient Weight 07/08/18 23:59 Weight 135.7 kg - Labs CBC & BMP: 07/08/18 04:30 07/08/18 04:30 Labs: Abnormal lab results WBC 17.7 K/mcL (4.3-11.1) H 07/08/18 04:30 Neutrophils # 16.5 K/mcL (1.6-8.9) H 07/08/18 04:30 Carbon Dioxide 31 mEq/L (23-29) H 07/08/18 04:30 BUN 30 mg/dL (8-23) H 07/08/18 04:30 BUN/Creatinine Ratio 43 (6-26) H 07/08/18 04:30 Glucose 362 mg/dL (70-105) H 07/08/18 04:30 POC Glucose 319 mg/dL (70-99) H 07/08/18 11:52 Hemoglobin A1c 11.2 % (-5.6) H 07/03/18 04:21 Calculated Osmolality 305 (280-300) H 07/08/18 04:30 Serum Total Protein 6.2 g/dL (6.4-8.9) L 07/05/18 04:32 Albumin 3.4 g/dL (3.5-5.7) L 07/05/18 04:32 HDL Cholesterol 39 mg/dL (40-59) L 07/03/18 04:21 Ur Specific [place] > 1.030 (1.010-1.025) H 07/07/18 14:23 Urine Glucose (UA) >=1000 mg/dL (Normal) H 07/07/18 14:23 Urine Ketones 15 mg/dL (Negative) H 07/07/18 14:23 Urine Microscopic RBC 5-15 per hpf (0-3) H 07/02/18 12:10 Urine Microscopic WBC 5-15 per hpf (0-3) H 07/02/18 12:10 Ur Squamous Epith Cells Many per lpf (None-Few) H 07/02/18 12:10 Urine Mucus Many (Few) H 07/02/18 12:10 Consult Discharge Plan - Plan Referrals: Luis Miguel Aguilera DO [Primary Care Provider] - 07/10/18 11:30 am
[2018-07-08] MEDS: Melatonin 3 MG TABLET PO SCH (21:51)
[2018-07-08] MEDS: Finasteride 5 MG TABLET PO SCH (21:51)
[2018-07-09] MEDS: methylPREDNISolone 125 MG/2 ML VIAL IVP SCH ×3 (00:56→15:20)
[2018-07-09 04:45] LABS: Basophils % 0.1 %; Hematocrit 43.7 % (37.5-50.1); Hemoglobin 14.3 g/dL (12.9-16.9); Immature Granulocytes % 0.7 % (0-4); Lymphocytes # 0.3 K/mcL (0.6-4.6); Lymphocytes % 2.9 %; Mean Corpuscular HGB Conc 32.7 g/dL (31.6-35.5); Mean Corpuscular Hemoglobin 31.2 pg (28.0-33.3); Mean Corpuscular Volume 95.4 fL (83.0-100.0); Mean Platelet Volume 9.7 fL (9.4-12.4); Monocytes # 0.4 K/mcL (0.0-1.3); Monocytes % 3.6 %; Neutrophils # 10.9 K/mcL (1.6-8.9); Platelet Count 230 K/mcL (140-400); Red Blood Count 4.58 M/mcL (4.19-5.50); Red Cell Distribution Width 12.8 % (11.5-14.5); Segmented Neutrophils % 92.7 %
[2018-07-09 04:51] LABS: Prothrombin Time 11.7 Seconds (9.4-12.1)
[2018-07-09 05:12] LABS: BUN/Creatinine Ratio 44 (6-26); Blood Urea Nitrogen 33 mg/dL (8-23); Calcium 9.7 mg/dL (8.6-10.3); Carbon Dioxide 32 mEq/L (23-29); Chloride 98 mEq/L (98-107); Glucose 392 mg/dL (70-105); Osmolality,Calculated 312 (280-300); Potassium 4.7 mEq/L (3.5-5.1); Sodium 139 mEq/L (136-145); eGFR For Non-African Americans > 60 (> 60)
[2018-07-09] MEDS: Levalbuterol Neb 1.25 MG/3 ML IH SCH ×4 (05:13→22:09)
[2018-07-09] MEDS: *HR* Heparin 5,000 UNIT/ML VIAL SQ SCH ×3 (05:43→20:19)
[2018-07-09] MEDS ORDERED: Bacitracin 50,000 UNIT, Polymyxin B Sulfate 500,000 UNIT, Sodium Chloride IRRigation 1,... IR ONE ×2 (06:00→13:26)
[2018-07-09] MEDS ORDERED: CeFAZolin Syr 3,000MG/30 ML 3,000 MG/30 ML SYRINGE IVPB ONE (07:00)
[2018-07-09] MEDS ORDERED: ceFAZolin sodium 3,000 MG in 0.9 % Sodium Chloride 100 ML IVPB ONE ×2 (07:00→13:26)
[2018-07-09] MEDS: Furosemide 20 MG/2 ML VIAL IVP SCH ×2 (07:44→16:51)
[2018-07-09] MEDS: Insulin LISPRO 300 UNITS/3 ML VIAL SQ SCH ×5 (07:45→23:58)
[2018-07-09] MEDS: Cholecalciferol (D-3) 1,000 UNIT TABLET PO SCH (07:45)
[2018-07-09] MEDS: Ascorbic Acid 500 MG TABLET PO SCH (07:45)
[2018-07-09] MEDS: Clotrimazole 1% CRM 15 GM TUBE TP SCH ×2 (07:46→20:20)
[2018-07-09] MEDS: Nystatin POWDER 30 GM BOTTLE TP SCH ×2 (07:46→20:20)
[2018-07-09] MEDS: Fluticasone Propionate Nasal 50 MCG/SPRAY BOTTLE NS SCH (07:47)
[2018-07-09] MEDS ORDERED: Dexmedetomidine HCl 400 MCG/100 ML MLS IVC ONE (07:58)
[2018-07-09] MEDS ORDERED: Lidocaine -MPF 0.5% 50 ML VIAL ONE ×2 (07:58→07:59)
[2018-07-09] MEDS ORDERED: *HR* Succinylcholine 200 MG/10 ML VIAL IVP ONE (08:43)
[2018-07-09] MEDS ORDERED: Lidocaine -MPF 2% 2 ML VIAL ONE (08:43)
[2018-07-09] MEDS ORDERED: *HR* Midazolam HCl 2 MG/2 ML VIAL ONE (08:43)
[2018-07-09] MEDS ORDERED: *HR* Propofol 200 MG/20 ML VIAL IVP ONE ×2 (08:43→09:57)
[2018-07-09] MEDS ORDERED: Ondansetron 4 MG/2 ML VIAL ONE (08:43)
[2018-07-09] MEDS ORDERED: *HR* FentaNYL (PF) 100 MCG/2 ML VIAL ONE ×2 (08:43→11:07)
--- NOTE | 2018-07-09 08:49 | Pulmonology Progress Note ---
Date of Encounter: 07/09/18 Time of Encounter: 08:15 Assessment and Plan (1) Encounter for perioperative consultation Current Visit: Yes Status: Acute Patient is feeling better this morning and denies any worsening of his baseline dyspnea and discussed with spine surgeon Dr. Jay regarding surgery clearance and he does have multiple comorbidities and he is high risk for complications, however today he is clear for surgery from pulmonary standpoint because of gravity of not having surgery. They mean by that benefits outweighed the risks of surgery. This was discussed with the patient and the at the bedside. Continue bronchodilators and if will not be successful to extubate patient post surgery, he will be seen in the ICU. We will continue follow-up. (2) Acute and chronic postprocedural respiratory failure Current Visit: Yes Status: Acute Patient returned from surgery intubated and reportedly he was difficult intubation and with his comorbidities with post surgical changes in the neck area patient is not ready for extubation and they discussed this with the at the bedside. I am hoping in next 24 hours patient will be more stable and will be able to protect his airway and be stronger. Vent bundle was done and checked chest x-ray with appropriate placement of the ET tube and also ABG is reasonable. Patient will be sedated for the vent synchrony. There is no significant intrinsic PEEP and will continue bronchodilators. I spent 35 min of Critical Care time with this patient. It involved decision making of high complexity to assess, manipulate, and support vital organ system failure and/or to prevent further life threatening deterioration of the patient' s condition. The time involved in the performance of separately reportable procedures was not counted toward critical care time. Subjective Principal diagnosis: COPD and ILD, cervical myelopathy Interval history: Patient is breathing can feeling better this morning and denies any chest pain or significant productive cough. Objective PUL Vital signs: Last Vital Signs Temp 97.5 F L 07/09/18 07:02 Pulse 77 07/09/18 07:02 Resp 18 07/09/18 07:02 BP 140/86 07/09/18 07:02 Pulse Ox 93 07/09/18 07:02 General appearance: no acute distress Eyes: nonicteric ENT: oropharynx dry Neck: supple Effort: normal Auscultation: bilateral: diminished breath sounds Percussion: bilateral: not dull Cardiovascular: regular rate and rhythm Gastrointestinal: normoactive bowel sounds, non-distended Extremities: no cyanosis normal mental status mood appropriate Results - Laboratory Findings CBC and BMP: 07/09/18 04:31 07/09/18 04:31 PT/INR, D-dimer PT 11.7 Seconds (9.4-12.1) 07/09/18 04:31 Abnormal lab findings: Abnormal lab results WBC 11.8 K/mcL (4.3-11.1) H 07/09/18 04:31 Neutrophils # 10.9 K/mcL (1.6-8.9) H 07/09/18 04:31 Lymphocytes # 0.3 K/mcL (0.6-4.6) L 07/09/18 04:31 Carbon Dioxide 32 mEq/L (23-29) H 07/09/18 04:31 BUN 33 mg/dL (8-23) H 07/09/18 04:31 BUN/Creatinine Ratio 44 (6-26) H 07/09/18 04:31 Glucose 392 mg/dL (70-105) H 07/09/18 04:31 POC Glucose 375 mg/dL (70-99) H 07/08/18 21:18 Hemoglobin A1c 11.2 % (-5.6) H 07/03/18 04:21 Calculated Osmolality 312 (280-300) H 07/09/18 04:31 Serum Total Protein 6.2 g/dL (6.4-8.9) L 07/05/18 04:32 Albumin 3.4 g/dL (3.5-5.7) L 07/05/18 04:32 HDL Cholesterol 39 mg/dL (40-59) L 07/03/18 04:21 Ur Specific [place] > 1.030 (1.010-1.025) H 07/07/18 14:23 Urine Glucose (UA) >=1000 mg/dL (Normal) H 07/07/18 14:23 Urine Ketones 15 mg/dL (Negative) H 07/07/18 14:23 Urine Microscopic RBC 5-15 per hpf (0-3) H 07/02/18 12:10 Urine Microscopic WBC 5-15 per hpf (0-3) H 07/02/18 12:10 Ur Squamous Epith Cells Many per lpf (None-Few) H 07/02/18 12:10 Urine Mucus Many (Few) H 07/02/18 12:10 - Microbiology Findings Microbiology Findings: Microbiology, Last 48 Hours 07/08/18 17:45 Sputum Culture - Preliminary Sputum - Clinical Findings Intake & Output: Intake & Output 07/08/18 07/09/18 07/09/18 23:59 07:59 15:59 Output Total 450 / 450 Balance -450 / -450 Weight 136.7 kg Consult Discharge Plan - Plan Referrals: Luis Miguel Aguilera DO [Primary Care Provider] -
--- NOTE | 2018-07-09 08:54 | Internal Med Progress Note ---
Hospitalist Progress Note - Encounter Date of Encounter: 07/09/18 Time of Encounter: 07:30 - Subjective Interval History: asleep, family at bedside. poor sleep overnight. pt awakes to anme. overall breathingcont to improve. no sob on o2 nc. + cough, no sputum, no fevers, chills , n/v. - Exam Vitals: Temp Pulse Resp BP Pulse Ox 97.5 F L 77 18 140/86 93 07/09/18 07:02 07/09/18 07:02 07/09/18 07:02 07/09/18 07:02 07/09/18 07:02 Exam: General: awake, alert, appears stated age, obese HEENT:EOM intact, pupils equal, round, moist mucus membranes Neck: supple, trachea midline Cardiovascular:regular rate and rhythm, normal S1 & S2, no murmurs, cannot appreciate JVD. no lower extremity edema Lungs: Normal respiratory effort on O2 nc,ctabl in ant/lat [place], no wheezing or rhonchi Abdomen:Soft, non-tender, non-distended, + bowel sounds Neurological: AAOx3 Skin:Normal color, no rash, no pallor - Assessment and Plan (1) Acute on chronic respiratory failure with hypoxia Current Visit: No Status: Acute Assessment and Plan: 07/06--overnight the patient's condition declined; developing respiratory distress requiring BiPAP for stabilization. WBC elevated at 17.3 diminished airflow per auscultation as well as expiratory wheezing and scattered rhonchi. transferred to , received IV Lasix, IV steroids and aerosol treatments. -Pulm now following- CXR reviewed rec for lasix , stop ivf and give steroids, no rec for abx was made -Steroids IV, continue scheduled DuoNeb's, IV Lasix -Chest x-ray 07/06 no significant change from prior, right perihilar opacity -weaned off bipap -cont supplemental O2 -of note he is 8.5 L positive this admission -sputum cx prelim many wbc, many gnr, few gpc -bl cx neg -clinically improving with treatment as above and without abx, afebrile -will fu pulm recs, current treatment continued (2) COPD (chronic obstructive pulmonary disease) Current Visit: Yes Status: Chronic Assessment and Plan: Pt has severe disease, along with ILD and DMITRY -home and prn inhalers - Supplemental O2/bipap -cpap hs -further treatment as above (3) Small cell lung cancer Current Visit: No Status: Chronic Assessment and Plan: Hx of small cell lung cancer. Pt. reports he is currently in remission. Post radiation interstitial markings on the right can be noted on CT chest from March of 2018 f/u with [facility] as previously scheduled (4) DMITRY (obstructive sleep apnea) Current Visit: Yes Status: Chronic Assessment and Plan: Hx of chronic DMITRY. CPAP HS. Respiratory therapy consulted. (5) Low back pain Current Visit: Yes Status: Chronic Assessment and Plan: acute compression fracture L3, chronic compression fractures L1 and L4 MRI of the lumbar spine reveals multilevel degenerative changes. There is an acute compression fracture at L3. There are chronic compression fractures at L4 and L1. -spine surgery consulted this admission: he can be treated conservatively with analgesics, and although bracing was discussed, we would prefer analgesics alone for treatment. I do not think he requires vertebral augmentation in the form of a kyphoplasty. (6) Leg weakness, bilateral Current Visit: Yes Status: Acute Assessment and Plan: Acute on chronic bilateral leg weakness resulting in falls multifactorial given diagnoses noted above -neurology consulted -ortho spine consulted -/ to above Falls/safety precautions. Up with assist only. PT/OT consults ordered. -ortho recs as above (7) Cervical myelopathy Current Visit: Yes Status: Chronic Assessment and Plan: cervical stenosis,cervical myelopathy,myelomalacia within cervical cord MRI of the cervical spine reveals severe stenosis at C3-4 and moderate stenosis at C5-6. There is increased signal within the cord at C3-4 consistent with myelomalacia. -spine surg consulted this admission: with positive upper motor neuron findings on neurologic examination reasonable to consider surgery in the form of a anterior cervical decompression and fusion C3-4 and C5-6 however given his respiratory status he is not a candidate for surgery at this time -07/08 family is wondering if there is still a chance he could be cleared for OR tomorrow. Aware there is not a documented plan for OR and that pulm has not yet cleared him for OR. Surg and pulm have not yet been in this weekend and may not be. In case he is seen in AM and cleared for or, and still on or schedule, will amke pt npo p mn with insulin adjustments and full labs and cxr for in am -07/09 awaiting pulm eval to determine if cleared for anterior cervical decompression fusion C3-4 and C5-6 by spine surg (8) Fall Current Visit: Yes Status: Acute Assessment and Plan: Acute on chronic fall Spine disease as above Falls/safety precautions. Up with assist only. PT/OT consults ordered. Bilateral carotid Dopplers neg -Ortho consults as above -SW consult ordered to assess for home health. (9) Hyponatremia Current Visit: Yes Status: Acute Assessment and Plan: Acute hyponatremia w/sodium of 132 on admission. Resolved slowly with appropraite correction rate Pt. received 1L bolus in ED. was receiving IV fluids now stopped as above -cont to monitor bmp, in recent days consistently 129-136 and variable-will monitor with diuresis as supect recent decrease to 129 with improvement to 133 was related to hypervolemic hyponatremia (10) DVT prophylaxis Current Visit: Yes Status: Acute Assessment and Plan: continue Heparin 5,000 units SQ Q8HR for DVT prophylaxis (11) Morbid obesity Current Visit: Yes Status: Chronic Assessment and Plan: education for lifestyle modifications (12) Diabetes mellitus Current Visit: Yes Status: Chronic Assessment and Plan: Hx of chronic diabetes controlled by insulin. Hypergycemia now worse on steroids -was on home dose of insulin and low-dose correction sliding scale insulin w/ hypoglycemic protocol. -bs now elevating on steroids and dose adjustments being made as needed -BG checks ACHS. ADA diet -insulin adjusted last night in prep for npo today--will adjust back to prior dosing for this evening pending or plans DVT Prophylaxis: heparin sq - Time Spent with Patient Total time spent is greater than 50% in coordination of care (as documented) at patient's floor/unit and/or counseling patient: 25 - 35 minutes Plan of Care Discussed with: patient Internal Medicine: Result - Labs CBC & Chem 7: 07/09/18 04:31 07/09/18 04:31 Labs: Short CBC 07/09/18 Range/Units 04:31 WBC 11.8 H (4.3-11.1) K/mcL Hgb 14.3 D (12.9-16.9) g/dL Hct 43.7 (37.5-50.1) % Plt Count 230 (140-400) K/mcL Neutrophils # 10.9 H (1.6-8.9) K/mcL BMP 07/09/18 04:31 Sodium 139 Potassium 4.7 Chloride 98 Carbon Dioxide 32 H BUN 33 H Creatinine 0.75 Glucose 392 H Calcium 9.7 - ABG Interpretation ABG results: PT/INR, D-dimer PT 11.7 Seconds (9.4-12.1) 07/09/18 04:31 Consult Discharge Plan - Plan Referrals: Luis Miguel Aguilera DO [Primary Care Provider] - (2) COPD (chronic obstructive pulmonary disease) Qualifiers: Qualified Code(s): J43.1 - Panlobular emphysema (5) Low back pain Qualifiers: Qualified Code(s): M54.5 - Low back pain (8) Fall Qualifiers: Qualified Code(s): W19.XXXA - Unspecified fall, initial encounter (12) Diabetes mellitus Qualifiers: Qualified Code(s): E11.9 - Type 2 diabetes mellitus without complications
[2018-07-09] MEDS ORDERED: KETAMINE HCL 50 MG/ML SYRINGE IV ONE (09:40)
[2018-07-09] MEDS ORDERED: *HR* PHENYLEPHRINE 1,000 MCG/10 ML SYRINGE IVP ONE ×2 (10:08→10:46)
[2018-07-09] MEDS ORDERED: Dexamethasone 4 MG/ML VIAL ONE (10:20)
[2018-07-09] MEDS ORDERED: *HR* Magnesium Sulfate 1 GM/2 ML VIAL ONE (10:21)
[2018-07-09] MEDS ORDERED: Hydrocortisone Sodium Succ 100 MG/2 ML VIAL ONE (10:57)
[2018-07-09] MEDS ORDERED: *HR* Vasopressin 20 UNIT/ML VIAL ONE (10:57)
--- NOTE | 2018-07-09 12:30 | Orthopedic Operative Note ---
Date of procedure: 07/09/18 Pre-op diagnosis: Cervical stenosis, cervical myelopathy, myelomalacia Post-op diagnosis: same Operation/Findings: Anterior cervical decompression and fusion C3-4 and C5-6: The patient was brought to the operating room and placed supine on the operating room table. Successful general endotracheal anesthesia intubation was performed. Neurophysiologic monitoring personnel placed leads on the upper and lower extremities as well as the cranium for EMG monitoring purposes. Appropriate baseline potentials were noted by the neurophysiologic monitoring staff. Acosta catheter was placed prior to positioning. Compression boots and stockings were placed for deep vein thrombosis prophylaxis. Padding was also placed all bony prominences including the ulnar nerve near the medial epicondyles of the elbows were appropriately padded. Mild traction was placed on the bilateral shoulders and taped into place. Preoperative antibiotics were administered. The area from the mandible bilaterally to the upper thoraces was prepped and draped in the usual sterile fashion. An oblique incision was made at the level of the cricoid cartilage which is approximately 3 cm in length and extended from the midline of the cervical spine laterally towards the sternocleidomastoid muscle on the left. It was 1 cm medial and parallel to the sternocleidomastoid muscle on the left. We then performed standard medial approach to the carotid sheath. Sponges were used to tease the fascial medial to the sternocleidomastoid muscle while carefully controlling and palpating the carotid artery. Using careful dissection we were able to get to the level of the anterior vertebral bodies and longus coli muscles. The spinal needle was placed at the appropriate C3-4 level, and intraoperative radiograph was obtained which was a cervical spine lateral radiograph. The needle and radiograph confirmed we were at the correct C3-4 operative level. We further exposed this level by using Bovie cautery under the medial edge of the longus coli muscles to allow them to be retracted approximately 2 mm laterally on each side. An 11 blade was used to perform anterior discectomy at the appropriate C3-4 level after an initial annulotomy of the anterior longitudinal ligament and annulus was performed. Further disc material was removed with pituitary Rongeurs. Subsequently, Synthes pins were placed at the C3 and C4 vertebral bodies respectively to provide distraction. We then used a Trimline cervical retractor which was placed in both medial and lateral as well as inferior superior direction to allow full visualization of the appropriate C3-4 disc and C3 and C4 vertebral bodies. The Leica microscope was brought to the field and the remainder of the procedure was performed under the guidance of this microscope. Using pituitary rongeurs and small curettes, various micro- instruments, a full discectomy was performed at the appropriate C3-4 level. The posterior longitudinal ligament was encountered and appeared partially calcified. A portion of this ligament was removed. After complete and thorough discectomy and removal of spondylitic material was performed the endplates of the C3 and C4 vertebral bodies were prepared with a bur until allow bleeding of cancellous bone. An 8 mm trial graft was evaluated and appeared to fit quite well within the excised disc space. A cortico-cancellus allograft of 8 mm was utilized, carefully tapped into place within the excised disc space with the aid of a bone tamp. It was seated approximately 2 mm from the anterior edge of the cortex of the adjacent vertebral bodies. A cervical plate was then placed on the anterior aspect of the C3 and C4 vertebral bodies. The plate was placed in the midline position after drilling four 13 mm self tapping screws and inserting them. They were locked in place using standard Venture plate maneuvers. We then turned our attention to the C5-6 level. We made an annulotomy into the C5-6 disc space and then removed disc material with pituitary instruments. We decompressed all the way to the posterior longitudinal ligament which was partially calcified. Spondylitic material was also removed. After the decompression the endplates were prepared at C5 and C6 for graft insertion. An 8mm trial graft fit well within the excised C5-6 disc space. We subsequently placed a 8 mm allograft at C5-6. We then placed a cervical plate on the anterior aspect of the C5 and C6 vertebral bodies. The plate was fixated with 4 cancellous screws in standard fashion. At this point a lateral radiograph of the cervical spine was obtained and showed satisfactory position of the graft and plates at C3-4 and C5-6. The wound was copiously irrigated and bleeders encountered were cauterized using Bovie cautery. Platysma was closed with interrupted 2-0 Vicryl sutures. Running 3-0 Monocryl suture was used for skin closure. Sterile dressing was placed over the neck wound. The patient was transferred to a hospital bed and extubated. The patient was noted to be fully motor and sensory intact in the recovery room at the end of the procedure. The medications. All sponge instrument and needle counts were correct at the end of the procedure. Anesthesia: GETA Surgeon: Tyler Jay Jr Was there an social human services assistants present: No Estimated blood loss (cc): 25 Specimen: None Condition: stable Disposition: PACU
[2018-07-09] MEDS ORDERED: traMADol 50 MG TABLET PO PRN (13:26)
[2018-07-09] MEDS ORDERED: *HR* Dextrose 50 % in Water (Syg) 50 ML SYRINGE IVP PRN (13:26)
[2018-07-09] MEDS ORDERED: Ondansetron 4 MG/2 ML VIAL IVP PRN (13:26)
[2018-07-09] MEDS ORDERED: *HR* OxyCODONE Immed Rel 5 MG TABLET PO PRN (13:26)
[2018-07-09] MEDS ORDERED: Acetaminophen 325 MG TABLET PO PRN ×2 (13:26)
[2018-07-09] MEDS ORDERED: Naloxone 0.4 MG/ML INJ IVP PRN ×2 (13:26)
[2018-07-09] MEDS ORDERED: Dextrose Gel 15 GM/37.5 ML TUBE PO PRN ×2 (13:26)
[2018-07-09] MEDS ORDERED: D5% in Water 1,000 ML IVC PRN (13:26)
[2018-07-09] MEDS ORDERED: Artificial Tears SOLN 15 ML BOTTLE BOTH EYES PRN (13:34)
[2018-07-09 13:54] LABS: Magnesium 2.3 mg/dL (1.6-2.6)
[2018-07-09 14:09] LABS: ABG Base Excess 7 mEq/L (-2 to 3); ABG HCO3 34 mEq/L (21-27); ABG Oxygen Saturation 94 % (95-98); ABG PCO2 55 mmHg (35-45); ABG PH 7.39 pH Units (7.32-7.45); ABG PO2 74 mmHg (85-104); ABG TCO2 35 mEq/L (20-26); Blood Gas Modality VC; Blood Gas PEEP 5 cm H2O; Blood Gas Respiration Rate 14; Blood Gas VT 550 cc
[2018-07-09] MEDS: FentaNYL (PF) 1,000 MCG in 0.9 % Sodium Chloride 80 ML IVC SCH ×2 (14:10→22:07)
[2018-07-09] MEDS: Ringers Solution, Lactated 1,000 ML IVC SCH ×2 (14:37→23:53)
[2018-07-09] MEDS: Artificial Tears SOLN 15 ML BOTTLE BOTH EYES SCH ×3 (15:19→23:57)
[2018-07-09] MEDS: Chlorhexidine Rinse 15 ML MOUTHWASH MM SCH (20:19)
[2018-07-09] MEDS: Insulin DETEMIR 100 UNIT/ML X5UNITS SQ SCH (20:19)
[2018-07-10] MEDS: methylPREDNISolone 125 MG/2 ML VIAL IVP SCH ×2 (00:01→08:37)
[2018-07-10] MEDS: Levalbuterol Neb 1.25 MG/3 ML IH SCH ×2 (03:35→10:55)
[2018-07-10] MEDS: Artificial Tears SOLN 15 ML BOTTLE BOTH EYES SCH ×4 (04:15→17:43)
[2018-07-10 04:21] LABS: Basophils % 0.1 %; Hematocrit 43.9 % (37.5-50.1); Hemoglobin 14.4 g/dL (12.9-16.9); Immature Granulocytes % 0.8 % (0-4); Lymphocytes # 0.4 K/mcL (0.6-4.6); Lymphocytes % 2.4 %; Mean Corpuscular HGB Conc 32.8 g/dL (31.6-35.5); Mean Corpuscular Hemoglobin 31.4 pg (28.0-33.3); Mean Corpuscular Volume 95.9 fL (83.0-100.0); Mean Platelet Volume 9.5 fL (9.4-12.4); Monocytes # 0.9 K/mcL (0.0-1.3); Monocytes % 6.3 %; Neutrophils # 13.5 K/mcL (1.6-8.9); Platelet Count 240 K/mcL (140-400); Red Blood Count 4.58 M/mcL (4.19-5.50); Red Cell Distribution Width 12.6 % (11.5-14.5); Segmented Neutrophils % 90.4 %
[2018-07-10 04:40] LABS: BUN/Creatinine Ratio 46 (6-26); Blood Urea Nitrogen 31 mg/dL (8-23); Calcium 9.3 mg/dL (8.6-10.3); Carbon Dioxide 33 mEq/L (23-29); Chloride 98 mEq/L (98-107); Glucose 238 mg/dL (70-105); Magnesium 2.5 mg/dL (1.6-2.6); Osmolality,Calculated 302 (280-300); Potassium 4.1 mEq/L (3.5-5.1); Sodium 139 mEq/L (136-145); eGFR For Non-African Americans > 60 (> 60)
[2018-07-10] MEDS: Insulin LISPRO 300 UNITS/3 ML VIAL SQ SCH ×5 (04:46→20:39)
[2018-07-10] MEDS: *HR* Heparin 5,000 UNIT/ML VIAL SQ SCH ×3 (05:07→20:40)
[2018-07-10 05:12] LABS: ABG Base Excess 12 mEq/L (-2 to 3); ABG HCO3 40 mEq/L (21-27); ABG Oxygen Saturation 93 % (95-98); ABG PCO2 61 mmHg (35-45); ABG PH 7.42 pH Units (7.32-7.45); ABG PO2 68 mmHg (85-104); ABG TCO2 42 mEq/L (20-26); Blood Gas Modality ASSIST CONTROL; Blood Gas PEEP 5 cm H2O; Blood Gas Respiration Rate 14; Blood Gas VT 550 cc
--- NOTE | 2018-07-10 08:04 | Pulmonology Progress Note ---
<Jarred Posada M - Last Filed: 07/10/18 10:35> Date of Encounter: 07/10/18 Assessment and Plan (1) Encounter for perioperative consultation Current Visit: Yes Status: Acute (2) Acute and chronic postprocedural respiratory failure Current Visit: Yes Status: Acute Objective PUL Vital signs: Last Vital Signs Temp 97.6 F 07/10/18 08:00 Pulse 108 07/10/18 09:20 Resp 25 07/10/18 09:00 BP 145/99 07/10/18 09:00 Pulse Ox 86 07/10/18 09:00 Ventilator Settings Ventilator Settings: Ventilator Settings, Last 8 Hours Ventilator Tidal Volume 550 Setting Ventilator Tidal Volume 550 Setting Ventilator Tidal Volume 550 Setting Ventilator Tidal Volume 550 Setting Ventilator Tidal Volume 550 Setting Ventilator Tidal Volume 550 Setting Ventilator Respiratory Rate 14 Setting Ventilator Respiratory Rate 14 Setting Ventilator Respiratory Rate 14 Setting Ventilator Respiratory Rate 14 Setting Ventilator Respiratory Rate 14 Setting Ventilator Respiratory Rate 14 Setting Actual Respiratory Rate 16 Actual Respiratory Rate 20 Actual Respiratory Rate 21 Actual Respiratory Rate 19 Actual Respiratory Rate 18 Positive End Expiratory 5 Pressure Positive End Expiratory 5 Pressure Positive End Expiratory 5 Pressure Positive End Expiratory 5 Pressure Positive End Expiratory 5 Pressure Positive End Expiratory 5 Pressure Positive End Expiratory 5 Pressure Peak Inspiratory Airway 16 Pressure Peak Inspiratory Airway 9.8 Pressure Peak Inspiratory Airway 9.1 Pressure Peak Inspiratory Airway 9.8 Pressure Peak Inspiratory Airway 17 Pressure Peak Inspiratory Airway 9.8 Pressure Results - Laboratory Findings CBC and BMP: 07/10/18 04:02 07/10/18 04:02 ABG ABG pH 7.42 pH Units (7.32-7.45) 07/10/18 05:07 ABG pCO2 61 mmHg (35-45) H 07/10/18 05:07 ABG pO2 68 mmHg (85-104) L 07/10/18 05:07 ABG O2 Saturation 93 % (95-98) L 07/10/18 05:07 PT/INR, D-dimer PT 11.7 Seconds (9.4-12.1) 07/09/18 04:31 Abnormal lab findings: Abnormal lab results WBC 15.0 K/mcL (4.3-11.1) H 07/10/18 04:02 Neutrophils # 13.5 K/mcL (1.6-8.9) H 07/10/18 04:02 Lymphocytes # 0.4 K/mcL (0.6-4.6) L 07/10/18 04:02 ABG pCO2 61 mmHg (35-45) H 07/10/18 05:07 ABG pO2 68 mmHg (85-104) L 07/10/18 05:07 ABG HCO3 40 mEq/L (21-27) H 07/10/18 05:07 ABG Total CO2 42 mEq/L (20-26) H 07/10/18 05:07 ABG O2 Saturation 93 % (95-98) L 07/10/18 05:07 ABG Base Excess 12 mEq/L (-2 to 3) H 07/10/18 05:07 Carbon Dioxide 33 mEq/L (23-29) H 07/10/18 04:02 BUN 31 mg/dL (8-23) H 07/10/18 04:02 Creatinine 0.67 mg/dL (0.70-1.30) L 07/10/18 04:02 BUN/Creatinine Ratio 46 (6-26) H 07/10/18 04:02 Glucose 238 mg/dL (70-105) H 07/10/18 04:02 POC Glucose 284 mg/dL (70-99) H 07/09/18 23:50 Hemoglobin A1c 11.2 % (-5.6) H 07/03/18 04:21 Calculated Osmolality 302 (280-300) H 07/10/18 04:02 Serum Total Protein 6.2 g/dL (6.4-8.9) L 07/05/18 04:32 Albumin 3.4 g/dL (3.5-5.7) L 07/05/18 04:32 HDL Cholesterol 39 mg/dL (40-59) L 07/03/18 04:21 Ur Specific [place] > 1.030 (1.010-1.025) H 07/07/18 14:23 Urine Glucose (UA) >=1000 mg/dL (Normal) H 07/07/18 14:23 Urine Ketones 15 mg/dL (Negative) H 07/07/18 14:23 Urine Microscopic RBC 5-15 per hpf (0-3) H 07/02/18 12:10 Urine Microscopic WBC 5-15 per hpf (0-3) H 07/02/18 12:10 Ur Squamous Epith Cells Many per lpf (None-Few) H 07/02/18 12:10 Urine Mucus Many (Few) H 07/02/18 12:10 - Microbiology Findings Microbiology Findings: Microbiology, Last 48 Hours 07/08/18 17:45 Sputum Culture - Preliminary Sputum Gram Negative Johnathan - Clinical Findings Intake & Output: Intake & Output 07/09/18 07/10/18 07/10/18 23:59 07:59 15:59 Intake Total 340 / 340 200 / 200 Output Total 1175 / 1175 475 / 475 Balance -835 / -835 -275 / -275 Weight 145.2 kg Consult Discharge Plan - Plan Referrals: Luis Miguel Aguilera DO [Primary Care Provider] - - Attending Attestation I examined this patient and my medical decision-making was reviewed with the Resident Physician. I agree with the documented findings, disposition and treatment plan as described except to the extent set forth below. Patient seen and examined. Labs, radiology, chart personally reviewed. Agree with resident's history and physical, assessment, plan with following comments: [employer]: Patient follows commands, Pulmonary: Acceptable oxygenation and ventilation and he was successfully extubated and still needing NIV and diuresis hopefully will help. Encourage IS and continue bronchodilators. Cardiovascular: overall stable GI: Nutrition per dietary and GI prophylaxis per routine. ID: Continue antibiotics and plan to de-escalation. patient has received post operative antibiotic. Renal; urine out put and renal funtion reviewed. Nephrology is following up and continue diuresis. Endorcine: blood glucose is monitored Lines: all lines checked and no evidence of infections Skin: skin care to prevent pressure ulcers per nursing routine care Overall he is doing good, however still at risks for complications and continue ICU care. Surgery follow up. <Maximino Lion - Last Filed: 07/10/18 17:22> Date of Encounter: 07/10/18 Time of Encounter: 08:04 Assessment and Plan (1) Acute and chronic respiratory failure Current Visit: No Status: Acute Patient was extubated today on 07/10. Patient initially placed on 10 L/m via simple face mask but was unable to maintain SaO2 above 88%. Patient placed on BiPAP for oxygenation and decreased work of breathing. Patient sputum culture showed Proteus mirabilis Patient started on levofloxacin Continue to monitor ABG and oxygen saturations in conjunction with clinical indicators Repeat chest x-ray to monitor possible bilateral pleural effusion, as well as pneumonia versus radiation changes from small cell lung cancer treatment, or fluid overload. Qualifiers: Respiratory failure complication: hypoxia Qualified Code(s): J96.21 - Acute and chronic respiratory failure with hypoxia (2) COPD (chronic obstructive pulmonary disease) Current Visit: Yes Status: Chronic Patient has severe COPD Continue BiPAP therapy and ICU Continue home oxygen and CPAP to maintain an SPO2 greater than 88% Lifestyle modifications recommended Qualifiers: COPD type: emphysema Emphysema type: panlobular Qualified Code(s): J43.1 - Panlobular emphysema (3) Diabetes mellitus Current Visit: Yes Status: Chronic Patient is on high-dose sliding scale insulin regimen lispro every 4 Patient blood sugar has been consistently above 200 despite insulin therapy Levemir added 15 units for once this afternoon -we will continue with 20 units of Levemir daily at bedtime We will consider changing Levemir to twice a day after reassessment of blood sugar Qualifiers: Diabetes mellitus type: type 2 Diabetes mellitus care home insulin use: without care home use Diabetes mellitus complication status: without complication Qualified Code(s): E11.9 - Type 2 diabetes mellitus without complications (4) Small cell lung cancer Current Visit: No Status: Chronic Patient states that he has been in remission since 2014 Chest x-ray noted to show increased interstitial markings due to radiation treatment (5) Cervical stenosis of spine Current Visit: Yes Status: Chronic MRI of the cervical spine showed "foraminal narrowing, moderate at right C2-3, bilateral C3-4, right C4-5 and left C6-7, mild to moderate at left C4-5 and bilateral C5-6, mild at right C6-7." Anterior decompression and fusion spinal surgery performed on C3-C4 and C5-C6 vertebra Plan to transfer patient to regular nursing floor with plan for discharge tomorrow if appropriate (6) DMITRY (obstructive sleep apnea) Current Visit: Yes Status: Chronic Continue home use of CPAP Lifestyle modifications recommended for sleep hygiene and weight loss (7) DVT prophylaxis Current Visit: Yes Status: Acute continue Heparin 5,000 units SQ Q8HR for DVT prophylaxis (8) Morbid obesity Current Visit: Yes Status: Chronic Lifestyle modifications recommended for weight loss Consider nutrition consult Subjective Principal diagnosis: COPD and ILD, cervical myelopathy Interval history: Patient is 63-year-old male presenting to the ICU for acute on chronic respiratory failure status post one day following cervical decompression and fusion surgery. Patient x-rays no acute events overnight. He is in no acute distress, patient is alert and oriented and able to engage to questioning with limitations due to endotracheal intubation. Objective PUL Vital signs: Last Vital Signs Temp 97.4 F L 07/10/18 05:21 Pulse 113 07/10/18 06:00 Resp 21 07/10/18 06:31 BP 143/91 07/10/18 06:00 Pulse Ox 90 07/10/18 06:00 General appearance: no acute distress, alert Eyes: nonicteric Effort: other (Intubated and mechanically ventilated) Auscultation: bilateral: clear Cardiovascular: regular rate and rhythm Gastrointestinal: normoactive bowel sounds, non-tender, non-distended Integumentary: normal Extremities: no cyanosis non-focal exam Ventilator Settings Ventilator Settings: Ventilator Settings, Last 8 Hours Ventilator Tidal Volume 550 Setting Ventilator Tidal Volume 550 Setting Ventilator Tidal Volume 550 Setting Ventilator Tidal Volume 550 Setting Ventilator Tidal Volume 550 Setting Ventilator Tidal Volume 550 Setting Ventilator Tidal Volume 550 Setting Ventilator Tidal Volume 550 Setting Ventilator Tidal Volume 550 Setting Ventilator Tidal Volume 550 Setting Ventilator Respiratory Rate 14 Setting Ventilator Respiratory Rate 14 Setting Ventilator Respiratory Rate 14 Setting Ventilator Respiratory Rate 14 Setting Ventilator Respiratory Rate 14 Setting Ventilator Respiratory Rate 14 Setting Ventilator Respiratory Rate 14 Setting Ventilator Respiratory Rate 14 Setting Ventilator Respiratory Rate 14 Setting Ventilator Respiratory Rate 14 Setting Actual Respiratory Rate 20 Actual Respiratory Rate 21 Actual Respiratory Rate 19 Actual Respiratory Rate 18 Actual Respiratory Rate 20 Actual Respiratory Rate 20 Actual Respiratory Rate 20 Actual Respiratory Rate 19 Positive End Expiratory 5 Pressure Positive End Expiratory 5 Pressure Positive End Expiratory 5 Pressure Positive End Expiratory 5 Pressure Positive End Expiratory 5 Pressure Positive End Expiratory 5 Pressure Positive End Expiratory 5 Pressure Positive End Expiratory 5 Pressure Positive End Expiratory 5 Pressure Positive End Expiratory 5 Pressure Peak Inspiratory Airway 9.8 Pressure Peak Inspiratory Airway 9.1 Pressure Peak Inspiratory Airway 9.8 Pressure Peak Inspiratory Airway 17 Pressure Peak Inspiratory Airway 9.8 Pressure Peak Inspiratory Airway 15 Pressure Peak Inspiratory Airway 9.8 Pressure Peak Inspiratory Airway 9.8 Pressure Peak Inspiratory Airway 9.8 Pressure Results - Laboratory Findings CBC and BMP: 07/10/18 04:02 07/10/18 04:02 ABG ABG pH 7.42 pH Units (7.32-7.45) 07/10/18 05:07 ABG pCO2 61 mmHg (35-45) H 07/10/18 05:07 ABG pO2 68 mmHg (85-104) L 07/10/18 05:07 ABG O2 Saturation 93 % (95-98) L 07/10/18 05:07 PT/INR, D-dimer PT 11.7 Seconds (9.4-12.1) 07/09/18 04:31 Abnormal lab findings: Abnormal lab results WBC 15.0 K/mcL (4.3-11.1) H 07/10/18 04:02 Neutrophils # 13.5 K/mcL (1.6-8.9) H 07/10/18 04:02 Lymphocytes # 0.4 K/mcL (0.6-4.6) L 07/10/18 04:02 ABG pCO2 61 mmHg (35-45) H 07/10/18 05:07 ABG pO2 68 mmHg (85-104) L 07/10/18 05:07 ABG HCO3 40 mEq/L (21-27) H 07/10/18 05:07 ABG Total CO2 42 mEq/L (20-26) H 07/10/18 05:07 ABG O2 Saturation 93 % (95-98) L 07/10/18 05:07 ABG Base Excess 12 mEq/L (-2 to 3) H 07/10/18 05:07 Carbon Dioxide 33 mEq/L (23-29) H 07/10/18 04:02 BUN 31 mg/dL (8-23) H 07/10/18 04:02 Creatinine 0.67 mg/dL (0.70-1.30) L 07/10/18 04:02 BUN/Creatinine Ratio 46 (6-26) H 07/10/18 04:02 Glucose 238 mg/dL (70-105) H 07/10/18 04:02 POC Glucose 284 mg/dL (70-99) H 07/09/18 23:50 Hemoglobin A1c 11.2 % (-5.6) H 07/03/18 04:21 Calculated Osmolality 302 (280-300) H 07/10/18 04:02 Serum Total Protein 6.2 g/dL (6.4-8.9) L 07/05/18 04:32 Albumin 3.4 g/dL (3.5-5.7) L 07/05/18 04:32 HDL Cholesterol 39 mg/dL (40-59) L 07/03/18 04:21 Ur Specific [place] > 1.030 (1.010-1.025) H 07/07/18 14:23 Urine Glucose (UA) >=1000 mg/dL (Normal) H 07/07/18 14:23 Urine Ketones 15 mg/dL (Negative) H 07/07/18 14:23 Urine Microscopic RBC 5-15 per hpf (0-3) H 07/02/18 12:10 Urine Microscopic WBC 5-15 per hpf (0-3) H 07/02/18 12:10 Ur Squamous Epith Cells Many per lpf (None-Few) H 07/02/18 12:10 Urine Mucus Many (Few) H 07/02/18 12:10 - Microbiology Findings Microbiology Findings: Microbiology, Last 48 Hours 07/08/18 17:45 Sputum Culture - Preliminary Sputum - Clinical Findings Intake & Output: Intake & Output 07/09/18 07/10/18 07/10/18 23:59 07:59 15:59 Intake Total 340 / 340 200 / 200 Output Total 1175 / 1175 375 / 375 Balance -835 / -835 -175 / -175 Weight 145.2 kg - VTE Documentation of Mechanical Device: Intermittent pneumatic compression device
[2018-07-10] MEDS: Chlorhexidine Rinse 15 ML MOUTHWASH MM SCH (08:37)
[2018-07-10] MEDS: Furosemide 20 MG/2 ML VIAL IVP SCH ×2 (08:38→17:43)
[2018-07-10] MEDS: Fluticasone Propionate Nasal 50 MCG/SPRAY BOTTLE NS SCH (09:24)
[2018-07-10] MEDS: Ringers Solution, Lactated 1,000 ML IVC SCH (09:26)
[2018-07-10] MEDS: Nystatin POWDER 30 GM BOTTLE TP SCH ×2 (09:28→20:40)
[2018-07-10] MEDS: Clotrimazole 1% CRM 15 GM TUBE TP SCH ×2 (09:28→20:39)
[2018-07-10] MEDS: Ascorbic Acid 500 MG TABLET PO SCH (09:44)
[2018-07-10] MEDS: Cholecalciferol (D-3) 1,000 UNIT TABLET PO SCH (09:44)
[2018-07-10] MEDS ORDERED: Insulin DETEMIR 100 UNIT/ML X5UNITS SQ ONE (11:08)
[2018-07-10] MEDS ORDERED: Furosemide 40 MG/4 ML VIAL IVP ONE (11:08)
--- NOTE | 2018-07-10 11:20 | Spine Progress Note ---
Date of Encounter: 07/10/18 Time of Encounter: 11:18 - Assessment and Plan (1) Cervical stenosis of spine Current Visit: Yes Status: Chronic (2) Cervical myelopathy Current Visit: Yes Status: Chronic (3) Vertebral compression fracture Current Visit: Yes Status: Acute Subjective Principal diagnosis: COPD and ILD, cervical myelopathy Interval history: The patient is without complaints. He is extubated in the intensive care unit. He is awake and alert Afebrile vital signs are stable. Dressing is clean dry and intact. Neurovascularly intact with regard to bilatera upper and l lower extremities. Assessment :stable. Plan transfer to regular nursing floor per ICUs and hospitalist service. Begin mobilization. Discharge planning. Cervical radiograph to be reviewed. Objective Vital signs: Vital Signs Temp Pulse Resp BP Pulse Ox 07/10/18 10:56 22 88 07/10/18 10:00 104 21 145/97 88 07/10/18 09:20 108 07/10/18 09:00 112 25 145/99 86 07/10/18 08:40 88 07/10/18 08:31 16 07/10/18 08:23 16 90 07/10/18 08:00 97.6 F 118 23 146/94 91 07/10/18 07:25 97.6 F 07/10/18 06:31 21 07/10/18 06:00 113 20 143/91 90 07/10/18 05:21 97.4 F L 07/10/18 05:00 105 20 115/77 90 07/10/18 04:00 103 20 110/68 93 07/10/18 03:41 106 07/10/18 03:35 18 93 07/10/18 03:00 104 18 103/70 93 07/10/18 02:20 20 103/70 92 07/10/18 02:00 104 20 103/70 92 07/10/18 01:00 108 20 114/75 92 07/10/18 00:20 97.0 F L 07/10/18 00:18 18 106/70 93 07/10/18 00:00 108 19 106/70 96 07/09/18 23:00 109 19 97/69 96 07/09/18 22:10 19 94/75 96 07/09/18 22:00 102 18 94/75 95 07/09/18 21:59 21 94/75 94 07/09/18 21:18 97.2 F L 07/09/18 21:00 101 17 92/71 93 07/09/18 20:28 18 103/70 94 07/09/18 20:00 93 21 103/70 93 07/09/18 19:00 98 20 105/73 93 07/09/18 18:00 101 20 104/73 92 07/09/18 17:04 19 131/85 93 07/09/18 16:59 100 19 119/80 93 07/09/18 16:00 96.8 F L 102 17 115/78 94 07/09/18 15:00 101 16 139/82 95 07/09/18 14:00 105 17 126/85 91 07/09/18 13:18 23 132/86 92 07/09/18 13:00 96.5 F L 116 24 132/86 93 Intake and Output 07/09/18 07/10/18 07/10/18 23:59 07:59 15:59 Intake Total 340 / 340 200 / 200 Output Total 1175 / 1175 475 / 475 Balance -835 / -835 -275 / -275 Intake: IV Fluids 340 / 340 200 / 200 FentaNYL (PF) 1,000 MCG In 0.9 90 / 90 % Sodium Chloride 80 ML @ 50 MCG/HR 5 mls/hr IVC CONT CONNIE Rx #:[id number] Diprivan 1,000 mg In 100 ml @ 5 150 / 150 200 / 200 MCG/KG/MIN 4.101 mls/hr IVC . Q24H CONNIE Rx#:[id number] Ancef 3,000 MG In 0.9 % Sodium 100 / 100 Chloride 100 ML @ 200 mls/hr IVPB ONCE ONE Rx#:[id number] Oral 0 / 0 0 / 0 Output: Catheter 1175 / 1175 475 / 475 Other: Stool Size Smear Stool Color Brown Weight 145.2 kg Blood Glucose* 248 212 212 Patient Weight 07/10/18 23:59 Weight 145.2 kg - Labs CBC & BMP: 07/10/18 04:02 07/10/18 04:02 Labs: Abnormal lab results WBC 15.0 K/mcL (4.3-11.1) H 07/10/18 04:02 Neutrophils # 13.5 K/mcL (1.6-8.9) H 07/10/18 04:02 Lymphocytes # 0.4 K/mcL (0.6-4.6) L 07/10/18 04:02 ABG pCO2 61 mmHg (35-45) H 07/10/18 05:07 ABG pO2 68 mmHg (85-104) L 07/10/18 05:07 ABG HCO3 40 mEq/L (21-27) H 07/10/18 05:07 ABG Total CO2 42 mEq/L (20-26) H 07/10/18 05:07 ABG O2 Saturation 93 % (95-98) L 07/10/18 05:07 ABG Base Excess 12 mEq/L (-2 to 3) H 07/10/18 05:07 Carbon Dioxide 33 mEq/L (23-29) H 07/10/18 04:02 BUN 31 mg/dL (8-23) H 07/10/18 04:02 Creatinine 0.67 mg/dL (0.70-1.30) L 07/10/18 04:02 BUN/Creatinine Ratio 46 (6-26) H 07/10/18 04:02 Glucose 238 mg/dL (70-105) H 07/10/18 04:02 POC Glucose 284 mg/dL (70-99) H 07/09/18 23:50 Hemoglobin A1c 11.2 % (-5.6) H 07/03/18 04:21 Calculated Osmolality 302 (280-300) H 07/10/18 04:02 Serum Total Protein 6.2 g/dL (6.4-8.9) L 07/05/18 04:32 Albumin 3.4 g/dL (3.5-5.7) L 07/05/18 04:32 HDL Cholesterol 39 mg/dL (40-59) L 07/03/18 04:21 Ur Specific [place] > 1.030 (1.010-1.025) H 07/07/18 14:23 Urine Glucose (UA) >=1000 mg/dL (Normal) H 07/07/18 14:23 Urine Ketones 15 mg/dL (Negative) H 07/07/18 14:23 Urine Microscopic RBC 5-15 per hpf (0-3) H 07/02/18 12:10 Urine Microscopic WBC 5-15 per hpf (0-3) H 07/02/18 12:10 Ur Squamous Epith Cells Many per lpf (None-Few) H 07/02/18 12:10 Urine Mucus Many (Few) H 07/02/18 12:10 Consult Discharge Plan - Plan Referrals: Luis Miguel Aguilera DO [Primary Care Provider] -
[2018-07-10] MEDS: Levofloxacin 750 MG/150 ML 750 MG/150 ML BAG IVPB SCH (13:36)
[2018-07-10] MEDS: Insulin DETEMIR 100 UNIT/ML X5UNITS SQ SCH (20:38)
[2018-07-10] MEDS: *HR* HYDROcodone/Acet 5/325 mg TABLET PO PRN (20:38)
[2018-07-10] MEDS: MethylPREDNISolone 40 MG/ML VIAL IVP SCH (20:38)
[2018-07-10] MEDS: Finasteride 5 MG TABLET PO SCH (20:38)
[2018-07-10] MEDS: Melatonin 3 MG TABLET PO SCH (20:39)
[2018-07-11] MEDS: Insulin LISPRO 300 UNITS/3 ML VIAL SQ SCH ×7 (01:02→23:36)
[2018-07-11 04:19] LABS: Basophils % 0.2 %; Hematocrit 45.8 % (37.5-50.1); Immature Granulocytes % 0.3 % (0-4); Lymphocytes # 0.6 K/mcL (0.6-4.6); Lymphocytes % 3.4 %; Mean Corpuscular HGB Conc 32.8 g/dL (31.6-35.5); Mean Corpuscular Hemoglobin 31.4 pg (28.0-33.3); Mean Corpuscular Volume 95.8 fL (83.0-100.0); Mean Platelet Volume 9.7 fL (9.4-12.4); Monocytes % 5.8 %; Neutrophils # 15.5 K/mcL (1.6-8.9); Platelet Count 229 K/mcL (140-400); Red Blood Count 4.78 M/mcL (4.19-5.50); Red Cell Distribution Width 12.5 % (11.5-14.5); Segmented Neutrophils % 90.3 %
[2018-07-11 04:26] LABS: BUN/Creatinine Ratio 60 (6-26); Blood Urea Nitrogen 35 mg/dL (8-23); Calcium 9.4 mg/dL (8.6-10.3); Carbon Dioxide 33 mEq/L (23-29); Chloride 96 mEq/L (98-107); Glucose 203 mg/dL (70-105); Osmolality,Calculated 296 (280-300); Potassium 4.2 mEq/L (3.5-5.1); Sodium 136 mEq/L (136-145); eGFR For Non-African Americans > 60 (> 60)
[2018-07-11] MEDS: *HR* Heparin 5,000 UNIT/ML VIAL SQ SCH ×3 (05:56→23:36)
[2018-07-11] MEDS: Furosemide 20 MG/2 ML VIAL IVP SCH ×2 (09:34→17:17)
[2018-07-11] MEDS: MethylPREDNISolone 40 MG/ML VIAL IVP SCH (09:34)
[2018-07-11] MEDS: Fluticasone Propionate Nasal 50 MCG/SPRAY BOTTLE NS SCH (09:34)
[2018-07-11] MEDS: Levofloxacin 750 MG/150 ML 750 MG/150 ML BAG IVPB SCH (09:35)
[2018-07-11] MEDS: Clotrimazole 1% CRM 15 GM TUBE TP SCH ×2 (09:36→20:00)
[2018-07-11] MEDS: Nystatin POWDER 30 GM BOTTLE TP SCH ×2 (09:36→20:00)
--- NOTE | 2018-07-11 11:14 | Pulmonology Progress Note ---
Date of Encounter: 07/11/18 Time of Encounter: 07:30 Assessment and Plan (1) Encounter for perioperative consultation Current Visit: Yes Status: Acute Patient is feeling better this morning and denies any worsening of his baseline dyspnea and discussed with spine surgeon Dr. Jay regarding surgery clearance and he does have multiple comorbidities and he is high risk for complications, however today he is clear for surgery from pulmonary standpoint because of gravity of not having surgery. They mean by that benefits outweighed the risks of surgery. This was discussed with the patient and the at the bedside. Continue bronchodilators and if will not be successful to extubate patient post surgery, he will be seen in the ICU. We will continue follow-up. (2) Acute and chronic postprocedural respiratory failure Current Visit: Yes Status: Acute Patient returned from surgery intubated and reportedly he was difficult intubation and with his comorbidities with post surgical changes in the neck area patient is not ready for extubation and they discussed this with the at the bedside. I am hoping in next 24 hours patient will be more stable and will be able to protect his airway and be stronger. Vent bundle was done and checked chest x-ray with appropriate placement of the ET tube and also ABG is reasonable. Patient will be sedated for the vent synchrony. There is no significant intrinsic PEEP and will continue bronchodilators. I spent 35 min of Critical Care time with this patient. It involved decision making of high complexity to assess, manipulate, and support vital organ system failure and/or to prevent further life threatening deterioration of the patient' s condition. The time involved in the performance of separately reportable procedures was not counted toward critical care time. (3) COPD (chronic obstructive pulmonary disease) Current Visit: Yes Status: Chronic Continue bronchodilators and overall is doing well post surgery and requiring noninvasive ventilation sometimes. Encourage incentive spirometry and will decrease his systemic steroid and transition to oral. Patient to have physical therapy and perhaps keeping one more day in ICU and remained stable can be transferred out. Qualifiers: COPD type: emphysema Emphysema type: panlobular Qualified Code(s): J43.1 - Panlobular emphysema (4) DMITRY (obstructive sleep apnea) Current Visit: Yes Status: Chronic Patient refusing noninvasive ventilation (5) COPD exacerbation Current Visit: No Status: Resolved Subjective Principal diagnosis: COPD and ILD, cervical myelopathy Interval history: Patient was extubated successfully and he denies any major complaints. Objective PUL Vital signs: Last Vital Signs Temp 98.3 F 07/11/18 07:30 Pulse 112 07/11/18 09:00 Resp 18 07/11/18 09:00 BP 119/81 07/11/18 09:00 Pulse Ox 93 07/11/18 09:00 General appearance: no acute distress Eyes: nonicteric ENT: oropharynx dry Neck: other (Status post surgery) Effort: mildly labored Auscultation: bilateral: diminished breath sounds Tactile fremitus: bilateral: normal Cardiovascular: regular rate and rhythm Gastrointestinal: normoactive bowel sounds, non-distended Extremities: edema normal mental status, motor strength normal and symmetric mood appropriate Results - Laboratory Findings CBC and BMP: 07/11/18 03:48 07/11/18 03:48 ABG ABG pH 7.42 pH Units (7.32-7.45) 07/10/18 05:07 ABG pCO2 61 mmHg (35-45) H 07/10/18 05:07 ABG pO2 68 mmHg (85-104) L 07/10/18 05:07 ABG O2 Saturation 93 % (95-98) L 07/10/18 05:07 PT/INR, D-dimer PT 11.7 Seconds (9.4-12.1) 07/09/18 04:31 Abnormal lab findings: Abnormal lab results WBC 17.2 K/mcL (4.3-11.1) H 07/11/18 03:48 Neutrophils # 15.5 K/mcL (1.6-8.9) H 07/11/18 03:48 ABG pCO2 61 mmHg (35-45) H 07/10/18 05:07 ABG pO2 68 mmHg (85-104) L 07/10/18 05:07 ABG HCO3 40 mEq/L (21-27) H 07/10/18 05:07 ABG Total CO2 42 mEq/L (20-26) H 07/10/18 05:07 ABG O2 Saturation 93 % (95-98) L 07/10/18 05:07 ABG Base Excess 12 mEq/L (-2 to 3) H 07/10/18 05:07 Chloride 96 mEq/L (98-107) L 07/11/18 03:48 Carbon Dioxide 33 mEq/L (23-29) H 07/11/18 03:48 BUN 35 mg/dL (8-23) H 07/11/18 03:48 Creatinine 0.58 mg/dL (0.70-1.30) L 07/11/18 03:48 BUN/Creatinine Ratio 60 (6-26) H 07/11/18 03:48 Glucose 203 mg/dL (70-105) H 07/11/18 03:48 POC Glucose 118 mg/dL (70-99) H 07/10/18 23:45 Hemoglobin A1c 11.2 % (-5.6) H 07/03/18 04:21 Serum Total Protein 6.2 g/dL (6.4-8.9) L 07/05/18 04:32 Albumin 3.4 g/dL (3.5-5.7) L 07/05/18 04:32 HDL Cholesterol 39 mg/dL (40-59) L 07/03/18 04:21 Ur Specific [place] > 1.030 (1.010-1.025) H 07/07/18 14:23 Urine Glucose (UA) >=1000 mg/dL (Normal) H 07/07/18 14:23 Urine Ketones 15 mg/dL (Negative) H 07/07/18 14:23 Urine Microscopic RBC 5-15 per hpf (0-3) H 07/02/18 12:10 Urine Microscopic WBC 5-15 per hpf (0-3) H 07/02/18 12:10 Ur Squamous Epith Cells Many per lpf (None-Few) H 07/02/18 12:10 Urine Mucus Many (Few) H 07/02/18 12:10 - Microbiology Findings Microbiology Findings: Microbiology, Last 48 Hours 07/08/18 17:45 Sputum Culture - Final Sputum Proteus vulgaris - Clinical Findings Intake & Output: Intake & Output 07/10/18 07/11/18 07/11/18 23:59 07:59 15:59 Intake Total 240 / 240 240 / 240 Output Total 1300 / 1300 350 / 350 Balance -1060 / -1060 -110 / -110 Weight 144.9 kg - VTE Documentation of Mechanical Device: Intermittent pneumatic compression device Consult Discharge Plan - Plan Referrals: Luis Miguel Aguilera DO [Primary Care Provider] -
[2018-07-11] MEDS ORDERED: Furosemide 40 MG/4 ML VIAL IVP ONE (16:07)
[2018-07-11] MEDS: Finasteride 5 MG TABLET PO SCH (19:51)
[2018-07-11] MEDS: *HR* HYDROcodone/Acet 5/325 mg TABLET PO PRN (19:51)
[2018-07-11] MEDS: Melatonin 3 MG TABLET PO SCH (19:52)
[2018-07-11] MEDS: Insulin DETEMIR 100 UNIT/ML X5UNITS SQ SCH (19:58)
[2018-07-12 03:32] LABS: Basophils % 0.2 %; Eosinophils # 0.1 K/mcL (0.0-0.6); Eosinophils % 0.4 %; Hemoglobin 15.1 g/dL (12.9-16.9); Lymphocytes # 1.1 K/mcL (0.6-4.6); Lymphocytes % 7.2 %; Mean Corpuscular HGB Conc 32.8 g/dL (31.6-35.5); Mean Corpuscular Hemoglobin 31.1 pg (28.0-33.3); Mean Corpuscular Volume 94.7 fL (83.0-100.0); Mean Platelet Volume 9.4 fL (9.4-12.4); Monocytes % 6.5 %; Neutrophils # 12.6 K/mcL (1.6-8.9); Platelet Count 215 K/mcL (140-400); Red Blood Count 4.86 M/mcL (4.19-5.50); Red Cell Distribution Width 12.2 % (11.5-14.5); Segmented Neutrophils % 84.7 %
[2018-07-12 03:48] LABS: BUN/Creatinine Ratio 57 (6-26); Blood Urea Nitrogen 31 mg/dL (8-23); Calcium 9.2 mg/dL (8.6-10.3); Carbon Dioxide 35 mEq/L (23-29); Chloride 95 mEq/L (98-107); Glucose 125 mg/dL (70-105); Osmolality,Calculated 292 (280-300); Potassium 3.6 mEq/L (3.5-5.1); Sodium 137 mEq/L (136-145); eGFR For Non-African Americans > 60 (> 60)
[2018-07-12] MEDS: Insulin LISPRO 300 UNITS/3 ML VIAL SQ SCH ×4 (06:31→20:26)
[2018-07-12] MEDS: *HR* Heparin 5,000 UNIT/ML VIAL SQ SCH ×3 (06:41→20:27)
[2018-07-12] MEDS ORDERED: predniSONE 20 MG TABLET PO SCH (09:00)
[2018-07-12] MEDS: Ascorbic Acid 500 MG TABLET PO SCH (09:05)
[2018-07-12] MEDS: Cholecalciferol (D-3) 1,000 UNIT TABLET PO SCH (09:05)
[2018-07-12] MEDS: Furosemide 20 MG/2 ML VIAL IVP SCH ×2 (09:05→16:24)
[2018-07-12] MEDS: Levofloxacin 750 MG/150 ML 750 MG/150 ML BAG IVPB SCH (09:06)
--- NOTE | 2018-07-12 10:05 | Pulmonology Progress Note ---
<Jarred Posada M - Last Filed: 07/12/18 10:39> Date of Encounter: 07/12/18 Assessment and Plan (1) Encounter for perioperative consultation Current Visit: Yes Status: Acute (2) Acute and chronic postprocedural respiratory failure Current Visit: Yes Status: Acute (3) COPD (chronic obstructive pulmonary disease) Current Visit: Yes Status: Chronic Qualifiers: COPD type: emphysema Emphysema type: panlobular Qualified Code(s): J43.1 - Panlobular emphysema (4) DMITRY (obstructive sleep apnea) Current Visit: Yes Status: Chronic (5) COPD exacerbation Current Visit: No Status: Resolved Objective PUL Vital signs: Last Vital Signs Temp 97.5 F L 07/12/18 08:00 Pulse 101 07/12/18 06:00 Resp 18 07/12/18 06:00 BP 103/75 07/12/18 06:00 Pulse Ox 89 07/12/18 06:00 Results - Laboratory Findings CBC and BMP: 07/12/18 03:12 07/12/18 03:12 ABG ABG pH 7.42 pH Units (7.32-7.45) 07/10/18 05:07 ABG pCO2 61 mmHg (35-45) H 07/10/18 05:07 ABG pO2 68 mmHg (85-104) L 07/10/18 05:07 ABG O2 Saturation 93 % (95-98) L 07/10/18 05:07 PT/INR, D-dimer PT 11.7 Seconds (9.4-12.1) 07/09/18 04:31 Abnormal lab findings: Abnormal lab results WBC 14.9 K/mcL (4.3-11.1) H 07/12/18 03:12 Neutrophils # 12.6 K/mcL (1.6-8.9) H 07/12/18 03:12 ABG pCO2 61 mmHg (35-45) H 07/10/18 05:07 ABG pO2 68 mmHg (85-104) L 07/10/18 05:07 ABG HCO3 40 mEq/L (21-27) H 07/10/18 05:07 ABG Total CO2 42 mEq/L (20-26) H 07/10/18 05:07 ABG O2 Saturation 93 % (95-98) L 07/10/18 05:07 ABG Base Excess 12 mEq/L (-2 to 3) H 07/10/18 05:07 Chloride 95 mEq/L (98-107) L 07/12/18 03:12 Carbon Dioxide 35 mEq/L (23-29) H 07/12/18 03:12 BUN 31 mg/dL (8-23) H 07/12/18 03:12 Creatinine 0.54 mg/dL (0.70-1.30) L 07/12/18 03:12 BUN/Creatinine Ratio 57 (6-26) H 07/12/18 03:12 Glucose 125 mg/dL (70-105) H 07/12/18 03:12 POC Glucose 150 mg/dL (70-99) H 07/11/18 23:32 Hemoglobin A1c 11.2 % (-5.6) H 07/03/18 04:21 Serum Total Protein 6.2 g/dL (6.4-8.9) L 07/05/18 04:32 Albumin 3.4 g/dL (3.5-5.7) L 07/05/18 04:32 HDL Cholesterol 39 mg/dL (40-59) L 07/03/18 04:21 Ur Specific [place] > 1.030 (1.010-1.025) H 07/07/18 14:23 Urine Glucose (UA) >=1000 mg/dL (Normal) H 07/07/18 14:23 Urine Ketones 15 mg/dL (Negative) H 07/07/18 14:23 Urine Microscopic RBC 5-15 per hpf (0-3) H 07/02/18 12:10 Urine Microscopic WBC 5-15 per hpf (0-3) H 07/02/18 12:10 Ur Squamous Epith Cells Many per lpf (None-Few) H 07/02/18 12:10 Urine Mucus Many (Few) H 07/02/18 12:10 - Microbiology Findings Microbiology Findings: Microbiology, Last 48 Hours 07/08/18 17:45 Sputum Culture - Final Sputum Proteus vulgaris - Clinical Findings Intake & Output: Intake & Output 07/11/18 07/12/18 07/12/18 23:59 07:59 15:59 Intake Total 400 / 400 120 / 120 Output Total 1250 / 1250 375 / 375 125 / 125 Balance -850 / -850 -375 / -375 -5 / -5 Weight 146 kg Consult Discharge Plan - Plan Referrals: Luis Miguel Aguilera DO [Primary Care Provider] - - Attending Attestation I examined this patient and my medical decision-making was reviewed with the Resident Physician. I agree with the documented findings, disposition and treatment plan as described except to the extent set forth below. Patient seen and examined. Labs, radiology, chart personally reviewed. Agree with resident's history and physical, assessment, plan with following comments: FIRE CODE INSPECTOR: Patient follows commands, Spine surgeon follow up. Pulmonary: Acceptable oxygenation and ventilation and continue NIV and bronchodilators. Cardiovascular: stable and diuresis as tolerated GI: Nutrition per dietary and GI prophylaxis per routine Heme: DVT prophylaxis per routine ID: Continue antibiotics and plan to de-escalation Renal; urine out put and renal funtion reviewed Endorcine: blood glucose is monitored Lines: all lines checked and no evidence of infections Skin: skin care to prevent pressure ulcers per nursing routine care PT/OT and stable for transfer to floor <Maximino Lion - Last Filed: 07/12/18 13:46> Date of Encounter: 07/12/18 Time of Encounter: 10:05 Assessment and Plan (1) Acute and chronic respiratory failure Current Visit: No Status: Acute Patient was extubated on 07/10. Patient initially placed on 10 L/m via simple face mask but was unable to maintain SaO2 above 88%. Patient placed on BiPAP for oxygenation and decreased work of breathing and was able to be transitioned to high flow nasal cannula at 15 L/m. Patient sputum culture showed Proteus vulgaris - Patient started on levofloxacin Continue to monitor oxygen saturations in conjunction with clinical indicators Repeat chest x-ray to monitor possible pneumonia vs. fluid overload. Qualifiers: Respiratory failure complication: hypoxia Qualified Code(s): J96.21 - Acute and chronic respiratory failure with hypoxia (2) COPD (chronic obstructive pulmonary disease) Current Visit: Yes Status: Chronic Patient has severe COPD Continue high flow nasal oxygen and wean as tolerated Continue home oxygen and CPAP to maintain an SPO2 greater than 88% Lifestyle modifications recommended Qualifiers: COPD type: emphysema Emphysema type: panlobular Qualified Code(s): J43.1 - Panlobular emphysema (3) Diabetes mellitus Current Visit: Yes Status: Chronic Patient well-managed on current regimen Continue to monitor Qualifiers: Diabetes mellitus type: type 2 Diabetes mellitus usp insulin use: without usp use Diabetes mellitus complication status: without complication Qualified Code(s): E11.9 - Type 2 diabetes mellitus without complications (4) Small cell lung cancer Current Visit: No Status: Chronic Patient states that he has been in remission since 2014 Chest x-ray noted to show increased interstitial markings due to radiation treatment (5) Cervical stenosis of spine Current Visit: Yes Status: Chronic MRI of the cervical spine showed "foraminal narrowing, moderate at right C2-3, bilateral C3-4, right C4-5 and left C6-7, mild to moderate at left C4-5 and bilateral C5-6, mild at right C6-7." Anterior decompression and fusion spinal surgery performed on C3-C4 and C5-C6 vertebra on 07/09 Plan to transfer patient to [address] [place] [address] stepdown unit (6) DMITRY (obstructive sleep apnea) Current Visit: Yes Status: Chronic Continue home use of CPAP Lifestyle modifications recommended for sleep hygiene and weight loss (7) DVT prophylaxis Current Visit: Yes Status: Acute continue Heparin 5,000 units SQ Q8HR for DVT prophylaxis (8) Morbid obesity Current Visit: Yes Status: Chronic Lifestyle modifications recommended for weight loss Consider nutrition consult Subjective Principal diagnosis: COPD and ILD, cervical myelopathy Interval history: Patient is 63-year-old male presenting to the ICU for acute on chronic respiratory failure following cervical decompression and fusion surgery. No acute events overnight. He is in no acute distress, patient is alert and oriented and able to engage to questioning. Patient states that he feels a greater degree of upper extremity weakness bilaterally than his usual-manager quality improvement strength is equal on both sides Patient will be transferred to ICU stepdown [address] [place] [address] Objective PUL Vital signs: Last Vital Signs Temp 97.5 F L 07/12/18 08:00 Pulse 101 07/12/18 06:00 Resp 18 07/12/18 06:00 BP 103/75 07/12/18 06:00 Pulse Ox 89 07/12/18 06:00 General appearance: no acute distress, appears uncomfortable Eyes: nonicteric Effort: mildly labored Auscultation: bilateral: wheezes Cardiovascular: regular rate and rhythm Gastrointestinal: normoactive bowel sounds Integumentary: normal Extremities: no cyanosis non-focal exam Results - Laboratory Findings CBC and BMP: 07/12/18 03:12 07/12/18 03:12 ABG ABG pH 7.42 pH Units (7.32-7.45) 07/10/18 05:07 ABG pCO2 61 mmHg (35-45) H 07/10/18 05:07 ABG pO2 68 mmHg (85-104) L 07/10/18 05:07 ABG O2 Saturation 93 % (95-98) L 07/10/18 05:07 PT/INR, D-dimer PT 11.7 Seconds (9.4-12.1) 07/09/18 04:31 Abnormal lab findings: Abnormal lab results WBC 14.9 K/mcL (4.3-11.1) H 07/12/18 03:12 Neutrophils # 12.6 K/mcL (1.6-8.9) H 07/12/18 03:12 ABG pCO2 61 mmHg (35-45) H 07/10/18 05:07 ABG pO2 68 mmHg (85-104) L 07/10/18 05:07 ABG HCO3 40 mEq/L (21-27) H 07/10/18 05:07 ABG Total CO2 42 mEq/L (20-26) H 07/10/18 05:07 ABG O2 Saturation 93 % (95-98) L 07/10/18 05:07 ABG Base Excess 12 mEq/L (-2 to 3) H 07/10/18 05:07 Chloride 95 mEq/L (98-107) L 07/12/18 03:12 Carbon Dioxide 35 mEq/L (23-29) H 07/12/18 03:12 BUN 31 mg/dL (8-23) H 07/12/18 03:12 Creatinine 0.54 mg/dL (0.70-1.30) L 07/12/18 03:12 BUN/Creatinine Ratio 57 (6-26) H 07/12/18 03:12 Glucose 125 mg/dL (70-105) H 07/12/18 03:12 POC Glucose 150 mg/dL (70-99) H 07/11/18 23:32 Hemoglobin A1c 11.2 % (-5.6) H 07/03/18 04:21 Serum Total Protein 6.2 g/dL (6.4-8.9) L 07/05/18 04:32 Albumin 3.4 g/dL (3.5-5.7) L 07/05/18 04:32 HDL Cholesterol 39 mg/dL (40-59) L 07/03/18 04:21 Ur Specific [place] > 1.030 (1.010-1.025) H 07/07/18 14:23 Urine Glucose (UA) >=1000 mg/dL (Normal) H 07/07/18 14:23 Urine Ketones 15 mg/dL (Negative) H 07/07/18 14:23 Urine Microscopic RBC 5-15 per hpf (0-3) H 07/02/18 12:10 Urine Microscopic WBC 5-15 per hpf (0-3) H 07/02/18 12:10 Ur Squamous Epith Cells Many per lpf (None-Few) H 07/02/18 12:10 Urine Mucus Many (Few) H 07/02/18 12:10 - Microbiology Findings Microbiology Findings: Microbiology, Last 48 Hours 07/08/18 17:45 Sputum Culture - Final Sputum Proteus vulgaris - Clinical Findings Intake & Output: Intake & Output 07/11/18 07/12/18 07/12/18 23:59 07:59 15:59 Intake Total 400 / 400 120 / 120 Output Total 1250 / 1250 375 / 375 125 / 125 Balance -850 / -850 -375 / -375 -5 / -5 Weight 146 kg - VTE Documentation of Mechanical Device: Intermittent pneumatic compression device
[2018-07-12] MEDS ORDERED: Ondansetron 4 MG/2 ML VIAL IVP PRN (12:19)
[2018-07-12] MEDS ORDERED: *HR* OxyCODONE Immed Rel 5 MG TABLET PO PRN (12:19)
[2018-07-12] MEDS ORDERED: Naloxone 0.4 MG/ML INJ IVP PRN (12:19)
[2018-07-12] MEDS ORDERED: D5% in Water 1,000 ML IVC PRN (12:19)
[2018-07-12] MEDS ORDERED: Acetaminophen 325 MG TABLET PO PRN (12:19)
[2018-07-12] MEDS ORDERED: *HR* Dextrose 50 % in Water (Syg) 50 ML SYRINGE IVP PRN (12:19)
[2018-07-12] MEDS ORDERED: Dextrose Gel 15 GM/37.5 ML TUBE PO PRN ×2 (12:19)
[2018-07-12] MEDS: *HR* HYDROcodone/Acet 5/325 mg TABLET PO PRN (20:26)
[2018-07-12] MEDS: Finasteride 5 MG TABLET PO SCH (20:27)
[2018-07-12] MEDS: Melatonin 3 MG TABLET PO SCH (20:27)
[2018-07-12] MEDS: Insulin DETEMIR 100 UNIT/ML X5UNITS SQ SCH (20:27)
[2018-07-12] MEDS: Nystatin POWDER 30 GM BOTTLE TP SCH (20:28)
[2018-07-12] MEDS: Clotrimazole 1% CRM 15 GM TUBE TP SCH (20:28)
[2018-07-13] MEDS: Insulin LISPRO 300 UNITS/3 ML VIAL SQ SCH ×6 (00:02→21:23)
[2018-07-13] MEDS: *HR* Heparin 5,000 UNIT/ML VIAL SQ SCH ×3 (05:46→21:23)
[2018-07-13] MEDS: *HR* HYDROcodone/Acet 5/325 mg TABLET PO PRN ×2 (07:45→21:22)
[2018-07-13] MEDS: Ascorbic Acid 500 MG TABLET PO SCH (07:46)
[2018-07-13] MEDS: Furosemide 20 MG/2 ML VIAL IVP SCH ×2 (07:46→18:20)
[2018-07-13] MEDS: Cholecalciferol (D-3) 1,000 UNIT TABLET PO SCH (07:46)
[2018-07-13] MEDS: Fluticasone Propionate Nasal 50 MCG/SPRAY BOTTLE NS SCH (07:47)
[2018-07-13] MEDS: Clotrimazole 1% CRM 15 GM TUBE TP SCH ×2 (07:47→21:24)
[2018-07-13] MEDS: Nystatin POWDER 30 GM BOTTLE TP SCH ×2 (07:47→21:24)
[2018-07-13] MEDS ORDERED: Levofloxacin 750 MG/150 ML 750 MG/150 ML BAG IVPB SCH (09:00)
[2018-07-13] MEDS ORDERED: predniSONE 20 MG TABLET PO SCH (09:00)
--- NOTE | 2018-07-13 09:21 | Pulmonology Progress Note ---
Date of Encounter: 07/13/18 Time of Encounter: 07:45 Assessment and Plan (1) Encounter for perioperative consultation Current Visit: Yes Status: Acute Patient is feeling better this morning and denies any worsening of his baseline dyspnea and discussed with spine surgeon Dr. Jay regarding surgery clearance and he does have multiple comorbidities and he is high risk for complications, however today he is clear for surgery from pulmonary standpoint because of gravity of not having surgery. They mean by that benefits outweighed the risks of surgery. This was discussed with the patient and the at the bedside. Continue bronchodilators and if will not be successful to extubate patient post surgery, he will be seen in the ICU. We will continue follow-up. (2) Acute and chronic postprocedural respiratory failure Current Visit: Yes Status: Acute Patient returned from surgery intubated and reportedly he was difficult intubation and with his comorbidities with post surgical changes in the neck area patient is not ready for extubation and they discussed this with the at the bedside. I am hoping in next 24 hours patient will be more stable and will be able to protect his airway and be stronger. Vent bundle was done and checked chest x-ray with appropriate placement of the ET tube and also ABG is reasonable. Patient will be sedated for the vent synchrony. There is no significant intrinsic PEEP and will continue bronchodilators. I spent 35 min of Critical Care time with this patient. It involved decision making of high complexity to assess, manipulate, and support vital organ system failure and/or to prevent further life threatening deterioration of the patient' s condition. The time involved in the performance of separately reportable procedures was not counted toward critical care time. (3) COPD (chronic obstructive pulmonary disease) Current Visit: Yes Status: Chronic Continue bronchodilators and overall is doing well post surgery and requiring noninvasive ventilation sometimes. Encourage incentive spirometry and will decrease his systemic steroid and transition to oral. Patient to have physical therapy and perhaps keeping one more day in ICU and remained stable can be transferred out. 07/13 patient was transferred out of ICU and overall remains stable, however still requiring high flow oxygen. I have discussed with the nurse and also respiratory therapist to encourage him to do incentive spirometry and also need to use his positive airway pressure at night and when necessary during daytime. Add Symbicort and nebulizer treatment during daytime. Mobilization and physical therapy is extremely important. Please call for any questions. Discussed with the family at the bedside. Qualifiers: COPD type: emphysema Emphysema type: panlobular Qualified Code(s): J43.1 - Panlobular emphysema (4) DMITRY (obstructive sleep apnea) Current Visit: Yes Status: Chronic Patient refusing noninvasive ventilation (5) COPD exacerbation Current Visit: No Status: Resolved Subjective Principal diagnosis: COPD and ILD, cervical myelopathy Interval history: Overall he is doing better, however still requiring high flow oxygen. BiPAP was not used last night. Objective PUL Vital signs: Last Vital Signs Temp 97.7 F 07/13/18 07:19 Pulse 96 07/13/18 07:19 Resp 20 07/13/18 07:19 BP 110/75 07/13/18 07:19 Pulse Ox 92 07/13/18 07:19 General: Patient is in no acute distress. HEENT: Normocephalic atraumatic, pupils are equal round and reactive to light and accommodation, anicteric sclera, nares is patent, mucous membranes moist, no JVD, trachea is midline Cardiovascular: Normal sinus rhythm, S1 and S2 audible, no murmur or rubs Respiratory: Diminished to auscultation bilaterally. No acute distress. No wheezing. Patient not using accessory muscles. Abdomen: Soft, nontender, nondistended, positive bowel sounds in all 4 quadrants Extremities: Warm, dry, trace lower extremity edema. Normal capillary refill. Neuro: Alert and oriented and follows commands. Grossly no neuro deficits. Skin: Warm to touch : No obvious abnormalities. Psych: Normal Results - Laboratory Findings CBC and BMP: 07/12/18 03:12 07/12/18 03:12 ABG ABG pH 7.42 pH Units (7.32-7.45) 07/10/18 05:07 ABG pCO2 61 mmHg (35-45) H 07/10/18 05:07 ABG pO2 68 mmHg (85-104) L 07/10/18 05:07 ABG O2 Saturation 93 % (95-98) L 07/10/18 05:07 PT/INR, D-dimer PT 11.7 Seconds (9.4-12.1) 07/09/18 04:31 Abnormal lab findings: Abnormal lab results WBC 14.9 K/mcL (4.3-11.1) H 07/12/18 03:12 Neutrophils # 12.6 K/mcL (1.6-8.9) H 07/12/18 03:12 ABG pCO2 61 mmHg (35-45) H 07/10/18 05:07 ABG pO2 68 mmHg (85-104) L 07/10/18 05:07 ABG HCO3 40 mEq/L (21-27) H 07/10/18 05:07 ABG Total CO2 42 mEq/L (20-26) H 07/10/18 05:07 ABG O2 Saturation 93 % (95-98) L 07/10/18 05:07 ABG Base Excess 12 mEq/L (-2 to 3) H 07/10/18 05:07 Chloride 95 mEq/L (98-107) L 07/12/18 03:12 Carbon Dioxide 35 mEq/L (23-29) H 07/12/18 03:12 BUN 31 mg/dL (8-23) H 07/12/18 03:12 Creatinine 0.54 mg/dL (0.70-1.30) L 07/12/18 03:12 BUN/Creatinine Ratio 57 (6-26) H 07/12/18 03:12 Glucose 125 mg/dL (70-105) H 07/12/18 03:12 POC Glucose 118 mg/dL (70-99) H 07/13/18 04:04 Hemoglobin A1c 11.2 % (-5.6) H 07/03/18 04:21 Serum Total Protein 6.2 g/dL (6.4-8.9) L 07/05/18 04:32 Albumin 3.4 g/dL (3.5-5.7) L 07/05/18 04:32 HDL Cholesterol 39 mg/dL (40-59) L 07/03/18 04:21 Ur Specific [place] > 1.030 (1.010-1.025) H 07/07/18 14:23 Urine Glucose (UA) >=1000 mg/dL (Normal) H 07/07/18 14:23 Urine Ketones 15 mg/dL (Negative) H 07/07/18 14:23 Urine Microscopic RBC 5-15 per hpf (0-3) H 07/02/18 12:10 Urine Microscopic WBC 5-15 per hpf (0-3) H 07/02/18 12:10 Ur Squamous Epith Cells Many per lpf (None-Few) H 07/02/18 12:10 Urine Mucus Many (Few) H 07/02/18 12:10 - Microbiology Findings Microbiology Findings: Microbiology, Last 48 Hours 07/08/18 17:45 Sputum Culture - Final Sputum Proteus vulgaris - Clinical Findings Intake & Output: Intake & Output 07/12/18 07/13/18 07/13/18 23:59 07:59 15:59 Intake Total 240 / 240 Output Total 850 / 850 550 / 550 Balance -610 / -610 -550 / -550 Weight 147.8 kg - VTE Documentation of Mechanical Device: Intermittent pneumatic compression device Consult Discharge Plan - Plan Referrals: Christie Rowland PAC [Physician Heating And Ventilating Worker] - 07/24/18 10:00 am Luis Miguel Aguilera DO [Primary Care Provider] - (Left voice mail for the office to call me back) Jarred Posada MD [Partnered Physician] - 08/15/18 8:15 am
[2018-07-13] MEDS: Ipratropium/Albuterol Neb 3 ML IH SCH ×3 (11:02→21:46)
[2018-07-13] MEDS: Budesonide/Formoterol 160/4.5 1 PUFF INH IH SCH ×2 (11:02→21:46)
--- NOTE | 2018-07-13 13:37 | Internal Med Progress Note ---
Hospitalist Progress Note - Encounter Date of Encounter: 07/13/18 Time of Encounter: 13:35 - Subjective Interval History: Patient was titrated to nasal cannula but later had to be placed on bipap due to shortness of breath. Patient currently on bipap. Denies any sort of pain, chest pain, n/v. - Exam Vitals: Temp Pulse Resp BP Pulse Ox 98.3 F 117 16 107/80 94 07/13/18 10:59 07/13/18 10:59 07/13/18 11:04 07/13/18 11:41 07/13/18 11:04 Exam: General: On Bipap, AAO x3 HEENT:EOM intact, pupils equal, round, moist mucus membranes Neck: supple, trachea midline Cardiovascular:regular rate and rhythm, normal S1 & S2, no murmurs, no JVD. Lungs: transmited upper airways sounds, but no wheezing or rales appreciated. Abdomen:Soft, non-tender, non-distended, + bowel sounds Neurological: AAOx3 Skin: Normal color, no rash, no pallor Ext: no cyanosis, no edema - Assessment and Plan (1) Acute on chronic respiratory failure with hypoxia Current Visit: No Status: Acute Assessment and Plan: 07/06--overnight the patient's condition declined; developing respiratory distress requiring BiPAP for stabilization. WBC elevated at 17.3 diminished airflow per auscultation as well as expiratory wheezing and scattered rhonchi. transferred to , received IV Lasix, IV steroids and aerosol treatments. Patient transitioned out of ICU 07/13 -of note he is 8.5 L positive this admission -sputum cx Proteus, started on Levaquin -bl cx neg 07/13: Patient stepped down from ICU. Was bassam to do NC temporarily but then needed bipap. Currently feels better on bipap . Continue current dose of IV Lasix, Prednisone, Levaquin, neb therapy, symbicort (2) Small cell lung cancer Current Visit: No Status: Chronic Assessment and Plan: Hx of small cell lung cancer. Pt. reports he is currently in remission. Post radiation interstitial markings on the right can be noted on CT chest from March of 2018 f/u with [facility] as previously scheduled (3) COPD (chronic obstructive pulmonary disease) Current Visit: Yes Status: Chronic Assessment and Plan: Continue bronchodilators and overall is doing well post surgery and requiring noninvasive ventilation sometimes. Encourage incentive spirometry and will decrease his systemic steroid and transition to oral. Patient to have physical therapy and perhaps Symbicort added Neb treatments till requiring high flow, became SOB now on bipap positive pressure at night wean off bipap as tolerated. (4) DVT prophylaxis Current Visit: Yes Status: Acute Assessment and Plan: continue Heparin 5,000 units SQ Q8HR for DVT prophylaxis (5) Morbid obesity Current Visit: Yes Status: Chronic Assessment and Plan: education for lifestyle modifications (6) Diabetes mellitus Current Visit: Yes Status: Chronic Assessment and Plan: Hx of chronic diabetes controlled by insulin. Hypergycemia now worse on steroids -was on home dose of insulin and low-dose correction sliding scale insulin w/ hypoglycemic protocol. -bs now elevating on steroids and dose adjustments being made as needed -BG checks ACHS. ADA diet (7) DMITRY (obstructive sleep apnea) Current Visit: Yes Status: Chronic Assessment and Plan: Hx of chronic DMITRY. CPAP HS. Respiratory therapy consulted. (8) Cervical myelopathy Current Visit: Yes Status: Chronic Assessment and Plan: cervical stenosis,cervical myelopathy,myelomalacia within cervical cord MRI of the cervical spine reveals severe stenosis at C3-4 and moderate stenosis at C5-6. There is increased signal within the cord at C3-4 consistent with myelomalacia. -spine surg consulted this admission: with positive upper motor neuron findings on neurologic examination reasonable to consider surgery in the form of a anterior cervical decompression and fusion C3-4 and C5-6 however given his respiratory status he is not a candidate for surgery at this time -07/08 family is wondering if there is still a chance he could be cleared for OR tomorrow. Aware there is not a documented plan for OR and that pulm has not yet cleared him for OR. Surg and pulm have not yet been in this weekend and may not be. In case he is seen in AM and cleared for or, and still on or schedule, will amke pt npo p mn with insulin adjustments and full labs and cxr for in am -07/09 awaiting pulm eval to determine if cleared for anterior cervical decompression fusion C3-4 and C5-6 by spine surg 07/13: Status post anterior cervical decompression and fusion of C3-4 and C5-6. Mgmt per Spinal surg. - Time Spent with Patient Total time spent is greater than 50% in coordination of care (as documented) at patient's floor/unit and/or counseling patient: Internal Medicine: Result - Labs CBC & Chem 7: 07/12/18 03:12 07/12/18 03:12 - ABG Interpretation ABG results: ABG ABG pH 7.42 pH Units (7.32-7.45) 07/10/18 05:07 ABG pCO2 61 mmHg (35-45) H 07/10/18 05:07 ABG pO2 68 mmHg (85-104) L 07/10/18 05:07 ABG O2 Saturation 93 % (95-98) L 07/10/18 05:07 PT/INR, D-dimer PT 11.7 Seconds (9.4-12.1) 07/09/18 04:31 - Impressions Impressions Chest X-Ray 07/13/18 06:00 IMPRESSION: Fluctuating basilar opacities are most consistent with atelectasis. Blunting of the left costophrenic sulcus is less pronounced which may reflect resolving left effusion as opposed to pleural thickening. Background of emphysema and COPD. D/ / Esequiel Balderrama / Esequiel Balderrama Interpreting Provider: Esequiel Balderrama - VTE Documentation of Mechanical Device: Intermittent pneumatic compression device Consult Discharge Plan - Plan Referrals: Christie Rowland PAC [Physician Drinking Water Technician] - 07/24/18 10:00 am Luis Miguel Aguilera DO [Primary Care Provider] - (Left voice mail for the office to call me back) Jarred Posada MD [Partnered Physician] - 08/15/18 8:15 am (3) COPD (chronic obstructive pulmonary disease) Qualifiers: COPD type: emphysema Emphysema type: panlobular Qualified Code(s): J43.1 - Panlobular emphysema (6) Diabetes mellitus Qualifiers: Diabetes mellitus type: type 2 Diabetes mellitus group home insulin use: without assembler chassis use Diabetes mellitus complication status: without complication Qualified Code(s): E11.9 - Type 2 diabetes mellitus without complications
--- NOTE | 2018-07-13 13:43 | Spine Progress Note ---
Date of Encounter: 07/12/18 Time of Encounter: 15:30 - Assessment and Plan (1) Cervical stenosis of spine Current Visit: Yes Status: Chronic (2) Cervical myelopathy Current Visit: Yes Status: Chronic (3) Vertebral compression fracture Current Visit: Yes Status: Acute Subjective Principal diagnosis: COPD and ILD, cervical myelopathy Interval history: The patient is without complaints. He is extubated on a regular nursing floor. He is down to 10 L of oxygen per nasal cannula. He is awake and alert Afebrile vital signs are stable. Incision is Neurovascularly intact with regard to bilatera upper and l lower extremities. Assessment :stable. Continue mobilization and plan for rehabilitation. Objective Vital signs: Vital Signs Temp Pulse Resp BP Pulse Ox 07/13/18 11:41 107/80 07/13/18 11:04 16 94 07/13/18 10:59 98.3 F 117 19 98/76 92 07/13/18 07:19 97.7 F 96 20 110/75 92 07/13/18 03:57 98.3 F 105 19 101/67 89 07/13/18 00:05 100 07/12/18 23:56 98.4 F 105 18 119/83 90 07/12/18 20:44 115 07/12/18 19:58 98.5 F 114 20 123/90 87 07/12/18 18:05 90 07/12/18 16:16 98.7 F 105 19 117/87 94 07/12/18 14:25 92 07/12/18 14:21 99.1 F 108 18 115/85 96 Intake and Output 07/12/18 07/13/18 07/13/18 23:59 07:59 15:59 Intake Total 240 / 240 120 / 120 Output Total 850 / 850 550 / 550 600 / 600 Balance -610 / -610 -550 / -550 -480 / -480 Intake: Oral 240 / 240 120 / 120 Output: Catheter 850 / 850 550 / 550 600 / 600 Other: Meal Dinner Lunch Percent of Meal Consumed 100% 95% Weight 147.8 kg Blood Glucose* 296 140 359 Patient Weight 07/13/18 23:59 Weight 147.8 kg - Labs CBC & BMP: 07/12/18 03:12 07/12/18 03:12 Labs: Abnormal lab results WBC 14.9 K/mcL (4.3-11.1) H 07/12/18 03:12 Neutrophils # 12.6 K/mcL (1.6-8.9) H 07/12/18 03:12 ABG pCO2 61 mmHg (35-45) H 07/10/18 05:07 ABG pO2 68 mmHg (85-104) L 07/10/18 05:07 ABG HCO3 40 mEq/L (21-27) H 07/10/18 05:07 ABG Total CO2 42 mEq/L (20-26) H 07/10/18 05:07 ABG O2 Saturation 93 % (95-98) L 07/10/18 05:07 ABG Base Excess 12 mEq/L (-2 to 3) H 07/10/18 05:07 Chloride 95 mEq/L (98-107) L 07/12/18 03:12 Carbon Dioxide 35 mEq/L (23-29) H 07/12/18 03:12 BUN 31 mg/dL (8-23) H 07/12/18 03:12 Creatinine 0.54 mg/dL (0.70-1.30) L 07/12/18 03:12 BUN/Creatinine Ratio 57 (6-26) H 07/12/18 03:12 Glucose 125 mg/dL (70-105) H 07/12/18 03:12 POC Glucose 118 mg/dL (70-99) H 07/13/18 04:04 Hemoglobin A1c 11.2 % (-5.6) H 07/03/18 04:21 Serum Total Protein 6.2 g/dL (6.4-8.9) L 07/05/18 04:32 Albumin 3.4 g/dL (3.5-5.7) L 07/05/18 04:32 HDL Cholesterol 39 mg/dL (40-59) L 07/03/18 04:21 Ur Specific [place] > 1.030 (1.010-1.025) H 07/07/18 14:23 Urine Glucose (UA) >=1000 mg/dL (Normal) H 07/07/18 14:23 Urine Ketones 15 mg/dL (Negative) H 07/07/18 14:23 Urine Microscopic RBC 5-15 per hpf (0-3) H 07/02/18 12:10 Urine Microscopic WBC 5-15 per hpf (0-3) H 07/02/18 12:10 Ur Squamous Epith Cells Many per lpf (None-Few) H 07/02/18 12:10 Urine Mucus Many (Few) H 07/02/18 12:10 Consult Discharge Plan - Plan Referrals: Christie Rowland PAC [Physician Lead Nuclear Medicine Technologist] - 07/24/18 10:00 am Luis Miguel Aguilera, DO [Primary Care Provider] - (Left voice mail for the office to call me back) Jarred Posada MD [Partnered Physician] - 08/15/18 8:15 am
[2018-07-13] MEDS: Insulin DETEMIR 100 UNIT/ML X5UNITS SQ SCH (21:23)
[2018-07-13] MEDS: Melatonin 3 MG TABLET PO SCH (21:23)
[2018-07-13] MEDS: Finasteride 5 MG TABLET PO SCH (21:24)
[2018-07-14] MEDS: Ipratropium/Albuterol Neb 3 ML IH SCH ×4 (03:30→22:49)
[2018-07-14] MEDS: *HR* HYDROcodone/Acet 5/325 mg TABLET PO PRN (05:58)
--- NOTE | 2018-07-14 06:03 | Event Note ---
Date of Encounter: 07/14/18 Time of Encounter: 06:01 I was called by the nurse to the bedside due to the patient complaining of chest pain. Patient was evaluated. Patient complaining of right-sided chest pain that he describes as burning. Denies radiation. Denies diaphoresis or shortness of breath. Stat EKG obtained which showed normal sinus rhythm with no ST or T-wave changes. Highly doubt that this is cardiac in nature but will order troponins 2 to rule out. Patient was given his pain medication that was due.
[2018-07-14] MEDS: *HR* Heparin 5,000 UNIT/ML VIAL SQ SCH ×3 (06:04→21:59)
[2018-07-14 07:34] LABS: Basophils # 0.1 K/mcL (0.0-0.2); Basophils % 0.5 %; Eosinophils # 0.1 K/mcL (0.0-0.6); Eosinophils % 1.1 %; Hemoglobin 15.9 g/dL (12.9-16.9); Immature Granulocytes % 1.8 % (0-4); Lymphocytes # 1.2 K/mcL (0.6-4.6); Lymphocytes % 11.7 %; Mean Corpuscular HGB Conc 33.1 g/dL (31.6-35.5); Mean Corpuscular Hemoglobin 31.4 pg (28.0-33.3); Mean Corpuscular Volume 94.7 fL (83.0-100.0); Mean Platelet Volume 10.3 fL (9.4-12.4); Monocytes # 1.2 K/mcL (0.0-1.3); Monocytes % 11.3 %; Neutrophils # 7.6 K/mcL (1.6-8.9); Platelet Count 207 K/mcL (140-400); Red Blood Count 5.07 M/mcL (4.19-5.50); Red Cell Distribution Width 12.5 % (11.5-14.5); Segmented Neutrophils % 73.6 %
[2018-07-14] MEDS: Ascorbic Acid 500 MG TABLET PO SCH (07:49)
[2018-07-14] MEDS: Cholecalciferol (D-3) 1,000 UNIT TABLET PO SCH (07:49)
[2018-07-14] MEDS: Fluticasone Propionate Nasal 50 MCG/SPRAY BOTTLE NS SCH (07:49)
[2018-07-14] MEDS: levoFLOXacin 750 MG TABLET PO SCH (07:49)
[2018-07-14] MEDS: Furosemide 20 MG/2 ML VIAL IVP SCH (07:50)
[2018-07-14] MEDS: Insulin LISPRO 300 UNITS/3 ML VIAL SQ SCH ×4 (07:50→21:58)
[2018-07-14] MEDS: Clotrimazole 1% CRM 15 GM TUBE TP SCH ×2 (07:50→21:56)
[2018-07-14] MEDS: Nystatin POWDER 30 GM BOTTLE TP SCH ×2 (07:50→22:00)
--- NOTE | 2018-07-14 08:42 | Internal Med Progress Note ---
Hospitalist Progress Note - Encounter Date of Encounter: 07/14/18 Time of Encounter: 08:45 - Subjective Interval History: 07/13: Patient was titrated to nasal cannula but later had to be placed on bipap due to shortness of breath. Patient currently on bipap. Denies any sort of pain, chest pain, n/v. 07/14: Overnight patient had burning sensation, 7/10, non-radiating chest pain at around 0600. He states it got better with pain medications. An EKG done at that time showed normal sinus rhythm and no ST/T wave changes. He currently is on high flow O2 and states he no longer has chest pain or shortness of breath, denies palpitations, n/v, diaphoresis. - Exam Vitals: Temp Pulse Resp BP Pulse Ox 98.4 F 102 18 101/73 90 07/14/18 07:31 07/14/18 07:31 07/14/18 07:31 07/14/18 07:31 07/14/18 07:31 Exam: General: On Bipap, AAO x3 HEENT:EOM intact, pupils equal, round, moist mucus membranes Neck: supple, trachea midline Cardiovascular:regular rate and rhythm, normal S1 & S2, no murmurs, no JVD. Lungs: limited auscultation because of body positioning post-op, but no wheezing or rales appreciated. Abdomen:Soft, non-tender, non-distended, + bowel sounds Neurological: AAOx3 Skin: Normal color, no rash, no pallor Ext: no cyanosis, no edema - Assessment and Plan (1) Acute on chronic respiratory failure with hypoxia Current Visit: No Status: Acute Assessment and Plan: 07/06--overnight the patient's condition declined; developing respiratory distress requiring BiPAP for stabilization. WBC elevated at 17.3 diminished airflow per auscultation as well as expiratory wheezing and scattered rhonchi. transferred to , received IV Lasix, IV steroids and aerosol treatments. Patient transitioned out of ICU 07/13 -of note he is 8.5 L positive this admission -sputum cx Proteus, started on Levaquin -bl cx neg 07/13: Patient stepped down from ICU. Was bassam to do NC temporarily but then needed bipap. Currently feels better on bipap . Continue current dose of IV Lasix, Prednisone, Levaquin, neb therapy, symbicort 07/14: Patient had episode of chest pain 0600 with unremarkable EKG but troponin has come back at 0.05 borderline elevated. Given he is tachycardic with episode of chest pain and at bedside his O2 sats about 87-90% i will rule out PE although suspicion is low, he is post-op. Recheck troponin at noon. Clinically he looks better than yesterday, not labored breathing. If he develops SOB today and goes back on bipap, will increase steroid dose and schedule neb treatments more frequently. (2) Small cell lung cancer Current Visit: No Status: Chronic Assessment and Plan: Hx of small cell lung cancer. Pt. reports he is currently in remission. Post radiation interstitial markings on the right can be noted on CT chest from March of 2018 f/u with [facility] as previously scheduled (3) COPD (chronic obstructive pulmonary disease) Current Visit: Yes Status: Chronic Assessment and Plan: Continue bronchodilators and overall is doing well post surgery and requiring noninvasive ventilation sometimes. Encourage incentive spirometry and will decrease his systemic steroid and transition to oral. Patient to have physical therapy and perhaps Symbicort added Neb treatments till requiring high flow, became SOB now on bipap positive pressure at night wean off bipap as tolerated. (4) DVT prophylaxis Current Visit: Yes Status: Acute Assessment and Plan: continue Heparin 5,000 units SQ Q8HR for DVT prophylaxis (5) Morbid obesity Current Visit: Yes Status: Chronic Assessment and Plan: education for lifestyle modifications (6) Diabetes mellitus Current Visit: Yes Status: Chronic Assessment and Plan: Hx of chronic diabetes controlled by insulin. Hypergycemia now worse on steroids -was on home dose of insulin and low-dose correction sliding scale insulin w/ hypoglycemic protocol. -bs now elevating on steroids and dose adjustments being made as needed -BG checks ACHS. ADA diet (7) DMITRY (obstructive sleep apnea) Current Visit: Yes Status: Chronic Assessment and Plan: Hx of chronic DMITRY. CPAP HS. Respiratory therapy consulted. (8) Cervical myelopathy Current Visit: Yes Status: Chronic Assessment and Plan: cervical stenosis,cervical myelopathy,myelomalacia within cervical cord MRI of the cervical spine reveals severe stenosis at C3-4 and moderate stenosis at C5-6. There is increased signal within the cord at C3-4 consistent with myelomalacia. -spine surg consulted this admission: with positive upper motor neuron findings on neurologic examination reasonable to consider surgery in the form of a anterior cervical decompression and fusion C3-4 and C5-6 however given his respiratory status he is not a candidate for surgery at this time -07/08 family is wondering if there is still a chance he could be cleared for OR tomorrow. Aware there is not a documented plan for OR and that pulm has not yet cleared him for OR. Surg and pulm have not yet been in this weekend and may not be. In case he is seen in AM and cleared for or, and still on or schedule, will amke pt npo p mn with insulin adjustments and full labs and cxr for in am -07/09 awaiting pulm eval to determine if cleared for anterior cervical decompression fusion C3-4 and C5-6 by spine surg 07/13: Status post anterior cervical decompression and fusion of C3-4 and C5-6. Mgmt per Spinal surg. DVT Prophylaxis: heparin sq - Time Spent with Patient Total time spent is greater than 50% in coordination of care (as documented) at patient's floor/unit and/or counseling patient: Internal Medicine: Result - Labs CBC & Chem 7: 07/14/18 05:39 07/12/18 03:12 Labs: Short CBC 07/14/18 Range/Units 05:39 WBC 10.4 (4.3-11.1) K/mcL Hgb 15.9 (12.9-16.9) g/dL Hct 48.0 (37.5-50.1) % Plt Count 207 (140-400) K/mcL Neutrophils # 7.6 (1.6-8.9) K/mcL Cardiac Enzymes 07/14/18 Range/Units 06:34 Troponin I 0.05 H* (< 0.04) ng/mL - ABG Interpretation ABG results: ABG ABG pH 7.42 pH Units (7.32-7.45) 07/10/18 05:07 ABG pCO2 61 mmHg (35-45) H 07/10/18 05:07 ABG pO2 68 mmHg (85-104) L 07/10/18 05:07 ABG O2 Saturation 93 % (95-98) L 07/10/18 05:07 PT/INR, D-dimer PT 11.7 Seconds (9.4-12.1) 07/09/18 04:31 - VTE Documentation of Mechanical Device: Intermittent pneumatic compression device Consult Discharge Plan - Plan Referrals: Christie Rowland PAC [Physician Combat Rifle Crewmember] - 07/24/18 10:00 am Luis Miguel Aguilera DO [Primary Care Provider] - (Left voice mail for the office to call me back) Jarred Posada MD [Partnered Physician] - 08/15/18 8:15 am (3) COPD (chronic obstructive pulmonary disease) Qualifiers: COPD type: emphysema Emphysema type: panlobular Qualified Code(s): J43.1 - Panlobular emphysema (6) Diabetes mellitus Qualifiers: Diabetes mellitus type: type 2 Diabetes mellitus prison insulin use: without termite renewal inspector use Diabetes mellitus complication status: without complication Qualified Code(s): E11.9 - Type 2 diabetes mellitus without complications
[2018-07-14] MEDS ORDERED: predniSONE 20 MG TABLET PO ONE (08:46)
[2018-07-14] MEDS ORDERED: Isovue-370 500 ML INFUS..BTL IV ONE (08:46)
[2018-07-14] MEDS ORDERED: Aspirin 81 MG TAB.CHEW PO STA (08:49)
--- NOTE | 2018-07-14 08:56 | Pulmonology Progress Note ---
Date of Encounter: 07/14/18 Time of Encounter: 10:50 Assessment and Plan (1) COPD (chronic obstructive pulmonary disease) Current Visit: Yes Status: Chronic Continue bronchodilators and overall is doing well post surgery and requiring noninvasive ventilation sometimes. Encourage incentive spirometry and will decrease his systemic steroid and transition to oral. Patient to have physical therapy and perhaps keeping one more day in ICU and remained stable can be transferred out. 07/13 patient was transferred out of ICU and overall remains stable, however still requiring high flow oxygen. I have discussed with the nurse and also respiratory therapist to encourage him to do incentive spirometry and also need to use his positive airway pressure at night and when necessary during daytime. Add Symbicort and nebulizer treatment during daytime. Mobilization and physical therapy is extremely important. Please call for any questions. Discussed with the family at the bedside. 07/14 patient is feeling better today and continue current treatment. Patient stated his chest pain is resolved and discussed with primary team to trend his troponin and to hold on his CT chest and abdomen at this time. I did physical examination and deep into patient complain he does not feel his lower extremities, examination is intact. Discussed with the family at the bedside. Encouraged patient with incentive spirometry. She is using his noninvasive ventilation at night. Qualifiers: COPD type: emphysema Emphysema type: panlobular Qualified Code(s): J43.1 - Panlobular emphysema (2) DMITRY (obstructive sleep apnea) Current Visit: Yes Status: Chronic Patient refusing noninvasive ventilation Subjective Principal diagnosis: COPD and ILD, cervical myelopathy Interval history: Patient had chest pain last night which has resolved and he denies any significant symptoms other than his stated is not feeling his lower extremities , however on examination sensation is intact. Objective PUL Vital signs: Last Vital Signs Temp 98.4 F 07/14/18 07:31 Pulse 102 07/14/18 07:31 Resp 18 07/14/18 07:31 BP 101/73 07/14/18 07:31 Pulse Ox 90 07/14/18 07:31 General: Patient is in no acute distress. HEENT: Normocephalic atraumatic, pupils are equal round and reactive to light and accommodation, anicteric sclera, nares is patent, mucous membranes moist, no JVD, trachea is midline Cardiovascular: Normal sinus rhythm, S1 and S2 audible, no murmur or rubs Respiratory: Diminished to auscultation bilaterally. No acute distress. No wheezing. Patient not using accessory muscles. Abdomen: Soft, nontender, nondistended, positive bowel sounds in all 4 quadrants Extremities: Warm, dry, trace lower extremity edema. Normal capillary refill. Neuro: Alert and oriented and follows commands. Grossly no neuro deficits. Skin: Warm to touch : No obvious abnormalities. Psych: Normal Results - Laboratory Findings CBC and BMP: 07/14/18 05:39 07/14/18 05:39 ABG ABG pH 7.42 pH Units (7.32-7.45) 07/10/18 05:07 ABG pCO2 61 mmHg (35-45) H 07/10/18 05:07 ABG pO2 68 mmHg (85-104) L 07/10/18 05:07 ABG O2 Saturation 93 % (95-98) L 07/10/18 05:07 PT/INR, D-dimer PT 11.7 Seconds (9.4-12.1) 07/09/18 04:31 Abnormal lab findings: Abnormal lab results ABG pCO2 61 mmHg (35-45) H 07/10/18 05:07 ABG pO2 68 mmHg (85-104) L 07/10/18 05:07 ABG HCO3 40 mEq/L (21-27) H 07/10/18 05:07 ABG Total CO2 42 mEq/L (20-26) H 07/10/18 05:07 ABG O2 Saturation 93 % (95-98) L 07/10/18 05:07 ABG Base Excess 12 mEq/L (-2 to 3) H 07/10/18 05:07 Chloride 95 mEq/L (98-107) L 07/12/18 03:12 Carbon Dioxide 35 mEq/L (23-29) H 07/12/18 03:12 BUN 31 mg/dL (8-23) H 07/12/18 03:12 Creatinine 0.54 mg/dL (0.70-1.30) L 07/12/18 03:12 BUN/Creatinine Ratio 57 (6-26) H 07/12/18 03:12 Glucose 125 mg/dL (70-105) H 07/12/18 03:12 POC Glucose 172 mg/dL (70-99) H 07/14/18 03:42 Hemoglobin A1c 11.2 % (-5.6) H 07/03/18 04:21 Troponin I 0.05 ng/mL (< 0.04) H* 07/14/18 06:34 Serum Total Protein 6.2 g/dL (6.4-8.9) L 07/05/18 04:32 Albumin 3.4 g/dL (3.5-5.7) L 07/05/18 04:32 HDL Cholesterol 39 mg/dL (40-59) L 07/03/18 04:21 Ur Specific [place] > 1.030 (1.010-1.025) H 07/07/18 14:23 Urine Glucose (UA) >=1000 mg/dL (Normal) H 07/07/18 14:23 Urine Ketones 15 mg/dL (Negative) H 07/07/18 14:23 Urine Microscopic RBC 5-15 per hpf (0-3) H 07/02/18 12:10 Urine Microscopic WBC 5-15 per hpf (0-3) H 07/02/18 12:10 Ur Squamous Epith Cells Many per lpf (None-Few) H 07/02/18 12:10 Urine Mucus Many (Few) H 07/02/18 12:10 - Clinical Findings Intake & Output: Intake & Output 07/13/18 07/14/18 07/14/18 23:59 07:59 15:59 Intake Total 120 / 120 Output Total 950 / 950 300 / 300 Balance -830 / -830 -300 / -300 - VTE Documentation of Mechanical Device: Intermittent pneumatic compression device Consult Discharge Plan - Plan Referrals: Christie Rowland PAC [Physician Manager Market Research] - 07/24/18 10:00 am Luis Miguel Aguilera DO [Primary Care Provider] - (Left voice mail for the office to call me back) Jarred Posada MD [Partnered Physician] - 08/15/18 8:15 am
[2018-07-14 09:10] LABS: BUN/Creatinine Ratio 49 (6-26); Blood Urea Nitrogen 33 mg/dL (8-23); Calcium 9.4 mg/dL (8.6-10.3); Carbon Dioxide 31 mEq/L (23-29); Chloride 97 mEq/L (98-107); Glucose 193 mg/dL (70-105); Osmolality,Calculated 293 (280-300); Potassium 3.7 mEq/L (3.5-5.1); Sodium 135 mEq/L (136-145); eGFR For Non-African Americans > 60 (> 60)
[2018-07-14] MEDS: Budesonide/Formoterol 160/4.5 1 PUFF INH IH SCH ×2 (09:12→22:49)
--- NOTE | 2018-07-14 12:35 | Spine Progress Note ---
Date of Encounter: 07/14/18 Time of Encounter: 12:32 - Assessment and Plan (1) Cervical stenosis of spine Current Visit: Yes Status: Chronic (2) Cervical myelopathy Current Visit: Yes Status: Chronic (3) Vertebral compression fracture Current Visit: Yes Status: Acute Subjective Principal diagnosis: COPD and ILD, cervical myelopathy Interval history: The patient is without complaints. He states he has improved feeling in his lower extremities. They are no longer numb. He is extubated on a regular nursing floor. He is on 15 L oxygen. [employer] is on board. He is awake and alert Afebrile vital signs are stable. Incision is clean dry and intact. He is neurovascularly intact with regard to bilateral upper and l lower extremities. Assessment :stable. Plan: : We will obtain AP and lateral views of the cervical spine today. Mobilize as tolerated. Objective Vital signs: Vital Signs Temp Pulse Resp BP Pulse Ox 07/14/18 12:14 98.5 F 111 22 89 07/14/18 12:07 90 07/14/18 12:06 85 07/14/18 07:31 98.4 F 102 18 101/73 90 07/14/18 03:37 98.3 F 102 18 112/84 95 07/14/18 03:30 20 120/90 95 07/14/18 00:49 19 91 07/13/18 23:56 98.5 F 108 20 120/90 91 07/13/18 21:46 21 114/85 94 07/13/18 19:43 97.7 F 07/13/18 19:28 96.9 F L 118 20 114/85 94 07/13/18 16:49 20 94 07/13/18 15:53 97.4 F L 120 20 111/83 95 Intake and Output 07/13/18 07/14/18 07/14/18 23:59 07:59 15:59 Intake Total 120 / 120 120 / 120 0 / 0 Output Total 950 / 950 300 / 300 650 / 650 Balance -830 / -830 -180 / -180 -650 / -650 Intake: Oral 120 / 120 120 / 120 0 / 0 Output: Catheter 950 / 950 300 / 300 650 / 650 Other: Meal Dinner Percent of Meal Consumed 100% Blood Glucose* 204 319 180 - Labs CBC & BMP: 07/14/18 05:39 07/14/18 05:39 Labs: Abnormal lab results ABG pCO2 61 mmHg (35-45) H 07/10/18 05:07 ABG pO2 68 mmHg (85-104) L 07/10/18 05:07 ABG HCO3 40 mEq/L (21-27) H 07/10/18 05:07 ABG Total CO2 42 mEq/L (20-26) H 07/10/18 05:07 ABG O2 Saturation 93 % (95-98) L 07/10/18 05:07 ABG Base Excess 12 mEq/L (-2 to 3) H 07/10/18 05:07 Sodium 135 mEq/L (136-145) L 07/14/18 05:39 Chloride 97 mEq/L (98-107) L 07/14/18 05:39 Carbon Dioxide 31 mEq/L (23-29) H 07/14/18 05:39 BUN 33 mg/dL (8-23) H 07/14/18 05:39 Creatinine 0.67 mg/dL (0.70-1.30) L 07/14/18 05:39 BUN/Creatinine Ratio 49 (6-26) H 07/14/18 05:39 Glucose 193 mg/dL (70-105) H 07/14/18 05:39 POC Glucose 172 mg/dL (70-99) H 07/14/18 03:42 Hemoglobin A1c 11.2 % (-5.6) H 07/03/18 04:21 Troponin I 0.05 ng/mL (< 0.04) H* 07/14/18 06:34 Serum Total Protein 6.2 g/dL (6.4-8.9) L 07/05/18 04:32 Albumin 3.4 g/dL (3.5-5.7) L 07/05/18 04:32 HDL Cholesterol 39 mg/dL (40-59) L 07/03/18 04:21 Ur Specific [place] > 1.030 (1.010-1.025) H 07/07/18 14:23 Urine Glucose (UA) >=1000 mg/dL (Normal) H 07/07/18 14:23 Urine Ketones 15 mg/dL (Negative) H 07/07/18 14:23 Urine Microscopic RBC 5-15 per hpf (0-3) H 07/02/18 12:10 Urine Microscopic WBC 5-15 per hpf (0-3) H 07/02/18 12:10 Ur Squamous Epith Cells Many per lpf (None-Few) H 07/02/18 12:10 Urine Mucus Many (Few) H 07/02/18 12:10 Consult Discharge Plan - Plan Referrals: Christie Rowland PAC [Physician Drum Printer] - 07/24/18 10:00 am Luis Miguel Aguilera, [Primary Care Provider] - (Left voice mail for the office to call me back) Jarred Posada MD [Partnered Physician] - 08/15/18 8:15 am
[2018-07-14] MEDS: Furosemide 20 MG TABLET PO SCH (19:43)
[2018-07-14] MEDS: Finasteride 5 MG TABLET PO SCH (21:55)
[2018-07-14] MEDS: Melatonin 3 MG TABLET PO SCH (21:55)
[2018-07-14] MEDS: Insulin DETEMIR 100 UNIT/ML X5UNITS SQ SCH (21:57)
[2018-07-15] MEDS: Ipratropium/Albuterol Neb 3 ML IH SCH ×4 (04:22→22:07)
[2018-07-15 04:38] LABS: Basophils % 0.2 %; Eosinophils # 0.1 K/mcL (0.0-0.6); Eosinophils % 0.5 %; Hematocrit 45.9 % (37.5-50.1); Hemoglobin 15.2 g/dL (12.9-16.9); Lymphocytes # 1.1 K/mcL (0.6-4.6); Lymphocytes % 9.5 %; Mean Corpuscular HGB Conc 33.1 g/dL (31.6-35.5); Mean Corpuscular Hemoglobin 31.1 pg (28.0-33.3); Mean Corpuscular Volume 93.9 fL (83.0-100.0); Mean Platelet Volume 9.7 fL (9.4-12.4); Monocytes % 8.9 %; Neutrophils # 9.3 K/mcL (1.6-8.9); Platelet Count 242 K/mcL (140-400); Red Blood Count 4.89 M/mcL (4.19-5.50); Red Cell Distribution Width 12.1 % (11.5-14.5); Segmented Neutrophils % 79.9 %
[2018-07-15 05:00] LABS: BUN/Creatinine Ratio 50 (6-26); Blood Urea Nitrogen 26 mg/dL (8-23); Calcium 9.3 mg/dL (8.6-10.3); Carbon Dioxide 32 mEq/L (23-29); Chloride 96 mEq/L (98-107); Glucose 262 mg/dL (70-105); Osmolality,Calculated 292 (280-300); Potassium 4.1 mEq/L (3.5-5.1); Sodium 134 mEq/L (136-145); eGFR For Non-African Americans > 60 (> 60)
[2018-07-15] MEDS: *HR* Heparin 5,000 UNIT/ML VIAL SQ SCH ×3 (06:56→21:21)
[2018-07-15] MEDS: Furosemide 20 MG TABLET PO SCH ×2 (08:26→17:32)
[2018-07-15] MEDS: Insulin LISPRO 300 UNITS/3 ML VIAL SQ SCH ×4 (08:26→21:18)
[2018-07-15] MEDS: Ascorbic Acid 500 MG TABLET PO SCH (08:26)
[2018-07-15] MEDS: levoFLOXacin 750 MG TABLET PO SCH (08:26)
[2018-07-15] MEDS: Cholecalciferol (D-3) 1,000 UNIT TABLET PO SCH (08:26)
[2018-07-15] MEDS: Fluticasone Propionate Nasal 50 MCG/SPRAY BOTTLE NS SCH (08:27)
[2018-07-15] MEDS: Nystatin POWDER 30 GM BOTTLE TP SCH ×2 (08:27→21:20)
[2018-07-15] MEDS: Clotrimazole 1% CRM 15 GM TUBE TP SCH ×2 (08:27→21:21)
[2018-07-15] MEDS: Budesonide/Formoterol 160/4.5 1 PUFF INH IH SCH ×2 (09:52→22:07)
[2018-07-15] MEDS ORDERED: Insulin DETEMIR 100 UNIT/ML X5UNITS SQ ONE (10:18)
--- NOTE | 2018-07-15 10:20 | Internal Med Progress Note ---
Hospitalist Progress Note - Encounter Date of Encounter: 07/15/18 Time of Encounter: 10:52 - Subjective Interval History: 07/13: Patient was titrated to nasal cannula but later had to be placed on bipap due to shortness of breath. Patient currently on bipap. Denies any sort of pain, chest pain, n/v. 07/14: Overnight patient had burning sensation, 7/10, non-radiating chest pain at around 0600. He states it got better with pain medications. An EKG done at that time showed normal sinus rhythm and no ST/T wave changes. He currently is on high flow O2 and states he no longer has chest pain or shortness of breath, denies palpitations, n/v, diaphoresis. 07/15: No complaints, no acute events, at bedside. He denies shortness of breath, chest pain, fevers/chills, n/v. He is back on 15 L high flow NC. - Exam Vitals: Temp Pulse Resp BP Pulse Ox 97.8 F 97 18 129/90 93 07/15/18 07:09 07/15/18 07:09 07/15/18 09:46 07/15/18 09:46 07/15/18 09:46 Exam: General: AAO x3, no acute resp distress HEENT:EOM intact, pupils equal, round, moist mucus membranes Neck: supple, trachea midline Cardiovascular:regular rate and rhythm, normal S1 & S2, no murmurs, no JVD. Lungs: limited auscultation because of body positioning post-op, but no wheezing or rales appreciated. Abdomen:Soft, non-tender, non-distended, + bowel sounds Neurological: AAOx3 Skin: Normal color, no rash, no pallor Ext: no cyanosis, no edema - Assessment and Plan (1) Acute on chronic respiratory failure with hypoxia Current Visit: No Status: Acute Assessment and Plan: 07/06--overnight the patient's condition declined; developing respiratory distress requiring BiPAP for stabilization. WBC elevated at 17.3 diminished airflow per auscultation as well as expiratory wheezing and scattered rhonchi. transferred to , received IV Lasix, IV steroids and aerosol treatments. Patient transitioned out of ICU 07/13 -bl cx neg 07/13: Patient stepped down from ICU. Was bassam to do NC temporarily but then needed bipap. Currently feels better on bipap . Continue current dose of IV Lasix, Prednisone, Levaquin, neb therapy, symbicort 07/14: Patient had episode of chest pain 0600 with unremarkable EKG but troponin has come back at 0.05 borderline elevated. Given he is tachycardic with episode of chest pain and at bedside his O2 sats about 87-90% i will rule out PE although suspicion is low, he is post-op. Clinically he looks better than yesterday, not labored breathing. If he develops SOB today and goes back on bipap, will increase steroid dose and schedule neb treatments more frequently. 07/15: Clinically looks good off of bipap, but back on 15 L high flow O2 - Sputum culture grew Proteus sensitive to Levaquin, and so will continue. - Continue neb therapy. - Lasix 40 mg PO BID - Prednisone taper - Pulm following, recommendations appreciated. (2) COPD (chronic obstructive pulmonary disease) Current Visit: Yes Status: Chronic Assessment and Plan: Continue bronchodilators and overall is doing well post surgery and requiring noninvasive ventilation sometimes. Encourage incentive spirometry. Symbicort added Neb treatments positive pressure at night wean off bipap as tolerated. (3) Small cell lung cancer Current Visit: No Status: Chronic Assessment and Plan: Hx of small cell lung cancer. Pt. reports he is currently in remission. Post radiation interstitial markings on the right can be noted on CT chest from March of 2018 f/u with [facility] as previously scheduled (4) DVT prophylaxis Current Visit: Yes Status: Acute Assessment and Plan: continue Heparin 5,000 units SQ Q8HR for DVT prophylaxis (5) Morbid obesity Current Visit: Yes Status: Chronic Assessment and Plan: education for lifestyle modifications (6) Diabetes mellitus Current Visit: Yes Status: Chronic Assessment and Plan: Hx of chronic diabetes controlled by insulin. Hypergycemia now worse on steroids -was on home dose of insulin and low-dose correction sliding scale insulin w/ hypoglycemic protocol. -bs now elevating on steroids and dose adjustments being made as needed -BG checks ACHS. ADA diet Increase Levemir for now and monitor. (7) DMITRY (obstructive sleep apnea) Current Visit: Yes Status: Chronic Assessment and Plan: Hx of chronic DMITRY. CPAP HS. Respiratory therapy consulted. (8) Cervical myelopathy Current Visit: Yes Status: Chronic Assessment and Plan: cervical stenosis,cervical myelopathy,myelomalacia within cervical cord MRI of the cervical spine reveals severe stenosis at C3-4 and moderate stenosis at C5-6. There is increased signal within the cord at C3-4 consistent with myelomalacia. -spine surg consulted this admission: with positive upper motor neuron findings on neurologic examination reasonable to consider surgery in the form of a anterior cervical decompression and fusion C3-4 and C5-6 however given his respiratory status he is not a candidate for surgery at this time -07/08 family is wondering if there is still a chance he could be cleared for OR tomorrow. Aware there is not a documented plan for OR and that pulm has not yet cleared him for OR. Surg and pulm have not yet been in this weekend and may not be. In case he is seen in AM and cleared for or, and still on or schedule, will amke pt npo p mn with insulin adjustments and full labs and cxr for in am -07/09 awaiting pulm eval to determine if cleared for anterior cervical decompression fusion C3-4 and C5-6 by spine surg Status post anterior cervical decompression and fusion of C3-4 and C5-6. Mgmt per Spinal surg. DVT Prophylaxis: heparin sq - Summary of Assessment and Plan Summary of Assessment and Plan: Patient admitted status post falls. Reporting approximately 3 falls in less than 90 days. Additionally, the patient is reporting ambulatory dysfunction and weakness in bilateral lower extremities and problems with gait/balance increasing since April 2018. He is also endorsing clumsiness of bilateral hands right greater than left. Assessment reveals a positive Dawn's sign concerning for upper motor neuron pathology. He is a history of chronic compression fractures and in the past has been deemed a non-surgery candidate ( see 2015) he was was recently seen at [facility] due to low back pain and bilateral lower extremity weakness. Workup at that time included lumbar spine CT 06/27/18 which showed no acute findings; findings of no definite acute lumbar spine fracture, stable compression fractures of L1, L3 and L4 without evidence of retropulsion. Unchanged bilateral L5 pars interarticularis defects. Plan: Solu-Medrol 125 mg IV push times one then 60 mg IV push every 6 hours, continue scheduled DuoNeb's, give IV push Lasix 40 mg 1 and 20 mg twice a day. Chest x- ray now. Transfer to ICU [facility] to [place] overflow. Bed rest. Continue incentive spirometer. High risk for falls, initiate falls precautions. Obtain carotid Dopplers for further evaluation as patient is also having dizziness and disequilibrium. 07/06--overnight the patient's condition declined; developing respiratory distress requiring BiPAP for stabilization. WBC elevated at 17.3 today. This morning the patient appears to have diminished airflow per auscultation as well as expiratory wheezing and scattered rhonchi. Patient has a history of severe COPD and I have a low threshold for intubation. Discussed with support director and plan to transfer to ICU for 2-n step-down. At this time he will receive IV Lasix, IV steroids and aerosol treatments. Continue to closely monitor respiratory status. Being that he is here for cervical myelopathy with moderate spinal cord compression the patient was to undergo surgery this coming Monday however, given his current respiratory decline he is no longer a candidate for surgery. Will discuss with Dr. Jay this afternoon. Diagnosis: 1-Ambulatory dysfunction 2-falls 3-bilateral leg weakness 4-aqvijmlzdzqv-urkjg sodium 134 this morning, appears to be chronic and renal patient's baseline, continue to monitor. 5) elevated liver enzymes-improving 6-low back pain 7 COPD-remains stable, not in acute exacerbation, continue COPD medications 8) diabetes mellitus-chronic, persistent hyperglycemia noted on labs this morning, continue basal insulin and increase sliding scale coverage to High SSIC 9-morbid obesity-discussed lifestyle modification 10-obstructive sleep apnea 11-small cell lung cancer-per history, in remission per patient, follows with [place] [facility], continue outpatient follow-up as scheduled 12-DVT prophylaxis 13-Cervical myelopathy 14-respiratory failure with hypoxia-see plan above - Time Spent with Patient Total time spent is greater than 50% in coordination of care (as documented) at patient's floor/unit and/or counseling patient: Internal Medicine: Result - Labs CBC & Chem 7: 07/15/18 04:19 07/15/18 04:19 Labs: Short CBC 07/15/18 Range/Units 04:19 WBC 11.6 H (4.3-11.1) K/mcL Hgb 15.2 (12.9-16.9) g/dL Hct 45.9 (37.5-50.1) % Plt Count 242 (140-400) K/mcL Neutrophils # 9.3 H (1.6-8.9) K/mcL BMP 07/15/18 04:19 Sodium 134 L Potassium 4.1 Chloride 96 L Carbon Dioxide 32 H BUN 26 H Creatinine 0.52 L Glucose 262 H Calcium 9.3 Cardiac Enzymes 07/14/18 Range/Units 12:21 Troponin I 0.03 (< 0.04) ng/mL - ABG Interpretation ABG results: ABG ABG pH 7.42 pH Units (7.32-7.45) 07/10/18 05:07 ABG pCO2 61 mmHg (35-45) H 07/10/18 05:07 ABG pO2 68 mmHg (85-104) L 07/10/18 05:07 ABG O2 Saturation 93 % (95-98) L 07/10/18 05:07 PT/INR, D-dimer PT 11.7 Seconds (9.4-12.1) 07/09/18 04:31 - Impressions Impressions Cervical Spine X-Ray 07/14/18 12:27 IMPRESSION: Postoperative changes of ACDF at C3-4 and C5-6, without hardware complication. D/ / Josse Berg MD / Josse Berg MD Interpreting Provider: Josse Berg MD - VTE Documentation of Mechanical Device: Intermittent pneumatic compression device Consult Discharge Plan - Plan Referrals: Christie Rowland PAC [Physician Title 1 Tutor] - 07/24/18 10:00 am Luis Miguel Aguilera DO [Primary Care Provider] - (Left voice mail for the office to call me back) Jarred Posada MD [Partnered Physician] - 08/15/18 8:15 am (2) COPD (chronic obstructive pulmonary disease) Qualifiers: COPD type: emphysema Emphysema type: panlobular Qualified Code(s): J43.1 - Panlobular emphysema (6) Diabetes mellitus Qualifiers: Diabetes mellitus type: type 2 Diabetes mellitus intermediate card tender insulin use: without intermediate card tender use Diabetes mellitus complication status: without complication Qualified Code(s): E11.9 - Type 2 diabetes mellitus without complications
[2018-07-15] MEDS: predniSONE 20 MG TABLET PO SCH (11:01)
[2018-07-15] MEDS: Sennosides/Docusate Sodium TABLET PO SCH ×2 (13:32→21:14)
[2018-07-15] MEDS: *HR* HYDROcodone/Acet 5/325 mg TABLET PO PRN (21:13)
[2018-07-15] MEDS: Finasteride 5 MG TABLET PO SCH (21:14)
[2018-07-15] MEDS: Melatonin 3 MG TABLET PO SCH (21:15)
[2018-07-15] MEDS: Insulin DETEMIR 100 UNIT/ML X5UNITS SQ SCH (21:17)
[2018-07-16] MEDS: Ipratropium/Albuterol Neb 3 ML IH SCH ×4 (03:41→22:59)
[2018-07-16 04:16] LABS: Basophils % 0.2 %; Eosinophils # 0.1 K/mcL (0.0-0.6); Eosinophils % 0.6 %; Hematocrit 44.3 % (37.5-50.1); Hemoglobin 14.7 g/dL (12.9-16.9); Immature Granulocytes % 1.4 % (0-4); Immature Platelets 3.9 % (1.1-6.1); Lymphocytes # 1.3 K/mcL (0.6-4.6); Lymphocytes % 9.2 %; Mean Corpuscular HGB Conc 33.2 g/dL (31.6-35.5); Mean Corpuscular Hemoglobin 31.4 pg (28.0-33.3); Mean Corpuscular Volume 94.7 fL (83.0-100.0); Mean Platelet Volume 9.6 fL (9.4-12.4); Monocytes # 1.1 K/mcL (0.0-1.3); Monocytes % 7.8 %; Neutrophils # 11.3 K/mcL (1.6-8.9); Platelet Count 242 K/mcL (140-400); Red Blood Count 4.68 M/mcL (4.19-5.50); Red Cell Distribution Width 12.1 % (11.5-14.5); Segmented Neutrophils % 80.8 %
[2018-07-16 04:40] LABS: BUN/Creatinine Ratio 48 (6-26); Blood Urea Nitrogen 25 mg/dL (8-23); Carbon Dioxide 28 mEq/L (23-29); Chloride 100 mEq/L (98-107); Glucose 194 mg/dL (70-105); Osmolality,Calculated 288 (280-300); Potassium 4.4 mEq/L (3.5-5.1); Sodium 134 mEq/L (136-145); eGFR For Non-African Americans > 60 (> 60)
[2018-07-16] MEDS: *HR* Heparin 5,000 UNIT/ML VIAL SQ SCH ×3 (05:47→20:42)
--- NOTE | 2018-07-16 08:13 | Internal Med Progress Note ---
Hospitalist Progress Note - Encounter Date of Encounter: 07/16/18 Time of Encounter: 08:11 - Subjective Interval History: 07/13: Patient was titrated to nasal cannula but later had to be placed on bipap due to shortness of breath. Patient currently on bipap. Denies any sort of pain, chest pain, n/v. 07/14: Overnight patient had burning sensation, 7/10, non-radiating chest pain at around 0600. He states it got better with pain medications. An EKG done at that time showed normal sinus rhythm and no ST/T wave changes. He currently is on high flow O2 and states he no longer has chest pain or shortness of breath, denies palpitations, n/v, diaphoresis. 07/15: No complaints, no acute events, at bedside. He denies shortness of breath, chest pain, fevers/chills, n/v. He is back on 15 L high flow NC. 07/15: No chest pain, no sob. Currently on 10 L high flow. - Exam Vitals: Temp Pulse Resp BP Pulse Ox 97.5 F L 98 18 109/77 92 07/16/18 07:02 07/16/18 07:02 07/16/18 07:02 07/16/18 07:02 07/16/18 07:02 Exam: General: AAO x3, no acute resp distress HEENT:EOM intact, pupils equal, round, moist mucus membranes Neck: supple, trachea midline Cardiovascular:regular rate and rhythm, normal S1 & S2, no murmurs, no JVD. Lungs: limited auscultation because of body positioning post-op, but no wheezing or rales appreciated. Abdomen:Soft, non-tender, non-distended, + bowel sounds Neurological: AAOx3 Skin: Normal color, no rash, no pallor Ext: no cyanosis, no edema - Assessment and Plan (1) Acute on chronic respiratory failure with hypoxia Current Visit: No Status: Acute Assessment and Plan: 07/06--overnight the patient's condition declined; developing respiratory distress requiring BiPAP for stabilization. WBC elevated at 17.3 diminished airflow per auscultation as well as expiratory wheezing and scattered rhonchi. transferred to , received IV Lasix, IV steroids and aerosol treatments. Patient transitioned out of ICU 07/13 -bl cx neg 07/13: Patient stepped down from ICU. Was bassam to do NC temporarily but then needed bipap. Currently feels better on bipap . Continue current dose of IV Lasix, Prednisone, Levaquin, neb therapy, symbicort 07/14: Patient had episode of chest pain 0600 with unremarkable EKG but troponin has come back at 0.05 borderline elevated. Given he is tachycardic with episode of chest pain and at bedside his O2 sats about 87-90% i will rule out PE although suspicion is low, he is post-op. Clinically he looks better than yesterday, not labored breathing. If he develops SOB today and goes back on bipap, will increase steroid dose and schedule neb treatments more frequently. 07/15: Clinically looks good off of bipap, but back on 15 L high flow O2 07/16: Now on 10 L O2, will wean to 8 L and see how he does. - Sputum culture grew Proteus sensitive to Levaquin - continue. - Continue neb therapy. - Lasix 20 mg PO BID - Prednisone taper - Pulm following, recommendations appreciated. (2) COPD (chronic obstructive pulmonary disease) Current Visit: Yes Status: Chronic Assessment and Plan: On 4-5 L at home. Continue bronchodilators and overall is doing well post surgery and requiring noninvasive ventilation sometimes. Encourage incentive spirometry. Symbicort added Neb treatments positive pressure at night wean off bipap as tolerated. wean to 8 L today (3) Small cell lung cancer Current Visit: No Status: Chronic Assessment and Plan: Hx of small cell lung cancer. Pt. reports he is currently in remission. Post radiation interstitial markings on the right can be noted on CT chest from March of 2018 f/u with [facility] as previously scheduled (4) Morbid obesity Current Visit: Yes Status: Chronic Assessment and Plan: education for lifestyle modifications (5) Diabetes mellitus Current Visit: Yes Status: Chronic Assessment and Plan: Hx of chronic diabetes controlled by insulin. Hypergycemia now worse on steroids -was on home dose of insulin and low-dose correction sliding scale insulin w/ hypoglycemic protocol. -bs now elevating on steroids and dose adjustments being made as needed -BG checks ACHS. ADA diet - Takes 20 units HS but glucose still elevated - likely prednisone. Will change to Levemir 15 units BID and monitor. (6) DMITRY (obstructive sleep apnea) Current Visit: Yes Status: Chronic Assessment and Plan: Hx of chronic DMITRY. CPAP HS. Respiratory therapy consulted. (7) Cervical myelopathy Current Visit: Yes Status: Chronic Assessment and Plan: cervical stenosis,cervical myelopathy,myelomalacia within cervical cord. MRI of the cervical spine reveals severe stenosis at C3-4 and moderate stenosis at C5-6. There is increased signal within the cord at C3-4 consistent with myelomalacia. Status post anterior cervical decompression and fusion of C3-4 and C5-6. Mgmt per Spinal surg. (8) DVT prophylaxis Current Visit: Yes Status: Acute Assessment and Plan: continue Heparin 5,000 units SQ Q8HR for DVT prophylaxis - Time Spent with Patient Total time spent is greater than 50% in coordination of care (as documented) at patient's floor/unit and/or counseling patient: Internal Medicine: Result - Labs CBC & Chem 7: 07/16/18 04:04 07/16/18 04:04 Labs: Short CBC 07/16/18 Range/Units 04:04 WBC 14.0 H (4.3-11.1) K/mcL Hgb 14.7 (12.9-16.9) g/dL Hct 44.3 (37.5-50.1) % Plt Count 242 (140-400) K/mcL Neutrophils # 11.3 H (1.6-8.9) K/mcL BMP 07/16/18 04:04 Sodium 134 L Potassium 4.4 Chloride 100 Carbon Dioxide 28 BUN 25 H Creatinine 0.52 L Glucose 194 H Calcium 9.0 - ABG Interpretation ABG results: ABG ABG pH 7.42 pH Units (7.32-7.45) 07/10/18 05:07 ABG pCO2 61 mmHg (35-45) H 07/10/18 05:07 ABG pO2 68 mmHg (85-104) L 07/10/18 05:07 ABG O2 Saturation 93 % (95-98) L 07/10/18 05:07 PT/INR, D-dimer PT 11.7 Seconds (9.4-12.1) 07/09/18 04:31 - VTE Documentation of Mechanical Device: Intermittent pneumatic compression device Consult Discharge Plan - Plan Referrals: Christie Rowland, PAC [Physician Golf Teacher] - 07/24/18 10:00 am Luis Miguel Aguilera DO [Primary Care Provider] - (Left voice mail for the office to call me back) Jarred Posada MD [Partnered Physician] - 08/15/18 8:15 am (2) COPD (chronic obstructive pulmonary disease) Qualifiers: COPD type: emphysema Emphysema type: panlobular Qualified Code(s): J43.1 - Panlobular emphysema (5) Diabetes mellitus Qualifiers: Diabetes mellitus type: type 2 Diabetes mellitus meterman insulin use: without meterman use Diabetes mellitus complication status: without complication Qualified Code(s): E11.9 - Type 2 diabetes mellitus without complications
[2018-07-16] MEDS: Cholecalciferol (D-3) 1,000 UNIT TABLET PO SCH (08:23)
[2018-07-16] MEDS: Insulin LISPRO 300 UNITS/3 ML VIAL SQ SCH ×4 (08:23→20:39)
[2018-07-16] MEDS: *HR* HYDROcodone/Acet 5/325 mg TABLET PO PRN ×3 (08:23→21:23)
[2018-07-16] MEDS: Nystatin POWDER 30 GM BOTTLE TP SCH ×2 (08:24→20:45)
[2018-07-16] MEDS: predniSONE 20 MG TABLET PO SCH (08:24)
[2018-07-16] MEDS: Ascorbic Acid 500 MG TABLET PO SCH (08:24)
[2018-07-16] MEDS: Clotrimazole 1% CRM 15 GM TUBE TP SCH ×2 (08:24→20:45)
[2018-07-16] MEDS: Furosemide 20 MG TABLET PO SCH ×2 (08:24→15:20)
[2018-07-16] MEDS: Sennosides/Docusate Sodium TABLET PO SCH ×2 (08:24→20:30)
[2018-07-16] MEDS: levoFLOXacin 750 MG TABLET PO SCH (08:24)
[2018-07-16] MEDS: Fluticasone Propionate Nasal 50 MCG/SPRAY BOTTLE NS SCH (08:25)
[2018-07-16] MEDS: Insulin DETEMIR 100 UNIT/ML X5UNITS SQ SCH ×2 (08:25→20:37)
[2018-07-16] MEDS: Budesonide/Formoterol 160/4.5 1 PUFF INH IH SCH ×2 (10:53→22:59)
--- NOTE | 2018-07-16 15:09 | Electrocardiograph Report ---
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
[2018-07-16] MEDS: Melatonin 3 MG TABLET PO SCH (20:32)
[2018-07-16] MEDS: Finasteride 5 MG TABLET PO SCH (20:32)
[2018-07-17] MEDS: *HR* HYDROcodone/Acet 5/325 mg TABLET PO PRN ×3 (04:05→17:38)
[2018-07-17] MEDS: Ipratropium/Albuterol Neb 3 ML IH SCH ×4 (05:03→21:41)
[2018-07-17 05:34] LABS: Basophils % 0.2 %; Eosinophils # 0.1 K/mcL (0.0-0.6); Eosinophils % 0.5 %; Hematocrit 44.3 % (37.5-50.1); Hemoglobin 14.4 g/dL (12.9-16.9); Immature Granulocytes % 1.1 % (0-4); Lymphocytes # 1.4 K/mcL (0.6-4.6); Lymphocytes % 10.7 %; Mean Corpuscular HGB Conc 32.5 g/dL (31.6-35.5); Mean Corpuscular Volume 95.5 fL (83.0-100.0); Mean Platelet Volume 9.8 fL (9.4-12.4); Monocytes # 1.1 K/mcL (0.0-1.3); Monocytes % 8.2 %; Neutrophils # 10.1 K/mcL (1.6-8.9); Platelet Count 233 K/mcL (140-400); Red Blood Count 4.64 M/mcL (4.19-5.50); Red Cell Distribution Width 12.3 % (11.5-14.5); Segmented Neutrophils % 79.3 %
[2018-07-17 05:48] LABS: BUN/Creatinine Ratio 43 (6-26); Blood Urea Nitrogen 23 mg/dL (8-23); Carbon Dioxide 28 mEq/L (23-29); Chloride 100 mEq/L (98-107); Glucose 155 mg/dL (70-105); Osmolality,Calculated 285 (280-300); Potassium 4.1 mEq/L (3.5-5.1); Sodium 134 mEq/L (136-145); eGFR For Non-African Americans > 60 (> 60)
[2018-07-17] MEDS: *HR* Heparin 5,000 UNIT/ML VIAL SQ SCH ×3 (06:40→21:07)
[2018-07-17] MEDS: Cholecalciferol (D-3) 1,000 UNIT TABLET PO SCH (08:15)
[2018-07-17] MEDS: Sennosides/Docusate Sodium TABLET PO SCH ×2 (08:15→21:07)
[2018-07-17] MEDS: Insulin LISPRO 300 UNITS/3 ML VIAL SQ SCH ×4 (08:15→21:11)
[2018-07-17] MEDS: Fluticasone Propionate Nasal 50 MCG/SPRAY BOTTLE NS SCH (08:16)
[2018-07-17] MEDS: Nystatin POWDER 30 GM BOTTLE TP SCH ×2 (08:16→21:10)
[2018-07-17] MEDS: traMADol 50 MG TABLET PO PRN (08:17)
[2018-07-17] MEDS: Furosemide 20 MG TABLET PO SCH ×2 (08:17→17:38)
[2018-07-17] MEDS: Insulin DETEMIR 100 UNIT/ML X5UNITS SQ SCH ×2 (08:17→21:11)
[2018-07-17] MEDS: Clotrimazole 1% CRM 15 GM TUBE TP SCH ×2 (08:17→21:12)
[2018-07-17] MEDS: predniSONE 20 MG TABLET PO SCH (08:17)
[2018-07-17] MEDS: Ascorbic Acid 500 MG TABLET PO SCH (08:17)
[2018-07-17] MEDS: levoFLOXacin 750 MG TABLET PO SCH (08:17)
--- NOTE | 2018-07-17 09:02 | Internal Med Progress Note ---
Hospitalist Progress Note - Encounter Date of Encounter: 07/17/18 Time of Encounter: 08:59 - Subjective Interval History: 07/13: Patient was titrated to nasal cannula but later had to be placed on bipap due to shortness of breath. Patient currently on bipap. Denies any sort of pain, chest pain, n/v. 07/14: Overnight patient had burning sensation, 7/10, non-radiating chest pain at around 0600. He states it got better with pain medications. An EKG done at that time showed normal sinus rhythm and no ST/T wave changes. He currently is on high flow O2 and states he no longer has chest pain or shortness of breath, denies palpitations, n/v, diaphoresis. 07/15: No complaints, no acute events, at bedside. He denies shortness of breath, chest pain, fevers/chills, n/v. He is back on 15 L high flow NC. 07/15: No chest pain, no sob. Currently on 10 L high flow. 07/16: attempting to wean O2 to 7 L 07/17: O2 weaned to his home amount of 4 L NC, he denies SOB, no complaints today. - Exam Vitals: Temp Pulse Resp BP Pulse Ox 98.1 F 94 18 103/67 91 07/17/18 07:06 07/17/18 07:06 07/17/18 07:06 07/17/18 07:06 07/17/18 07:06 Exam: General: AAO x3, no acute resp distress HEENT:EOM intact, pupils equal, round, moist mucus membranes Neck: supple, trachea midline Cardiovascular:regular rate and rhythm, normal S1 & S2, no murmurs, no JVD. Lungs: limited auscultation because of body positioning post-op, but no wheezing or rales appreciated. Abdomen:Soft, non-tender, non-distended, + bowel sounds Neurological: AAOx3 Skin: Normal color, no rash, no pallor Ext: no cyanosis, no edema - Assessment and Plan (1) Acute on chronic respiratory failure with hypoxia Current Visit: No Status: Acute Assessment and Plan: 07/06--overnight the patient's condition declined; developing respiratory distress requiring BiPAP for stabilization. WBC elevated at 17.3 diminished airflow per auscultation as well as expiratory wheezing and scattered rhonchi. transferred to , received IV Lasix, IV steroids and aerosol treatments. Patient transitioned out of ICU 07/13 -bl cx neg 07/13: Patient stepped down from ICU. Was bassam to do NC temporarily but then needed bipap. Currently feels better on bipap . Continue current dose of IV Lasix, Prednisone, Levaquin, neb therapy, symbicort 07/14: Patient had episode of chest pain 0600 with unremarkable EKG but troponin has come back at 0.05 borderline elevated. Given he is tachycardic with episode of chest pain and at bedside his O2 sats about 87-90% i will rule out PE although suspicion is low, he is post-op. Clinically he looks better than yesterday, not labored breathing. If he develops SOB today and goes back on bipap, will increase steroid dose and schedule neb treatments more frequently. 07/15: Clinically looks good off of bipap, but back on 15 L high flow O2 07/16: Now on 10 L O2, will wean to 8 L and see how he does. 07/17: Back on 4L which he is at home. Tolerating. - Sputum culture grew Proteus sensitive to Levaquin - continue. - Continue neb therapy. - Lasix 20 mg PO BID - Prednisone taper to 10 mg today DISPO: - Medically stable from a respiratory standpoint. Can discharge today most likely. - Taper Prednisone - 2 More days of Levaquin - Insulin and Lasix will be dosed accordingly (2) COPD (chronic obstructive pulmonary disease) Current Visit: Yes Status: Chronic Assessment and Plan: On 4-5 L at home. Continue bronchodilators and overall is doing well post surgery and requiring noninvasive ventilation sometimes. Encourage incentive spirometry. Symbicort added Neb treatments positive pressure at night wean off bipap as tolerated. weaned back to home O2 (3) Small cell lung cancer Current Visit: No Status: Chronic Assessment and Plan: Hx of small cell lung cancer. Pt. reports he is currently in remission. Post radiation interstitial markings on the right can be noted on CT chest from March of 2018 f/u with [facility] as previously scheduled (4) Morbid obesity Current Visit: Yes Status: Chronic Assessment and Plan: education for lifestyle modifications (5) Diabetes mellitus Current Visit: Yes Status: Chronic Assessment and Plan: Hx of chronic diabetes controlled by insulin. Hypergycemia now worse on steroids -was on home dose of insulin and low-dose correction sliding scale insulin w/ hypoglycemic protocol. -bs now elevating on steroids and dose adjustments being made as needed -BG checks ACHS. ADA diet - Takes 20 units HS but glucose was still elevated so was change to Levemir 15 units BID and now glucose doing better. (6) DMITRY (obstructive sleep apnea) Current Visit: Yes Status: Chronic Assessment and Plan: Hx of chronic DMITRY. CPAP HS. Respiratory therapy consulted. (7) Cervical myelopathy Current Visit: Yes Status: Chronic Assessment and Plan: cervical stenosis,cervical myelopathy,myelomalacia within cervical cord. MRI of the cervical spine reveals severe stenosis at C3-4 and moderate stenosis at C5-6. There is increased signal within the cord at C3-4 consistent with myelomalacia. Status post anterior cervical decompression and fusion of C3-4 and C5-6. Mgmt per Spinal surg. (8) DVT prophylaxis Current Visit: Yes Status: Acute Assessment and Plan: continue Heparin 5,000 units SQ Q8HR for DVT prophylaxis - Time Spent with Patient Total time spent is greater than 50% in coordination of care (as documented) at patient's floor/unit and/or counseling patient: Internal Medicine: Result - Labs CBC & Chem 7: 07/17/18 04:59 07/17/18 04:59 Labs: Short CBC 07/17/18 Range/Units 04:59 WBC 12.8 H (4.3-11.1) K/mcL Hgb 14.4 (12.9-16.9) g/dL Hct 44.3 (37.5-50.1) % Plt Count 233 (140-400) K/mcL Neutrophils # 10.1 H (1.6-8.9) K/mcL BMP 07/17/18 04:59 Sodium 134 L Potassium 4.1 Chloride 100 Carbon Dioxide 28 BUN 23 Creatinine 0.53 L Glucose 155 H Calcium 9.0 - ABG Interpretation ABG results: ABG ABG pH 7.42 pH Units (7.32-7.45) 07/10/18 05:07 ABG pCO2 61 mmHg (35-45) H 07/10/18 05:07 ABG pO2 68 mmHg (85-104) L 07/10/18 05:07 ABG O2 Saturation 93 % (95-98) L 07/10/18 05:07 PT/INR, D-dimer PT 11.7 Seconds (9.4-12.1) 07/09/18 04:31 - VTE Documentation of Mechanical Device: Intermittent pneumatic compression device Consult Discharge Plan - Plan Referrals: Christie Rowland PAC [Physician Clinic Supervisor] - 07/24/18 10:00 am Luis Miguel Aguilera DO [Primary Care Provider] - (Left voice mail for the office to call me back) Jarred Posada MD [Partnered Physician] - 08/15/18 8:15 am (2) COPD (chronic obstructive pulmonary disease) Qualifiers: COPD type: emphysema Emphysema type: panlobular Qualified Code(s): J43.1 - Panlobular emphysema (5) Diabetes mellitus Qualifiers: Diabetes mellitus type: type 2 Diabetes mellitus watermelon inspector insulin use: without chcf use Diabetes mellitus complication status: without complication Qualified Code(s): E11.9 - Type 2 diabetes mellitus without complications
[2018-07-17] MEDS: Budesonide/Formoterol 160/4.5 1 PUFF INH IH SCH ×2 (11:21→21:41)
[2018-07-17] MEDS ORDERED: predniSONE 10 MG TABLET PO SCH (14:28)
[2018-07-17] MEDS: Melatonin 3 MG TABLET PO SCH (21:07)
[2018-07-17] MEDS: Finasteride 5 MG TABLET PO SCH (21:07)
[2018-07-18] MEDS: Ipratropium/Albuterol Neb 3 ML IH SCH ×3 (04:16→15:50)
[2018-07-18] MEDS: *HR* Heparin 5,000 UNIT/ML VIAL SQ SCH ×2 (05:19→13:39)
[2018-07-18] MEDS: Ascorbic Acid 500 MG TABLET PO SCH (07:32)
[2018-07-18] MEDS: levoFLOXacin 750 MG TABLET PO SCH (07:32)
[2018-07-18] MEDS: Sennosides/Docusate Sodium TABLET PO SCH (07:32)
[2018-07-18] MEDS: Fluticasone Propionate Nasal 50 MCG/SPRAY BOTTLE NS SCH (07:32)
[2018-07-18] MEDS: Cholecalciferol (D-3) 1,000 UNIT TABLET PO SCH (07:32)
[2018-07-18] MEDS: Furosemide 20 MG TABLET PO SCH ×2 (07:32→17:15)
[2018-07-18] MEDS: Nystatin POWDER 30 GM BOTTLE TP SCH (07:33)
[2018-07-18] MEDS: Clotrimazole 1% CRM 15 GM TUBE TP SCH (07:33)
[2018-07-18] MEDS: Insulin LISPRO 300 UNITS/3 ML VIAL SQ SCH ×3 (08:20→17:15)
[2018-07-18] MEDS: Insulin DETEMIR 100 UNIT/ML X5UNITS SQ SCH (08:21)
--- NOTE | 2018-07-18 09:55 | Discharge Summary ---
- NOTES TO OUTPATIENT PROVIDER Notes to Outpatient Provider: - Follow up O2 requirements, on 4L and BIPAP compliance. - Insulin requirements changes, maybe because of steroids. Date of Encounter: 07/18/18 Time of Encounter: 09:52 - Discharge Diagnosis (1) Acute on chronic respiratory failure with hypoxia Priority: Primary Status: Acute (2) COPD (chronic obstructive pulmonary disease) Priority: Secondary Status: Chronic Qualifiers: COPD type: emphysema Emphysema type: panlobular Qualified Code(s): J43.1 - Panlobular emphysema (3) Small cell lung cancer Priority: Secondary Status: Chronic (4) Morbid obesity Priority: Secondary Status: Chronic (5) Diabetes mellitus Priority: Secondary Status: Chronic Qualifiers: Diabetes mellitus type: type 2 Diabetes mellitus roasterman insulin use: without longterm use Diabetes mellitus complication status: without complication Qualified Code(s): E11.9 - Type 2 diabetes mellitus without complications (6) DMITRY (obstructive sleep apnea) Priority: Secondary Status: Chronic (7) Cervical myelopathy Priority: Secondary Status: Chronic (8) DVT prophylaxis Priority: Secondary Status: Acute Hospital course: Mr. Fountain is a 63 year old male with history of small cell lung cancer in remission, COPD, diabetes presented to the ED with fall. He has a history of 3 chronic fractures to the lumbar spine. A CT of head/brain unremarkable. A CT of smpine showed compression fractures of L1, L3, and L4. He did report bowel incontinence with bilateral LW numbness and Dr. Card was consulted. Neurology was consulted as well. Patient diagnosed with cervical stenosis of spine, cervical myelopathy. Since he was having gait intolerance and weakness he required intervention. Patient was at great risk for complication due to COPD, DMITRY, and history of small cell lung cancer. Neurology was consulted and since the benefits outweight the risks of inevitable neurologic decline associated with cervical myelopathy. There was time given to optimize medical management for patient respiratory status as he was having resp distress. He underwent anterior cervical decompression and fusion of C3-4 and C5-6. Patient sent to ICU post op for monitoring, extubated on 07/12 and transferred out of the ICU a day later. He did have acute and chornic resp failure and sputum cultures grew proteus and he has been treated on Levaquin and treated for COPD exacerbation. He had bipap qualification test done and qualified for bipap. He is discharged to swing bed to finish Levaquin course. Taper Prednisone Lasix 20 mg BID, adjust diuretic as needed. Levaquin for one more day. - Time Spent with Patient Total time spent providing and/or coordinating discharge services: Greater than 30 minutes - Discharge Medications Home Medications: Duloxetine HCl [Cymbalta] 60 mg PO DAILY 03/14/18 [History] Finasteride [Proscar] 5 mg PO HS 03/14/18 [History] Tamsulosin HCl [Flomax] 0.4 mg PO HS 03/14/18 [History] Albuterol Sulfate [Albuterol Inhaler] 2 puff IH Q6HR PRN 07/02/18 [History] Ascorbate Calcium [Vitamin C] 500 mg PO DAILY 07/02/18 [History] Acetaminophen [Tylenol] 650 mg PO Q6HR PRN tablet 07/18/18 [Rx] Budesonide/Formoterol 160/4.5 [Symbicort 160/4.5] 2 puff IH BIDR inh 07/18/18 [ Rx] Cholecalciferol (D-3) [Vitamin D] 1,000 unit PO DAILY tablet 07/18/18 [Rx] Clotrimazole 1% CRM [Lotrimin 1%] 1 appl TP BID tube 07/18/18 [Rx] Fluticasone Propionate Nasal [Flonase] 100 mcg NS DAILY bottle 07/18/18 [Rx] Furosemide [Lasix] 20 mg PO BIDDIURETIC tablet 07/18/18 [Rx] GuaiFENesin ER [Mucinex] 600 mg PO BID PRN #14 tbbp.12hr 07/18/18 [Rx] HYDROcodone/Acet 5/325 mg [[place] 5-325 mg] 1 tab PO Q6HR PRN 2 Days #8 tablet [Rx] Heparin 5,000 unit SQ Q8HCO vial 07/18/18 [Rx] Insulin DETEMIR [Levemir] 15 unit SQ BID [id number] 07/18/18 [Rx] Insulin LISPRO [Humalog] 7 unit SQ TIDWM #3 cartridge 07/18/18 [Rx] Ipratropium/Albuterol Neb [Duoneb] 3 ml IH [id number] inhsol 07/18/18 [Rx] Melatonin 3 mg PO HS tablet 07/18/18 [Rx] Nystatin POWDER [Nystop] 1 appl TP BID bottle 07/18/18 [Rx] Sennosides/Docusate Sodium [Senna Plus] 1 each PO BID tablet 07/18/18 [Rx] levoFLOXacin [Levaquin] 750 mg PO DAILY tablet 07/18/18 [Rx] predniSONE [PredniSONE] 10 mg PO DAILY 4 Days #7 tablet 07/18/18 [Rx] Allergies/Adverse Reactions: 3 Allergy/AdvReac Type Severity Reaction Status Date / Time No Known Allergies Allergy Verified 03/14/18 11:23 Date of admission: 07/06/18 09:19 Primary care physician: Luis Miguel Aguilera DO Consults: 07/09/18 13:26 Consult to Occupational Therapy [CONS] Routine Comment: Evaluate, develop and implement POC Reason for Consult: Postoperative rehabilitation Does patient have active BEDREST order?: No Is patient medically & hemodynamically stable?: Yes Patient assessed for mobility or mobilized this visit?: No Consult to Physical Therapy [CONS] Routine Comment: Evaluate, develop and implement POC Reason for Consult: Postoperative rehabilitation Does patient have active BEDREST order?: No Is patient medically & hemodynamically stable?: Yes Patient assessed for mobility or mobilized this visit?: No Consult to Bobbin Cleaning Machine Operator [CONS] Routine Reason for SW Consult: Postoperative rehabilitation 07/17/18 07:53 Consult to Neurology [CONS] Routine Consulting Provider: [facility] Reason for Consult: For service date 07/05/18 Time Notified: 07:55 Call Completed: No 07/17/18 14:29 Consult to Respiratory Therapy [CONS] Routine Reason for Consult: bipap qualification needs to be done on 4L of oxygen tonight Call Completed: Yes Discharging clinician: Boris Fallon - Constitutional Vitals: Temp Pulse Resp BP Pulse Ox 97.8 F 102 19 108/78 91 07/18/18 07:42 07/18/18 07:42 07/18/18 07:42 07/18/18 07:42 07/18/18 07:42 General appearance: Present: cooperative, A&O X 3, morbidly obese, pleasant, no acute distress, answers questions appropriately Exam: General: AAO x3, no acute resp distress HEENT:EOM intact, pupils equal, round, moist mucus membranes Neck: supple, trachea midline Cardiovascular:regular rate and rhythm, normal S1 & S2, no murmurs, no JVD. Lungs: limited auscultation because of body positioning post-op, but no wheezing or rales appreciated. Abdomen:Soft, non-tender, non-distended, + bowel sounds Neurological: AAOx3 Skin: Normal color, no rash, no pallor Ext: no cyanosis, no edema - Patient Status Disposition: Transfer Inpatient Rehab Fac Condition: Fair Functional capacity at discharge: bed bound Overall status at discharge: patient is not back to baseline - Discharge Instructions Follow Up With: Christie Rowland PAC [Physician Message Broker Developer] - 07/24/18 10:00 am Luis Miguel Aguilera DO [Primary Care Provider] - 07/26/18 10:00 am () Jarred Posada MD [Partnered Physician] - 08/15/18 8:15 am Forms: ED Satisfaction Letter - Diet and Activity Activity: as per physical therapy Diet: diabetic diet, low fat, low cholesterol, low salt diet - VTE Documentation of Mechanical Device: Intermittent pneumatic compression device
[2018-07-18] MEDS: Budesonide/Formoterol 160/4.5 1 PUFF INH IH SCH (10:09)
[2018-07-18] MEDS: traMADol 50 MG TABLET PO PRN (13:39)
[2018-07-18] MEDS ORDERED: Chloraseptic Spray 177 ML BOTTLE MM PRN (14:43)
--- NOTE | 2018-07-18 15:37 | Physician Discharge Referral ---
ExtendedCare Referral Info Provider in Charge after Transfer: Other Institutional Level of Care: Skilled - Diagnosis (1) Acute on chronic respiratory failure with hypoxia Priority: Primary Status: Acute (2) COPD (chronic obstructive pulmonary disease) Priority: Secondary Status: Chronic (3) Small cell lung cancer Priority: Secondary Status: Chronic (4) Morbid obesity Priority: Secondary Status: Chronic (5) Diabetes mellitus Priority: Secondary Status: Chronic (6) DMITRY (obstructive sleep apnea) Priority: Secondary Status: Chronic (7) Cervical myelopathy Priority: Secondary Status: Chronic (8) DVT prophylaxis Priority: Secondary Status: Acute - Transfer Medications Prescriptions: Insulin LISPRO [Humalog] 7 unit SQ TIDWM #3 cartridge Home Medications: Duloxetine HCl [Cymbalta] 60 mg PO DAILY 03/14/18 [History] Finasteride [Proscar] 5 mg PO HS 03/14/18 [History] Tamsulosin HCl [Flomax] 0.4 mg PO HS 03/14/18 [History] Albuterol Sulfate [Albuterol Inhaler] 2 puff IH Q6HR PRN 07/02/18 [History] Ascorbate Calcium [Vitamin C] 500 mg PO DAILY 07/02/18 [History] Acetaminophen [Tylenol] 650 mg PO Q6HR PRN tablet 07/18/18 [Rx] Budesonide/Formoterol 160/4.5 [Symbicort 160/4.5] 2 puff IH BIDR inh 07/18/18 [ Rx] Cholecalciferol (D-3) [Vitamin D] 1,000 unit PO DAILY tablet 07/18/18 [Rx] Clotrimazole 1% CRM [Lotrimin 1%] 1 appl TP BID tube 07/18/18 [Rx] Fluticasone Propionate Nasal [Flonase] 100 mcg NS DAILY bottle 07/18/18 [Rx] Furosemide [Lasix] 20 mg PO BIDDIURETIC tablet 07/18/18 [Rx] GuaiFENesin ER [Mucinex] 600 mg PO BID PRN #14 tbbp.12hr 07/18/18 [Rx] HYDROcodone/Acet 5/325 mg [[place] 5-325 mg] 1 tab PO Q6HR PRN 2 Days #8 tablet [Rx] Heparin 5,000 unit SQ Q8HCO vial 07/18/18 [Rx] Insulin DETEMIR [Levemir] 15 unit SQ BID [id number] 07/18/18 [Rx] Insulin LISPRO [Humalog] 7 unit SQ TIDWM #3 cartridge 07/18/18 [Rx] Ipratropium/Albuterol Neb [Duoneb] 3 ml IH [id number] inhsol 07/18/18 [Rx] Melatonin 3 mg PO HS tablet 07/18/18 [Rx] Nystatin POWDER [Nystop] 1 appl TP BID bottle 07/18/18 [Rx] Sennosides/Docusate Sodium [Senna Plus] 1 each PO BID tablet 07/18/18 [Rx] levoFLOXacin [Levaquin] 750 mg PO DAILY tablet 07/18/18 [Rx] predniSONE [PredniSONE] 10 mg PO DAILY 4 Days #7 tablet 07/18/18 [Rx] Allergies/Adverse Reactions: 3 Allergy/AdvReac Type Severity Reaction Status Date / Time No Known Allergies Allergy Verified 03/14/18 11:23 - Respiratory Orders Smoking Cessation: Smoking cessation has been advised. For more information, call the [place] Tobacco Quit Line at 9-684-JJMM-NOW. - Advance Directives Code Status: Full Code - Mobility Orders Other (as per PT) - Diet Orders No Added Salt (DULCE MARIA), No Concentrated Sweets, Cardiac CERTIFICATION: I certify that the transfer of the above named patient to an Extended Care Facility is necessary for the continuing treatment of the diagnosis listed. The above information is true and accurate reflection of patient's current condition. Confidential - Redisclosure prohibited without a patient's written consent.
[2018-07-18 16:51] VITALS: BP 105/73
[2018-07-18] MEDS: *HR* HYDROcodone/Acet 5/325 mg TABLET PO PRN (17:15)
== END 2018-07-18 18:06 | DRG 471 ==
LOC: EMEROOARM 07:54 → 3BNU 07:54 → SUATTDRO 07-06 09:19 → 2NNU 07-06 10:55 → ICNU 07-09 09:36 → 2NNU 07-12 14:10
PROVIDERS: ADMIT Student in an Organized Health Care Education/Training Program; ATTEND Student in an Organized Health Care Education/Training Program

== ENCOUNTER 2018-11-13 21:50 | Inpatient (IN) ==
--- NOTE | 2018-11-13 22:12 | Emergency Department Note ---
Disposition Clinical Impression: Elevated troponin Altered mental status, unspecified Qualifiers: Altered mental status type: unspecified Qualified Code(s): R41.82 - Altered mental status, unspecified Disposition: Admitted As Inpatient Condition: Fair Forms: ED Satisfaction Letter Time of Disposition: 00:06 Altered Mental Status HPI - General Chief Complaint: ED Altered Mental Status Stated Complaint: AMS Time Seen by Provider: 11/13/18 21:56 Source: patient, EMS Mode of arrival: EMS Limitations: no limitations Nursing Notes Reviewed: Yes Vital Signs Reviewed: Yes - History of Present Illness HPI Narrative: Pt is a 63M that has been living at [facility] rehab for PT/OT that was sent here for AMS that started at 6pm. states that he was fine at 6pm and then called her to tell her about a television program that was making him paranoid. Nursing staff sent him here to be evaluated. Pt has no complaints at this time. Pt is A&Ox3 - person, place, time. at bedside states that when he was d/c from this facility on 11/08 that his rehab facility did not continue six of his medications - prednisone 10mg, oxybutinin, florinef, tamsulosin, losartan, and proscar. - Related Data Home Medications Medication Instructions Recorded Confirmed Fluticasone/Vilanterol [Breo 1 each IH DAILY 11/13/18 11/13/18 Ellipta 200-25 Mcg INH] Previous Rx's Medication Instructions Recorded Albuterol Sulfate [Albuterol 2 puff IH Q4H PRN #1 inhaler 09/29/18 Inhaler] Duloxetine HCl [Cymbalta] 60 mg PO DAILY #30 capsule. 09/29/18 Insulin Glargine [Lantus] 40 unit SQ HS #3 mls 09/29/18 Metoprolol [Lopressor] 25 mg PO BID #30 tablet 09/29/18 Baclofen [Lioresal] 10 mg PO TID 30 Days #90 tablet 11/08/18 Midodrine [ProAmatine] 2.5 mg PO TID 30 Days #90 tablet 11/08/18 Allergies Allergy/AdvReac Type Severity Reaction Status Date / Time No Known Allergies Allergy Verified 11/05/18 19:56 Constitutional: Denies: fever, chills Cardiovascular: Denies: chest pain, palpitations Respiratory: Denies: cough, dyspnea Gastrointestinal: Denies: abdominal pain, nausea, vomiting, diarrhea, constipation Genitourinary: Reports: other (incontinent at baseline). Denies: dysuria Neurological: Reports: weakness (in rehab for inability to ambulate). Denies: headache Past Medical History - Past Medical History Medical history: Reports: cancer, COPD, diabetes, osteoporosis, other Surgical history: Reports: orthopedic, other Psychiatric history: Reports: depression - Social History Smoking Status: Former smoker Smokeless Tobacco Status: No Alcohol use: Reports: none Drug use: Reports: none Physical Exam - General Limitations: no limitations General appearance: alert - Head Head exam: atraumatic, normocephalic - Eye Eye exam: Present: normal appearance, PERRL, EOMI - ENT ENT exam: normal exam, normal oropharynx - Neck Neck exam: Present: normal inspection, full ROM - Chest Chest inspection: Present: normal inspection, symmetric chest wall rise. Absent: tenderness - Respiratory Respiratory exam: Present: normal lung sounds bilaterally, wheezes (expiratory wheeze present in all [place]). Absent: respiratory distress - Cardiovascular Cardiovascular exam: Present: regular rate, normal rhythm - Abdominal Exam Abdominal exam: Present: soft, Non-Tender. Absent: tenderness, distention, guarding - Extremities Exam Extremities exam: Present: normal inspection, other (cannot hold RLE off bed for >1 s) - Back Exam Back exam: Present: normal inspection, full ROM - Neurological Exam Neurological exam: Present: alert, oriented X3 - Expanded Neurological Exam Patient oriented to: Present: person, place, time Speech: Present: fluid speech Cranial nerves: EOM function (II, III, IV, ): Normal, facial sensation (V): Normal, facial palsy (VII): Normal, spinal accessory function (XI): Normal, tongue deviation (XII): Normal Motor strength - LUE: 5/5 Motor strength - RUE: 5/5 Motor strength - LLE: 5/5 Motor strength - RLE: 3/5 Coma Scale Eye Opening: Spontaneous Coma Scale Motor Response: Obeys Commands Coma Scale Verbal Response: Oriented Coma Scale Total: 15 - Psychiatric Psychiatric exam: Present: normal affect, normal mood - Skin Skin exam: Present: warm, dry, intact Course Course Narrative: Pt will be worked up for AMS - screening labs including troponin, CBC, bmp. EKG. CXR. Additionally, as his reports he was without steroids for the last six days, he will be given a dose of solumedrol while in the department. He appears dry on exam and will be given a bolus of 500 given his co-existing COPD. - Reevaluation(s) Reevaluation #1: Pts troponin was elevated at 0.04 after his last value was normal in August 2018. Will admit for ACS r/o. Time: 23:00 Vital Signs Temperature 97.9 F 11/13/18 21:54 Pulse Rate 99 11/13/18 21:54 Respiratory Rate 20 11/13/18 21:54 Blood Pressure 122/93 11/13/18 21:54 O2 Sat by Pulse Oximetry 98 11/13/18 21:54 Temperature 97.9 F 11/13/18 21:54 Pulse Rate 99 11/13/18 21:54 Respiratory Rate 20 11/13/18 21:54 Blood Pressure 122/93 11/13/18 21:54 O2 Sat by Pulse Oximetry 98 11/13/18 21:54 Oxygen Delivery Oxygen Delivery Nasal Cannula Altered Mental Status - MDM Narrative Medical decision making narrative: Pt's troponin was elevated at 0.04 when previous values were undetectable. Additionally, states that patient is not back to baseline as he is saying things that make no sense. Pt will be admitted for ACS r/o. Pt and family verbalized understanding and agreement with the plan. Spoke with Dr. Bah, hospitalist, who accepts for admission. Pt was given an opportunity to ask questions and all of his concerns were addressed. Pt remained stable while in the department. - Medical Records Medical records reviewed: Yes I reviewed the patient's medical records. - Lab Data Lab results reviewed: Yes I reviewed the patient's lab results. Result diagrams: 11/13/18 22:05 11/13/18 22:05 Lab Results 11/13/18 11/13/18 11/13/18 Range/Units 22:05 22:05 22:18 WBC 9.3 (4.3-11.1) K/mcL RBC 4.09 L (4.19-5.50) M/mcL Hgb 12.9 (12.9-16.9) g/dL Hct 39.2 (37.5-50.1) % MCV 95.8 (83.0-100.0) fL MCH 31.5 (28.0-33.3) pg MCHC 32.9 (31.6-35.5) g/dL RDW 12.6 (11.5-14.5) % Plt Count 246 (140-400) K/mcL MPV 9.1 L (9.4-12.4) fL Immature Gran % 0.2 (0-4) % Seg Neutrophils % 67.0 % Lymphocytes % 15.8 % Monocytes % 12.1 % Eosinophils % 4.5 % Basophils % 0.4 % Neutrophils # 6.2 (1.6-8.9) K/mcL Lymphocytes # 1.5 (0.6-4.6) K/mcL Monocytes # 1.1 (0.0-1.3) K/mcL Eosinophils # 0.4 (0.0-0.6) K/mcL Basophils # 0.0 (0.0-0.2) K/mcL Sodium 137 (136-145) mEq/L Potassium 3.8 (3.5-5.1) mEq/L Chloride 101 (98-107) mEq/L Carbon Dioxide 27 (23-29) mEq/L BUN 8 (8-23) mg/dL Creatinine 0.90 (0.70-1.30) mg/dL Est GFR ( Amer) > 60 (> 60) Est GFR (Non-Af Amer) > 60 (> 60) BUN/Creatinine Ratio 9 (6-26) Glucose 211 H (70-105) mg/dL Calculated Osmolality 289 (280-300) Lactic Acid (0.5-2.2) mmol/L Calcium 9.2 (8.6-10.3) mg/dL Total Bilirubin 0.5 (0.3-1.0) mg/dL Direct Bilirubin 0.1 (0.0-0.2) mg/dL Indirect Bilirubin 0.4 (0.0-1.2) mg/dL AST 24 (13-39) Units/L ALT 38 (7-52) Units/L Alkaline Phosphatase 85 (34-104) Units/L Troponin I 0.04 H* (< 0.04) ng/mL Serum Total Protein 6.8 (6.4-8.9) g/dL Albumin 3.6 (3.5-5.7) g/dL Globulin 3.2 (2.4-3.5) g/dL Albumin/Globulin Ratio 1.1 (1.1-2.2) Urine Color Yellow (Yellow) Urine Clarity Cloudy A (Clear) Urine pH 6.0 (5.0-8.0) pH Units Ur Specific [place] 1.012 (1.010-1.025) Urine Protein Negative (Neg-Trace) mg/dL Urine Glucose (UA) 100 H (Normal) mg/dL Urine Ketones Negative (Negative) mg/dL Urine Blood Large H (Negative) Urine Nitrite Negative (Negative) Urine Bilirubin Negative (Negative) Urine Urobilinogen Normal (Normal) mg/dL Ur Leukocyte Esterase Negative (Negative) Urine Microscopic RBC 30-50 H (0-3) per hpf Ur Squamous Epith Cells Few (None-Few) per lpf Urine Mucus Few (Few) Ur Culture Indicated? NO (NO) 11/13/18 Range/Units 22:20 WBC (4.3-11.1) K/mcL RBC (4.19-5.50) M/mcL Hgb (12.9-16.9) g/dL Hct (37.5-50.1) % MCV (83.0-100.0) fL MCH (28.0-33.3) pg MCHC (31.6-35.5) g/dL RDW (11.5-14.5) % Plt Count (140-400) K/mcL MPV (9.4-12.4) fL Immature Gran % (0-4) % Seg Neutrophils % % Lymphocytes % % Monocytes % % Eosinophils % % Basophils % % Neutrophils # (1.6-8.9) K/mcL Lymphocytes # (0.6-4.6) K/mcL Monocytes # (0.0-1.3) K/mcL Eosinophils # (0.0-0.6) K/mcL Basophils # (0.0-0.2) K/mcL Sodium (136-145) mEq/L Potassium (3.5-5.1) mEq/L Chloride (98-107) mEq/L Carbon Dioxide (23-29) mEq/L BUN (8-23) mg/dL Creatinine (0.70-1.30) mg/dL Est GFR ( Amer) (> 60) Est GFR (Non-Af Amer) (> 60) BUN/Creatinine Ratio (6-26) Glucose (70-105) mg/dL Calculated Osmolality (280-300) Lactic Acid 1.9 (0.5-2.2) mmol/L Calcium (8.6-10.3) mg/dL Total Bilirubin (0.3-1.0) mg/dL Direct Bilirubin (0.0-0.2) mg/dL Indirect Bilirubin (0.0-1.2) mg/dL AST (13-39) Units/L ALT (7-52) Units/L Alkaline Phosphatase (34-104) Units/L Troponin I (< 0.04) ng/mL Serum Total Protein (6.4-8.9) g/dL Albumin (3.5-5.7) g/dL Globulin (2.4-3.5) g/dL Albumin/Globulin Ratio (1.1-2.2) Urine Color (Yellow) Urine Clarity (Clear) Urine pH (5.0-8.0) pH Units Ur Specific [place] (1.010-1.025) Urine Protein (Neg-Trace) mg/dL Urine Glucose (UA) (Normal) mg/dL Urine Ketones (Negative) mg/dL Urine Blood (Negative) Urine Nitrite (Negative) Urine Bilirubin (Negative) Urine Urobilinogen (Normal) mg/dL Ur Leukocyte Esterase (Negative) Urine Microscopic RBC (0-3) per hpf Ur Squamous Epith Cells (None-Few) per lpf Urine Mucus (Few) Ur Culture Indicated? (NO) - Radiology Data Radiology results reviewed: Yes I reviewed the patient's radiology results. Chest X-Ray 11/13/18 22:09 IMPRESSION: No significant interval change. D/ / 11/13/2018 22:27:16 Tono Baca MD / [facility] Interpreting Provider: Tono Baca MD - EKG Data EKG attestation: Yes I reviewed and interpreted this EKG. EKG results narrative: HR 101, Rhythm sinus tachycardia, [place] normal. [place] 160, QRS 99, QTc 450. No evidence of ST elevation or depression. TPA Checklist - LKW: 3-4.5 hrs Add. Warnings/Precautions Patient/family understanding: The patient/family members have been counseled and understood the risk, benefit, and alternatives of treatment.
[2018-11-13 22:17] LABS: Basophils % 0.4 %; Eosinophils # 0.4 K/mcL (0.0-0.6); Eosinophils % 4.5 %; Hematocrit 39.2 % (37.5-50.1); Hemoglobin 12.9 g/dL (12.9-16.9); Immature Granulocytes % 0.2 % (0-4); Lymphocytes # 1.5 K/mcL (0.6-4.6); Lymphocytes % 15.8 %; Mean Corpuscular HGB Conc 32.9 g/dL (31.6-35.5); Mean Corpuscular Hemoglobin 31.5 pg (28.0-33.3); Mean Corpuscular Volume 95.8 fL (83.0-100.0); Mean Platelet Volume 9.1 fL (9.4-12.4); Monocytes # 1.1 K/mcL (0.0-1.3); Monocytes % 12.1 %; Neutrophils # 6.2 K/mcL (1.6-8.9); Platelet Count 246 K/mcL (140-400); Red Blood Count 4.09 M/mcL (4.19-5.50); Red Cell Distribution Width 12.6 % (11.5-14.5)
[2018-11-13 22:30] LABS: Bilirubin,Urine Negative (Negative); Blood,Urine Large (Negative); Clarity,Urine Cloudy (Clear); Color,Urine Yellow (Yellow); Glucose,Urine (UA) 100 mg/dL (Normal); Ketones,Urine Negative (Negative); Leukocyte Esterase,Urine Negative (Negative); Nitrite,Urine Negative (Negative); Protein,Urine Negative (Neg-Trace); Specific Gravity,Urine 1.012 (1.010-1.025); Urobilinogen,Urine Normal (Normal)
[2018-11-13] MEDS ORDERED: 0.9 % Sodium Chloride 500 ML IVC ONE (22:31)
[2018-11-13] MEDS ORDERED: methylPREDNISolone 125 MG/2 ML VIAL IVP ONE (22:31)
[2018-11-13 22:39] LABS: Mucus,Urine Few (Few); RBC,Urine 30-50 per hpf (0-3); Squamous Epithelial Cell,Urine Few per lpf (None-Few)
[2018-11-13 22:42] LABS: Alanine Aminotransferase 38 Units/L (7-52); Albumin 3.6 g/dL (3.5-5.7); Albumin/Globulin Ratio 1.1 (1.1-2.2); Alkaline Phosphatase 85 Units/L (34-104); Aspartate Amino Transferase 24 Units/L (13-39); BUN/Creatinine Ratio 9 (6-26); Bilirubin,Direct 0.1 mg/dL (0.0-0.2); Bilirubin,Indirect 0.4 mg/dL (0.0-1.2); Bilirubin,Total 0.5 mg/dL (0.3-1.0); Blood Urea Nitrogen 8 mg/dL (8-23); Calcium 9.2 mg/dL (8.6-10.3); Carbon Dioxide 27 mEq/L (23-29); Chloride 101 mEq/L (98-107); Globulin 3.2 g/dL (2.4-3.5); Glucose 211 mg/dL (70-105); Osmolality,Calculated 289 (280-300); Potassium 3.8 mEq/L (3.5-5.1); Sodium 137 mEq/L (136-145); Total Protein 6.8 g/dL (6.4-8.9); eGFR For Non-African Americans > 60 (> 60)
[2018-11-13 22:48] LABS: Troponin I 0.04 ng/mL (< 0.04)
--- NOTE | 2018-11-14 00:35 | Emergency Department Note ---
Disposition Clinical Impression: Elevated troponin Altered mental status, unspecified Qualifiers: Altered mental status type: unspecified Qualified Code(s): R41.82 - Altered mental status, unspecified Disposition: Admitted As Inpatient Condition: Fair Referrals: Luis Miguel Aguilera DO [Primary Care Provider] - Forms: ED Satisfaction Letter General Adult HPI - General Chief complaint: ED Altered Mental Status Stated complaint: AMS Time Seen by Provider: 11/13/18 21:56 Source: patient, EMS Mode of arrival: EMS Limitations: no limitations Nursing Notes Reviewed: Yes Vital Signs Reviewed: Yes - History of Present Illness Pain Scale: 0 - Related Data Home Medications Medication Instructions Recorded Confirmed Fluticasone/Vilanterol [Breo 1 each IH DAILY 11/13/18 11/13/18 Ellipta 200-25 Mcg INH] Previous Rx's Medication Instructions Recorded Albuterol Sulfate [Albuterol 2 puff IH Q4H PRN #1 inhaler 09/29/18 Inhaler] Duloxetine HCl [Cymbalta] 60 mg PO DAILY #30 capsule. 09/29/18 Insulin Glargine [Lantus] 40 unit SQ HS #3 mls 09/29/18 Metoprolol [Lopressor] 25 mg PO BID #30 tablet 09/29/18 Baclofen [Lioresal] 10 mg PO TID 30 Days #90 tablet 11/08/18 Midodrine [ProAmatine] 2.5 mg PO TID 30 Days #90 tablet 11/08/18 Allergies Allergy/AdvReac Type Severity Reaction Status Date / Time No Known Allergies Allergy Verified 11/05/18 19:56 Constitutional: Denies: fever, chills Cardiovascular: Denies: chest pain, palpitations Respiratory: Denies: cough, dyspnea Gastrointestinal: Denies: abdominal pain, nausea, vomiting, diarrhea, constipation Genitourinary: Reports: other (incontinent at baseline). Denies: dysuria Neurological: Reports: weakness (in rehab for inability to ambulate). Denies: headache Past Medical History - Past Medical History Medical history: Reports: cancer, COPD, diabetes, osteoporosis, other Surgical history: Reports: orthopedic, other Psychiatric history: Reports: depression - Social History Smoking Status: Former smoker Smokeless Tobacco Status: No Alcohol use: Reports: none Drug use: Reports: none Physical Exam - General Limitations: no limitations General appearance: alert Course Vital Signs Temperature 97.9 F 11/13/18 21:54 Pulse Rate 99 11/13/18 21:54 Respiratory Rate 20 11/13/18 21:54 Blood Pressure 122/93 11/13/18 21:54 O2 Sat by Pulse Oximetry 98 11/13/18 21:54 Temperature 97.9 F 11/13/18 21:54 Pulse Rate 99 11/13/18 21:54 Respiratory Rate 20 11/13/18 21:54 Blood Pressure 122/93 11/13/18 21:54 O2 Sat by Pulse Oximetry 98 11/13/18 21:54 Oxygen Delivery Oxygen Delivery Nasal Cannula Medical Decision Making - Medical Records Medical records reviewed: Yes I reviewed the patient's medical records. - Lab Data Lab results reviewed: Yes I reviewed the patient's lab results. Result diagrams: 11/13/18 22:05 11/13/18 22:05 Lab Results 11/13/18 11/13/18 11/13/18 Range/Units 22:05 22:05 22:18 WBC 9.3 (4.3-11.1) K/mcL RBC 4.09 L (4.19-5.50) M/mcL Hgb 12.9 (12.9-16.9) g/dL Hct 39.2 (37.5-50.1) % MCV 95.8 (83.0-100.0) fL MCH 31.5 (28.0-33.3) pg MCHC 32.9 (31.6-35.5) g/dL RDW 12.6 (11.5-14.5) % Plt Count 246 (140-400) K/mcL MPV 9.1 L (9.4-12.4) fL Immature Gran % 0.2 (0-4) % Seg Neutrophils % 67.0 % Lymphocytes % 15.8 % Monocytes % 12.1 % Eosinophils % 4.5 % Basophils % 0.4 % Neutrophils # 6.2 (1.6-8.9) K/mcL Lymphocytes # 1.5 (0.6-4.6) K/mcL Monocytes # 1.1 (0.0-1.3) K/mcL Eosinophils # 0.4 (0.0-0.6) K/mcL Basophils # 0.0 (0.0-0.2) K/mcL Sodium 137 (136-145) mEq/L Potassium 3.8 (3.5-5.1) mEq/L Chloride 101 (98-107) mEq/L Carbon Dioxide 27 (23-29) mEq/L BUN 8 (8-23) mg/dL Creatinine 0.90 (0.70-1.30) mg/dL Est GFR ( Amer) > 60 (> 60) Est GFR (Non-Af Amer) > 60 (> 60) BUN/Creatinine Ratio 9 (6-26) Glucose 211 H (70-105) mg/dL Calculated Osmolality 289 (280-300) Lactic Acid (0.5-2.2) mmol/L Calcium 9.2 (8.6-10.3) mg/dL Total Bilirubin 0.5 (0.3-1.0) mg/dL Direct Bilirubin 0.1 (0.0-0.2) mg/dL Indirect Bilirubin 0.4 (0.0-1.2) mg/dL AST 24 (13-39) Units/L ALT 38 (7-52) Units/L Alkaline Phosphatase 85 (34-104) Units/L Troponin I 0.04 H* (< 0.04) ng/mL Serum Total Protein 6.8 (6.4-8.9) g/dL Albumin 3.6 (3.5-5.7) g/dL Globulin 3.2 (2.4-3.5) g/dL Albumin/Globulin Ratio 1.1 (1.1-2.2) Urine Color Yellow (Yellow) Urine Clarity Cloudy A (Clear) Urine pH 6.0 (5.0-8.0) pH Units Ur Specific [place] 1.012 (1.010-1.025) Urine Protein Negative (Neg-Trace) mg/dL Urine Glucose (UA) 100 H (Normal) mg/dL Urine Ketones Negative (Negative) mg/dL Urine Blood Large H (Negative) Urine Nitrite Negative (Negative) Urine Bilirubin Negative (Negative) Urine Urobilinogen Normal (Normal) mg/dL Ur Leukocyte Esterase Negative (Negative) Urine Microscopic RBC 30-50 H (0-3) per hpf Ur Squamous Epith Cells Few (None-Few) per lpf Urine Mucus Few (Few) Ur Culture Indicated? NO (NO) 11/13/18 Range/Units 22:20 WBC (4.3-11.1) K/mcL RBC (4.19-5.50) M/mcL Hgb (12.9-16.9) g/dL Hct (37.5-50.1) % MCV (83.0-100.0) fL MCH (28.0-33.3) pg MCHC (31.6-35.5) g/dL RDW (11.5-14.5) % Plt Count (140-400) K/mcL MPV (9.4-12.4) fL Immature Gran % (0-4) % Seg Neutrophils % % Lymphocytes % % Monocytes % % Eosinophils % % Basophils % % Neutrophils # (1.6-8.9) K/mcL Lymphocytes # (0.6-4.6) K/mcL Monocytes # (0.0-1.3) K/mcL Eosinophils # (0.0-0.6) K/mcL Basophils # (0.0-0.2) K/mcL Sodium (136-145) mEq/L Potassium (3.5-5.1) mEq/L Chloride (98-107) mEq/L Carbon Dioxide (23-29) mEq/L BUN (8-23) mg/dL Creatinine (0.70-1.30) mg/dL Est GFR ( Amer) (> 60) Est GFR (Non-Af Amer) (> 60) BUN/Creatinine Ratio (6-26) Glucose (70-105) mg/dL Calculated Osmolality (280-300) Lactic Acid 1.9 (0.5-2.2) mmol/L Calcium (8.6-10.3) mg/dL Total Bilirubin (0.3-1.0) mg/dL Direct Bilirubin (0.0-0.2) mg/dL Indirect Bilirubin (0.0-1.2) mg/dL AST (13-39) Units/L ALT (7-52) Units/L Alkaline Phosphatase (34-104) Units/L Troponin I (< 0.04) ng/mL Serum Total Protein (6.4-8.9) g/dL Albumin (3.5-5.7) g/dL Globulin (2.4-3.5) g/dL Albumin/Globulin Ratio (1.1-2.2) Urine Color (Yellow) Urine Clarity (Clear) Urine pH (5.0-8.0) pH Units Ur Specific [place] (1.010-1.025) Urine Protein (Neg-Trace) mg/dL Urine Glucose (UA) (Normal) mg/dL Urine Ketones (Negative) mg/dL Urine Blood (Negative) Urine Nitrite (Negative) Urine Bilirubin (Negative) Urine Urobilinogen (Normal) mg/dL Ur Leukocyte Esterase (Negative) Urine Microscopic RBC (0-3) per hpf Ur Squamous Epith Cells (None-Few) per lpf Urine Mucus (Few) Ur Culture Indicated? (NO) - Radiology Data Radiology results reviewed: Yes I reviewed the patient's radiology results. Chest X-Ray 11/13/18 22:09 IMPRESSION: No significant interval change. D/ / 11/13/2018 22:27:16 Tono Baca MD / [facility] Interpreting Provider: Tono Baca MD - EKG Data EKG #1 EKG attestation: Yes I reviewed and interpreted this EKG. EKG results narrative: EKG shows sinus tachycardia with ventricular rate of 101. No acute ST segment elevation or depression. No significant change from prior EKG dated 11/04/2018. Attestation Statement - Attestation Attestation: I, Sj Krishna MD, personally evaluated this patient and discussed their management with the resident physician. I reviewed the resident's note and agree with the documented findings, medical decision making, and plan of care. 63-year-old male sent from a local assisted for evaluation of altered mental status. Patient states that he remembers having an episode of confusion and states that he has intermittent episodes of confusion. He cannot describe to me what happened. Patient is alert and is oriented 3 however definitely seems confused and is unable to answer some questions or describe what happened. He denies any pain. No chest pain. No shortness of breath. reported that he does not seem to be his baseline mental status to her. On examination patient is a well-developed obese male in no acute distress. He is alert and oriented 3 however does seem somewhat confused. No cyanosis or diaphoresis. Breath sounds are decreased but equal bilaterally. Heart regular rate and rhythm. Abdomen is soft and nontender with present bowel sounds. No gross focal neurological deficits. Abdomen reviewed. Patient does have an elevated troponin of 0.04. No acute changes on EKG. No acute changes on chest x-ray. The hospitalist, Dr. Bah, was consulted and accepted admission of the patient.
[2018-11-14] MEDS ORDERED: Naloxone 0.4 MG/ML INJ IVP PRN (02:07)
[2018-11-14] MEDS ORDERED: D5% in Water 1,000 ML IVC PRN (02:13)
[2018-11-14] MEDS ORDERED: Dextrose Gel 15 GM/37.5 ML TUBE PO PRN ×2 (02:13)
[2018-11-14] MEDS ORDERED: *HR* Dextrose 50 % in Water (Syg) 50 ML SYRINGE IVP PRN (02:13)
--- NOTE | 2018-11-14 03:13 | Internal Med History&Physical ---
<Marc Taylor R - Last Filed: 11/14/18 04:23> Date of Encounter: 11/14/18 Time of Encounter: 01:45 Internal Medicine - H&P: HPI Chief complaint: Confusion Admitted From: Emergency Dept Plans for Post Hospital Care: Transfer Inp Rehab Fac History of present illness: Mr. Fountain is a 63 year old male with history significant for rate controlled atrial fibrillation, small cell lung cancer in remission, COPD requiring 4 L oxygen by nasal cannula at home, and diabetes mellitus. He is presenting for evaluation from inpatient rehabilitation facility for altered mental status and confusion. The patient was seen and evaluated at the bedside however no family was present patient is able to provide only limited history. Much of history of present illness is obtained from the chart. Reportedly patient was acting strange to his family and nursing staff which prompted emergency department evaluation. He was was found to be alert and oriented however per the family was not at his baseline mental status and seemed confused. Patient states that he does feel somewhat confused but is unable to elaborate any further. Family believes the patient is not getting all of his prescribed medications at his inpatient relocation facility. Patient denies any additional symptoms including fever, chills, nausea, vomiting, cough, dysuria, chest pain or shortness of breath. Evaluation in the ED revealed vital signs within normal limits and stable, white blood cell count of 9.3, hemoglobin 12.9, sodium 137, potassium 3.8, creatinine 0.9, glucose 211. Troponin mildly elevated at 0.04. EKG without findings of acute ischemia and chest x-ray without acute abnormality. UA without evidence of infection. Patient was admitted to [facility] for further evaluation and management of altered mental status and mildly elevated troponin. At the time my evaluation of patient's current family is present at bedside. Patient denies any acute symptoms. He is unable to provide further history with regard to his current presentation. Past Med Surg Social Fam HX - Past Medical History Medical history: cancer, COPD, diabetes, osteoporosis, other Additional medical history: lung cancer Psychiatric history: depression - Past Surgical History Surgical History: orthopedic, other Additional surgical history: right shoulder surgery, sciatic nerve surgery - Social History Smoking Status: Former smoker Smokeless Tobacco Status: No Alcohol use: none Drug use: none - Family History Brother Family Member Ethnicity: Non- Living Status: Still Living Hx Family Cardiac Disorders: Yes (CAD) Father Family Member Ethnicity: Non- Living Status: Hx Family Cardiac Disorders: Yes Hx Family Respiratory Disorders: No Hx Family Neuromuscular Disorders: No Hx Family Neurologic Disorders: No Hx Family Autoimmune Disorders: No Mother Adopted: No Family Member Ethnicity: Non- Living Status: Hx Family Cancer: Yes (Pancreatic) Hx Family Endocrine Disorder: Yes Sister Family Member Ethnicity: Non- Living Status: Still Living Hx Family Endocrine Disorder: Yes (DM) Internal Medicine - H&P: Meds RX: Albuterol Sulfate [Albuterol Inhaler] 2 puff IH Q4H PRN #1 inhaler 09/29/18 [Rx] RX: Duloxetine HCl [Cymbalta] 60 mg PO DAILY #30 capsule.dr 09/29/18 [Rx] RX: Insulin Glargine [Lantus] 40 unit SQ HS #3 mls 09/29/18 [Rx] RX: Metoprolol [Lopressor] 25 mg PO BID #30 tablet 09/29/18 [Rx] RX: Baclofen [Lioresal] 10 mg PO TID 30 Days #90 tablet 11/08/18 [Rx] RX: Midodrine [ProAmatine] 2.5 mg PO TID 30 Days #90 tablet 11/08/18 [Rx] Fluticasone/Vilanterol [Breo Ellipta 200-25 Mcg INH] 1 each IH DAILY 11/13/18 [History] Allergy/AdvReac Type Severity Reaction Status Date / Time No Known Allergies Allergy Verified 11/05/18 19:56 All Systems PM: A 10-system review of systems was performed and is negative for pertinent findings except as documented above in the HPI. - Constitutional Constitutional: no chills, no fever(s) - EENT Eyes: no blurry vision, no diplopia Nose, mouth and throat: no hoarseness, no neck pain, no sinus pressure - Cardiovascular Cardiovascular ROS IM: no chest pain, no diaphoresis, no lightheadedness, no orthopnea, no palpitations - Respiratory Respiratory: no dyspnea, no wheezing, no chest congestion - Gastrointestinal Gastrointestinal: no abdominal pain, no change in bowel habits, no hematemesis, no hematochezia, no melena, no nausea, no vomiting - Genitourinary Genitourinary ROS male: no dysuria, no flank pain, no hematuria - Musculoskeletal Musculoskeletal ROS IM: arthralgias, muscle weakness (Lower extremity) - Integumentary Integumentary IM: no erythema, no rash - Neurological Neurological ROS: confusion, weakness (Ongoing lower extremity weakness), no dizziness, no focal weakness, no frequent falls, no numbness - Psychiatric Psychiatric: confusion, no anxiety, no depression - Hematologic/Lymphatic Hematologic/Lymphatic: no easy bleeding, no easy bruising - Constitutional Vitals: Temp Pulse Resp BP Pulse Ox 97.6 F 81 16 144/93 92 11/14/18 01:51 11/14/18 01:51 11/14/18 01:51 11/14/18 01:51 11/14/18 01:51 Exam: General: Patient is sleeping supine, easily arousable, no apparent distress HEENT: Atraumatic, pupils PERRLA with EOMI, anicteric sclera, moist mucous membranes Neck: Soft, full range of motion Cardiovascular: Regular rate and rhythm without murmurs to auscultation Respiratory: Clear to auscultation bilateral lung [place], no accessory muscle use, no crackles, wheezing, rhonchi Abdomen: Obese, soft, nontender, nondistended, bowel sounds present normoactive Extremities: No swelling or edema, warm and dry skin Neuro: Alert and oriented to person and place, somewhat disoriented to current situation. Lower extremity weakness is again noted, worse on the right and is consistent with examination at prior admission. Sensation to light touch is intact bilaterally. Finger to nose and rapid alternating movements without issue. Psych: No evidence of depression or anxiety, appropriate mood and affect Internal Med - H&P Results - Labs CBC & Chem 7: 11/13/18 22:05 11/13/18 22:05 Labs: Short CBC 11/13/18 Range/Units 22:05 WBC 9.3 (4.3-11.1) K/mcL Hgb 12.9 (12.9-16.9) g/dL Hct 39.2 (37.5-50.1) % Plt Count 246 (140-400) K/mcL Neutrophils # 6.2 (1.6-8.9) K/mcL BMP 11/13/18 22:05 Sodium 137 Potassium 3.8 Chloride 101 Carbon Dioxide 27 BUN 8 Creatinine 0.90 Glucose 211 H Calcium 9.2 Cardiac Enzymes 11/13/18 Range/Units 22:05 Troponin I 0.04 H* (< 0.04) ng/mL Liver Function 11/13/18 Range/Units 22:05 Total Bilirubin 0.5 (0.3-1.0) mg/dL Direct Bilirubin 0.1 (0.0-0.2) mg/dL AST 24 (13-39) Units/L ALT 38 (7-52) Units/L Alkaline Phosphatase 85 (34-104) Units/L Albumin 3.6 (3.5-5.7) g/dL Urine 11/13/18 Range/Units 22:18 Urine Color Yellow (Yellow) Urine Clarity Cloudy A (Clear) Urine pH 6.0 (5.0-8.0) pH Units Ur Specific [place] 1.012 (1.010-1.025) Urine Protein Negative (Neg-Trace) mg/dL Urine Glucose (UA) 100 H (Normal) mg/dL - Impressions ITS Impressions Chest X-Ray 11/13/18 22:09 IMPRESSION: No significant interval change. D/ / 11/13/2018 22:27:16 Tono Baca MD / [facility] Interpreting Provider: Tono Baca MD - Assessment and plan (1) Altered mental status Current Visit: Yes Status: Acute Assessment and plan: Altered mental status, per family patient is not yet at his baseline Vital signs, objective findings, laboratory and radiographic evaluation are without specific abnormalities Etiology is unclear at this time. Family believes that patient has not been continued on his normal medications since discharge last week to inpatient rehabilitation facility and could be a contributing factor Plan: Will admit for observation Fall precautions Verified medication list for this admission does not match with medications listed on discharge summary on 11/08/2018. Will require verification of which medications patient is still taking daily. Restart medications after family, nursing, or pharmacy can provide verification and when clinically appropriate. Qualifiers: Altered mental status type: disorientation Qualified Code(s): R41.0 - Disorientation, unspecified (2) Declining functional status Current Visit: Yes Status: Acute Assessment and plan: Declining functional status and lower extremity weakness Is currently living at inpatient rehabilitation facility Plan: Will ask for PT evaluation and management while inpatient Anticipate discharge back to rehabilitation facility (3) Weakness of right lower extremity Current Visit: No Status: Chronic Assessment and plan: Stable deficits Continue with PT and outpatient neurology follow up (4) COPD (chronic obstructive pulmonary disease) Current Visit: No Status: Chronic Assessment and plan: COPD without acute exacerbation requires 4 L o2 by NC as well as CPAP at night Continue home medications and supplemental O2 as indicated Qualifiers: COPD type: emphysema Emphysema type: panlobular Qualified Code(s): J43.1 - Panlobular emphysema (5) Diabetes mellitus Current Visit: No Status: Chronic Assessment and plan: Accuchecks ACHS Continue home lantus and low sliding scale insulin Diabetic diet Qualifiers: Diabetes mellitus type: type 2 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 Level was less than 0.03 at prior admission. No chest pain, palpitation, shortness of breath. No acute EKG abnormalities. No acute chest x-ray abnormalities. Plan: We will admit to telemetry for observation and ACS rule out Continue to trend troponins Further management as clinically appropriate - Time Spent With Patient Total time spent is greater than 50% in coordination of care (as documented) at patient's floor/unit and/or counseling patient: <Eben Bah - Last Filed: 11/14/18 05:59> Date of Encounter: 11/14/18 Internal Medicine - H&P: HPI History of present illness: Mr. Fountain is a 63 year old male All Systems PM: A 10-system review of systems was performed and is negative for pertinent findings except as documented above in the HPI. - Constitutional Vitals: Temp Pulse Resp BP Pulse Ox 97.6 F 81 16 144/93 92 11/14/18 01:51 11/14/18 01:51 11/14/18 01:51 11/14/18 01:51 11/14/18 01:51 Internal Med - H&P Results - Labs CBC & Chem 7: 11/14/18 04:07 11/14/18 04:07 Labs: Short CBC 11/13/18 11/14/18 Range/Units 22:05 04:07 WBC 9.3 7.7 (4.3-11.1) K/mcL Hgb 12.9 13.7 (12.9-16.9) g/dL Hct 39.2 41.6 (37.5-50.1) % Plt Count 246 272 (140-400) K/mcL Neutrophils # 6.2 6.8 (1.6-8.9) K/mcL BMP 11/13/18 11/14/18 22:05 04:07 Sodium 137 138 Potassium 3.8 4.7 Chloride 101 103 Carbon Dioxide 27 24 BUN 8 7 L Creatinine 0.90 0.81 Glucose 211 H 256 H Calcium 9.2 9.7 Cardiac Enzymes 11/13/18 11/14/18 Range/Units 22:05 04:07 Troponin I 0.04 H* < 0.03 (< 0.04) ng/mL Liver Function 11/13/18 Range/Units 22:05 Total Bilirubin 0.5 (0.3-1.0) mg/dL Direct Bilirubin 0.1 (0.0-0.2) mg/dL AST 24 (13-39) Units/L ALT 38 (7-52) Units/L Alkaline Phosphatase 85 (34-104) Units/L Albumin 3.6 (3.5-5.7) g/dL Urine 11/13/18 Range/Units 22:18 Urine Color Yellow (Yellow) Urine Clarity Cloudy A (Clear) Urine pH 6.0 (5.0-8.0) pH Units Ur Specific [place] 1.012 (1.010-1.025) Urine Protein Negative (Neg-Trace) mg/dL Urine Glucose (UA) 100 H (Normal) mg/dL - Impressions ITS Impressions Chest X-Ray 11/13/18 22:09 IMPRESSION: No significant interval change. 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 Diabetes mellitus complication status: with unspecified c omplications Qualified Code(s): E11.8 - Type 2 diabetes mellitus with uns pecified complications; 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 (3) DVT prophylaxis Current Visit: Yes Status: Acute (4) Declining functional status Current Visit: Yes Status: Acute (5) Weakness of right lower extremity Current Visit: No Status: Chronic (6) Altered mental status Current Visit: Yes Status: Acute Qualifiers: Altered mental status type: disorientation Qualified Code(s): R41.0 - Disorientation, unspecified (7) Elevated troponin Current Visit: Yes Status: Acute - Time Spent With Patient Total time spent is greater than 50% in coordination of care (as documented) at patient's floor/unit and/or counseling patient: - Attending Attestation I performed a history and physical exam of the patient and discussed management with the resident. I reviewed the resident's note and agree with the documented findings and plan of care. Yandel Fountain is a 63-year-old deconditioned gentleman with multiple comorbidities who has been admitted here plethora of times over the past few months due to transient neurologic deteriorations of unclear etiology that are typically reported by the or correction staff but typically reverts to normalcy on arrival here. It is stated that today he developed an acute confusional state with unremarkable physical exam that is unchanged from his baseline. Labs only revealing of a troponin of 0.04 in the absence of ischemic electrocardiographic changes and cardiac symptoms. It should be noted that he has a longstanding history of elevated troponins in spite of a single specimen normal level on last visit; rest of tests within normal limits.There is report of him missing several medications that he was discharged home on last time but has not been receiving. We will need to perform and adequate med rec, monitor the trend in troponins in correlation with clinical symptoms, review his code status as visited by palliative care a few months ago. BIJAN FERNANDEZ.
[2018-11-14 04:47] LABS: Basophils % 0.3 %; Eosinophils % 0.3 %; Hematocrit 41.6 % (37.5-50.1); Hemoglobin 13.7 g/dL (12.9-16.9); Immature Granulocytes % 0.3 % (0-4); Lymphocytes # 0.8 K/mcL (0.6-4.6); Lymphocytes % 10.3 %; Mean Corpuscular HGB Conc 32.9 g/dL (31.6-35.5); Mean Corpuscular Hemoglobin 31.1 pg (28.0-33.3); Mean Corpuscular Volume 94.3 fL (83.0-100.0); Mean Platelet Volume 9.3 fL (9.4-12.4); Monocytes # 0.1 K/mcL (0.0-1.3); Platelet Count 272 K/mcL (140-400); Red Blood Count 4.41 M/mcL (4.19-5.50); Red Cell Distribution Width 12.5 % (11.5-14.5); Segmented Neutrophils % 87.8 %
[2018-11-14 05:07] LABS: BUN/Creatinine Ratio 9 (6-26); Blood Urea Nitrogen 7 mg/dL (8-23); Calcium 9.7 mg/dL (8.6-10.3); Carbon Dioxide 24 mEq/L (23-29); Chloride 103 mEq/L (98-107); Glucose 256 mg/dL (70-105); Magnesium 1.9 mg/dL (1.6-2.6); Osmolality,Calculated 293 (280-300); Potassium 4.7 mEq/L (3.5-5.1); Sodium 138 mEq/L (136-145); Troponin I < 0.03 ng/mL (< 0.04); eGFR For Non-African Americans > 60 (> 60)
[2018-11-14 05:14] LABS: Neutrophils # 6.8 K/mcL (1.6-8.9)
[2018-11-14 05:15] LABS: Platelet Estimate Normal (Normal)
[2018-11-14] MEDS: *HR* Heparin 5,000 UNIT/ML VIAL SQ SCH ×3 (05:25→21:31)
[2018-11-14] MEDS: Insulin LISPRO 300 UNITS/3 ML VIAL SQ SCH ×4 (08:22→21:32)
[2018-11-14] MEDS: Breo Ellipta 200-25 Mcg IH SCH (08:22)
[2018-11-14] MEDS ORDERED: Baclofen 10 MG TABLET PO SCH (09:00)
--- NOTE | 2018-11-14 09:27 | Event Note ---
Date of Encounter: 11/14/18 Time of Encounter: 09:26 Patient was seen and examined earlier this morning by Hospital services- currently patient is oriented to name only he does follow simple commands he continues to experience lower extremity weakness. He does endorse having visual hallucinations- is at bedside expresses concern that this is unchanged from when he was previously discharged last week advised patient and that we will consult neurology and obtain ABG. I reviewed treatment plan with the patient and his who verbalized understanding
[2018-11-14 12:18] LABS: ABG Base Excess 2 mEq/L (-2 to 3); ABG HCO3 28 mEq/L (21-27); ABG Oxygen Saturation 95 % (95-98); ABG PCO2 45 mmHg (35-45); ABG PO2 74 mmHg (85-104); ABG TCO2 29 mEq/L (20-26)
[2018-11-14] MEDS ORDERED: Isovue-370 500 ML BOTTLE IVP ONE (13:46)
--- NOTE | 2018-11-14 14:17 | Neurology - Consult Note ---
Addendum entered and electronically signed by Ashley Singh MD 11/14/18 17:49: Patient seen and examined in the presence of DIRECTOR OF PRODUCT DEVELOPMENT Estrada Lizama, case discussed and imaging studies reviewed together and i agree with his history taking, physical examination, assessment and plan. [facility], this is a 63 year old man with PMH significant for cervical myelopathy, s/p cervical spine fusion surgery, morbid obesity, DMITRY on BPAP therapy who developed second episode of visual hallucinations within the last few weeks without significant focal neurological deficits. Per history, the p atient has no significant memory difficulty or dementia symptoms per his . he developed his first such visual hallucination symptoms about one week ago and has had full stroke work up which returned negative. At the time of this interview the patient's mental status appear improved and back to baseline. -he reports slight tremors in his hands and fingers usually action related. -No Parkinsonian features. -Patient is still myelopathic likely related to previous history of cervical myelopathy, s/p cervical spine fusion surgery. -Isolated visual hallucinations may be symptoms of cognitive impairment and this certainly needs monitoring. Treatment is rather limited and would depend on whe ther these hallucination are causing mental agitation and currently the patient appears fully aware of it. Will not recommend recommend any antipsychotic at present time. -Agree with TIA work up as outlined below but do not expected any positive findings. -This certainly can be provoked by medical conditions since he does have elevated WBC and renal insufficiency. -Please continue medical and supportive care. Original Note: Date of Encounter: 11/14/18 Time of Encounter: 13:49 Assessment and Plan (1) Altered mental status Current Visit: Yes Status: Acute Presents overnight from inpatient rehab with confusion, slurred speech, disor ientation and delirium. Neurology consulted d/t altered mental state. Per my review of his labs there is no electrolyte disturbances to account for AMS. He is afebrile, hemodynamically stable and does not have any leukocytosis which would make me think of an infectious etiology causing AMS. He is not on any offending medication which would account for the altered mental state. Of note he does have obstructive sleep apnea and COPD with chronic respiratory failure requiring 4 L nasal cannula chronically. An ABG was obtained and did show a mild hypoxia The delirium and slurred speech has resolved at the time of my assessment and the patient is no longer having hallucinations. He does continue to have transient confusion. At this juncture I believe that he is likely encephalopathic secondary to hypoxia; he does have obstructive sleep apnea and reports that he had multiple interruptions in sleep last evening. He also appears to have some dementia and I expect that this is contributing to the transient confusion and delirium especially in the setting on familiar surroundings. I will obtain an MRI of the brain to r/o any acute pathology which could be causing altered mental status. He may benefit from aricept in the future but this can be implemented at outpatient f/u with neurology. Otherwise CN II-XII is grossly intact and there is no new lateralizing or focal sensorymotor deficits. Qualifiers: Altered mental status type: disorientation Qualified Code(s): R41.0 - Disorientation, unspecified History of Present Illness Chief complaint: delirious, confusion and slurred speech HPI: Mr. Fountain is a 63 year old male with a PMH of A. fib, small cell lung cancer in remission, COPD with chronic respiratory failure requiring 4 L of chronic O2, DMITRY, DM 2. Neurology has been consulted with concerns for altered mental status, confusion and hallucinations. The patient's is at bedside to corroborate H&P. The patient reports that yesterday evening while watching TV he saw a commercial which told him that the end of the world was coming. Subsequently, he called his to tell her what he was seeing. His reports that he seemed very confused and had slurred speech while they were talking. This prompted emergency evaluation from the alf staff and the subsequent evaluation in the ED. During my discussion with the patient he ad mits that he knows these hallucinations were not real and is aware that he was delirious. He denies any auditory hallucinations and denies responding to auditory hallucinations. He does note that he was also seeing lights fixtures, windows and doors on the floor and ceiling but he also has insight enough to know that these too were not real. He notes that he was somewhat confused during this time. Per my review I found no electrolyte abnormalities or obvious infectious cause to explain his delirium. His chest x-ray is without acute pulmonary abnormalities. On 11/04/17 he has had MRI imaging of the brain and CT of the head which were negative for acute intercranial process. His urinalysis is negative for UTI. Upon my assessment of the patient this afternoon he does not appear to be in any acute distress and is not having any hallucinations. His pulses at bedside reports that he is more appropriate but still not quite back to baseline status and is still experiencing some intermittent mild confusion. He is no longer having slurred speech and has no lateralizing or focal deficits. At this time we will continue to evaluate for cause of mental status change. Past Med Surg Social Fam HX - Past Medical History Medical history: cancer, COPD, diabetes, osteoporosis, other Additional medical history: lung cancer Psychiatric history: depression - Past Surgical History Surgical History: orthopedic, other Additional surgical history: right shoulder surgery, sciatic nerve surgery - Social History Smoking Status: Former smoker Smokeless Tobacco Status: No Alcohol use: none Drug use: none - Family History Mother Adopted: No Family Member Ethnicity: Non- Living Status: Hx Family Cancer: Yes (Pancreatic) Hx Family Endocrine Disorder: Yes Father Family Member Ethnicity: Non- Living Status: Hx Family Cardiac Disorders: Yes Hx Family Respiratory Disorders: No Hx Family Neuromuscular Disorders: No Hx Family Neurologic Disorders: No Hx Family Autoimmune Disorders: No Brother Family Member Ethnicity: Non- Living Status: Still Living Hx Family Cardiac Disorders: Yes (CAD) Sister Family Member Ethnicity: Non- Living Status: Still Living Hx Family Endocrine Disorder: Yes (DM) Medications and Allergies Albuterol Sulfate [Albuterol Inhaler] 2 puff IH Q4H PRN #1 inhaler 09/29/18 [Rx] Duloxetine HCl [Cymbalta] 60 mg PO DAILY #30 capsule. 09/29/18 [Rx] Insulin Glargine [Lantus] 40 unit SQ HS #3 mls 09/29/18 [Rx] Metoprolol [Lopressor] 25 mg PO BID #30 tablet 09/29/18 [Rx] Baclofen [Lioresal] 10 mg PO TID 30 Days #90 tablet 11/08/18 [Rx] Midodrine [ProAmatine] 2.5 mg PO TID 30 Days #90 tablet 11/08/18 [Rx] Fluticasone/Vilanterol [Breo Ellipta 200-25 Mcg INH] 1 each IH DAILY 11/13/18 [History] Allergy/AdvReac Type Severity Reaction Status Date / Time No Known Allergies Allergy Verified 11/05/18 19:56 All Systems: The remainder of the systems were reviewed and are negative Review of Systems: REVIEW OF SYSTEMS GENERAL: Negative for any nausea, vomiting, fevers, chills, or weight loss, fatigue NEUROLOGIC: Negative for any vision changes facial asymmetry, dysphagia, hemiparesis, hemisensory deficits, vertigo, ataxia, seizures, speech or language dysfunction< balance changes, or coordination difficulties POSITIVE: confusion, dysarthria, disorientation, tremors PSYCH: NEGATIVE: agitation/irritability, anxiety, SI/HI, POSITIVE: Delusions HEENT: Negative for any head trauma, neck trauma, neck stiffness, photophobia, phonophobia, dysphagia CARDIAC: Negative for any chest pain, dyspnea on exertion, HTN GENITOURINARY: Negative for any dysuria, hematuria POSITIVE: for urinary incontinence (chronic) ENDOCRINE: heat/cold intolerance, excessive sweating, thirst, hunger MUSCULOSKELETAL: Joint pain, stiffness, loss of strengt (bilateral/unilateral), arthritis (mono or poly) Joint swelling (mono or poly), muscle pain/swelling, limitations to motor activity or tolerance Physical Examination - Vital Signs Vital Signs: Initial Vital Signs Temp Pulse Resp BP Pulse Ox 97.9 F 99 20 122/93 98 11/13/18 21:54 11/13/18 21:54 11/13/18 21:54 11/13/18 21:54 11/13/18 21:54 - Exam Exam: Examination: General Examination: calm and cooperative, no distress *CONSTITUTIONAL: obese *GENERAL APPEARANCE OF PATIENT ill appearing male well groomed *EYES: pupils equal, round, reactive to light and accommodation, conjunctiva clear without masses or ulcerations, fundi normal. *CARDIOVASCULAR RRR, S1, S2, no mumurs, rubs, or gallops, no peripheral edema, distal temperature normal, dorsalis pedis pulses normal. Musculoskeletal: *GAIT AND STATION not assessed, the patient is non ambulatory; this is chronic *ASSESSMENT OF MUSCLE STRENGTH IN THE UPPER AND LOWER EXTREMITIES bilateral deltoid, bicep, tricep, bulb planter strength,anterior tibialis, dorsoflexion of the foot 4/5. Rt hip flexor 3/5, Lt hip flexor 4/5 *MUSCLE TONE IN THE UPPER AND LOWER EXTREMITIES normal. No abnormal movements, fasciculations or atrophy identified. Neurological: *ORIENTATION to time, place, person, situation *RECURRENT AND REMOTE MEMORY intact *ATTENTION AND CONCENTRATION are normal *LANGUAGE FUNCTION no significant aphasia or dysarthia was noted. *FUND OF KNOWLEDGE aware of current events, past history, vocabulary *MENTAL appropriate attention span, and concentration, he does have some episodic confusion but reorients easily. He is delirious at time *CN II optic fundi were normal, no papilledema noted. *CN III,IV, PERRLA extraocular eye movements were full, no nystagmus and no ptosis noted. *CN V shows normal sensation and jaw opens symmetrically. *CN VII shows normal facial movement symmetrically, upper and lower bilaterally. *CN VIII shows no significant hearing loss on examination in the office. *CN IX,,X palate elevated symmetrically and normal gag reflex was noted. *CN XI normal strength in the sternocleidomastoid muscles, symmetrical shoulder shrugging. *CN XII tongue protruded in the midline, with normal strength and movement. *SENSORY EXAMINATION light touch intact *REFLEXES: hyperreflexic lower extremities, grade 2/4 b/l upper extremities, bilateral lower extremity clonus *CEREBELLAR TESTING normal finger to nose *PAIN LEVEL 0/10 Results - Laboratory Findings CBC and BMP: 11/14/18 04:07 11/14/18 04:07 Abnormal lab findings: Abnormal lab results MPV 9.3 fL (9.4-12.4) L 11/14/18 04:07 ABG pO2 74 mmHg (85-104) L 11/14/18 12:14 ABG HCO3 28 mEq/L (21-27) H 11/14/18 12:14 ABG Total CO2 29 mEq/L (20-26) H 11/14/18 12:14 BUN 7 mg/dL (8-23) L 11/14/18 04:07 Glucose 256 mg/dL (70-105) H 11/14/18 04:07 Urine Clarity Cloudy (Clear) A 11/13/18 22:18 Urine Glucose (UA) 100 mg/dL (Normal) H 11/13/18 22:18 Urine Blood Large (Negative) H 11/13/18 22:18 Urine Microscopic RBC 30-50 per hpf (0-3) H 11/13/18 22:18 Consult Discharge Plan - Plan Referrals: Luis Miguel Aguilera DO [Primary Care Provider] - Jarred Posada MD [Partnered Physician] - 11/23/18 8:45 am Rickie Pete CNP [Advanced Practice Nurse] - 11/28/18 3:30 pm
--- NOTE | 2018-11-14 15:26 | Electrocardiograph Report ---
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
[2018-11-14] MEDS ORDERED: NON-FORMULARY MEDICATION 1 EACH EACH (Insulin Glargine [Lantus] 40 UNIT) SQ SCH (21:00)
[2018-11-14] MEDS: Insulin DETEMIR 100 UNIT/ML X5UNITS SQ SCH (21:31)
[2018-11-15] MEDS: *HR* Heparin 5,000 UNIT/ML VIAL SQ SCH ×3 (05:19→20:52)
[2018-11-15] MEDS: Breo Ellipta 200-25 Mcg IH SCH (08:37)
[2018-11-15] MEDS: Insulin LISPRO 300 UNITS/3 ML VIAL SQ SCH ×4 (08:38→20:53)
--- NOTE | 2018-11-15 10:22 | Neurology Progress Note ---
<Estrada Lizama J - Last Filed: 11/15/18 17:15> Date of Encounter: 11/15/18 Time of Encounter: 10:20 Assessment and Plan (1) Altered mental status Current Visit: Yes Status: Acute Neurology has been consulted for AMS and hallucinations Confusion and hallucinations are likely multifactorial with h/o brain radiation, unfamiliar surroundings, DMITRY and chronic respiratory failure with hypoxia as well as abrupt discontinuation of oral steroids (Florinef and prednisone). I have discussed this with the primary team. Review of his MRI shows no acute pathology which would account for his altered mental status however, it does reveal some atrophy. But overall he does not appear to have any dementia. His neuro exam remains nonfocal and nonlateralizing without any new deficits. At this time the patient does still have some intermittent confusion but his reports that he is progressing back to baseline mental status. From a neurolo gical perspective with a normal MRI and a nonfocal nonlateralizing neuro exam I do not feel that any further neurological workup is needed. The patient can follow up outpatient with neurology for further monitoring. Qualifiers: Altered mental status type: disorientation Qualified Code(s): R41.0 - Disorientation, unspecified Subjective Principal diagnosis: Confusion, hallucination Interval history: Patient seen and examined at bedside today. He is currently resting comfortably in bed in no acute distress. His is at bedside reports that he has continued to have intermittent confusion but that overall he is continuing to improve. He has not had any return of hallucinations. He denies any new focal weakness or focal neurological deficits. I discussed MRI findings and discussed that this did not show any acute ischemic events. Additionally, throughout the course of the morning and was able to ascertain that the patient has abruptly had his fludrocortisone and daily prednisone dose discontinued at the nursing facility. I do feel that this could be contributing to his transient confusion and hallucinations with abrupt discontinuation. I relayed these findings to the primary care team. Objective - Constitutional Vitals: Temp Pulse Resp BP Pulse Ox 97.3 F L 76 15 152/91 100 11/15/18 07:32 11/15/18 07:32 11/15/18 07:32 11/15/18 07:32 11/15/18 07:32 Exam: Examination: General Examination: *CONSTITUTIONAL: Calm and cooperative, currently in no acute distress *GENERAL APPEARANCE OF PATIENT ill-appearing obese male *EYES: pupils equal, round, reactive to light and accommodation, conjunctiva clear without masses or ulcerations, fundi normal. *CARDIOVASCULAR RRR, S1, S2, no mumurs, rubs, or gallops, no peripheral edema, distal temperature normal, dorsalis pedis pulses normal. 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 No abnormal movements, fasciculations or atrophy identified. Neurological: *ORIENTATION to time, person and situation. He was somewhat disoriented to place this morning but easily refocused with prompting. *RECURRENT AND REMOTE MEMORY intact *ATTENTION AND CONCENTRATION are normal and he does not appear to have cognitive impairment *LANGUAGE FUNCTION no significant aphasia or dysarthia was noted. *FUND OF KNOWLEDGE aware of current events, past history, vocabulary *MENTAL attention span and concentration normal. *CN II optic fundi were normal, no papilledema noted. *CN III,IV, PERRLA extraocular eye movements were full, no nystagmus and no ptosis noted. *CN V shows normal sensation and jaw opens symmetrically. *CN VII shows normal facial movement symmetrically, upper and lower bilaterally. *CN VIII shows no significant hearing loss on examination in the office. *CN IX,,X palate elevated symmetrically and normal gag reflex was noted. *CN XI normal strength in the sternocleidomastoid muscles, symmetrical shoulder shrugging. *CN XII tongue protruded in the midline, with normal strength and movement. *SENSORY EXAMINATION pinprick sensation intact, and light touch(vibration sense). *REFLEXES: The patient has hyperreflexia and clonus bilaterally to the lower extremities (has chronic cervical myelopathy S/P decompression surgery) otherwise 2/4 bilaterally upper extremity reflexes *CEREBELLAR TESTING normal finger to nose, *PAIN LEVEL 0/10 Results - Laboratory Findings CBC and BMP: 11/15/18 10:48 11/15/18 10:48 Abnormal lab findings: Abnormal lab results MPV 9.3 fL (9.4-12.4) L 11/14/18 04:07 ABG pO2 74 mmHg (85-104) L 11/14/18 12:14 ABG HCO3 28 mEq/L (21-27) H 11/14/18 12:14 ABG Total CO2 29 mEq/L (20-26) H 11/14/18 12:14 BUN 7 mg/dL (8-23) L 11/14/18 04:07 Glucose 256 mg/dL (70-105) H 11/14/18 04:07 POC Glucose 284 mg/dL (70-99) H 11/14/18 20:23 Urine Clarity Cloudy (Clear) A 11/13/18 22:18 Urine Glucose (UA) 100 mg/dL (Normal) H 11/13/18 22:18 Urine Blood Large (Negative) H 11/13/18 22:18 Urine Microscopic RBC 30-50 per hpf (0-3) H 11/13/18 22:18 Consult Discharge Plan - Plan Referrals: Luis Miguel Aguilera DO [Primary Care Provider] - Jarred Posada MD [Partnered Physician] - 11/23/18 8:45 am Rickie Pete CNP [Advanced Practice Nurse] - 11/28/18 3:30 pm <Raul Chicas - Last Filed: 11/15/18 17:41> Date of Encounter: 11/15/18 Assessment and Plan (1) Altered mental status Current Visit: Yes Status: Acute Qualifiers: Altered mental status type: disorientation Qualified Code(s): R41.0 - Disorientation, unspecified Subjective Interval history: The chart was reviewed, the patient was seen and examined along with the HOSPITAL PHARMACIST. I agree with his assessment as stated above. The patient is now back to his normal baseline neuro status. His workup has been negative. It is likely that his mental status changes and confusion were due to metabolic factors. Objective - Constitutional Vitals: Temp Pulse Resp BP Pulse Ox 97.6 F 90 18 110/77 96 11/15/18 15:28 11/15/18 15:28 11/15/18 15:28 11/15/18 15:28 11/15/18 15:28 Exam: I agree with the neurologic examination as documented above. Results - Laboratory Findings CBC and BMP: 11/15/18 10:48 11/15/18 10:48 Abnormal lab findings: Abnormal lab results WBC 13.3 K/mcL (4.3-11.1) H D 11/15/18 10:48 RBC 3.93 M/mcL (4.19-5.50) L 11/15/18 10:48 Hgb 12.5 g/dL (12.9-16.9) L 11/15/18 10:48 MPV 9.1 fL (9.4-12.4) L 11/15/18 10:48 Neutrophils # 10.8 K/mcL (1.6-8.9) H 11/15/18 10:48 ABG pO2 74 mmHg (85-104) L 11/14/18 12:14 ABG HCO3 28 mEq/L (21-27) H 11/14/18 12:14 ABG Total CO2 29 mEq/L (20-26) H 11/14/18 12:14 Carbon Dioxide 32 mEq/L (23-29) H 11/15/18 10:48 Glucose 242 mg/dL (70-105) H 11/15/18 10:48 POC Glucose 284 mg/dL (70-99) H 11/14/18 20:23 Urine Clarity Cloudy (Clear) A 11/13/18 22:18 Urine Glucose (UA) 100 mg/dL (Normal) H 11/13/18 22:18 Urine Blood Large (Negative) H 11/13/18 22:18 Urine Microscopic RBC 30-50 per hpf (0-3) H 11/13/18 22:18
--- NOTE | 2018-11-15 10:41 | Internal Med Progress Note ---
Hospitalist Progress Note - Encounter Date of Encounter: 11/15/18 Time of Encounter: 10:40 - Subjective Interval History: Since he is evaluated at the bedside currently oriented to name only using BiPAP this a.m. I did discuss patient's treatment plan with the I also received an updated med rec from patient's family physician. I did review this with the pharmacist and medications have been updated. - Exam Vitals: Temp Pulse Resp BP Pulse Ox 97.5 F L 83 21 115/79 98 11/15/18 10:11/15/18 10:11/15/18 10:11/15/18 10:11/15/18 10:31 Exam: General: Patient is sleeping supine, easily arousable, no apparent distress HEENT: Atraumatic, pupils PERRLA with EOMI, anicteric sclera, moist mucous membranes Neck: Soft, full range of motion Cardiovascular: Regular rate and rhythm without murmurs to auscultation Respiratory: Clear to auscultation bilateral lung [place], no accessory muscle use, no crackles, wheezing, rhonchi Abdomen: Obese, soft, nontender, nondistended, bowel sounds present normoactive Extremities: No swelling or edema, warm and dry skin Neuro: Alert and oriented to person and place, somewhat disoriented to current situation. Lower extremity weakness is again noted, worse on the right and is consistent with examination at prior admission. Sensation to light touch is intact bilaterally. Finger to nose and rapid alternating movements without issue. Psych: No evidence of depression or anxiety, appropriate mood and affect - Assessment and Plan (1) COPD (chronic obstructive pulmonary disease) Current Visit: No Status: Chronic Assessment and Plan: COPD without acute exacerbation requires 4 L o2 by NC as well as CPAP at night Continue home medications and supplemental O2 as indicated 11/15/ Currently does not appear to be in exacerbation Requires 4 L of oxygen by nasal cannula continuous CPAP at night Requires 4 L O2 by nasal cannula as well as CPAP at night Continue home medications (2) Diabetes mellitus Current Visit: No Status: Chronic Assessment and Plan: Accuchecks ACHS Continue home lantus and low sliding scale insulin Diabetic diet 11/15 Accu-Cheks before meals at bedtime continue with Lantus and sliding scale insulin Diabetic diet (3) DVT prophylaxis Current Visit: Yes Status: Acute Assessment and Plan: Heparin 5000 units Q8H (4) Declining functional status Current Visit: Yes Status: Acute Assessment and Plan: Declining functional status and lower extremity weakness Is currently living at inpatient rehabilitation facility Plan: Will ask for PT evaluation and management while inpatient Anticipate discharge back to rehabilitation facility 11/15 PT OT consult Will need discharged back to rehabilitation facility (5) Weakness of right lower extremity Current Visit: No Status: Chronic Assessment and Plan: Stable deficits Continue with PT and outpatient neurology follow up 11/15 Seen by neurology continue with physical therapy and occupational therapy will follow up with rehabilitation (6) Altered mental status Current Visit: Yes Status: Acute Assessment and Plan: Altered mental status, per family patient is not yet at his baseline Vital signs, objective findings, laboratory and radiographic evaluation are without specific abnormalities Etiology is unclear at this time. Family believes that patient has not been continued on his normal medications since discharge last week to inpatient rehabilitation facility and could be a contributing factor Plan: Will admit for observation Fall precautions Verified medication list for this admission does not match with medications listed on discharge summary on 11/08/2018. Will require verification of which medications patient is still taking daily. Restart medications after family, nursing, or pharmacy can provide verification and when clinically appropriate. 11/15 I suspect this is multifactorial-it appears the patient has been on long-term steroids and was abruptly stopped at the long-term as well as started on baclofen patient was placed in a rehabilitation center which is a new surrounding and has mild dementia. All these factors could be interplaying causing delirium. Medications have been reviewed with pharmacy and patient has been resumed on his steroids baclofen has been held. Patient has been evaluated by neurology and appreciate recommendations Continue fall precautions (7) Elevated troponin Current Visit: Yes Status: Acute Assessment and Plan: Mildly elevated troponin of 0.04 upon initial evaluation. Level was less than 0.03 at prior admission. No chest pain, palpitation, shortness of breath. No acute EKG abnormalities. No acute chest x-ray abnormalities. Plan: We will admit to telemetry for observation and ACS rule out Continue to trend troponins Further management as clinically appropriate Initial troponin was mildly elevated repeat troponin was negative-no acute EKG abnormalities chest x-ray with no acute process Denies any chest pain continue with cardiac monitoring (8) Delirium Current Visit: Yes Status: Acute Assessment and Plan: I suspect this is multifactorial-it appears the patient has been on long-term steroids and was abruptly stopped at the long-term as well as started on baclofen patient was placed in a rehabilitation center which is a new surrounding and has mild dementia. All these factors could be interplaying causing delirium. Medications have been reviewed with pharmacy and patient has been resumed on his steroids baclofen has been held. Patient has been evaluated by neurology and appreciate recommendations Continue fall precautions Haldol as needed for agitation - Time Spent with Patient Total time spent is greater than 50% in coordination of care (as documented) at patient's floor/unit and/or counseling patient: Internal Medicine: Result - Labs CBC & Chem 7: 11/15/18 10:48 11/15/18 10:48 - ABG Interpretation ABG results: ABG ABG pH 7.40 pH Units (7.32-7.45) 11/14/18 12:14 ABG pCO2 45 mmHg (35-45) 11/14/18 12:14 ABG pO2 74 mmHg (85-104) L 11/14/18 12:14 ABG O2 Saturation 95 % (95-98) 11/14/18 12:14 - Impressions Impressions Brain MRI 11/14/18 13:59 IMPRESSION: Increasing volume loss Increasing multifocal high signal in the white matter suggesting increasing small-vessel ischemic change. A component of transependymal CSF flow is considered less likely Right greater than left mastoid opacification. No acute infarct, mass or hemorrhage D/ / Tyler Horton / Tyler Horton Interpreting Provider: Tyler Horton Consult Discharge Plan - Plan Referrals: Luis Miguel Aguilera DO [Primary Care Provider] - Jarred Posada MD [Partnered Physician] - 11/23/18 8:45 am Rickie Pete CNP [Advanced Practice Nurse] - 11/28/18 3:30 pm (1) COPD (chronic obstructive pulmonary disease) Qualifiers: COPD type: emphysema Emphysema type: panlobular Qualified Code(s): J43.1 - Panlobular emphysema (2) Diabetes mellitus Qualifiers: Diabetes mellitus type: type 2 Diabetes mellitus emergency veterinary assistant insulin use: with mcc use Diabetes mellitus complication status: with unspecified complica tions Qualified Code(s): E11.8 - Type 2 diabetes mellitus with unspecified complications; Z79.4 - residential (current) use of insulin (6) Altered mental status Qualifiers: Altered mental status type: disorientation Qualified Code(s): R41.0 - Disorientation, unspecified
[2018-11-15 11:00] LABS: Basophils % 0.2 %; Eosinophils % 0.1 %; Hemoglobin 12.5 g/dL (12.9-16.9); Immature Granulocytes % 0.3 % (0-4); Lymphocytes # 1.2 K/mcL (0.6-4.6); Mean Corpuscular HGB Conc 32.9 g/dL (31.6-35.5); Mean Corpuscular Hemoglobin 31.8 pg (28.0-33.3); Mean Corpuscular Volume 96.7 fL (83.0-100.0); Mean Platelet Volume 9.1 fL (9.4-12.4); Monocytes # 1.2 K/mcL (0.0-1.3); Neutrophils # 10.8 K/mcL (1.6-8.9); Platelet Count 235 K/mcL (140-400); Red Blood Count 3.93 M/mcL (4.19-5.50); Red Cell Distribution Width 12.8 % (11.5-14.5); Segmented Neutrophils % 81.4 %
[2018-11-15 11:19] LABS: BUN/Creatinine Ratio 18 (6-26); Blood Urea Nitrogen 15 mg/dL (8-23); Calcium 9.7 mg/dL (8.6-10.3); Carbon Dioxide 32 mEq/L (23-29); Chloride 101 mEq/L (98-107); Glucose 242 mg/dL (70-105); Osmolality,Calculated 295 (280-300); Potassium 4.2 mEq/L (3.5-5.1); Sodium 138 mEq/L (136-145); eGFR For Non-African Americans > 60 (> 60)
[2018-11-15] MEDS ORDERED: Haloperidol Lactate 5 MG/ML VIAL IVP PRN (13:55)
[2018-11-15] MEDS ORDERED: Ipratropium/Albuterol Neb 3 ML IH PRN (20:31)
[2018-11-15] MEDS: Insulin DETEMIR 100 UNIT/ML X5UNITS SQ SCH (20:52)
[2018-11-15] MEDS ORDERED: Budesonide/Formoterol 160/4.5 1 PUFF INH IH SCH (22:00)
[2018-11-16] MEDS: *HR* Heparin 5,000 UNIT/ML VIAL SQ SCH ×2 (05:12→13:07)
[2018-11-16] MEDS: Insulin LISPRO 300 UNITS/3 ML VIAL SQ SCH ×2 (08:35→13:07)
[2018-11-16] MEDS: Breo Ellipta 200-25 Mcg IH SCH (08:36)
[2018-11-16] MEDS ORDERED: predniSONE 10 MG TABLET PO SCH (09:00)
[2018-11-16] MEDS ORDERED: Finasteride 5 MG TABLET PO SCH (09:00)
[2018-11-16] MEDS ORDERED: Aspirin Enteric Coated 81 MG Tablet PO SCH (09:00)
--- NOTE | 2018-11-16 10:10 | Internal Med Progress Note ---
Hospitalist Progress Note - Encounter Date of Encounter: 11/16/18 Time of Encounter: 10:08 - Subjective Interval History: Since he is evaluated at the bedside currently oriented to name and place and situation. Mental state much improved from yesterday denies any chest pain or shortness of breath at this time. I did review the treatment plan with the p atient who verbalized understanding - Exam Vitals: Temp Pulse Resp BP Pulse Ox 97.3 F L 93 16 124/85 96 11/16/18 06:45 11/16/18 06:45 11/16/18 06:45 11/16/18 06:45 11/16/18 06:45 Exam: General: Patient is sitting up in bed, no apparent distress HEENT: Atraumatic, pupils PERRLA with EOMI, anicteric sclera, moist mucous membranes Neck: Soft, full range of motion Cardiovascular: Regular rate and rhythm without murmurs to auscultation Respiratory: Clear to auscultation bilateral lung [place], no accessory muscle use, no crackles, wheezing, rhonchi Abdomen: Obese, soft, nontender, nondistended, bowel sounds present normoactive Extremities: No swelling or edema, warm and dry skin Neuro: Alert and oriented to person and place, current situation. Lower extremity weakness is again noted, worse on the right and is consistent with examination at prior admission. Sensation to light touch is intact bilaterally. Finger to nose and rapid alternating movements without issue. Psych: No evidence of depression or anxiety, appropriate mood and affect - Assessment and Plan (1) COPD (chronic obstructive pulmonary disease) Current Visit: No Status: Chronic Assessment and Plan: COPD without acute exacerbation requires 4 L o2 by NC as well as CPAP at night Continue home medications and supplemental O2 as indicated 11/15/ Currently does not appear to be in exacerbation Requires 4 L of oxygen by nasal cannula continuous CPAP at night Requires 4 L O2 by nasal cannula as well as CPAP at night Continue home medications 11/16 Does not appear to be in any exacerbation at this time Requires 4 L of oxygen by nasal cannula which is his home dose CPAP at night Continue with home medications (2) Diabetes mellitus Current Visit: No Status: Chronic Assessment and Plan: Accuchecks ACHS Continue home lantus and low sliding scale insulin Diabetic diet 11/15 Accu-Cheks before meals at bedtime continue with Lantus and sliding scale insulin Diabetic diet 11/16 Accu-Cheks before meals at bedtime and continue with Lantus and sliding scale continue with diabetic diet (3) DVT prophylaxis Current Visit: Yes Status: Acute Assessment and Plan: Heparin 5000 units Q8H (4) Declining functional status Current Visit: Yes Status: Acute Assessment and Plan: Declining functional status and lower extremity weakness Is currently living at inpatient rehabilitation facility Plan: Will ask for PT evaluation and management while inpatient Anticipate discharge back to rehabilitation facility 11/15 PT OT consult Will need discharged back to rehabilitation facility 11/16 PT OT consult. Patient will be discharged to rehabilitation facility for further treatment and evaluation (5) Weakness of right lower extremity Current Visit: No Status: Chronic Assessment and Plan: Stable deficits Continue with PT and outpatient neurology follow up 11/15 Seen by neurology continue with physical therapy and occupational therapy will follow up with rehabilitation 11/16 Seen by neurology continue with physical therapy and occupational therapy will need placement to inpatient rehabilitation (6) Altered mental status Current Visit: Yes Status: Acute Assessment and Plan: Altered mental status, per family patient is not yet at his baseline Vital signs, objective findings, laboratory and radiographic evaluation are without specific abnormalities Etiology is unclear at this time. Family believes that patient has not been continued on his normal medications since discharge last week to inpatient rehabilitation facility and could be a contributing factor Plan: Will admit for observation Fall precautions Verified medication list for this admission does not match with medications listed on discharge summary on 11/08/2018. Will require verification of which medications patient is still taking daily. Restart medications after family, nursing, or pharmacy can provide verification and when clinically appropriate. 11/15 I suspect this is multifactorial-it appears the patient has been on long-term steroids and was abruptly stopped at the [facility] as well as started on baclofen patient was placed in a rehabilitation center which is a new surrounding and has mild dementia. All these factors could be interplaying causing delirium. Medications have been reviewed with pharmacy and patient has been resumed on his steroids baclofen has been held. Patient has been evaluated by neurology and appreciate recommendations Continue fall precautions 11/16 Much improved today continue to hold medication steroids have been resumed which we will continue continue with fall precautions (7) Elevated troponin Current Visit: Yes Status: Acute Assessment and Plan: Mildly elevated troponin of 0.04 upon initial evaluation. Level was less than 0.03 at prior admission. No chest pain, palpitation, shortness of breath. No acute EKG abnormalities. No acute chest x-ray abnormalities. Plan: We will admit to telemetry for observation and ACS rule out Continue to trend troponins Further management as clinically appropriate Initial troponin was mildly elevated repeat troponin was negative-no acute EKG abnormalities chest x-ray with no acute process Denies any chest pain continue with cardiac monitoring 11/16 He had a slight rise in his troponin during initial presentation however he has been flat since admission denies any chest pain continue with cardiac monitoring (8) Delirium Current Visit: Yes Status: Acute Assessment and Plan: I suspect this is multifactorial-it appears the patient has been on long-term steroids and was abruptly stopped at the [facility] as well as started on baclofen patient was placed in a rehabilitation center which is a new surrounding and has mild dementia. All these factors could be interplaying causing delirium. Medications have been reviewed with pharmacy and patient has been resumed on his steroids baclofen has been held. Patient has been evaluated by neurology and appreciate recommendations Continue fall precautions Haldol as needed for agitation 11/16 Much improved today we will continue to hold baclofen-continue with home steroids Continue with fall precautions PT OT Haldol as needed for agitation - Time Spent with Patient Total time spent is greater than 50% in coordination of care (as documented) at patient's floor/unit and/or counseling patient: Internal Medicine: Result - Labs CBC & Chem 7: 11/15/18 10:48 11/15/18 10:48 Labs: Short CBC 11/15/18 Range/Units 10:48 WBC 13.3 H D (4.3-11.1) K/mcL Hgb 12.5 L (12.9-16.9) g/dL Hct 38.0 (37.5-50.1) % Plt Count 235 (140-400) K/mcL Neutrophils # 10.8 H (1.6-8.9) K/mcL BMP 11/15/18 10:48 Sodium 138 Potassium 4.2 Chloride 101 Carbon Dioxide 32 H BUN 15 Creatinine 0.85 Glucose 242 H Calcium 9.7 Cardiac Enzymes 11/15/18 Range/Units 14:54 Troponin I < 0.03 (< 0.04) ng/mL - ABG Interpretation ABG results: ABG ABG pH 7.40 pH Units (7.32-7.45) 11/14/18 12:14 ABG pCO2 45 mmHg (35-45) 11/14/18 12:14 ABG pO2 74 mmHg (85-104) L 11/14/18 12:14 ABG O2 Saturation 95 % (95-98) 11/14/18 12:14 Consult Discharge Plan - Plan Referrals: Luis Miguel Aguilera DO [Primary Care Provider] - Jarred Posada MD [Partnered Physician] - 11/23/18 8:45 am Rickie Pete CNP [Advanced Practice Nurse] - 11/28/18 3:30 pm (1) COPD (chronic obstructive pulmonary disease) Qualifiers: COPD type: emphysema Emphysema type: panlobular Qualified Code(s): J43.1 - Panlobular emphysema (2) Diabetes mellitus Qualifiers: Diabetes mellitus type: type 2 Diabetes mellitus intermodal customer service insulin use: with intermodal customer service use Diabetes mellitus complication status: with unspecified complications Qualified Code(s): E11.8 - Type 2 diabetes mellitus with unspecified complications; Z79.4 - bed bug exterminator (current) use of insulin (6) Altered mental status Qualifiers: Altered mental status type: disorientation Qualified Code(s): R41.0 - Disorientation, unspecified
[2018-11-16 11:07] LABS: Basophils % 0.3 %; Eosinophils # 0.1 K/mcL (0.0-0.6); Eosinophils % 1.2 %; Hematocrit 37.9 % (37.5-50.1); Hemoglobin 12.5 g/dL (12.9-16.9); Immature Granulocytes % 0.6 % (0-4); Lymphocytes % 10.1 %; Mean Corpuscular Hemoglobin 31.3 pg (28.0-33.3); Monocytes % 9.8 %; Neutrophils # 7.6 K/mcL (1.6-8.9); Platelet Count 212 K/mcL (140-400); Red Blood Count 3.99 M/mcL (4.19-5.50); Red Cell Distribution Width 13.2 % (11.5-14.5)
[2018-11-16 11:14] LABS: BUN/Creatinine Ratio 20 (6-26); Blood Urea Nitrogen 18 mg/dL (8-23); Calcium 9.5 mg/dL (8.6-10.3); Carbon Dioxide 30 mEq/L (23-29); Chloride 99 mEq/L (98-107); Glucose 183 mg/dL (70-105); Osmolality,Calculated 289 (280-300); Potassium 3.8 mEq/L (3.5-5.1); Sodium 136 mEq/L (136-145); eGFR For Non-African Americans > 60 (> 60)
[2018-11-16 12:01] VITALS: BP 100/67
--- NOTE | 2018-11-16 13:36 | Discharge Summary ---
- NOTES TO OUTPATIENT PROVIDER Notes to Outpatient Provider: And with altered mental state suspect related to medication, he had a sudden withdrawal from prednisone as well as recently started on baclofen. Prednisone was resumed and baclofen was held mental state has improved. May consider resuming baclofen at a lower dose once back to baseline and monitor. Orders not resulted at time of discharge: Pending orders 11/15/18 22:05 Culture,Urine [RM] Stat Date of Encounter: 11/16/18 Time of Encounter: 13:36 - Discharge Diagnosis (1) COPD (chronic obstructive pulmonary disease) Priority: Secondary Status: Chronic Qualifiers: COPD type: emphysema Emphysema type: panlobular Qualified Code(s): J43.1 - Panlobular emphysema (2) Diabetes mellitus Priority: Secondary Status: Chronic Qualifiers: Diabetes mellitus type: type 2 Diabetes mellitus longterm insulin use: with superintendent container terminal use Diabetes mellitus complication status: with unspecified complications Qualified Code(s): E11.8 - Type 2 diabetes mellitus with unspecified complications; Z79.4 - computer terminal operator (current) use of insulin (3) Declining functional status Priority: Secondary Status: Acute (4) Weakness of right lower extremity Priority: Secondary Status: Chronic (5) Altered mental status Priority: Primary Status: Acute Qualifiers: Altered mental status type: disorientation Qualified Code(s): R41.0 - Disorientation, unspecified (6) Elevated troponin Priority: Secondary Status: Acute (7) Delirium Priority: Primary Status: Acute Hospital course: Mr. 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 Symptoms occurred over one week. He had a full stroke workup which was unremarkable neurology was consulted-a full review of records it appears the patient's oral steroids were abruptly stopped (Florinef and prednisone) while at the [facility] for [facility]. As well as patient was recently initiated on baclofen and has history of chronic respiratory failure so hypoxia may be contributing to altered mental state. Patient's lab work was unremarkable for any infectious process he did have a slight elevation in his troponin on presentation however this has plateaued and flattened-MRI was within normal limits. Patient's baclofen was held and he was resumed on his steroids. He was evaluated by neurology who also agreed that this confusion and hallucinations most likely [id number] chronic respiratory failure hypoxia history of brain radiation and from the surrounding and not neurological. Patient neurological state returned to baseline, he was evaluated by PT and OT recommending continuation of inpatient rehabilitation. He has been accepted to inpatient rehabilitation facility currently he is hemodynamically stable at this time and is ready for discharge. Discharge discussed with: patient - Time Spent with Patient Total time spent providing and/or coordinating discharge services: - Discharge Medications Home Medications: Albuterol Sulfate [Albuterol Inhaler] 2 puff IH Q4H PRN #1 inhaler 09/29/18 [Rx] Duloxetine HCl [Cymbalta] 60 mg PO DAILY #30 capsule.dr 09/29/18 [Rx] Insulin Glargine [Lantus] 40 unit SQ HS #3 mls 09/29/18 [Rx] Metoprolol [Lopressor] 25 mg PO BID #30 tablet 09/29/18 [Rx] Midodrine [ProAmatine] 2.5 mg PO TID 30 Days #90 tablet 11/08/18 [Rx] Aspirin [Lo-Dose Aspirin EC] 81 mg PO DAILY 11/15/18 [History] Budesonide/Formoterol 160/4.5 [Symbicort 160/4.5] 2 puff IH BIDR 11/15/18 [History] Finasteride [Proscar] 5 mg PO DAILY 11/15/18 [History] Fludrocortisone Acetate [Florinef] 0.1 mg PO DAILY 11/15/18 [History] Ipratropium/Albuterol Sulfate [Iprat-Albut 0.5-3(2.5) mg/3 ml] 3 ml IH Q4H PRN 11/15/18 [History] Tamsulosin HCl [Flomax] 0.4 mg PO DAILY 11/15/18 [History] predniSONE [PredniSONE] 10 mg PO DAILY 11/15/18 [History] Allergies/Adverse Reactions: Allergy/AdvReac Type Severity Reaction Status Date / Time No Known Allergies Allergy Verified 11/05/18 19:56 Date of admission: 11/15/18 12:50 Primary care physician: Luis Miguel Aguilera DO Consults: 11/14/18 02:11 Consult to Physical Therapy [CONS] Routine Comment: Evaluate, develop and implement POC Reason for Consult: Continued mobilization for LE weakness, patient admitted from outpt rehab Does patient have active BEDREST order?: No Is patient medically & hemodynamically stable?: Yes 11/14/18 09:18 Consult to Occupational Therapy [CONS] Routine Comment: Evaluate, develop and implement POC Reason for Consult: DECONDITIONING. PATIENT [facility]. WILL NEED TO RETURN Does patient have active BEDREST order?: No Is patient medically & hemodynamically stable?: Yes 11/14/18 09:19 Consult to Shopper Marketing Manager [CONS] Routine Reason for SW Consult: PATIENT FROM [facility]. WILL NEED TO RETURN 11/14/18 09:33 Consult to Neurology [CONS] Routine Consulting Provider: Neurology [facility] Reason for Consult: confusion Time Notified: 09:34 Call Completed: Yes Discharging clinician: Ceci Vasuqez Anticipated date of discharge: 11/16/18 - Constitutional Vitals: Temp Pulse Resp BP Pulse Ox 97.7 F 87 17 100/67 95 11/16/18 11:30 11/16/18 11:30 11/16/18 11:30 11/16/18 11:30 11/16/18 11:30 General appearance: Present: A&O X 2, pleasant Exam: . - Head Head exam: Present: atraumatic, normocephalic - Eye Eye exam: Present: PERRL, conjuntiva pink, sclera anicteric Pupils: Present: PERRL - Neck Neck exam general surgery: Present: supple, trachea midline. Absent: lymphadenopathy - Respiratory Respiratory exam: Present: CTAB. Absent: accessory muscle use, rales, rhonchi, wheezes - Cardiovascular Cardiovascular exam: Present: RRR, +S1, +S2. Absent: diastolic murmur, gallop, rubs, systolic murmur - GI/Abdominal GI/Abdominal exam: Present: normal bowel sounds, soft, no peritoneal signs. Absent: distended, tenderness - Extremities Exam Extremities exam: Present: warm, radial pulses palpable and symmetrical. Absent: calf tenderness, cyanotic, pedal edema - Neurological Exam Neurological exam: Present: CN II-XII intact, oriented X3, no focal deficits. Absent: pronater drift, facial droop, speech deficit - Skin Skin exam: Present: dry, intact - Patient Status Disposition: Transfer Inpatient Rehab Fac Condition: Fair Functional capacity at discharge: uses cane/walker Overall status at discharge: patient is back to baseline - Discharge Instructions Follow Up With: Luis Miguel Aguilera DO [Primary Care Provider] - (Unable to make follow up appointment due to no one being in the office at this time. Please call office to schedule appointment for 7-10 days from date of discharge. ) Jarred Posada MD [Partnered Physician] - 11/23/18 8:45 am Rickie Pete CNP [Advanced Practice Nurse] - 11/28/18 3:30 pm - Diet and Activity Activity: as per physical therapy
--- NOTE | 2018-11-16 14:20 | Physician Discharge Referral ---
ExtendedCare Referral Info Transfer To: [facility] Provider in Charge: Essie Vasquez Provider in Charge after Transfer: PCP Institutional Level of Care: Skilled - Diagnosis (1) COPD (chronic obstructive pulmonary disease) Priority: Secondary Status: Chronic (2) Diabetes mellitus Priority: Secondary Status: Chronic (3) Declining functional status Priority: Secondary Status: Acute (4) Weakness of right lower extremity Priority: Secondary Status: Chronic (5) Altered mental status Priority: Primary Status: Acute (6) Elevated troponin Priority: Secondary Status: Acute (7) Delirium Priority: Primary Status: Acute Prognosis: Good Aware of Diagnosis: Patient Aware of Prognosis: Patient - Transfer Medications Home Medications: Albuterol Sulfate [Albuterol Inhaler] 2 puff IH Q4H PRN #1 inhaler 09/29/18 [Rx] Duloxetine HCl [Cymbalta] 60 mg PO DAILY #30 capsule.dr 09/29/18 [Rx] Insulin Glargine [Lantus] 40 unit SQ HS #3 mls 09/29/18 [Rx] Metoprolol [Lopressor] 25 mg PO BID #30 tablet 09/29/18 [Rx] Midodrine [ProAmatine] 2.5 mg PO TID 30 Days #90 tablet 11/08/18 [Rx] Aspirin [Lo-Dose Aspirin EC] 81 mg PO DAILY 11/15/18 [History] Budesonide/Formoterol 160/4.5 [Symbicort 160/4.5] 2 puff IH BIDR 11/15/18 [History] Finasteride [Proscar] 5 mg PO DAILY 11/15/18 [History] Fludrocortisone Acetate [Florinef] 0.1 mg PO DAILY 11/15/18 [History] Ipratropium/Albuterol Sulfate [Iprat-Albut 0.5-3(2.5) mg/3 ml] 3 ml IH Q4H PRN 11/15/18 [History] Tamsulosin HCl [Flomax] 0.4 mg PO DAILY 11/15/18 [History] predniSONE [PredniSONE] 10 mg PO DAILY 11/15/18 [History] Allergies/Adverse Reactions: Allergy/AdvReac Type Severity Reaction Status Date / Time No Known Allergies Allergy Verified 11/05/18 19:56 - Respiratory Orders Oxygen / L per min Smoking Cessation: Smoking cessation has been advised. For more information, call the [place] Tobacco Quit Line at 4-982-FHSL-NOW. - Advance Directives Code Status: Full Code - Rehabiliation Orders Rehab Potential: Good Rehab Orders: Evaluation for Physical Therapy, Evaluation for Occupational Therapy CERTIFICATION: I certify that the transfer of the above named patient to an Extended Care Facility is necessary for the continuing treatment of the diagnosis listed. The above information is true and accurate reflection of patient's current condition. Confidential - Redisclosure prohibited without a patient's written consent.
== END 2018-11-16 15:41 | DRG 948 ==
LOC: EMEROOARM 21:50 → 3BNU 21:50
PROVIDERS: ADMIT Internal Medicine; ATTEND Internal Medicine